=== PATIENT | female | born 1945 | race Caucasian/White ===

== ENCOUNTER → 2019-09-26 13:46 | Outpatient (BNVA) | payer MEDICARE, OTHER, SELFPAY | PROVIDERS: Family Provider Nurse Practitioner; PCP Nurse Practitioner; Visit Provider Specialist | DX: G20 Parkinson's disease (principal); G43.711 Chronic migraine without aura, intractable, with status migrainosus | CPT/HCPCS: 64615; 99214; J0585 ==

== ENCOUNTER 2019-10-09 06:00 | Outpatient (RCR) | payer MEDICARE, OTHER, SELFPAY | END 2019-10-11 23:59 | disposition home or self-care (01) | LOC: TPT 06:00 | PROVIDERS: Family Provider Nurse Practitioner; PCP Nurse Practitioner; Visit Provider Specialist | DX: G20 Parkinson's disease (principal) | CPT/HCPCS: 97110; 97112; 97116; 97161 ==

== ENCOUNTER 2019-10-12 06:00 | Outpatient (RCR) | payer MEDICARE, OTHER, SELFPAY | END 2019-11-09 23:59 | disposition home or self-care (01) | LOC: TPT 06:00 | PROVIDERS: Family Provider Nurse Practitioner; PCP Nurse Practitioner; Visit Provider Specialist | DX: G20 Parkinson's disease (principal) | CPT/HCPCS: 97110 ==

== ENCOUNTER → 2019-10-15 17:00 | Outpatient (BNVA) | payer MEDICARE, OTHER, SELFPAY | PROVIDERS: Family Provider Nurse Practitioner; PCP Nurse Practitioner; Visit Provider Nurse Practitioner | DX: I10 Essential (primary) hypertension (principal); E03.8 Other specified hypothyroidism; E11.9 Type 2 diabetes mellitus without complications; G20 Parkinson's disease; G43.711 Chronic migraine without aura, intractable, with status migrainosus | CPT/HCPCS: 80053; 80061; 83036; 84443; 85025 ==

== ENCOUNTER 2019-11-10 06:00 | Outpatient (RCR) | payer MEDICARE, OTHER, SELFPAY | END 2019-12-10 23:59 | disposition home or self-care (01) | LOC: TPT 06:00 | PROVIDERS: Family Provider Nurse Practitioner; PCP Nurse Practitioner; Visit Provider Specialist | DX: G20 Parkinson's disease (principal) | CPT/HCPCS: 97110; 97140; 97164; 97530 ==

== ENCOUNTER 2019-12-11 06:00 | Outpatient (RCR) | payer MEDICARE, OTHER, SELFPAY | END 2020-01-09 23:59 | disposition home or self-care (01) | LOC: TPT 06:00 | PROVIDERS: Family Provider Nurse Practitioner; PCP Nurse Practitioner; Visit Provider Specialist | DX: G20 Parkinson's disease (principal); G89.4 Chronic pain syndrome | CPT/HCPCS: 97110; 97140 ==

== ENCOUNTER → 2019-12-25 13:04 | Outpatient (BNVA) | payer MEDICARE, OTHER, SELFPAY | PROVIDERS: Family Provider Nurse Practitioner; PCP Nurse Practitioner; Referring Provider Internal Medicine Rheumatology; Visit Provider Internal Medicine Rheumatology | DX: M15.4 Erosive (osteo)arthritis (principal); Z79.899 Other long term (current) drug therapy; Z11.59 Encounter for screening for other viral diseases; Z72.89 Other problems related to lifestyle | CPT/HCPCS: 36415; 80076; 82565; 85025; 85651; 86140; 86480; 86704; 86803; 87340 ==

== ENCOUNTER → 2020-01-20 13:17 | Outpatient (BNVA) | payer MEDICARE, OTHER, SELFPAY | PROVIDERS: Family Provider Nurse Practitioner; PCP Nurse Practitioner; Visit Provider Specialist | DX: G20 Parkinson's disease (principal) | CPT/HCPCS: 99214 ==

== ENCOUNTER 2020-01-20 14:53 | Outpatient (CLI) | payer MEDICARE, OTHER, SELFPAY ==
--- NOTE | 2020-01-20 14:58 | XR_ITS ---
WS: [id number] HAND RIGHT TECHNIQUE: 3 views of the right hand CLINICAL INFORMATION: osteoarthritis COMPARISON: None. FINDINGS: Trapezium appears surgically absent versus posttraumatic deformity and is unchanged.Chondrocalcinosis along the TFCC. Narrowing of the DIP joints with mild subluxation worse involving the second and thi rd DIP joints. This is similar to previous. Mild narrowing of the radiocarpal joint. Scaphoid and lucio ate appear normal. Radiocarpal joint: Mild narrowing XR/XR hand RT min 3V* [id number] IMPRESSION: 1. Trapezium is again not identified and may have been surgically removed. 2. Chondrocalcinosis involving the TFCC is unchanged. 3. Joint space narrowing with mild subluxation involving the second and third DIP joints unchanged from 2014. 4. Osteopenia. 5. Soft tissue edema involving the second third digits.
--- NOTE | 2020-01-20 14:58 | XR_ITS ---
WS: [id number] HAND LEFT TECHNIQUE: 3 views of the left hand CLINICAL INFORMATION: osteoarthritis COMPARISON: None. FINDINGS: Normal metacarpals. Normal MCP joint. Metacarpal heads are normal in appearance. Degenerative arthrit is first CMC and STT. Mild narrowing of the radiocarpal joint. Degenerative narrowing involving the P IP and DIP joints worse involving the second and third DIP joints and fourth and fifth PIP joints wit h mild subluxation. Mild progression at the second and third DIPs compared to previous. XR/XR hand LT min 3V* [id number] IMPRESSION: 1. Degenerative arthritis the first CMC and STT. 2. Joint space narrowing worse involving the second and third DIP joints sligh tly progressed from previous. 3. Prominent joint space narrowing involving the PIP joints worse involving th e fourth and fifth PIP joints unchanged.
--- NOTE | 2020-01-20 14:58 | XR_ITS ---
WS: [id number] KNEE LEFT TECHNIQUE: 3 views of the left knee CLINICAL INFORMATION: osteoarthritis COMPARISON: None. FINDINGS: Normal anatomic alignment. Moderate joint space narrowing medial joint compartment. Chondrocalcinosis .. Hypertrophic changes along the joint line. Hypertrophic patella. Moderate narrowing at the patello femoral articulation. No significant joint effusion. XR/XR knee LT 3V* [id number] IMPRESSION: Moderate joint space narrowing medial joint compartment. Hypertroph ic patella.
--- NOTE | 2020-01-20 14:58 | XR_ITS ---
WS: [id number] FOOT LEFT TECHNIQUE: 3 views of the left foot CLINICAL INFORMATION: osteoarthritis COMPARISON: October 31, 2013. FINDINGS: Osteopenia. Normal anatomic alignment. No acute fractures. Soft tissue edema lower leg and hindfoot. Prominent plantar calcaneal spurring. Mild to moderate degenerative arthritis worse at the first TMT with a small amount of subchondral cystic change. Mild degenerative arthritis involving the ankle mor tise with hypertrophic spurring. Mild narrowing of the third and fourth DIP joints. Small periarticul ar erosions involving the metatarsal heads and first MTP. This appears progressed since 2013 XR/XR foot LT min 3V* [id number] IMPRESSION: 1. Osteopenia with soft tissue edema. 2. Mild degenerative arthritis worse involving the first TMT joint with mild s ubchondral cystic change. 3. Suggestion of small periarticular erosions involving the metatarsal heads a nd the first MTP joints progressed from 2013. 4. No other significant changes.
--- NOTE | 2020-01-20 14:58 | XR_ITS ---
WS: [id number] KNEE RIGHT TECHNIQUE: 3 views of the right knee CLINICAL INFORMATION: osteoarthritis COMPARISON: None. FINDINGS: Normal anatomic alignment.. No evidence of acute fracture dislocation. No significant effusion. Hyper trophic patella. Mild tricompartmental arthritis worse at the patellofemoral articulation. XR/XR knee RT 3V* [id number] IMPRESSION: Mild tricompartmental arthritis worse at the patellofemoral articulation with h ypertrophic patella.
--- NOTE | 2020-01-20 14:58 | XR_ITS ---
WS: [id number] FOOT RIGHT TECHNIQUE: 3 views of the right foot CLINICAL INFORMATION: osteoarthritis COMPARISON: February 12, 2018 FINDINGS: Stable degenerative arthritis with subchondral cystic change involving the navicular cuneiform articu lation and the second, third, and fourth TMT joints. Dorsal navicular spurring. Stable asymmetric maryana rowing of the fifth DIP joint. No significant erosive changes. Osteopenia. Mild soft tissue edema low er leg and hindfoot. Mild soft tissue edema midfoot. XR/XR foot RT min 3V* [id number] IMPRESSION: 1. Stable degenerative arthritis with subchondral cystic change more advanced involving the navicular cuneiform articulation. This is similar to previous. 2. Moderate degenerative arthritis with subchondral cystic change and scleros is at the second third and fourth TMT joints unchanged from previous. 3. Osteopenia. 4. Soft tissue edema.
== END 2020-01-20 14:54 | disposition home or self-care (01) ==
LOC: RADWPI 14:57
PROVIDERS: Family Provider Nurse Practitioner; PCP Nurse Practitioner; Visit Provider Internal Medicine Rheumatology
DX: M19.042 Primary osteoarthritis, left hand (principal); M11.241 Other chondrocalcinosis, right hand; M85.841 Other specified disorders of bone density and structure, right hand; R60.9 Edema, unspecified; M85.872 Other specified disorders of bone density and structure, left ankle and foot; M85.871 Other specified disorders of bone density and structure, right ankle and foot; M19.072 Primary osteoarthritis, left ankle and foot; M19.071 Primary osteoarthritis, right ankle and foot
CPT/HCPCS: 73130; 73562; 73630

== ENCOUNTER → 2020-01-23 12:53 | Outpatient (BNVA) | payer MEDICARE, OTHER, SELFPAY | PROVIDERS: Family Provider Nurse Practitioner; PCP Nurse Practitioner; Visit Provider Specialist | DX: G43.711 Chronic migraine without aura, intractable, with status migrainosus (principal); G20 Parkinson's disease | CPT/HCPCS: 64615; J0585 ==

== ENCOUNTER 2020-03-27 11:54 | Outpatient (CLI) | payer MEDICARE, OTHER, SELFPAY ==
--- NOTE | 2020-03-27 12:00 | XR_ITS ---
WS: [id number] Left rib detail, 4 views, 03/27/2020 Clinical Data: fall, left sided rib pain Comparison: None. Findings: There is an anterior cervical disc fusion. There are epidural leads in the thoracic subarachnoid spac e and a the inferior aspect of the T7 vertebral body. No rib fractures are seen. There is no subcutan eous emphysema or pneumothorax. There is a large amount of fecal material in the splenic flexure. XR/XR ribs LT 2V* [id number] Impression: Negative left rib detail.
== END 2020-03-27 11:55 | disposition home or self-care (01) ==
LOC: RADWPI 11:58
PROVIDERS: Family Provider Nurse Practitioner; PCP Nurse Practitioner; Visit Provider Nurse Practitioner Family
DX: R07.81 Pleurodynia (principal); W19.XXXA Unspecified fall, initial encounter
CPT/HCPCS: 71100

== ENCOUNTER → 2020-04-16 13:02 | Outpatient (BNVA) | payer MEDICARE, OTHER, SELFPAY | PROVIDERS: Family Provider Nurse Practitioner; PCP Nurse Practitioner; Visit Provider Internal Medicine Rheumatology | DX: M15.4 Erosive (osteo)arthritis (principal); G20 Parkinson's disease; I10 Essential (primary) hypertension; Z79.899 Other long term (current) drug therapy; M15.9 Polyosteoarthritis, unspecified; M81.0 Age-related osteoporosis without current pathological fracture; M79.7 Fibromyalgia; E55.9 Vitamin D deficiency, unspecified | CPT/HCPCS: 36415; 80076; 82306; 82565; 85025; 85651; 86140; 99214 ==

== ENCOUNTER → 2020-04-22 12:44 | Outpatient (BNVA) | payer MEDICARE, OTHER, SELFPAY | PROVIDERS: Family Provider Nurse Practitioner; PCP Nurse Practitioner; Visit Provider Specialist | DX: G20 Parkinson's disease (principal); G43.711 Chronic migraine without aura, intractable, with status migrainosus | CPT/HCPCS: 99214 ==

== ENCOUNTER → 2020-11-04 14:16 | Outpatient (BNVA) | payer MEDICARE, OTHER, SELFPAY | PROVIDERS: Family Provider Nurse Practitioner; PCP Nurse Practitioner; Visit Provider Specialist | DX: G20 Parkinson's disease (principal) | CPT/HCPCS: 99214 ==

== ENCOUNTER 2020-11-17 06:35 | Outpatient (CLI) | payer MEDICARE, OTHER, SELFPAY ==
[2020-11-17 10:00] LABS: Basophils # 0.1 10^3/uL (0.0-0.1); Eosinophils # 0.4 10^3/uL (0.0-0.8); Eosinophils % 6.1 %; Hematocrit 36.7 % (37.0-47.0); Hemoglobin 10.7 g/dL (11.5-15.3); Lymphocytes # 1.9 10^3/uL (0.8-4.8); Lymphocytes % 32.9 %; Mean Corpuscular HGB Conc 29.2 g/dL (30.0-36.0); Mean Corpuscular Hemoglobin 24.8 pg (28.0-34.0); Mean Platelet Volume 9.6 fL (7.4-10.4); Monocytes # 0.5 10^3/uL (0.2-0.9); Neutrophils # 2.92 10^3/uL (1.8-7.7); Neutrophils % 50.8 %; Nucleated Red Blood Cells % 0 %; Platelet Count 340 10^3/cmm (130-400); Red Blood Count 4.32 10^6/uL (4.1-5.3); Red Cell Distribution Width 13.8 % (12.1-15.1); White Blood Count 5.8 10^3/uL (4.0-10.0)
[2020-11-17 10:36] LABS: Alanine Aminotransferase < 5 U/L (0-33); Albumin Level 4.4 g/dL (3.5-5.2); Alkaline Phosphatase 144 IU/L (35-105); Aspartate Amino Transferase 15 U/L (0-32); C Reactive Protein 6.6 mg/L (0.0-4.9); Globulin 2.8 g/dL (1.3-4.6); Total Bilirubin 0.3 mg/dL (0.15-1.2); Total Protein 7.2 g/dL (6.6-8.7)
== END 2020-11-17 06:36 | disposition home or self-care (01) ==
LOC: LAB 11-18 08:12
PROVIDERS: Family Provider Nurse Practitioner; PCP Nurse Practitioner; Visit Provider Internal Medicine Rheumatology
DX: Z79.899 Other long term (current) drug therapy (principal)
CPT/HCPCS: 36415; 80076; 82565; 85025; 86140

== ENCOUNTER → 2020-12-03 11:18 | Outpatient (BNVA) | payer MEDICARE, OTHER, SELFPAY | PROVIDERS: Family Provider Nurse Practitioner; PCP Nurse Practitioner; Visit Provider Specialist | DX: G43.709 Chronic migraine without aura, not intractable, without status migrainosus (principal); G20 Parkinson's disease | CPT/HCPCS: 64615; 99213; J0585 ==

== ENCOUNTER → 2021-02-11 14:31 | Outpatient (BNVA) | payer MEDICARE, OTHER, SELFPAY | PROVIDERS: Family Provider Nurse Practitioner; PCP Nurse Practitioner; Visit Provider Orthopaedic Surgery | DX: M54.5 Low back pain (principal); M41.86 Other forms of scoliosis, lumbar region; M51.36 Other intervertebral disc degeneration, lumbar region | CPT/HCPCS: 72110 ==

== ENCOUNTER → 2021-02-15 14:57 | Outpatient (BNVA) | payer MEDICARE, OTHER, SELFPAY | PROVIDERS: Family Provider Nurse Practitioner; PCP Nurse Practitioner; Visit Provider Internal Medicine Rheumatology | DX: M15.9 Polyosteoarthritis, unspecified (principal); M81.0 Age-related osteoporosis without current pathological fracture; Z87.310 Personal history of (healed) osteoporosis fracture; Z79.899 Other long term (current) drug therapy; Z87.39 Personal history of other diseases of the musculoskeletal system and connective tissue; M79.7 Fibromyalgia | CPT/HCPCS: 36415; 80076; 82565; 85025; 86140; 99214 ==

== ENCOUNTER 2021-03-02 08:19 | Outpatient (CLI) | payer MEDICARE, OTHER, SELFPAY ==
--- NOTE | 2021-03-02 09:00 | IR_ITS ---
WS: [id number] MYELOGRAM LUMBAR SPINE Fluoroscopic guided lumbar myelogram CLINICAL INFORMATION: M54.41 - Lumbago with sciatica, right side COMPARISON: None. TECHNIQUE: The procedure, including risks, benefits, and complications, were discussed with the patie nt who agreed to proceed. A timeout was performed to confirm correct patient, procedure, and site. Using sterile technique, the patient was prepped and draped in the usual sterile fashion. After admin istration of local anesthesia using 1% preservative-free lidocaine and using fluoroscopic guidance, a 22-gauge spinal needle was advanced into the subarachnoid space at the L2-3 level. Subsequently 13 c c of Omnipaque 240 was administered into the thecal sac. The needle was removed and hemostasis was ac hieved. Spot fluoroscopic images were obtained. FLUOROSCOPIC TIME: 0.5 minutes. Spot fluoroscopic images demonstrate advanced S-shaped thoracolumbar scoliosis convex left lumbar spi ne. Spinal stimulator. Osteopenia. Cholecystectomy clips. Spinal stimulator electrodes over the T9 ve rtebral body. Grade 1 anterolisthesis L4 on L5 and L5 on S1. Disc space narrowing throughout the lumb ar spine worse at L3-L4 L4-L5 and L5-S1. Grade 1 anterolisthesis L4 on L5 measures 6 mm in neutral and increases to 9 mm in flexion and decrea ses to 8 mm in extension. Please see CT myelogram report for additional detail. IR/IR myelogram sp lumbar [id number] IMPRESSION: 1. Uncomplicated lumbar myelogram. 2. Flexion/extension instability L4-5 described above. 3. Grade 1 anterolisthesis L5 on S1 measuring 5.5 mm without significant insta bility. 4. Disc space narrowing throughout the lumbar spine. 5. S-shaped advanced thoracolumbar scoliosis.
[2021-03-02] MEDS: iohexol 240 mg/mL 50 mL Btl INTRATHECA (09:10)
--- NOTE | 2021-03-02 11:30 | CT_ITS ---
WS: [id number] CT LUMBAR SPINE MYELOGRAM TECHNIQUE: CT myelogram of the lumbar spine with coronal and sagittal reformatted images. CLINICAL INFORMATION: M54.41 - Lumbago with sciatica, right side COMPARISON: 2016 DLP: 1800.[address] scans at [facility] use at least one of these dose optimization techniques: automat ed exposure control; mA and/or kV adjustment per patient size (includes targeted exams where dose is matched to clinical indication); or iterative reconstruction. FINDINGS: S-shaped thoracolumbar scoliosis. This is markedly progressed since 2016. Spinal stimulator extending off the loutn-le-ebif. No high-grade central canal stenosis. Grade 1 anterolisthesis L4 on L5 and L5 on S1. L1-L2: Left foraminal protrusion impinges the exiting left L1 nerve root with moderate left foraminal narrowing. Narrowing of the left subarticular recess. Mild facet arthropathy. Spinal canal is patent . L2-L3: Slight retrolisthesis L2 on L3. Shallow central disc protrusion with slight effacement of the ventral thecal sac. Moderate left foraminal narrowing. Spinal canal is patent. Moderate facet arthrop athy. L3-L4: Mild disc bulging with a tiny shallow central protrusion. Left foraminal protrusion with moder ate left foraminal narrowing. Spinal canal is patent. Mild facet arthropathy. L4-L5: Grade 1 anterolisthesis. Annular bulging with tiny shallow central protrusion. Slight effaceme nt of the ventral thecal sac. Moderate right foraminal narrowing impinges the exiting right L4 nerve root. Left foramen is patent. Moderate facet arthropathy. L5-S1: Grade 1 anterolisthesis. Moderate to advanced facet arthropathy. Right eccentric disc osteophy te complex impinges the exiting right L5 nerve root with moderate right foraminal narrowing. Mild lef t foraminal narrowing. Right renal cyst measuring 2.2 CM. Adrenal glands are normal. CT/CT lumbar spine w con [id number] IMPRESSION: 1. Advanced S-shaped thoracolumbar scoliosis with multilevel degenerative disc disease. Scoliosis has markedly progressed since 2016. 2. Grade 1 anterolisthesis L4 on L5 and L5 on S1. 3. Disc space narrowing worse at L2-L3 and L3-L4. 4. Moderate left foraminal narrowing L1-L2, L2-L3, and L3-L4 5. Moderate right L4-5 foraminal narrowing impinges the exiting right L4 nerve root. 6. Moderate right L5-S1 bony foraminal narrowing impinges the exiting right L5 nerve root. 7. No significant central canal stenosis.
== END 2021-03-02 08:20 | disposition home or self-care (01) ==
PROVIDERS: PCP Nurse Practitioner; Visit Provider Orthopaedic Surgery
DX: M54.41 Lumbago with sciatica, right side (principal); M51.35 Other intervertebral disc degeneration, thoracolumbar region; M41.85 Other forms of scoliosis, thoracolumbar region
CPT/HCPCS: 62304; 72120; 72132; Q9966

== ENCOUNTER → 2021-03-18 12:41 | Outpatient (BNVA) | payer MEDICARE, OTHER, SELFPAY | PROVIDERS: PCP Nurse Practitioner; Visit Provider Specialist | DX: G43.709 Chronic migraine without aura, not intractable, without status migrainosus (principal); G20 Parkinson's disease | CPT/HCPCS: 64615; 99212; J0585 ==

== ENCOUNTER → 2021-03-25 14:32 | Outpatient (BNVA) | payer MEDICARE, OTHER, SELFPAY | PROVIDERS: PCP Nurse Practitioner; Visit Provider Orthopaedic Surgery | DX: Z01.818 Encounter for other preprocedural examination (principal); Z11.52 Encounter for screening for COVID-19; Z20.822 Contact with and (suspected) exposure to COVID-19 | CPT/HCPCS: 87635 ==

== ENCOUNTER → 2021-03-29 15:47 | Outpatient (BNVA) | payer MEDICARE, OTHER, SELFPAY | PROVIDERS: PCP Nurse Practitioner; Visit Provider Nurse Practitioner Family | DX: Z01.818 Encounter for other preprocedural examination (principal); M41.80 Other forms of scoliosis, site unspecified | CPT/HCPCS: 71046 ==

== ENCOUNTER 2021-03-31 12:12 | Inpatient (IN) | payer MEDICARE, OTHER, SELFPAY ==
[2021-03-29 10:27] VITALS: BMI 30.8
--- NOTE | 2021-03-29 10:55 | ANES.PREANE2 ---
Pre-Anesthetic Assessment Pre-Anesthetic Assessment: Height/Weight: Height 1.52 m Weight 71.668 kg Preop Diagnosis: scoliosis Proposed Procedure: Operation Date: 03/31/21 07:00 Proposed Procedures p T9 - pelvis posterior spine fusion 87551, 75932, 72151, 79521, 46422, M41.80(Not Applicable) - Rigo Reyes, DO Familial anesthetic complications: None Social: Social History: No alcohol and No tobacco Exam: Pre-Anes Outpt Exam: alert, oriented x 3, clear to auscultation bilaterally and regular rate & rhythm Airway: Cervical ROM: WNL MP: 2 Dentition: Partials and Other (missing L side back) CV/HEM: CV/HEM: HTN GI: GI: GERD Metabolic: Metabolic: DM (diet controlled) and Thyroid Neuropsych: Comments: parkinson's disease Anesthetic Plan: ASA status: 3 Anesthesia: General Other: A-line Risk of > 500 ml blood loss (7ml/kg in children): Yes, adequate IV access and fluids planned PFSH Anesthesia PFSH: Medical History Acid reflux Chronic low back pain with bilateral sciatica Erosive osteoarthritis of both hands High risk medication use History of calcium pyrophosphate deposition disease (CPPD) Hypertension Hypothyroidism (acquired) Immunization counseling Osteoarthritis, generalized Post-menopausal osteoporosis Type 2 diabetes mellitus without complications Surgical History History of carpal tunnel surgery History of thyroidectomy Hx of cholecystectomy Status post insertion of spinal cord stimulator Family History Other CAD (coronary artery disease) Cancer Diabetes Denies family history of Rheumatoid arthritis Systemic lupus erythematosus (SLE) in adult Social History Second hand smoke exposure: No Smoking risk assessment/counseling performed?: No Alcohol intake: never Desire information about alcohol rehabilitation?: No Counseling given: No Desire information about substance/drug rehabilitation?: No Counseling given: No Marital status: / Number of children: 3 service: No Current occupational status: unemployed and retired History of recent travel: No Current gender identity: Female Data Anesthesia Cardiac Studies: No Data to Display
[2021-03-29 11:04] LABS: Basophils # 0.1 10^3/uL (0.0-0.1); Eosinophils # 0.1 10^3/uL (0.0-0.8); Eosinophils % 2.7 %; Hematocrit 35.9 % (37.0-47.0); Hemoglobin 10.9 g/dL (11.5-15.3); Lymphocytes # 1.1 10^3/uL (0.8-4.8); Lymphocytes % 20.5 %; Mean Corpuscular HGB Conc 30.4 g/dL (30.0-36.0); Mean Corpuscular Hemoglobin 25.1 pg (28.0-34.0); Mean Corpuscular Volume 82.5 fL (81-99); Monocytes # 0.4 10^3/uL (0.2-0.9); Monocytes % 7.5 %; Neutrophils # 3.55 10^3/uL (1.8-7.7); Neutrophils % 67.9 %; Nucleated Red Blood Cells % 0 %; Platelet Count 331 10^3/cmm (130-400); Red Blood Count 4.35 10^6/uL (4.1-5.3); Red Cell Distribution Width 14.8 % (12.1-15.1); White Blood Count 5.2 10^3/uL (4.0-10.0)
[2021-03-29 11:25] LABS: Alanine Aminotransferase < 5 U/L (0-33); Albumin Level 4.4 g/dL (3.5-5.2); Alkaline Phosphatase 116 IU/L (35-105); Anion Gap 13.9 (5-19); Aspartate Amino Transferase 18 U/L (0-32); Blood Urea Nitrogen 13 mg/dL (8-23); Carbon Dioxide 31 mmol/L (22-29); Chloride 99 mmol/L (98-107); Creatinine Clr Calc Pharmacy 51.2061; Globulin 2.7 g/dL (1.3-4.6); Glucose 101 mg/dL (65-115); Osmolality Calculated 288 mOsm/kg (285-295); Potassium 4.9 mmol/L (3.5-5.1); Sodium 139 mmol/L (136-145); Total Bilirubin 0.3 mg/dL (0.15-1.2); Total Protein 7.1 g/dL (6.6-8.7)
[2021-03-31] VITALS (23 sets, daily range): BP systolic 107–171; BP diastolic 61–93; PULSE 63–98; RESP 12–25; TEMP 36.1–36.7; O2SAT 93–100
--- NOTE | 2021-03-31 | XR_ITS ---
WS: [id number] Lumbar spine, C-arm fluoroscopy, 03/31/2021 Clinical Data: Fusion and decompression Comparison: Lumbar spine, 02/11/2021. Findings: There is a multilevel posterior fusion with bilateral pedicle screws extending from the lower thoraci c vertebra into the lumbar vertebra and oblique screws at the SI joints. Multilevel lumbar laminectom y has been performed. XR/XR lumbar spine 1V 90145 Impression: Multilevel posterior thoracic, lumbar and sacral fusion.
--- NOTE | 2021-03-31 | SCC_ITS ---
Procedure Done: 1. T10 - S1 Instrumentation 2. Lumbopelvic fixation 3. T10 -Pelvis fusion 4. L3/4 bilateral laminectomy with partial facetectomy 5. L4/5 bilateral Laminectomy with partial facetectomy 6. computer navigation/ stereotactic of spine 7. Bone marrow aspirate from Right iliac crest through separate incicision 26 seconds of fluoroscopic guidance, for a cumulative dose of 60 mGy, was provided to Dr. Reyes by the radiology department. C-arm images of the lumbar spine were saved for the patient's permanent record. [facility]
[2021-03-31] MEDS: sodium chloride 0.9% 1,000 ML 30 ML IV (06:20)
--- NOTE | 2021-03-31 06:24 | ECG_ITS ---
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 Measurements Intervals Adams Rate: 65 P: 151 MT: 146 QRS: 157 QRSD: 119 T: 140 QT: 369 QTc: 384 Interpretive Statements SINUS RHYTHM MARKED RIGHT AXIS DEVIATION [QRS AXIS > 100] POSSIBLE ANTERIOR MYOCARDIAL INFARCTION [30 ms Q WAVE IN V3/V4, OR R < 0.2 mV IN V4], OF INDETERMINATE AGE BASELINE ARTIFACT No previous ECG available for comparison Electronically Signed On 03-31-2021 18:29:56 CDT by Teja Fuller M.D. [email or web address]
--- NOTE | 2021-03-31 06:48 | W.PM.OPSUD ---
Surgery/Procedure H&P Update DATE OF PROCEDURE: March 31, 2021 DATE H&P PERFORMED: 03/18/21 H&P UPDATE INFORMATION: I have reviewed H&P completed within last 30 days, I have examined patient prior to procedure and No changes to prior documentation PREOP DIAGNOSIS: degenerative scolisis PLANNED PROCEDURE: Operation Date: 03/31/21 07:00 Proposed Procedures p T9 - pelvis posterior spine fusion 82377, 56166, 06054, 28316, 92387, M41.80(Not Applicable) - Rigo Reyes DO
--- NOTE | 2021-03-31 06:55 | P.ANESUD_ITS ---
Pre-Anesthetic Update Pre-Anesthetic Assessment: Date of Surgery/Procedure: 03/31/21 Preop Mercedes gnosis: degenerative scolisis Proposed Procedure: Operation Date: 03/31/21 07:00 Proposed Procedures p T9 - pelvis posterior spine fusion 62791, 72017, 93142, 67086, 21258, M41.80(Not Applicable) - Rigo H Amy, DO Any changes to Pre-Anesthetic Assessment?: No Last Intake: Intake Last Liquid Date 03/30/21 Last Liquid Time 21:30 Last Solid Date 03/30/21 Last Solid Time 21:30 Labs Last 48hrs: Laboratory Results - last 48 hr 03/29/21 03/29/21 10:45 10:45 WBC 5.2 RBC 4.35 Hgb 10.9 L Hct 35.9 L MCV 82.5 MCH 25.1 L MCHC 30.4 RDW 14.8 Plt Count 331 MPV 9.0 Neut % (Auto) 67.9 Lymph % (Auto) 20.5 [place] % (Auto) 7.5 Eos % (Auto) 2.7 Baso % (Auto) 1.0 Neut # (Auto) 3.55 Lymph # (Auto) 1.1 [place] # (Auto) 0.4 Eos # (Auto) 0.1 Baso # (Auto) 0.1 Nucleated RBC % (a uto) 0 Nucleated RBCs # 0.0 Sodium 139 Potassium 4.9 Chloride 99 Carbon Dioxide 31 H Anion Gap 13.9 BUN 13 Creatinine 0.8 GFR Calculation Not Reportable Glucose 101 Calculated Osmolal ity 288 Calcium 9.0 Total Bilirubin 0.3 AST 18 ALT < 5 Alkaline Phosphata se 116 H Total Protein 7.1 Albumin 4.4 Globulin 2.7 Vitals: Temperature 98.1 F 03/31/21 06:02 Temperature Source Temporal Artery S can 03/31/21 06:02 Pulse Rate 67 03/31/21 06:02 Respiratory Rate 18 03/31/21 06:02 Blood Pressure 171/93 03/31/21 06:02 Blood Pressure Libra n 119 03/31/21 06:02 Pulse Oximetry 93 03/31/21 06:02 Oxygen Delivery Me thod 03/31/21 06:02 Exam: Pre-Anes Outpt Exam: alert, oriented x 3, clear to auscultation bilaterally and regular rate & rhythm Cardiac Studies: No Data to Display
[2021-03-31] MEDS: vancomycin 1,000 MG SDV 2000 MG (08:20)
[2021-03-31] MEDS: heparin, porcine 1,000 unit/mL INJ 10 mL 10000 UNIT IRRIGATION (08:21)
[2021-03-31] MEDS: ceFAZolin 1,000 mg SDV 2000 MG (11:07)
--- NOTE | 2021-03-31 11:49 | PC.NURSE ---
1149 SPOKE WITH PATIENT'S DAUGHTER AND GAVE HER AN UPDATE.
--- NOTE | 2021-03-31 12:33 | P.OP_ITS ---
Operative Report Date of procedure: March 31, 2021 Pre-op Diagnosis: degenerative scolisis; lumbar stenosis Post-op diagnosis: same Procedure Done: 1. T10 - S1 Instrumentation 2. Lumbopelvic fixation 3. T10 -Pelvis fusion 4. L3/4 bilateral laminectomy with partial facetectomy 5. L4/5 bilateral Laminectomy with partial facetectomy 6. computer navigation/ stereotactic of spine 7. Bone marrow aspirate from Right iliac crest through separate incicision Surgeon: Rigo Reyes Anesthesia: General Estimated blood loss (mL): 500 Condition: stable Disposition: PACU Procedure: . T10 - S1 Instrumentation 2. Lumbopelvic fixation 3. T10 -Pelvis fusion 4. L3/4 bilateral laminectomy with partial facetectomy 5. L4/5 bilateral Laminectomy with partial facetectomy 6. computer navigation/ stereotactic of spine 7. Bone marrow aspirate from Right iliac crest through separate incicision She was brought to the operative suite. After undergoing anesthesia all areas impingement were well-padded. Patient was then prepped and draped in normal sterile fashion. Neuro monitoring was attached and used throughout the entire case. Subperiosteal dissection was performed from T10 down to the sacral ala out to the transverse processes. Once the exposure was completed. Attention was brought to the nerve stimulator that was present. Wires are intact. We used the remote controller to test the integrity while on the phone with a [employer] product support representative. Leads were found to be intact. Bone marrow aspirate was taken with the [employer] bone marrow aspiration kit. Incision is made in the fascia through the incision. And then the region is still gouge was inserted into the iliac crest. Aspirated and then the blunt gouge was inserted in the region assault kit was inserted into the iliac crest. And then bone marrow was aspirated in 1 mm increments up to 20 cc of blood was aspirated. This blood was then mixed with the osteoamp bone graft as well as the autograft. At this point the fiducial for the computer navigation was attached to the right iliac crest. 2 pins were placed into the iliac crest. The fiducial for the computer navigation was attached to these pins. The fiducial was then linked to the computer. And then the [employer] fluoroscopy machine was used and a 2 spins were done in order to get T10 down to the pelvis. These were linked into the computer navigation. Attention was then brought to placing the pedicle screws. This was done by using the gearshift probe attached to the computer navigation. Followed by a ball feeler followed by navigation screws. Attention was brought to S1 first the S1 screws were placed using the above-described technique. Next attention was brought to the iliac screws which were part of the pelvis. The guide was then placed through the sacral ala through the SI joint into the iliac crest. These were 100 mm x 8.5 screws. Once the screws were completed then attention was brought back to the L5 pedicles in the computer navigated gearshift probe followed by a ball feeler followed by computer navigated screws was performed and this process was repeated from L5 all the way up to T10. Plate and screws bilaterally. After the screws were completed. The microscope was brought in and bilateral laminectomies were performed at L3-L4 and L5. And partial facetectomies were performed bilaterally at L3-4 and L4-5. This was done using a rongeur high- speed drill Kerrison rongeurs and curettes. The ligamentum flavum and the medial aspects of the facets were taken down. There was significant scar tissue from previous surgeries performed. Once this was completed then a nerve hook was used to feel that the nerves were adequately decompressed. After this was completed attention was then brought to placing the rods. The rods were bent and allowed for some reduction of the scoliotic curve. Once as the rods were attached to the screws the scoliosis deformity reduced. The rods were placed bilaterally and caps were placed and then the caps were torqued this was done from T10-11 and S1 including the iliac screws. AP and lateral fluoroscopy ensured that the screws and scoliosis deformity was in good alignment. Wounds were irrigated deep drain was placed vancomycin powder was placed and wound was closed with O stratafix. This was used to close the thoracolumbar fascia. Next attention was brought to the skin which was closed with 2-0 Vicryl and 2 oh strata fix. A 2-0 Vicryl was used to attach to the neurostimulator wire back to soft tissue. And then the skin was closed with 3-0 nylon a Silverlon dressing was used to cover the wound sterilely. And patient was transferred to the PACU in stable condition.
--- NOTE | 2021-03-31 12:54 | P.PCN_ITS ---
PACU note PACU note: VSS, Good respiratory effort, report to INSIDE PHONE SALES
--- NOTE | 2021-03-31 12:54 | PM.PACU ---
PACU note PACU note: VSS, Good respiratory effort, report to CURRICULUM COORDINATOR
--- NOTE | 2021-03-31 13:06 | SUR.PHASEI ---
1255 ART. LINE REMOVED FROM L. WRIST, CATHETER IN TACT, PRESSURE APPLIED
--- NOTE | 2021-03-31 13:08 | SUR.PHASEI ---
1310 ART. LINE SITE NO BLEEDING, PRESSURE DRESSING APPLIED
[2021-03-31] MEDS: HYDROmorphone 1 mg/mL INJ 1 mL 0.25 MG IVP ×2 (13:59→14:09)
[2021-03-31] MEDS: gabapentin 300 mg Capsule 900 MG PO ×2 (15:01→21:38)
[2021-03-31] MEDS: lactated ringers 1,000 ML 90 ML IV (15:02)
[2021-03-31] MEDS: fentaNYL 50 mcg Patch 1 PATCH TRANSDERMA (15:02)
[2021-03-31] MEDS: carbidopa-levodopa 25-100mg Tablet 1 EACH PO ×3 (15:04→21:53)
[2021-03-31] MEDS: morphine 4 mg/mL SDV 1 mL 2 MG IVP (15:42)
--- NOTE | 2021-03-31 15:42 | P.CONIM_ITS ---
Providers/Reason For Consult Consulting Physician/Specialty*: Hospital management Reason for Consult*: Postoperative management Attending Physician: Rigo Reyes DO Primary Care Provider: VALDO Mendoza History of Present Illness History of Present Illness Blossom Velez is a 76 year old female who is status post T10-S1 instrumentation with lumbopelvic fixation bilateral laminectomy with partial facetectomy day 0 who carries history of Parkinson's, hypothyroidism, hypertension has been taken off Metformin. Hospitalist services consulted for postop medical management. At the time of my evaluation patient is stating that her back is hurting/which is excruciating her morphine is inadequate. She is currently saturating above 90% on 2 L nasal cannula with normal hemodynamics, she is endorsing constipation, she normally gets bowel movement once a week. Escalated opioids from morphine to Dilaudid Currently on LR at 90 mL/h, will discontinue diuretics for now Review of Systems Const: Denies: fever(s) Eyes: Denies: change in vision ENMT: Denies: throat pain Card: Denies: chest pain Resp: Denies: dyspnea GI: Denies: abdominal pain : Denies: flank pain Musc: Reports: neck pain and back pain; Denies: joint warmth Skin/Breast: Denies: rash Neuro: Denies: headache(s) Psych: Denies: anxiety Endo: Denies: polyuria Albert/Lymph: Denies: easy bruising All/Imm: Denies: urticaria Meds/Allergies Home Medications and Allergies Home Medications Medication Instructions Recorded Confirmed Last Taken Type donepezil 5 mg tablet 5 mg PO QDAY 09/26/19 03/31/21 03/30/21 History fentanyl 50 mcg/hr transdermal 1 patch TRANSDERMA Q72H 09/26/19 03/31/21 03/30/21 History patch gabapentin 300 mg capsule 900 mg PO TID cap 09/26/19 03/31/21 03/30/21 History onabotulinumtoxinA 100 unit 155 unit SUBCUT .Every 12 weeks 09/26/19 03/29/21 Unknown History solution for injection each oxycodone 30 mg tablet 45 mg PO Q6H PRN tab 09/26/19 03/31/21 03/30/21 History amlodipine 5 mg tablet 5 mg PO QDAY #30 tab 10/18/19 03/31/21 03/31/21 Rx duloxetine 60 mg capsule,delayed 60 mg PO QDAY #30 cap 10/18/19 03/31/21 03/30/21 Rx release levothyroxine 75 mcg tablet 75 mcg PO QDAY #30 tab 10/18/19 03/31/21 03/30/21 Rx carbidopa ER 25 mg-levodopa 100 mg 1 tab PO .HS tab 01/13/20 03/31/21 03/30/21 History tablet,extended release cyclobenzaprine 10 mg tablet 10 mg PO TID PRN 01/13/20 03/31/21 03/30/21 History famotidine 20 mg tablet 20 mg PO BID #60 tab 02/22/20 03/31/21 03/30/21 Rx sennosides 8.6 mg tablet 8.6 mg PO BID #60 tab 05/12/20 03/31/21 03/30/21 Rx furosemide 20 mg tablet 20 mg PO QAM PRN #30 tab 08/28/20 03/31/21 03/30/21 Rx potassium chloride 8 mEq 8 meq PO DAILY PRN #30 cap 08/28/20 03/31/21 03/30/21 Rx capsule,extended release chlorhexidine gluconate 0.12 % 15 ml BUCCAL BID PRN #473 ml 09/01/20 03/31/21 03/30/21 Rx mouthwash cholecalciferol (vitamin D3) 125 5,000 unit PO DAILY cap 10/19/20 03/31/21 03/30/21 History mcg (5,000 unit) capsule Mitigare 0.6 mg capsule 0.6 mg PO DAILY #30 cap NS 02/16/21 03/31/21 03/30/21 Rx hydroxychloroquine 200 mg tablet 200 mg PO BID #60 tab 02/16/21 03/31/21 03/30/21 Rx carbidopa 25 mg-levodopa 100 mg 2 tab PO .COMPLEX #300 tab 03/09/21 03/31/21 03/30/21 Rx tablet [id number] Bone Growth Stimulator #1 ea 03/31/21 Unknown Rx Allergies Allergy/AdvReac Type Severity Reaction Status Date / Time capsaicin [From Capzasin] Allergy RASH Verified 03/29/21 14:34 menthol [From Capzasin] Allergy RASH Verified 03/29/21 14:34 Sulfa (Sulfonamide Allergy RASH Verified 03/29/21 14:34 Antibiotics) Current Medications Current Medications Generic Name Dose Route Start Last Admin Trade Name Earl PRN Reason Stop Dose Admin Carbidopa/Levodopa 1 each 03/31/21 15:00 03/31/21 15:04 Carbidopa-Levodopa 25-100mg Tablet PO 1 each 1500,1800 TITO Administration Fentanyl 1 patch 03/31/21 13:15 03/31/21 15:02 Fentanyl 50 Mcg Patch TRANSDERMA 1 patch Q72H TITO Administration Gabapentin 900 mg 03/31/21 15:00 03/31/21 15:01 Gabapentin 300 Mg Capsule PO 900 mg TID TITO Administration Lactated Ringer's 1,000 mls @ 90 mls/hr 03/31/21 13:00 03/31/21 15:02 Lactated Ringers IV 90 mls/hr .Q11H7M TITO Administration Cefazolin Sodium/Dextrose 2 gm in 50 mls @ 100 mls/hr 03/31/21 15:00 03/31/21 15:33 Kefzol IV 04/01/21 07:29 Infused Q8H TITO Infusion Protocol PFSH Acute PFSH: Medical History (Updated 03/31/21 @ 18:04 by Severo Sterling MD) Acid reflux Chronic low back pain with bilateral sciatica Degenerative scoliosis Erosive osteoarthritis of both hands High risk medication use History of calcium pyrophosphate deposition disease (CPPD) Hypertension Hypothyroidism (acquired) Immunization counseling Osteoarthritis, generalized Post-menopausal osteoporosis Type 2 diabetes mellitus without complications Surgical History History of carpal tunnel surgery History of thyroidectomy Hx of cholecystectomy Status post insertion of spinal cord stimulator Family History Other CAD (coronary artery disease) Cancer Diabetes Denies family history of Rheumatoid arthritis Systemic lupus erythematosus (SLE) in adult Social History Smoking and tobacco status: never smoked Second hand smoke exposure: No Smoking risk assessment/counseling performed?: No Alcohol intake: never Desire information about alcohol rehabilitation?: No Counseling given: No Desire information about substance/drug rehabilitation?: No Counseling given: No Marital status: / Number of children: 3 service: No Current occupational status: unemployed and retired History of recent travel: No Current gender identity: Female Vitals/I&O/Wt Last Vital Signs Temp 97.7 F 03/31/21 14:30 Pulse 72 03/31/21 14:30 Resp 14 03/31/21 14:30 BP 125/68 03/31/21 14:30 Pulse Ox 97 03/31/21 14:30 03/31/21 03/31/21 03/31/21 06:59 14:59 22:59 Intake Total 1350 / 1350 50 / 1400 Output Total 1100 / 1100 Balance 250 / 250 50 / 300 Physical Exam Narrative: EXAM NARRATIVE: elderly female, daughter at the bedside Saturating well on 2 L nasal cannula LR running at 90 cc/h Complaining of back pain She has a binder which is covering her lower chest and abdomen, S1, S2 no murmur appreciated Lower extremities no edema gangrene ulcer Dorsalis pedis pulses 2+ bilaterally 200 cc of blood in the drain Could not hear bowel sounds because of the binder Appropriate mood and affect Urinary Catheter Management^: Lopez: Cath Placed During This Visit: yes Urinary Catheter Date of Insertion: 03/31/21 Urinary Catheter Time of Insertion: 07:15 A&P Assessment and plan (1) Degenerative scoliosis in adult patient: Status: Acute (2) History of calcium pyrophosphate deposition disease (CPPD): Status: Acute (3) Acid reflux: Status: Chronic (4) Hypertension: Status: Chronic (5) Type 2 diabetes mellitus without complications: Status: Chronic Qualifiers: Diabetes mellitus terminal system operator insulin use: without detention use Qualified Code(s): E11.9 - Type 2 diabetes mellitus without complications (6) Hypothyroidism (acquired): Status: Chronic (7) Parkinson disease, symptomatic: Status: Chronic (8) Osteoarthritis, generalized: Status: Acute Additional A&P Information Day 0 status post back surgery Please refer to orthopedic procedure note for details Patient complaining of associating back pain I will discontinue morphine and use Dilaudid which can be escalated depending on her response She gets bowel movement once a week, continue senna S twice a day regimen For anti-inflammatory analgesic response continue ketorolac, will follow up with her kidney function in the morning with BMP Postop care Currently saturating 2 L at risk of hypoventilation because of her back brace, wean off her oxygen, recommend incentive spirometer Type 2 diabetes: Patient is stating that she has been taking of Metformin at home she never used insulin, for her hyperglycemia we will keep sliding scale and consistent carb diet for now Hypertension: Currently normotensive If her systolic blood pressure keeps creeping up we can discontinue fluids or decrease the rate Hold Lasix for now Parkinson's: Continue Parkinson's medications Hypothyroidism: Continue levothyroxine 75 mcg DVT prophylaxis: Dr. Reyes/orthopedic started her on Lovenox Consistent carb diet Full code Consult Attestations Medical Necessity Statement: As per orthopedic Time Spent in Patient Care: 30mins Coding Level of Care Code Acute Hourly Manager for g Fwd Diagnoses Degenerative scoliosis in adult patient M41.80 History of calcium pyrophosphate deposition disease (CPPD) Z87.39 Acid reflux K21.9 Hypertension I10 Type 2 diabetes mellitus without complications E11.9 Diabetes mellitus terminal system operator insulin use: without terminal system operator use Hypothyroidism (acquired) E03.9 Parkinson disease, symptomatic G20 Osteoarthritis, generalized M15.9
[2021-03-31 15:43] LABS: Glucose Point of Care 177 mg/dL (70-110)
[2021-03-31 17:18] LABS: Glucose Point of Care 166 mg/dL (70-110)
--- NOTE | 2021-03-31 17:25 | ANE.PACU2 ---
Inpatient post-anesthesia follow up: Airway intact: Yes Vital signs: Temperature 97.7 F Pulse Rate 89 Respiratory Rate 16 Blood Pressure 125/68 Pulse Oximetry 98 Oxygen Delivery Me thod Nasal Cannula Oxygen Flow Rate 2 Fraction of Inspir ed Oxygen Hydration adequate: Yes Nausea and vomiting: No Pain level: 3 Mental status: Baseline
[2021-03-31] MEDS: docusate sodium 100 mg Capsule PO (17:34)
[2021-03-31] MEDS: sennosides 8.6 mg Tablet PO (17:34)
[2021-03-31] MEDS: hydroxychloroquine 200 mg Tablet PO (17:34)
[2021-03-31] MEDS: famotidine 20 mg Tablet PO (17:34)
[2021-03-31] MEDS: HYDROmorphone 1 mg/mL INJ 1 mL 0.5 MG IVP ×2 (18:19→23:07)
[2021-03-31] MEDS: HYDROcodone-acetaminophen 5-325 mg Tablet PO (20:10)
[2021-03-31 20:59] LABS: Glucose Point of Care 144 mg/dL (70-110)
[2021-04-01] VITALS (11 sets, daily range): BP systolic 110–159; BP diastolic 62–77; PULSE 77–96; RESP 16–18; TEMP 36.7–38.2; O2SAT 92–100
[2021-04-01] MEDS: lactated ringers 1,000 ML 90 ML IV (01:34)
[2021-04-01] MEDS: HYDROcodone-acetaminophen 5-325 mg Tablet PO ×3 (01:35→20:20)
--- NOTE | 2021-04-01 01:38 | PC.NURSE ---
ACTIVITY Pt wanted to try sitting on side of bed. Did very well with assist. Only stayed up for few minutes then ready to lay back down. Spinal precautions with getting up. Has been repositioned several times tonight.
[2021-04-01] MEDS: ketorolac 30 mg/mL INJ IVP ×3 (01:41→22:20)
[2021-04-01 03:25] LABS: Basophils % 0.1 %; Hematocrit 26.6 % (37.0-47.0); Lymphocytes # 0.9 10^3/uL (0.8-4.8); Lymphocytes % 6.3 %; Mean Corpuscular HGB Conc 30.1 g/dL (30.0-36.0); Mean Corpuscular Hemoglobin 25.2 pg (28.0-34.0); Mean Corpuscular Volume 83.6 fL (81-99); Mean Platelet Volume 9.6 fL (7.4-10.4); Monocytes # 0.7 10^3/uL (0.2-0.9); Monocytes % 4.8 %; Neutrophils # 12.39 10^3/uL (1.8-7.7); Neutrophils % 88.2 %; Nucleated Red Blood Cells % 0 %; Platelet Count 298 10^3/cmm (130-400); Red Blood Count 3.18 10^6/uL (4.1-5.3); White Blood Count 14.1 10^3/uL (4.0-10.0)
[2021-04-01 03:42] LABS: Anion Gap 13.7 (5-19); Blood Urea Nitrogen 10 mg/dL (8-23); Calcium 8.3 mg/dL (8.5-10.5); Carbon Dioxide 27 mmol/L (22-29); Chloride 99 mmol/L (98-107); Glucose 122 mg/dL (65-115); Osmolality Calculated 280 mOsm/kg (285-295); Potassium 4.7 mmol/L (3.5-5.1); Sodium 135 mmol/L (136-145)
[2021-04-01] MEDS: HYDROmorphone 1 mg/mL INJ 1 mL 0.5 MG IVP (05:04)
[2021-04-01] MEDS: carbidopa-levodopa 25-100mg Tablet 3 EACH PO (05:08)
[2021-04-01] MEDS: enoxaparin 40 mg/0.4 mL Syringe SUBCUT (05:10)
[2021-04-01 06:47] LABS: Glucose Point of Care 111 mg/dL (70-110)
--- NOTE | 2021-04-01 08:07 | XR_ITS ---
WS: [id number] Portable AP upright chest, 04/01/2021 Clinical Data: sepsis Comparison: PA and lateral chest, 03/29/2021. Findings: No nodules, masses or effusions are seen. The heart is normal. The pulmonary vascularity is not increased. No pneumonia or pneumothorax is seen. The aortic arch and descending aorta show tortu osity. The patient has had an anterior cervical disc fusion. There is a posterior thoracic fusion and upper lumbar fusion with bilateral pedicle screws and connecting rods. The stimulator wires and at t he T10 level. XR/XR chest 1V portable [id number] Impression: Atherosclerosis.
[2021-04-01] MEDS: cholecalciferol (vitamin D3) 5,000 unit Tablet 5000 UNIT PO (08:25)
[2021-04-01] MEDS: levothyroxine 75 mcg Tablet PO (08:25)
[2021-04-01] MEDS: hydroxychloroquine 200 mg Tablet PO ×2 (08:25→17:46)
[2021-04-01] MEDS: carbidopa-levodopa 25-100mg Tablet 2 EACH PO ×2 (08:25→12:10)
[2021-04-01] MEDS: donepezil 5 MG Tablet PO (08:25)
[2021-04-01] MEDS: docusate sodium 100 mg Capsule PO ×2 (08:26→17:46)
[2021-04-01] MEDS: gabapentin 300 mg Capsule 900 MG PO ×3 (08:26→20:19)
[2021-04-01] MEDS: duloxetine 60 mg Capsule PO (08:26)
[2021-04-01] MEDS: colchicine 0.6 mg Tablet PO (08:26)
[2021-04-01] MEDS: famotidine 20 mg Tablet PO ×2 (08:26→17:46)
[2021-04-01] MEDS: sennosides 8.6 mg Tablet PO ×2 (08:26→17:46)
[2021-04-01] MEDS: amlodipine 5 mg Tablet PO (08:26)
--- NOTE | 2021-04-01 08:47 | PM.PN ---
Subjective Subjective: Interval history: Patient is doing better this morning. Pain seems to be controlled. Vitals/I&O/Wt Last Vital Signs Temp 99.4 F 04/01/21 07:26 Pulse 91 04/01/21 07:38 Resp 18 04/01/21 07:34 BP 110/62 04/01/21 07:26 Pulse Ox 96 04/01/21 07:34 03/31/21 04/01/21 04/01/21 22:59 06:59 14:59 Intake Total 50 / 1400 1037 / 2437 Output Total 940 / 2040 635 / 2675 Balance -890 / -640 402 / -238 Physical Exam Narrative: EXAM NARRATIVE: Patient is moving toes up and down. Sensation is intact. Urinary Catheter Management^: Lopez: Cath Placed During This Visit: yes Reason for Continuing Indwelling Catheter: Perioperative Use in Selected Surgeries Urinary Catheter Date of Insertion: 03/31/21 Urinary Catheter Time of Insertion: 07:15 Data : 04/01/21 02:30 04/01/21 02:30 A&P Assessment and plan (1) Encounter for postoperative care: Patient is postop day 1 from a T10 to pelvis fusion. Up with PT. Plan to keep drain and likely discharge drain and Lopez tomorrow. Status: Acute Attestations Medical Necessity Statement*: pain control Coding Level of Care Code Acute Auto Bench Mechanic for Ailyn Gaviria Diagnoses Encounter for postoperative care Z48.89
--- NOTE | 2021-04-01 10:39 | PC.CHAP ---
Pastoral Care Encounter/Spiritual Assessment Type of Contact [] Declined ambulatory service representative visit [] Patient/Family/Request visit [] Outpatient visit [] Follow-up visit [] Physician referral [] Code/Alert [x] Routine visit [] Staff referral [] Actively dying [] Patient sleeping [] Family support [] [] Out of room [] Palliative care [] [x] Receiving care in room [] Pre-surgical visit [] Trauma [] Long length of stay [] ICU visit [] Other: Relational/Emotional Strength [x] Patient feels connected with others/family/visitors/staff [] Distress [] Loneliness/isolation [] Abandonment Spirituality of Patient [x] Person of Nancy [] Attends Restoration of their Nancy [x] Believes in Prayer [] Reads Bible or Congregational materials [] There are Spiritual issues to be addressed Tack Picker Interventions [x] Prayer [x] Active listening [x] Non-anxious presence [x] Spiritual/emotional support [] Crisis/trauma care [x] Spiritual counseling [] Bereavement support [] Provided bereavement packet [] Provided Bible/devotional materials [] Provided toy/stuffed animal, coloring book to patient or family member [] Provided Communion [] Anointing/[place] [] Salvation [x] Completed spiritual assessment [] Other: Impact on Illness or Injury [] Angry [] Fearful [x] Anxious [] Often cries [] Exhaustion [] Unable to work [] Unable to attend quaker [] Unable to walk/stand [] Unable to read [] Unable to drive [] Unable to eat/drink [] Unable to sleep [] Unable to be with family [] Patient intubated [] Other: Summary Surgery on spine and lower back in pain now will be going home soon to family has good attitude Time spent with patient 10 mins
--- NOTE | 2021-04-01 12:38 | P.PN_ITS ---
Subjective Subjective: Interval history: Today patient was seen and examined at the bedside, 100.8 fever at 5 AM however Tylenol was not given and her fever subsided on its own, patient is stating that her room has been really warm and when temperature was checked which was around 70F She has not been coughing her back brace has been removed her oxygen was titrated off today, she is not endorsing any abdominal pain, diarrhea, dysuria she has been using incentive spirometry I have requested blood culture, urine culture, portable chest x-ray today along procalcitonin Leukocytosis 14,000 Noticed drop in hemoglobin 8.0 from 10 estimated blood loss during surgery 500 cc Vitals/I&O/Wt Last Vital Signs Temp 98.2 F 04/01/21 11:22 Pulse 79 04/01/21 11:22 Resp 16 04/01/21 11:22 BP 125/69 04/01/21 11:22 Pulse Ox 92 04/01/21 11:22 03/31/21 04/01/21 04/01/21 22:59 06:59 14:59 Intake Total 50 / 1400 1037 / 2437 180 / 180 Output Total 940 / 2040 635 / 2675 Balance -890 / -640 402 / -238 180 / 180 Physical Exam Narrative: EXAM NARRATIVE: Laying comfortably in her bed She asked me to help her to drink her water No active worsening of Parkinson's symptoms S1, S2 sinus rhythm Saturating well on room air 2 L nasal cannula was removed Abdomen soft bowel sounds sluggish Bilateral breath sounds diminished however no active rhonchi or crackles Bilateral lower extremity sensations intact no vascular compromise able to move her toes Physical therapy in the room [facility] 15 no acute neurological deficits Urinary Catheter Management^: Lopez: Cath Placed During This Visit: yes Reason for Continuing Indwelling Catheter: Perioperative Use in Selected Surgeries Urinary Catheter Date of Insertion: 03/31/21 Urinary Catheter Time of Insertion: 07:15 Data : 04/01/21 02:30 04/01/21 02:30 A&P Assessment and plan (1) Degenerative scoliosis in adult patient: Status: Acute (2) History of calcium pyrophosphate deposition disease (CPPD): Status: Acute (3) Anemia: Status: Acute (4) Fever: Status: Acute Additional A&P Information Degenerative scoliosis status post intervention instrumentation postop day 1 Noticed low-grade temperature 100.8 at 5 AM however Tylenol was not given and her fever subsided, her heart rate does not correlate with her low-grade temperature Patient was endorsing her room being warm this morning, I have requested procalcitonin, blood culture, urine culture, chest x-ray We will hold off on antibiotics for now and monitor her for next 24 hours to validate the accuracy of low-grade temperature noted this morning if she spikes temperature would add vancomycin because of hardware in her back Her leukocytosis could be secondary to pain/stress induced I do not see any blast cells Acute normocytic anemia Hemoglobin dropped to 8 from 10, hemodynamically stable, I would not hold Loveno x for now Estimated blood loss during surgery as per Dr. Reyes 500cc 200 cc in the drain noted as well We will transfuse if hemoglobin less than 7 Hypertension: Currently normotensive Parkinson's medications to be resumed Euglycemia, did not require insulin for correction Continue consistent carb diet To work with physical therapy this morning Consistent carb diet DVT prophylaxis Lovenox Catheter and drain to be removed by Dr. Reyes tomorrow Constipation: Patient gets 1 bowel movement a week she had a bowel movement day before yesterday currently on senna S along opioids Attestations Medical Necessity Statement*: As per orthopedic Coding Level of Care Code Acute Financial Dealers for g Fwd Diagnoses Degenerative scoliosis in adult patient M41.80 History of calcium pyrophosphate deposition disease (CPPD) Z87.39 Anemia D64.9 Fever R50.9
[2021-04-01 12:41] LABS: Glucose Point of Care 109 mg/dL (70-110)
[2021-04-01 13:19] LABS: Procalcitonin 0.05 ng/mL (0-0.5)
[2021-04-01] MEDS: carbidopa-levodopa 25-100mg Tablet 1 EACH PO ×2 (15:23→17:46)
[2021-04-01 16:18] LABS: Hematocrit 22.7 % (37.0-47.0); Hemoglobin 6.9 g/dL (11.5-15.3)
[2021-04-01 16:38] LABS: Glucose Point of Care 112 mg/dL (70-110)
[2021-04-01] MEDS: cyclobenzaprine 10 mg Tablet PO (20:20)
[2021-04-01 20:45] LABS: Glucose Point of Care 102 mg/dL (70-110)
[2021-04-01] MEDS: carbidopa-levodopa ER 50-200mg Tablet 0.5 EACH PO (21:10)
[2021-04-01] MEDS: lactated ringers 1,000 ML 50 ML IV (21:44)
[2021-04-02] VITALS (14 sets, daily range): BP systolic 97–166; BP diastolic 55–78; PULSE 60–90; RESP 14–20; TEMP 36.5–37.1; O2SAT 92–98
[2021-04-02] MEDS: HYDROcodone-acetaminophen 5-325 mg Tablet PO ×3 (03:51→15:45)
[2021-04-02] MEDS: cyclobenzaprine 10 mg Tablet PO (05:05)
[2021-04-02] MEDS: ketorolac 30 mg/mL INJ IVP (05:05)
[2021-04-02 06:24] LABS: Basophils % 0.3 %; Eosinophils % 0.3 %; Hematocrit 22.3 % (37.0-47.0); Hemoglobin 6.8 g/dL (11.5-15.3); Lymphocytes % 11.3 %; Mean Corpuscular HGB Conc 30.5 g/dL (30.0-36.0); Mean Corpuscular Hemoglobin 25.3 pg (28.0-34.0); Mean Corpuscular Volume 82.9 fL (81-99); Mean Platelet Volume 9.5 fL (7.4-10.4); Monocytes # 0.5 10^3/uL (0.2-0.9); Monocytes % 5.5 %; Neutrophils # 7.04 10^3/uL (1.8-7.7); Nucleated Red Blood Cells % 0 %; Platelet Count 219 10^3/cmm (130-400); Red Blood Count 2.69 10^6/uL (4.1-5.3); Red Cell Distribution Width 15.8 % (12.1-15.1); White Blood Count 8.6 10^3/uL (4.0-10.0)
[2021-04-02 06:41] LABS: Glucose Point of Care 101 mg/dL (70-110)
[2021-04-02 06:45] LABS: Anion Gap 11.8 (5-19); Blood Urea Nitrogen 10 mg/dL (8-23); Calcium 7.9 mg/dL (8.5-10.5); Carbon Dioxide 30 mmol/L (22-29); Chloride 104 mmol/L (98-107); Glucose 95 mg/dL (65-115); Osmolality Calculated 293 mOsm/kg (285-295); Potassium 3.8 mmol/L (3.5-5.1); Sodium 142 mmol/L (136-145)
[2021-04-02] MEDS: enoxaparin 40 mg/0.4 mL Syringe SUBCUT (06:52)
[2021-04-02] MEDS: carbidopa-levodopa 25-100mg Tablet 3 EACH PO (06:52)
--- NOTE | 2021-04-02 07:09 | P.PN_ITS ---
Subjective Subjective: Interval history: pain control improved Vitals/I&O/Wt Last Vital Signs Temp 98.3 F 04/02/21 03:25 Pulse 84 04/02/21 03:25 Resp 18 04/02/21 03:25 BP 136/74 04/02/21 03:25 Pulse Ox 95 04/02/21 03:25 04/01/21 04/02/21 04/02/21 22:59 06:59 14:59 Intake Total 1031 / 1331 360 / 1691 Output Total 2150 / 3650 1400 / 5050 Balance -1119 / -2319 -1040 / -3359 Physical Exam Narrative: EXAM NARRATIVE: 01/13 strength Urinary Catheter Management^: Lopez: Cath Placed During This Visit: yes Reason for Continuing Indwelling Catheter: Perioperative Use in Selected Surgeries Urinary Catheter Date of Insertion: 03/31/21 Urinary Catheter Time of Insertion: 07:15 Data : 04/02/21 05:47 04/02/21 05:47 Micro: Microbiology 04/01/21 12:45 Blood Culture - Preliminary Blood SPECIMEN COLLECTED 04/01/21 12:35 Blood Culture - Preliminary Blood SPECIMEN COLLECTED A&P Assessment and plan (1) Encounter for postoperative care: POD#2 [id number] Hb 6.8 but does not appear to be syptomatic Observe today if becomes symptomatic or goes down tomorrow will likely transfuse Up with PT today Status: Acute Attestations Medical Necessity Statement*: pain control low Hb Coding Level of Care Code Acute Telemarketing Supervisor for Raisag Fwd Diagnoses Encounter for postoperative care Z48.89
[2021-04-02] MEDS: cholecalciferol (vitamin D3) 5,000 unit Tablet 5000 UNIT PO (09:51)
[2021-04-02] MEDS: sennosides 8.6 mg Tablet PO ×2 (09:51→17:48)
[2021-04-02] MEDS: gabapentin 300 mg Capsule 900 MG PO ×3 (09:51→21:58)
[2021-04-02] MEDS: duloxetine 60 mg Capsule PO (09:51)
[2021-04-02] MEDS: levothyroxine 75 mcg Tablet PO (09:51)
[2021-04-02] MEDS: amlodipine 5 mg Tablet PO (09:52)
[2021-04-02] MEDS: colchicine 0.6 mg Tablet PO (09:53)
[2021-04-02] MEDS: famotidine 20 mg Tablet PO ×2 (09:53→17:48)
[2021-04-02] MEDS: donepezil 5 MG Tablet PO (09:53)
[2021-04-02] MEDS: docusate sodium 100 mg Capsule PO ×2 (09:53→17:48)
[2021-04-02] MEDS: carbidopa-levodopa 25-100mg Tablet 2 EACH PO ×2 (09:57→13:53)
[2021-04-02] MEDS: hydroxychloroquine 200 mg Tablet PO ×2 (09:59→17:48)
[2021-04-02 11:03] LABS: Glucose Point of Care 97 mg/dL (70-110)
--- NOTE | 2021-04-02 12:04 | PC.NURSE ---
Hemovac removed from medial upper back. Pressure applied to site. No drainage noted. dressing placed over site. Will continue to monitor.
--- NOTE | 2021-04-02 12:21 | PM.PN ---
Subjective Subjective: Interval history: No overnight events, stayed afebrile, hemoglobin 6.8 today, Complaining of soreness in her back otherwise pain reasonably manageable No bowel movement yet Vitals/I&O/Wt Last Vital Signs Temp 97.9 F 04/02/21 08:00 Pulse 88 04/02/21 09:03 Resp 16 04/02/21 09:03 BP 128/61 04/02/21 08:00 Pulse Ox 96 04/02/21 09:03 04/01/21 04/02/21 04/02/21 22:59 06:59 14:59 Intake Total 1031 / 1331 360 / 1691 60 / 60 Output Total 2150 / 3650 1400 / 5050 1610 / 1610 Balance -1119 / -2319 -1040 / -3359 -1550 / -1550 Physical Exam Narrative: EXAM NARRATIVE: Laying comfortably in her bed No active worsening of Parkinson's symptoms S1, S2 sinus rhythm Saturating well on room room air today Abdomen soft bowel sounds sluggish Bilateral breath sounds diminished however no active rhonchi or crackles Bilateral lower extremity sensations intact no vascular compromise able to move her toes Physical therapy in the room [facility], [facility] GCS 15 no acute neurological deficits 100 cc of blood in her drain Urinary Catheter Management^: Lopez: Cath Placed During This Visit: yes, but has since been removed by the nurse Reason for Continuing Indwelling Catheter: Decision to DC Catheter Urinary Catheter Date of Insertion: 03/31/21 Urinary Catheter Time of Insertion: 07:15 Date Urinary Catheter Removed: 04/02/21 Time Urinary Catheter Discontinued: 12:01 Data : 04/02/21 05:47 04/02/21 05:47 Micro: Microbiology 04/01/21 12:20 Urine Culture - Preliminary Urine Catheterized 04/01/21 12:45 Blood Culture - Preliminary Blood SPECIMEN COLLECTED 04/01/21 12:35 Blood Culture - Preliminary Blood SPECIMEN COLLECTED A&P Assessment and plan (1) Anemia: Status: Acute (2) Encounter for postoperative care: Status: Acute (3) Degenerative scoliosis in adult patient: Status: Acute (4) Fever: Status: Acute Additional A&P Information Degenerative scoliosis status post intervention instrumentation postop day 2 Pain manageable with current opioid regimen, she is getting bowel regimen as well she gets 1 bowel movement a week No active nausea, vomiting or abdominal distention Acute normocytic blood loss anemia: Hemodynamically stable will request 1 unit of PRBC Hypertension: Currently normotensive Parkinson's medications to be resumed Euglycemia, did not require insulin for correction Continue consistent carb diet PT evaluation Consistent carb diet DVT prophylaxis Lovenox Catheter and drain to be removed by Dr. Reyes Attestations Medical Necessity Statement*: As per orthopedics Time Spent in Patient Care: 15-30 minutes Coding Level of Care Code Acute Reinforcing Steel Machine Operator for Chg Fwd Diagnoses Anemia D64.9 Encounter for postoperative care Z48.89 Degenerative scoliosis in adult patient M41.80 Fever R50.9
[2021-04-02] MEDS: HYDROmorphone 1 mg/mL INJ 1 mL 0.5 MG IVP ×2 (12:26→23:06)
[2021-04-02] MEDS: carbidopa-levodopa 25-100mg Tablet 1 EACH PO ×2 (15:43→17:48)
[2021-04-02] MEDS: sodium chloride 0.9% (100 ml) 100 ML (17:12)
[2021-04-02 17:15] LABS: Glucose Point of Care 107 mg/dL (70-110)
[2021-04-02 21:44] LABS: Glucose Point of Care 93 mg/dL (70-110)
[2021-04-02] MEDS: oxyCODONE IR 30 mg Tablet PO (21:58)
[2021-04-02] MEDS: carbidopa-levodopa ER 50-200mg Tablet 0.5 EACH PO (23:03)
--- NOTE | 2021-04-02 23:07 | PC.NURSE ---
hydromorphone 0.5 mg given IVP for c/o back pain rated 6.This nurse accidentally discarded the vial during waste of 0.5 mg.
[2021-04-03] VITALS (12 sets, daily range): BP systolic 109–170; BP diastolic 66–81; PULSE 66–84; RESP 12–20; TEMP 36.6–37.3; O2SAT 89–98
[2021-04-03] MEDS: lactated ringers 1,000 ML 50 ML IV (02:37)
[2021-04-03 03:18] LABS: Basophils # 0.1 10^3/uL (0.0-0.1); Basophils % 0.5 %; Eosinophils # 0.1 10^3/uL (0.0-0.8); Eosinophils % 1.1 %; Hemoglobin 9.5 g/dL (11.5-15.3); Mean Corpuscular HGB Conc 31.7 g/dL (30.0-36.0); Mean Corpuscular Hemoglobin 27.1 pg (28.0-34.0); Mean Corpuscular Volume 85.5 fL (81-99); Mean Platelet Volume 9.4 fL (7.4-10.4); Monocytes # 0.7 10^3/uL (0.2-0.9); Monocytes % 6.3 %; Neutrophils # 7.93 10^3/uL (1.8-7.7); Neutrophils % 72.5 %; Nucleated Red Blood Cells % 0.2 %; Platelet Count 259 10^3/cmm (130-400); Red Blood Count 3.51 10^6/uL (4.1-5.3); Red Cell Distribution Width 15.2 % (12.1-15.1)
[2021-04-03] MEDS: oxyCODONE IR 30 mg Tablet PO ×4 (04:55→20:16)
[2021-04-03] MEDS: carbidopa-levodopa 25-100mg Tablet 3 EACH PO (04:55)
[2021-04-03] MEDS: enoxaparin 40 mg/0.4 mL Syringe SUBCUT (04:57)
[2021-04-03] MEDS: cyclobenzaprine 10 mg Tablet PO (05:07)
--- NOTE | 2021-04-03 07:40 | PC.NURSE ---
Dr. Reyes notified staff that when entering room to round with patient he observed patient sitting in floor beside her bed attempting to get back into bed. Patient stated that she had to go to the bathroom and that she felt so good that she thought she could take herself. Dr. Reyes reported that patient was not in any increased amount of pain. Dressing to patients back clean dry and intact.
--- NOTE | 2021-04-03 07:59 | PM.PN ---
Subjective Subjective: Interval history: pt was on the floor when I walked in trying to get back in to bed. She was not in any pain Vitals/I&O/Wt Last Vital Signs Temp 98.4 F 04/03/21 04:05 Pulse 74 04/03/21 04:05 Resp 20 H 04/03/21 04:55 BP 170/81 04/03/21 04:05 Pulse Ox 95 04/03/21 04:05 04/02/21 04/03/21 04/03/21 22:59 06:59 14:59 Intake Total 1160 / 1220 660 / 1880 Output Total 1400 / 3010 350 / 3360 Balance -240 / -1790 310 / -1480 Physical Exam Narrative: EXAM NARRATIVE: 5/5 strength. No pain with lifting her off floor to bed Urinary Catheter Management^: Lopez: Cath Placed During This Visit: yes, but has since been removed by the nurse Reason for Continuing Indwelling Catheter: Decision to DC Catheter Urinary Catheter Date of Insertion: 03/31/21 Urinary Catheter Time of Insertion: 07:15 Date Urinary Catheter Removed: 04/02/21 Time Urinary Catheter Discontinued: 12:01 Data : 04/03/21 02:33 04/02/21 05:47 Micro: Microbiology 04/01/21 12:45 Blood Culture - Preliminary Blood NEGATIVE TO DATE 04/01/21 12:35 Blood Culture - Preliminary Blood NEGATIVE TO DATE 04/01/21 12:20 Urine Culture - Preliminary Urine Catheterized A&P Assessment and plan (1) Encounter for postoperative care: POD#3 Work with PT Status: Acute Attestations Medical Necessity Statement*: patient unable to get herself into bed Coding Level of Care Code Acute Survey Instrument Operator for Ailyn Fwmelinda Diagnoses Encounter for postoperative care Z48.89
[2021-04-03 08:33] LABS: Glucose Point of Care 99 mg/dL (70-110)
[2021-04-03] MEDS: docusate sodium 100 mg Capsule PO ×2 (09:22→17:09)
[2021-04-03] MEDS: sennosides 8.6 mg Tablet PO ×2 (09:22→17:09)
[2021-04-03] MEDS: cholecalciferol (vitamin D3) 5,000 unit Tablet 5000 UNIT PO (09:23)
[2021-04-03] MEDS: levothyroxine 75 mcg Tablet PO (09:23)
[2021-04-03] MEDS: colchicine 0.6 mg Tablet PO (09:23)
[2021-04-03] MEDS: gabapentin 300 mg Capsule 900 MG PO ×3 (09:23→20:17)
[2021-04-03] MEDS: amlodipine 5 mg Tablet PO (09:23)
[2021-04-03] MEDS: donepezil 5 MG Tablet PO (09:23)
[2021-04-03] MEDS: famotidine 20 mg Tablet PO ×2 (09:23→17:09)
[2021-04-03] MEDS: hydroxychloroquine 200 mg Tablet PO ×2 (09:23→17:11)
[2021-04-03] MEDS: duloxetine 60 mg Capsule PO (09:24)
[2021-04-03] MEDS: carbidopa-levodopa 25-100mg Tablet 2 EACH PO ×2 (09:24→12:30)
--- NOTE | 2021-04-03 09:44 | DCPLANNER ---
Pg 1 & 2 of IM presented and explained to pt. signed by the same since one wasn't in the chart. Copy provided.
[2021-04-03 11:04] LABS: Glucose Point of Care 122 mg/dL (70-110)
[2021-04-03] MEDS: fentaNYL 50 mcg Patch 1 PATCH TRANSDERMA (13:25)
--- NOTE | 2021-04-03 14:49 | P.PN_ITS ---
Subjective Subjective: Interval history: Patient was seen and examined this morning, this morning she slid out of bed when she was trying to get up on her own she did not call any nurse nor called for any assistance Dr. Reyes found her by the bedside and helped her back in the bed Hemoglobin stable she has stayed afebrile, daughter at the bedside Vitals/I&O/Wt Last Vital Signs Temp 98.6 F 04/03/21 11:25 Pulse 74 04/03/21 11:41 Resp 18 04/03/21 12:30 BP 125/74 04/03/21 11:25 Pulse Ox 98 04/03/21 11:41 04/02/21 04/03/21 04/03/21 22:59 06:59 14:59 Intake Total 1160 / 1220 660 / 1880 660 / 660 Output Total 1400 / 3010 350 / 3360 Balance -240 / -1790 310 / -1480 660 / 660 Physical Exam Narrative: EXAM NARRATIVE: Elderly female very pleasant cooperative during my evaluation No active back pain No active hematoma or bleeding Lower extremity no edema Abdomen soft bowel sounds sluggish No active chest pain No acute respite distress EOMI, PERRLA Parkinson signs positive Urinary Catheter Management^: Lopez: Cath Placed During This Visit: yes, but has since been removed by the nurse Reason for Continuing Indwelling Catheter: Decision to DC Catheter Urinary Catheter Date of Insertion: 03/31/21 Urinary Catheter Time of Insertion: 07:15 Date Urinary Catheter Removed: 04/02/21 Time Urinary Catheter Discontinued: 12:01 Data : 04/03/21 02:33 04/02/21 05:47 Micro: Microbiology 04/01/21 12:20 Urine Culture - Final Urine Catheterized 04/01/21 12:45 Blood Culture - Preliminary Blood NEGATIVE TO DATE 04/01/21 12:35 Blood Culture - Preliminary Blood NEGATIVE TO DATE A&P Assessment and plan (1) Anemia: Status: Acute (2) Fever: Status: Acute (3) Encounter for postoperative care: Status: Acute (4) Degenerative scoliosis in adult patient: Status: Acute Additional A&P Information Degenerative scoliosis status post intervention: Postop day 3 Patient has been afebrile no signs of sepsis Blood pressure has been stable Euglycemic Status post 1 unit PRBC for acute blood loss anemia, drain has been removed, she has stayed hemodynamically stable Parkinson's meds to be resumed She has to work with physical therapy likely will need rehab Continue DVT prophylaxis [facility] service was consulted for management of medical comorbid conditions, her hemoglobin has stayed stable, no signs of sepsis blood cultures negative her fever was most likely secondary to changes in room temperature, will sign off today, please feel free to call call if you have any questions. Attestations Medical Necessity Statement*: As per Dr. 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
[2021-04-03] MEDS: carbidopa-levodopa 25-100mg Tablet 1 EACH PO ×2 (15:34→17:08)
[2021-04-03 16:58] LABS: Glucose Point of Care 124 mg/dL (70-110)
[2021-04-03] MEDS: carbidopa-levodopa ER 50-200mg Tablet 0.5 EACH PO (20:22)
[2021-04-03 21:10] LABS: Glucose Point of Care 122 mg/dL (70-110)
[2021-04-04] VITALS (9 sets, daily range): BP systolic 119–155; BP diastolic 68–81; PULSE 68–87; RESP 14–18; TEMP 36.9–37.4; O2SAT 90–96
[2021-04-04] MEDS: cyclobenzaprine 10 mg Tablet PO ×2 (02:59→20:24)
[2021-04-04 06:38] LABS: Glucose Point of Care 99 mg/dL (70-110)
[2021-04-04] MEDS: carbidopa-levodopa 25-100mg Tablet 3 EACH PO (08:01)
[2021-04-04] MEDS: enoxaparin 40 mg/0.4 mL Syringe SUBCUT (08:01)
[2021-04-04] MEDS: duloxetine 60 mg Capsule PO (10:02)
[2021-04-04] MEDS: donepezil 5 MG Tablet PO (10:03)
[2021-04-04] MEDS: levothyroxine 75 mcg Tablet PO (10:03)
[2021-04-04] MEDS: docusate sodium 100 mg Capsule PO ×2 (10:03→18:54)
[2021-04-04] MEDS: colchicine 0.6 mg Tablet PO (10:03)
[2021-04-04] MEDS: hydroxychloroquine 200 mg Tablet PO ×2 (10:04→18:57)
[2021-04-04] MEDS: gabapentin 300 mg Capsule 900 MG PO ×3 (10:04→20:27)
[2021-04-04] MEDS: famotidine 20 mg Tablet PO ×2 (10:04→18:54)
[2021-04-04] MEDS: cholecalciferol (vitamin D3) 5,000 unit Tablet 5000 UNIT PO (10:05)
[2021-04-04] MEDS: sennosides 8.6 mg Tablet PO ×2 (10:05→18:54)
[2021-04-04] MEDS: amlodipine 5 mg Tablet PO (10:05)
[2021-04-04] MEDS: carbidopa-levodopa 25-100mg Tablet 2 EACH PO ×2 (10:05→13:58)
[2021-04-04] MEDS: oxyCODONE IR 30 mg Tablet PO ×3 (10:05→22:52)
--- NOTE | 2021-04-04 11:34 | PM.PN ---
Subjective Subjective: Interval history: right Hip Pain radiate down her leg Vitals/I&O/Wt Last Vital Signs Temp 98.8 F 04/04/21 08:00 Pulse 78 04/04/21 08:00 Resp 18 04/04/21 10:05 BP 133/75 04/04/21 08:00 Pulse Ox 93 04/04/21 08:00 04/03/21 04/04/21 04/04/21 22:59 06:59 14:59 Intake Total 120 / 780 150 / 930 240 / 240 Output Total 375 / 375 575 / 950 Balance -255 / 405 -425 / -20 240 / 240 Physical Exam Narrative: EXAM NARRATIVE: in bed this AM comfortable Urinary Catheter Management^: Lopez: Cath Placed During This Visit: yes, but has since been removed by the nurse Reason for Continuing Indwelling Catheter: Decision to DC Catheter Urinary Catheter Date of Insertion: 03/31/21 Urinary Catheter Time of Insertion: 07:15 Date Urinary Catheter Removed: 04/02/21 Time Urinary Catheter Discontinued: 12:01 Data : 04/03/21 02:33 04/02/21 05:47 Micro: Microbiology 04/01/21 12:20 Urine Culture - Final Urine Catheterized A&P Assessment and plan (1) Encounter for postoperative care: POD#4 anticipate D/c Tomorrow Status: Acute Attestations Medical Necessity Statement*: pain control and work with PT Coding Level of Care Code Acute Creative Producer for Ailyn Gaviria Diagnoses Encounter for postoperative care Z48.89
[2021-04-04 12:11] LABS: Glucose Point of Care 107 mg/dL (70-110)
[2021-04-04] MEDS: carbidopa-levodopa 25-100mg Tablet 1 EACH PO ×2 (16:22→18:54)
[2021-04-04 18:12] LABS: Glucose Point of Care 125 mg/dL (70-110)
--- NOTE | 2021-04-04 18:23 | PC.NURSE ---
shift summary pt has had pain mostly in low back and right leg this shift, she has been given PRN PO pain medication that has helped some but still rates pain at a 4 or 5/10. pt has transferred from bed to chair with use of her walker and just standby assist. she has ate all meals in the chair. no other changes this shift.
[2021-04-04] MEDS: carbidopa-levodopa ER 50-200mg Tablet 0.5 EACH PO (20:22)
[2021-04-04 20:43] LABS: Glucose Point of Care 120 mg/dL (70-110)
[2021-04-05] VITALS: BP 129/87; PULSE 71; RESP 17; TEMP 37.1; O2SAT 93
[2021-04-05 04:00] VITALS: BP 170/77; PULSE 82; RESP 17; TEMP 36.6; O2SAT 91
[2021-04-05 05:08] VITALS: RESP 16; O2SAT 96
[2021-04-05] MEDS: oxyCODONE IR 30 mg Tablet PO ×2 (05:08→09:46)
[2021-04-05] MEDS: enoxaparin 40 mg/0.4 mL Syringe SUBCUT (05:08)
[2021-04-05] MEDS: carbidopa-levodopa 25-100mg Tablet 3 EACH PO (05:09)
[2021-04-05 06:38] LABS: Glucose Point of Care 104 mg/dL (70-110)
--- NOTE | 2021-04-05 07:12 | PM.DCS ---
Discharge Providers Date of Admission: 03/31/21 12:12 Date of Discharge: April 05, 2021 Attending Provider at Admission: Rigo Reyes DO Attending Provider at Discharge: Rigo Reyes DO Primary Care Provider: VALDO Mendoza Diagnoses at Discharge Discharge Diagnosis (1) Encounter for postoperative care: Status: Acute Reason for Visit Reason for Visit: T9 - pelvis posterior spine fusion Hospital Course Hospital Course Patient was admitted to the hospital on March 31, 2021. She had a T10 to pelvis posterior spine fusion. As well as decompression at L3-4 and L4-5. Her hemoglobin on postop day #2 dropped to 6.8. She was transfused 1 unit of blood. Her stay was otherwise uncomplicated. She is working with physical therapy. She does have her right leg pain still continued on and off. She will be discharged today on 04/05/2021. Plan is for her to go back to [facility]. Where there is physical therapy. Physical Exam Narrative: EXAM NARRATIVE: resting comfortably in bed Urinary Catheter Management^: Lopez: Cath Placed During This Visit: yes, but has since been removed by the nurse Reason for Continuing Indwelling Catheter: Decision to DC Catheter Urinary Catheter Date of Insertion: 03/31/21 Urinary Catheter Time of Insertion: 07:15 Date Urinary Catheter Removed: 04/02/21 Time Urinary Catheter Discontinued: 12:01 Discharge Data Data Completed and Pending: Completed Studies During Hospitalization Category Date Time Status XR chest 1V arsh ble [id number] Routine Exams 04/01/21 08:07 Completed XR lumbar spine 1 V [id number] Routine Exams 03/31/21 Completed Pending at discharge Category Date Time Status Blood Culture Sta t Lab 04/01/21 12:45 Results Labs from last 24 hours 04/05/21 04/04/21 04/04/21 06:28 20:35 17:14 POC Glucose 104 120 H 125 H 04/04/21 11:35 POC Glucose 107 Vitals: Last Vital Signs Temp 97.9 F 04/05/21 04:00 Pulse 82 04/05/21 04:00 Resp 16 04/05/21 05:08 BP 170/77 04/05/21 04:00 Pulse Ox 96 04/05/21 05:08 Discharge Plan Discharge Patient Disposition: Home Condition: Stable Prescriptions: New oxycodone 30 mg tablet 30 mg PO Q6H PRN (Reason: pain) 10 Days Qty: 60 RF: 0 Continued amlodipine [Norvasc] 5 mg tablet 5 mg PO QDAY Qty: 30 RF: 5 duloxetine [Cymbalta] 60 mg capsule,delayed release(DR/EC) 60 mg PO QDAY Qty: 30 RF: 5 levothyroxine [Synthroid] 75 mcg tablet 75 mcg PO QDAY Qty: 30 RF: 5 carbidopa-levodopa 25-100 mg tablet extended release 1 tab PO .HS RF: 0 cyclobenzaprine 10 mg tablet 10 mg PO TID PRN (Reason: Spasms) RF: 0 furosemide [Lasix] 20 mg tablet 20 mg PO QAM PRN (Reason: edema) Qty: 30 RF: 5 potassium chloride 8 mEq capsule, extended release 8 meq PO DAILY PRN (Reason: use with Lasix) Qty: 30 RF: 5 chlorhexidine gluconate [Peridex] 0.12 % mouthwash 15 ml buccal BID PRN (Reason: dry mouth) Qty: 473 RF: 5 donepezil [Aricept] 5 mg tablet 5 mg PO QDAY RF: 0 gabapentin 300 mg capsule 900 mg PO TID RF: 0 Botox 100 unit recon soln 155 unit SUBCUT .Every 12 weeks RF: 0 oxycodone 30 mg tablet 45 mg PO Q6H PRN (Reason: Pain) RF: 0 fentanyl 50 mcg/hr patch 72 hour 1 patch TRANSDERMA Q72H RF: 0 cholecalciferol (vitamin D3) 125 mcg (5,000 unit) capsule 5,000 unit PO DAILY RF: 0 famotidine 20 mg tablet 20 mg PO BID Qty: 60 RF: 5 sennosides [Senna Laxative] 8.6 mg tablet 8.6 mg PO BID Qty: 60 RF: 0 hydroxychloroquine 200 mg tablet 200 mg PO BID Qty: 60 RF: 4 colchicine [Mitigare] 0.6 mg capsule 0.6 mg PO DAILY Qty: 30 RF: 3 carbidopa-levodopa [Sinemet] 25-100 mg tablet 2 tab PO .COMPLEX Qty: 300 RF: 5 No Action (DME) E0748 Bone Growth Stimulator See Rx Instructions .Route .MEDSUPPLY Qty: 1 RF: 0 Discharge Orders: Discharge Order (Routine); Ordered 04/05/21 Ordered By: Rigo Reyes Discharge Diet: Advance as tolerated Discharge Activity: Limit activity as instructed Patient Instructions: Anemia (DC), Lumbar Spinal Fusion (DC), Opioid Safety Activity Restrictions/Additional Instructions: Thank you for [facility] for your care! The following is a list of instructions, from your provider, to follow upon your discharge to ensure you have the optimal recovery from your recent injury orsurgery. Follow-up care is a gonzalez part of your treatment and safety. Be sure to make and go to all appointments, and call your doctor if you are having problems. If you do not already have a follow-up appointment made, call Dr. Reyes office in the next 1-3 days to make follow up appointment for 1 weeks at [phone]. It is also a good idea to know your test results and keep a list of the medicines you take. Medications will be prescribed for you at your provider's discretion. These medications are to be used as instructed; if they are taken more often that prescribed they will not be refilled early and in most cases will not be refilled at all. > When a refill is needed,you should contact jose garcia 2-3 business days before your prescription runs out. Medications will NOT be refilled by career and technology education teacher providers after hours! > Many pain medications contain Tylenol (Acetaminophen). Do not consume more than 4,000 mg of Tylenol per day in total with any combination ofmedications. > Pain medications can cause constipation. Please use an over the counter stool softener as directed, while taking pain medications. Consulty our local pharmacist with questions or recommendations on stool softeners. If constipation persists, contact our office or your primary care provider. > While under our care,you are not to receive pain medications or other controlled substances from any other provider unless our office is notified and approves. Any attempts to do so will result in refusal to prescribe any further pain medications and possible dismissal from our practice. ? Keep dressin on at all times ? Showering is permitted, however we ask that you do not take a bath, sit in a whirlpool / Jacuzzi, or go swimming for 1 month. For only the first 2 days after surgery, lt wilt be necessary for you to cover your wound/dressing with plastic and tape to keep it dry. ? Walking is essential for the healing process after surgery. We would like you to slowly advance your walking. This should be done on relatively flat clear ground (inside or out) or can be done on a treadmill. Remember this goal does not have to happen all at once, slowly increase your distance and duration. This can be broken into more more than one walk per day as tolerated. Patients who walk as directed after surgery rarely require Physical Therapy. In the unlikely event this issue arises your provider will direct hospital staff to make the appropriate arrangements. ? No lifting over 5 pounds {a gallon of milk) or bending/twisting until further notice. Each of these activities places an unnecessary amount of stress onto the body and can impede the delicate healing process. > Instead of bending at the waist, keep your back straight and bend at the knees. > Instead of twisting your torso, keep your back straight and turn your entire body with your feet. ? You may sleep in any position which makes you comfortable. Many patients find comfort sleeping in a reclining chair. It is not abnormal to have difficulty sleeping for the first several weeks following your surgery. We recommend trying Benadry! or Tylenol PM as directed to help with your sleeping difficulties. Both medications are over the counter and available withoutprescription. ? NO SMOKING!!! Smoking dramatically increases the probability of developing postoperative wound infections. ? Common complaints after lumbar and/or thoracic spine surgery include, but are not limited to: numbness and/or tingling in the legs, pain around the incision and surrounding tissues, muscle spasms, or stiffness of the middle to low back. Contact our office if these symptoms persist or if an acute change occurs. ? No driving for the first 3-5days, and not while taking narcotics until seen at your follow-up appointment and cleared. There are no restrictions for riding on short trips, however if you take a longer trip, arrangements should be made to make regular stops to get out of the vehicle and stretch . ? Swelling is an unfortunate event that will take place with any surgery and is the primary source of your postoperative discomfort. While walking and regular approved activities helps control inflammation, there are additional steps you can take to minimizeswelling. > Place ice over the surgical site and surrounding tissue for twenty minutes, followed by applying a low/medium heat (heating pad) for an additional twenty minutes every 1-2 hours as needed for painrelief. > You may use of over the counter anti-inflammatory medications (Ibuprofen, Motrin, Aleve, Advil, etc) as directed on the package label. These types of medicines wm significantly reduce the amount of discomfort you experience after surgery from swelling. It should be noted that if you have and allergy to any of these medications, or a history of ulcers or kidney disease you should consult you primary care provider prior to starting these medications. Discharge Attestations Time Spent in Discharge Care*: less than 30 min Quality Metrics Clinical Quality Measures During this hospital stay, did patient experience: None Coding Level of Care Code Acute [facility] note Diagnoses Encounter for postoperative care Z48.89
[2021-04-05 07:33] VITALS: BP 136/71; PULSE 74; RESP 17; TEMP 36.8; O2SAT 94
[2021-04-05] MEDS: colchicine 0.6 mg Tablet PO (08:14)
[2021-04-05] MEDS: levothyroxine 75 mcg Tablet PO (08:14)
[2021-04-05] MEDS: donepezil 5 MG Tablet PO (08:14)
[2021-04-05] MEDS: hydroxychloroquine 200 mg Tablet PO (08:14)
[2021-04-05] MEDS: amlodipine 5 mg Tablet PO (08:14)
[2021-04-05] MEDS: docusate sodium 100 mg Capsule PO (08:14)
[2021-04-05] MEDS: carbidopa-levodopa 25-100mg Tablet 2 EACH PO (08:15)
[2021-04-05] MEDS: gabapentin 300 mg Capsule 900 MG PO (08:15)
[2021-04-05] MEDS: sennosides 8.6 mg Tablet PO (08:15)
[2021-04-05] MEDS: duloxetine 60 mg Capsule PO (08:15)
[2021-04-05] MEDS: famotidine 20 mg Tablet PO (08:15)
[2021-04-05] MEDS: cholecalciferol (vitamin D3) 5,000 unit Tablet 5000 UNIT PO (08:16)
--- NOTE | 2021-04-05 09:25 | PC.SOCIAL ---
IMM Updated Updated pt & daughter on Pg 2 IMM. No questions voiced. Provided pt a copy. Initialed, dated, & timed copy in chart.
--- NOTE | 2021-04-05 09:45 | PC.NURSE ---
Sharda meeting with Adrianna Rodas spoke with patient via zoom. Daughter present. Plan discussed. Patient returning to [place] and Daughter will stay with her tonight. If patient doesn't do well she has plan in place to go home with daughter until she is well enough to return to [place]. Adrianna ok with this plan.
[2021-04-05 09:46] VITALS: RESP 18
[2021-04-05] MEDS: cyclobenzaprine 10 mg Tablet PO (09:46)
[2021-04-05 10:13] VITALS: BP 136/71; PULSE 74; RESP 18; TEMP 36.8; O2SAT 94
== END 2021-04-05 10:14 | disposition home or self-care (01) | DRG 458 ==
LOC: MEDSURG 12:14
PROVIDERS: Anesthesiology; Internal Medicine; Admitting Provider Orthopaedic Surgery; PCP Nurse Practitioner; Visit Provider Orthopaedic Surgery
PROC: 0RGA07J Fusion of Thoracolumbar Vertebral Joint with Autologous Tissue Substitute, Posterior Approach, Anterior Column, Open Approach (ICD-10-PCS; principal; 2021-03-31 07:00)
DX: M41.85 Other forms of scoliosis, thoracolumbar region (principal); G89.29 Other chronic pain; K21.9 Gastro-esophageal reflux disease without esophagitis; M15.4 Erosive (osteo)arthritis; I10 Essential (primary) hypertension; M81.0 Age-related osteoporosis without current pathological fracture; E11.9 Type 2 diabetes mellitus without complications; E89.0 Postprocedural hypothyroidism; M43.16 Spondylolisthesis, lumbar region; G20 Parkinson's disease; K59.00 Constipation, unspecified; D64.9 Anemia, unspecified; Z79.891 Long term (current) use of opiate analgesic
CPT/HCPCS: 36415; 36416; 36430; 71045; 71046; 72020; 76000; 80048; 80053; 82962; 84145; 85014; 85018; 85025; 86850; 86900; 86920; 87040; 87086; 93005; 96372; 97116; 97162; 97530; C1713; J0690; J1100; J1170; J1644; J1650; J1815; J1885; J2270; J2370; J2405; J2704; J3010; J3370; J3490; J7030; P9016

== ENCOUNTER → 2021-04-09 13:04 | Day surgery (SDC) | payer MEDICARE, OTHER, SELFPAY ==
[2021-04-09 13:20] VITALS: BP 141/68; PULSE 79; RESP 18; TEMP 36.3; O2SAT 92
--- NOTE | 2021-04-09 15:17 | PC.NURSE ---
1315 Pt to GI lab for soap suds enema until clear. First soap suds enema instilled with 1200 mL fluid. 400 clear fluid returned. Second soap suds enema given with 1000 mL instilled. Pt returned 500 mL brown fluid with dime sized solid stool. Third enema given with 500 mL instilled. 200 mL cloudy brown fluid returned with dime sized solid stool returned. Fourth enema with 500 mL instilled. 100 mL returned very light brown to clear. Abdomen at beginning of enemas round and firm. No change in abdomen following enemas. Bowel sounds before enema noted. Bowel sounds after enema auscultated in all four quadrants. Pt able to pass gas during enemas. Pt denies N/V. 3200 total fluid instilled with 1200 mL out. Pt denies pain or abdominal discomfort. Instructed pt and daughter to return to ER if abdominal pain, N/V, or bleeding noted. Off unit via wheelchair with daughter. Daughter to stay with patient overnight. Tolerated enemas well.
== END ==
PROVIDERS: PCP Nurse Practitioner; Visit Provider Nurse Practitioner Family
DX: K59.00 Constipation, unspecified (principal)
CPT/HCPCS: 45915; J2704

== ENCOUNTER 2021-04-10 09:22 | Emergency (ER) | payer MEDICARE, OTHER, SELFPAY ==
[2021-04-10 09:47] VITALS: BP 132/59; PULSE 71; RESP 18; TEMP 36.7; O2SAT 95; BMI 28.4
--- NOTE | 2021-04-10 09:59 | CTR_ITS ---
PROCEDURE INFORMATION: Exam: CT Abdomen And Pelvis With Contrast Exam date and time: 04/10/2021 9:59 AM Age: 76 years old Clinical indication: Abdominal pain; Colic; Prior surgery; Surgery date: <1 month; Surgery type: Lumbar; Patient HX: No bm for 11 days; Additional info: Abd pain TECHNIQUE: Imaging protocol: Computed tomography of the abdomen and pelvis with contrast. Radiation optimization: All CT scans at this facility use at least one of these dose optimization techniques: automated exposure control; mA and/or kV adjustment per patient size (includes targeted exams where dose is matched to clinical indication); or iterative reconstruction. Contrast material: OMNIPAQUE 300; Contrast volume: 95 ml; Contrast route: INTRAVENOUS (IV); COMPARISON: CT Abdomen/Pelvis Renal [id number] 02/26/2015 8:00 AM RADIATION DOSE METRICS: Total DLP (mGy-cm): 1563.84 FINDINGS: Liver: Normal. No mass. Gallbladder and bile ducts: The gallbladder has been removed. Prominence of the intrahepatic and extrahepatic biliary ducts. This can be seen after cholecystectomy. No radiopaque retained stones are seen. Pancreas: Normal. No ductal dilation. Spleen: Normal. No splenomegaly. Adrenal glands: Normal. No mass. Kidneys and ureters: There are bilateral renal cysts the larger of which measures 2.2 cm in the right kidney. These have benign features. Follow-up is not necessary. Stomach and bowel: There is diverticulosis of the colon without evidence of diverticulitis. Ascending and transverse colon are distended. Descending and sigmoid colon contain bowel however are not distended. There are air-fluid levels in nondistended small bowel loops. Normal variant interposition of the colon anterior to the liver. This can be associated with abdominal pain. Appendix: No evidence of appendicitis. Intraperitoneal space: Unremarkable. No free air. No significant fluid collection. Vasculature: Calcified plaque is present within multiple vascular structures. Lymph nodes: Unremarkable. No enlarged lymph nodes. Urinary bladder: There is a small amount of air in the bladder which may be iatrogenic in nature. Reproductive: The uterus is not visualized, consistent with hysterectomy. Bones/joints: Lower thoracic, lumbar, and lumbosacral posterior fusion changes are present. There is been fusion across the sacroiliac joints as well. Bilateral pedicle screws with intervening stabilization bars are present with resultant artifact obscuring adjacent structures. Mild grade 1 anterolisthesis of L4 on L5 and of L5 on S1. There are degenerative changes in the visualized spine. Soft tissues: There is a stimulator device in the subcutaneous soft tissues of the right buttock. CT/CT abdomen pelvis w con* [id number] IMPRESSION: 1. Findings as stated above are consistent with a distal large bowel obstruction versus ileus. 2. Normal variant interposition of the colon anterior to the liver. This can be associated with abdominal pain. COMMENTS: Consistent with the [employer]'s Incidental Findings Committee white paper (J Am Rebekah Radiol 2018): Any incidental renal lesion less than 1 cm or classified as too small to characterize, or any incidental cystic renal lesion characterized as simple-appearing, is likely benign. No follow-up imaging is recommended for these lesions per consensus recommendations based on imaging criteria. Radiation Dose CTDIVOL = (mGy): DLP = 1563.84 (mGy-cm)
[2021-04-10 10:13] VITALS: BP 114/46; PULSE 69; O2SAT 94
--- NOTE | 2021-04-10 10:13 | ED_ITS ---
HPI - General Adult General: Chief complaint: General Medical Stated complaint: constipation * 10 days. abd pain Time Seen by Provider: 04/10/21 09:33 History of Present Illness: HPI narrative: 76-year-old female presents to the emergency room with abdominal pain and distention. 10 days ago patient had a back surgery she has been on chronic opioids since then and was prior. She has not had a bowel movement since. She not had any vomiting or diarrhea. Onset (ago): day(s) Location: abdomen Severity: moderate Pain Consistency: constant Relieving factors: none Exacerbating factors: immobilization and medication Associated symptoms: Reports decreased appetite, malaise and nausea; Deny chest pain, confusion, cough, diaphoresis, dyspnea, fevers/chills, headache(s), rash, palpitations, seizures, short of breath, syncope, vomiting or weakness Treatments prior to arrival: none Review of Systems Const: Reports: malaise; Denies: diaphoresis ENMT: Denies: throat pain, ear or mastoid pain, nasal discharge or nasal congestion Card: Denies: chest pain, palpitations or syncope Resp: Denies: dyspnea GI: Reports: nausea; Denies: vomiting : Denies: flank pain, difficulty voiding, dysuria, urinary frequency or urinary urgency Skin/Breast: Denies: rash Neuro: Denies: headache(s) or confusion PFSH ED PFSH: Medical History Acid reflux Chronic low back pain with bilateral sciatica Degenerative scoliosis Erosive osteoarthritis of both hands High risk medication use History of calcium pyrophosphate deposition disease (CPPD) Hypertension Hypothyroidism (acquired) Immunization counseling Osteoarthritis, generalized Post-menopausal osteoporosis Type 2 diabetes mellitus without complications Surgical History History of carpal tunnel surgery History of thyroidectomy Hx of cholecystectomy Status post insertion of spinal cord stimulator Family History Other CAD (coronary artery disease) Cancer Diabetes Denies family history of Rheumatoid arthritis Systemic lupus erythematosus (SLE) in adult Social History Smoking and tobacco status: never smoked Second hand smoke exposure: No Smoking risk assessment/counseling performed?: No Alcohol intake: never Desire information about alcohol rehabilitation?: No Counseling given: No Desire information about substance/drug rehabilitation?: No Counseling given: No Marital status: / Number of children: 3 service: No Current occupational status: unemployed and retired History of recent travel: No Current gender identity: Female Physical Exam Const: COMMON NORMALS: no acute distress GENERAL APPEARANCE: cooperative and comfortable ORIENTATION/CONSCIOUSNESS: Yes awake, Yes oriented to person, Yes oriented to place and Yes oriented to time HENMT: COMMON NORMALS: normocephalic, atraumatic and hearing grossly normal bilaterally HEAD & SCALP: normocephalic and atraumatic Neck/C-Spine: COMMON NORMALS: no JVD Resp: COMMON NORMALS: normal respiratory effort, No retractions, No use of accessory muscles and clear to auscultation bilaterally AUSCULTATION: clear to auscultation bilaterally Cardio: COMMON NORMALS: no JVD, regular rate, regular rhythm and No murmurs p resent (Cardio) RATE: regular rate RHYTHM: regular rhythm GI: PALPATION: Yes Tenderness to palpation present (GI) (Moderate diffuse) and No Guarding due to palpation present (GI) Extremity: COMMON NORMALS: normal to inspection, capillary refill normal, no clubbing, cyanosis or edema, no calf tenderness and no pedal edema Neuro: SENSORIUM/ORIENTATION: Yes oriented to person, Yes oriented to place and Yes oriented to time Skin: COMMON NORMALS: no rashes or lesions noted GENERAL SKIN EXAM: no rashes or lesions noted Course Vital Signs: Vital signs: Vital Signs Temperature 98.1 F 04/10/21 09:47 Pulse Rate 66 04/10/21 12:12 Respiratory Rate 16 04/10/21 12:12 Blood Pressure 123/43 04/10/21 12:12 Pulse Oximetry 96 04/10/21 12:12 MDM - General Adult MDM Narrative: Medical decision making narrative: Discussed with Dr. Andres. CT shows large chronic constipation more proximal distally is decompressed there is no sign of a stricture or obstruction however at the site of the stool bolus. After some discussion he recommends mag citrate to stimulate and then at home enemas once the mag citrate begins to precipitate some bowel movement. If she is not improving over the next 2 days we will set her up to see Dr. Aviles in the office to consider possible disimpaction by endoscopy. Lab Data: Labs: Lab Results 04/10/21 04/10/21 Range/Units 10:20 10:20 WBC 8.5 (4.0-10.0) 10^3/ uL RBC 3.32 L (4.1-5.3) 10^6/u L Hgb 8.7 L (11.5-15.3) g/dL Hct 28.3 L (37.0-47.0) % MCV 85.2 (81-99) fL MCH 26.2 L (28.0-34.0) pg MCHC 30.7 (30.0-36.0) g/dL RDW 16.2 H (12.1-15.1) % Plt Count 478 H (130-400) 10^3/c mm MPV 9.2 (7.4-10.4) fL Neut % (Auto) 78.6 % Lymph % (Auto) 10.2 % [place] % (Auto) 6.1 % Eos % (Auto) 3.9 % Baso % (Auto) 0.4 % Neut # (Auto) 6.65 (1.8-7.7) 10^3/u L Lymph # (Auto) 0.9 (0.8-4.8) 10^3/u L [place] # (Auto) 0.5 (0.2-0.9) 10^3/u L Eos # (Auto) 0.3 (0.0-0.8) 10^3/u L Baso # (Auto) 0.0 (0.0-0.1) 10^3/u L Nucleated RBC % (a uto) 0 % Nucleated RBCs # 0.0 /100WBC Sodium 134 L (136-145) mmol/L Potassium 4.5 (3.5-5.1) mmol/L Chloride 92 L (98-107) mmol/L Carbon Dioxide 32 H (22-29) mmol/L Anion Gap 14.5 (5-19) BUN 9 (8-23) mg/dL Creatinine 0.8 (0.5-0.9) mg/dL GFR Calculation Not Reportable Glucose 103 (65-115) mg/dL Calculated Osmolal ity 277 L (285-295) mOsm/k g Calcium 8.5 (8.5-10.5) mg/dL Total Bilirubin 0.3 (0.15-1.2) mg/dL AST 14 (0-32) U/L ALT < 5 (0-33) U/L Alkaline Phosphata se 111 H (35-105) IU/L Total Protein 6.5 L (6.6-8.7) g/dL Albumin 3.7 (3.5-5.2) g/dL Globulin 2.8 (1.3-4.6) g/dL Discharge Plan Discharge Patient Disposition: Home Clinical Impression: Constipation by delayed colonic transit Condition: Stable Prescriptions: New magnesium citrate Solution 150 ml PO BID PRN (Reason: constipation) Qty: 296 RF: 0 No Action amlodipine [Norvasc] 5 mg tablet 5 mg PO QDAY Qty: 30 RF: 5 duloxetine [Cymbalta] 60 mg capsule,delayed release(DR/EC) 60 mg PO QDAY Qty: 30 RF: 5 levothyroxine [Synthroid] 75 mcg tablet 75 mcg PO QDAY Qty: 30 RF: 5 carbidopa-levodopa 25-100 mg tablet extended release 1 tab PO .HS RF: 0 cyclobenzaprine 10 mg tablet 10 mg PO TID PRN (Reason: Spasms) RF: 0 furosemide [Lasix] 20 mg tablet 20 mg PO QAM PRN (Reason: edema) Qty: 30 RF: 5 potassium chloride 8 mEq capsule, extended release 8 meq PO DAILY PRN (Reason: use with Lasix) Qty: 30 RF: 5 chlorhexidine gluconate [Peridex] 0.12 % mouthwash 15 ml buccal BID PRN (Reason: dry mouth) Qty: 473 RF: 5 donepezil [Aricept] 5 mg tablet 5 mg PO QDAY RF: 0 gabapentin 300 mg capsule 900 mg PO TID RF: 0 Botox 100 unit recon soln 155 unit SUBCUT .Every 12 weeks RF: 0 oxycodone 30 mg tablet 45 mg PO Q6H PRN (Reason: Pain) RF: 0 fentanyl 50 mcg/hr patch 72 hour 1 patch TRANSDERMA Q72H RF: 0 cholecalciferol (vitamin D3) 125 mcg (5,000 unit) capsule 5,000 unit PO DAILY RF: 0 famotidine 20 mg tablet 20 mg PO BID Qty: 60 RF: 5 sennosides [Senna Laxative] 8.6 mg tablet 8.6 mg PO BID Qty: 60 RF: 0 hydroxychloroquine 200 mg tablet 200 mg PO BID Qty: 60 RF: 4 colchicine [Mitigare] 0.6 mg capsule 0.6 mg PO DAILY Qty: 30 RF: 3 carbidopa-levodopa [Sinemet] 25-100 mg tablet 2 tab PO .COMPLEX Qty: 300 RF: 5 oxycodone 30 mg tablet 30 mg PO Q6H PRN (Reason: pain) 10 Days Qty: 60 RF: 0 Discharge Orders: Discharge ED (Routine); Ordered 04/10/21 Ordered By: Kyle Mead Referrals: Ethan Lance, [employer] [facility] [Primary Care Provider] - Discharge Diet: Usual diet Discharge Activity: Increase activity as tolerated Patient Instructions: Opioid Safety Activity Restrictions/Additional Instructions: If not improving you will need to see general surgery next week to look at having a disimpaction by colonoscopy Coding Level of Care Code ED 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
[2021-04-10] MEDS: iohexol 300 mg/mL 100 mL Btl IV (11:00)
[2021-04-10 11:23] LABS: Basophils % 0.4 %; Eosinophils # 0.3 10^3/uL (0.0-0.8); Eosinophils % 3.9 %; Hematocrit 28.3 % (37.0-47.0); Hemoglobin 8.7 g/dL (11.5-15.3); Lymphocytes # 0.9 10^3/uL (0.8-4.8); Lymphocytes % 10.2 %; Mean Corpuscular HGB Conc 30.7 g/dL (30.0-36.0); Mean Corpuscular Hemoglobin 26.2 pg (28.0-34.0); Mean Corpuscular Volume 85.2 fL (81-99); Mean Platelet Volume 9.2 fL (7.4-10.4); Monocytes # 0.5 10^3/uL (0.2-0.9); Monocytes % 6.1 %; Neutrophils # 6.65 10^3/uL (1.8-7.7); Neutrophils % 78.6 %; Nucleated Red Blood Cells % 0 %; Platelet Count 478 10^3/cmm (130-400); Red Blood Count 3.32 10^6/uL (4.1-5.3); Red Cell Distribution Width 16.2 % (12.1-15.1); White Blood Count 8.5 10^3/uL (4.0-10.0)
[2021-04-10 11:39] LABS: Alanine Aminotransferase < 5 U/L (0-33); Albumin Level 3.7 g/dL (3.5-5.2); Alkaline Phosphatase 111 IU/L (35-105); Anion Gap 14.5 (5-19); Aspartate Amino Transferase 14 U/L (0-32); Blood Urea Nitrogen 9 mg/dL (8-23); Calcium 8.5 mg/dL (8.5-10.5); Carbon Dioxide 32 mmol/L (22-29); Chloride 92 mmol/L (98-107); Globulin 2.8 g/dL (1.3-4.6); Glucose 103 mg/dL (65-115); Osmolality Calculated 277 mOsm/kg (285-295); Potassium 4.5 mmol/L (3.5-5.1); Sodium 134 mmol/L (136-145); Total Bilirubin 0.3 mg/dL (0.15-1.2); Total Protein 6.5 g/dL (6.6-8.7)
[2021-04-10 12:12] VITALS: BP 123/43; PULSE 66; RESP 16; O2SAT 96
== END 2021-04-10 12:13 | disposition home or self-care (01) ==
PROVIDERS: Emergency Provider Family Medicine; PCP Nurse Practitioner
DX: K59.01 Slow transit constipation (principal); I10 Essential (primary) hypertension; E03.9 Hypothyroidism, unspecified; E11.9 Type 2 diabetes mellitus without complications
CPT/HCPCS: 74177; 80053; 85025; 99283; Q9967

== ENCOUNTER 2021-04-15 03:10 | Inpatient (IN) | payer MEDICARE, OTHER, SELFPAY ==
[2021-04-15] VITALS (55 sets, daily range): BP systolic 118–176; BP diastolic 44–94; PULSE 62–91; RESP 12–28; TEMP 36.2–36.8; O2SAT 91–100; BMI 29.2
--- NOTE | 2021-04-15 | XR_ITS ---
WS: [id number] C-ARM RADIOGRAPHS THORACIC SPINE; 8 IMAGES HISTORY: Spinal fusion COMPARISON: None available. Intraoperative imaging during thoracic spinal fusion. Long vertical rods and pedicle screws have been placed. No hardware fracture. Hardware at T10 is been removed. XR/XR thoracic spine 2V [id number] IMPRESSION: Intraoperative imaging during posterior thoracic fusion.
--- NOTE | 2021-04-15 | SCC_ITS ---
Procedure Done: 1. T4- T11 posterior spine fusion 2. T4- T11 instrumentation 3. T10 lamincetomy with patial facetectomies bilateral 4. T9 laminectomy with partial facetectomies bilateral 5. removal of deep hardware from spine 6. use of allograft 7. use of autograft 8. use of computer navigation/ stereotactic for spine 27 seconds of fluoroscopic guidance, for a cumulative dose of 40.5 mGy, was provided to Dr. Reyes by the radiology department. C-arm images of the thoracic spine were saved for the patient's permanent record. [facility]
--- NOTE | 2021-04-15 03:18 | CTR_ITS ---
PROCEDURE INFORMATION: Exam: CT Lumbar Spine With Contrast Exam date and time: 04/15/2021 3:18 AM Age: 76 years old Clinical indication: Low back pain; Prior surgery; Surgery date: <1 month; Surgery type: Lumbar decompression two weeks ago. Cervical/thoracolumbar fusion. Spinal stimulator. ; Patient HX: Sudden onset of bilateral leg weakness. Lumbar decompression surgery two weeks ago. TECHNIQUE: Imaging protocol: Computed tomography images of the lumbar spine with intravenous contrast. Radiation optimization: All CT scans at this facility use at least one of these dose optimization techniques: automated exposure control; mA and/or kV adjustment per patient size (includes targeted exams where dose is matched to clinical indication); or iterative reconstruction. Contrast material: OMNI 300; Contrast volume: 75 ml; Contrast route: INTRAVENOUS (IV); COMPARISON: CT lumbar spine w con [id number] 03/02/2021 9:36 AM RADIATION DOSE METRICS: Total DLP (mGy-cm): 2494.7 FINDINGS: Tubes, catheters and devices: Spinal stimulator is in place with leads positioned in thoracic spinal canal. Vertebrae: Fracture of lower portion of spinous process of L2. Discs/Spinal canal/Neural foramina: Posterior decompressive surgical changes are seen at L3-L4 and L4-L5. Spinal canal detail partially obscured by hardware artifacts. Visualized portions of spinal canal show no abnormal fluid collections or significant narrowing. Sacrum/coccyx: Interval placement of posterior instrumentation from T10 through S1. No evident hardware disruption. Kidneys and ureters: Intermediate density right renal lesion measuring 2.8 cm is nonspecific. Appendix: Appendicolith is suspected. Soft tissues: Posterior paraspinous fluid is nonspecific and can represent seroma, infection, or pseudomeningocele and measures up to 5.8 cm greatest transverse dimension by 3 cm greatest AP dimension and extends over a superior inferior length of approximately [address]/CT lumbar spine w con [id number] IMPRESSION: Interval placement of posterior hardware T10 through S1 and interval posterior decompression L3-L4 and L4-L5. Posterior paraspinous fluid collection can represent seroma, infection, or pseudomeningocele. Indeterminate right renal lesion; recommend pre and post-contrast renal CT. Essentially nondisplaced fracture of lower spinous process of L2. Additional discussion as above. Radiation Dose CTDIVOL = (mGy): DLP = 2494.7 (mGy-cm)
--- NOTE | 2021-04-15 03:18 | CTR_ITS ---
PROCEDURE INFORMATION: Exam: CT Thoracic Spine With Contrast Exam date and time: 04/15/2021 3:18 AM Age: 76 years old Clinical indication: Pain in thoracic spine; Prior surgery; Surgery date: <1 month; Surgery type: Lumbar decompression two weeks ago. Prior thoracolumbar fusion. Cervical fusion. Spinal stimulator. ; Patient HX: Sudden onset of bilateral leg weakness. Lumbar decompression surgery two weeks ago. ; Additional info: Post op pain TECHNIQUE: Imaging protocol: Computed tomography images of the thoracic spine with intravenous contrast. Radiation optimization: All CT scans at this facility use at least one of these dose optimization techniques: automated exposure control; mA and/or kV adjustment per patient size (includes targeted exams where dose is matched to clinical indication); or iterative reconstruction. Contrast material: OMNI 300; Contrast volume: 75 ml; Contrast route: INTRAVENOUS (IV); COMPARISON: CT abdomen pelvis w con* [id number] 04/10/2021 10:49 AM RADIATION DOSE METRICS: Total DLP (mGy-cm): 1322.31 FINDINGS: Tubes, catheters and devices: Spinal stimulator is in place with leads positioned posteriorly in thoracic spinal canal. Vertebrae: See below. Discs/Spinal canal/Neural foramina: Interval burst type fracture of T10 with retropulsion and spinal canal narrowing suggested. Other bones/joints: Posterior hardware in place from T10 through S1. Soft tissues: Unremarkable. CT/CT thoracic spine w con [id number] IMPRESSION: Interval T10 vertebral body fracture with retropulsion and associated narrowing of spinal canal suggested. Additional details as above. Findings called to ordering physician. Radiation Dose CTDIVOL = (mGy): DLP = 1322.31 (mGy-cm)
--- NOTE | 2021-04-15 03:21 | W.ED.BACK ---
HPI - Back Pain/Injury General: Chief Complaint: Back Pain/Injury Stated Complaint: LEG WEAKNESS Time Seen by Provider: 04/15/21 03:18 Source: patient and EMS Mode of arrival: EMS Limitations: no limitations History of Present Illness: HPI Narrative: 76-year-old female who is here from [facility]. She had a history of scoliosis and had back surgery done on March 31 L3-L4 decompression had a thoracic spine surgery as well. States she been doing well and has been walking. She states that over the last day though she has had increased pain and now states she is not able to walk and has weakness in her legs and numbness. She states she is unable to stand as well. Associated symptoms: Deny abdominal pain, chills, dysuria, fever(s), nausea or vomiting Review of Systems Const: Denies: fever(s), chills, body aches or change in appetite Eyes: Denies: blurry vision or eye discomfort ENMT: Denies: throat pain or dental pain Card: Denies: chest pain Resp: Denies: dyspnea GI: Denies: abdominal pain, nausea, vomiting or diarrhea : Denies: dysuria Musc: Reports: back pain Skin/Breast: Denies: rash Neuro: Reports: numbness in extremities and weakness in extremities Psych: Denies: depression Albert/Lymph: Denies: easy bruising All/Imm: Denies: urticaria PFSH ED PFSH: Medical History Acid reflux Chronic low back pain with bilateral sciatica Degenerative scoliosis Erosive osteoarthritis of both hands High risk medication use History of calcium pyrophosphate deposition disease (CPPD) Hypertension Hypothyroidism (acquired) Immunization counseling Osteoarthritis, generalized Post-menopausal osteoporosis Type 2 diabetes mellitus without complications Surgical History History of carpal tunnel surgery History of thyroidectomy Hx of cholecystectomy Status post insertion of spinal cord stimulator Family History Other CAD (coronary artery disease) Cancer Diabetes Denies family history of Rheumatoid arthritis Systemic lupus erythematosus (SLE) in adult Social History Smoking and tobacco status: never smoked Second hand smoke exposure: No Smoking risk assessment/counseling performed?: No Alcohol intake: never Desire information about alcohol rehabilitation?: No Counseling given: No Desire information about substance/drug rehabilitation?: No Counseling given: No Marital status: / Number of children: 3 service: No Current occupational status: unemployed and retired History of recent travel: No Current gender identity: Female Physical Exam Const: COMMON NORMALS: no acute distress, patient oriented x3 and healthy appearing HENMT: COMMON NORMALS: normocephalic and atraumatic HEAD & SCALP: normocephalic and atraumatic Eye: COMMON NORMALS: Equal, round and reactive pupils present and EOMs intact bilaterally PUPIL: Yes Equal, round and reactive pupils present Neck/C-Spine: COMMON NORMALS: full ROM and supple Chest: COMMONS NORMALS: normal inspection of the chest and normal palpation of entire chest wall Resp: COMMON NORMALS: normal respiratory effort, No retractions, No use of accessory muscles and clear to auscultation bilaterally AUSCULTATION: clear to auscultation bilaterally Cardio: COMMON NORMALS: regular rate, regular rhythm and No murmurs present (Cardio) RATE: regular rate RHYTHM: regular rhythm GI: COMMON NORMALS: Normal to inspection, nondistended, normoactive bowel sounds present, Soft to palpation, non-tender and no masses PALPATION: Yes Soft to palpation Back/Pelvis: OTHER: Slight tenderness along spine incisions clean dry and intact Extremity: COMMON NORMALS: normal to inspection and full ROM Neuro: COMMON NORMALS: patient oriented x3 and no focal motor deficits OTHER: Weakness to bilateral legs with right greater than left does have decreased sensation to her lower extremities as well Psych: COMMON NORMALS: mental status grossly normal, Normal thought process present and cooperative THOUGHT PROCESS: Normal thought process present Skin: COMMON NORMALS: no rashes or lesions noted and no wounds GENERAL SKIN EXAM: no rashes or lesions noted Course Vital Signs: Vital signs: Vital Signs Temperature 97.6 F 04/15/21 03:12 Pulse Rate 84 04/15/21 04:56 Respiratory Rate 18 04/15/21 04:56 Blood Pressure 140/71 04/15/21 04:56 Pulse Oximetry 94 04/15/21 04:56 MDM - Back Pain/Injury MDM Narrative: Medical decision making narrative: Patient presents with onset of lower leg weakness this morning at the senior care. She was unable to ambulate. After just now speaking to her daughter she had slipped into the floor but she states she did not fall hard overnight. Patient's T-spine CT scan shows T10 fracture with retropulsion and narrowing the spinal canal likely causing her weakness. I did speak to Dr. Reyes who is going to take patient to the operating room. I also spoke to hospitalist Dr. Sterling as well to admit patient Lab Data: Labs: Lab Results 04/15/21 04/15/21 04/15/21 Range/Units 04:00 04:00 04:00 WBC 7.2 (4.0-10.0) 10^3/ uL RBC 3.53 L (4.1-5.3) 10^6/u L Hgb 9.2 L (11.5-15.3) g/dL Hct 31.1 L (37.0-47.0) % MCV 88.1 (81-99) fL MCH 26.1 L (28.0-34.0) pg MCHC 29.6 L (30.0-36.0) g/dL RDW 15.9 H (12.1-15.1) % Plt Count 476 H (130-400) 10^3/c mm MPV 8.4 (7.4-10.4) fL Neut % (Auto) 70.5 % Lymph % (Auto) 16.6 % Tyrrell % (Auto) 7.6 % Eos % (Auto) 3.6 % Baso % (Auto) 0.7 % Neut # (Auto) 5.10 (1.8-7.7) 10^3/u L Lymph # (Auto) 1.2 (0.8-4.8) 10^3/u L Tyrrell # (Auto) 0.6 (0.2-0.9) 10^3/u L Eos # (Auto) 0.3 (0.0-0.8) 10^3/u L Baso # (Auto) 0.1 (0.0-0.1) 10^3/u L Nucleated RBC % (a uto) 0 % Nucleated RBCs # 0.0 /100WBC ESR 51 H (0-15) mm/hr Sodium 136 (136-145) mmol/L Potassium 5.0 (3.5-5.1) mmol/L Chloride 96 L (98-107) mmol/L Carbon Dioxide 30 H (22-29) mmol/L Anion Gap 15.0 (5-19) BUN 9 (8-23) mg/dL Creatinine 0.7 (0.5-0.9) mg/dL GFR Calculation Not Reportable Glucose 94 (65-115) mg/dL Calculated Osmolal ity 280 L (285-295) mOsm/k g Calcium 8.6 (8.5-10.5) mg/dL Total Bilirubin 0.2 (0.15-1.2) mg/dL AST 21 (0-32) U/L ALT < 5 (0-33) U/L Alkaline Phosphata se 165 H (35-105) IU/L C-Reactive Protein 28.1 H (0.0-4.9) mg/L Total Protein 5.8 L (6.6-8.7) g/dL Albumin 3.8 (3.5-5.2) g/dL Globulin 2.0 (1.3-4.6) g/dL Imaging Data^: Other CT: Attestation: I personally reviewed and interpreted this imaging study as follows: Radiologist's impression: [address] [place] [address] CT Scan Report Signed Patient: Blossom Velez Unit #: [id number] : 1945 Age/Sex: 76 / F ADM Date: 04/15/21 Loc: ER Room/Bed: Attending Dr: Ordering Provider/Ordering MD: Julia Steiner MD Date of Service: 04/15/21 Procedure(s): CT lumbar spine w con [id number] Accession Number(s): [id number] Report Number: [id number] PROCEDURE INFORMATION: Exam: CT Lumbar Spine With Contrast Exam date and time: 04/15/2021 3:18 AM Age: 76 years old Clinical indication: Low back pain; Prior surgery; Surgery date: <1 month; Surgery type: Lumbar decompression two weeks ago. Cervical/thoracolumbar fusion. Spinal stimulator. ; Patient HX: Sudden onset of bilateral leg weakness. Lumbar decompression surgery two weeks ago. TECHNIQUE: Imaging protocol: Computed tomography images of the lumbar spine with intravenous contrast. Radiation optimization: All CT scans at this facility use at least one of these dose optimization techniques: automated exposure control; mA and/or kV adjustment per patient size (includes targeted exams where dose is matched to clinical indication); or iterative reconstruction. Contrast material: OMNI 300; Contrast volume: 75 ml; Contrast route: INTRAVENOUS (IV); COMPARISON: CT lumbar spine w con [id number] 03/02/2021 9:36 AM RADIATION DOSE METRICS: Total DLP (mGy-cm): 2494.7 FINDINGS: Tubes, catheters and devices: Spinal stimulator is in place with leads positioned in thoracic spinal canal. Vertebrae: Fracture of lower portion of spinous process of L2. Discs/Spinal canal/Neural foramina: Posterior decompressive surgical changes are seen at L3-L4 and L4-L5. Spinal canal detail partially obscured by hardware artifacts. Visualized portions of spinal canal show no abnormal fluid collections or significant narrowing. Sacrum/coccyx: Interval placement of posterior instrumentation from T10 through S1. No evident hardware disruption. Kidneys and ureters: Intermediate density right renal lesion measuring 2.8 cm is nonspecific. Appendix: Appendicolith is suspected. Soft tissues: Posterior paraspinous fluid is nonspecific and can represent seroma, infection, or pseudomeningocele and measures up to 5.8 cm greatest transverse dimension by 3 cm greatest AP dimension and extends over a superior inferior length of approximately [address]/CT lumbar spine w con [id number] IMPRESSION: Interval placement of posterior hardware T10 through S1 and interval posterior decompression L3-L4 and L4-L5. Posterior paraspinous fluid collection can represent seroma, infection, or pseudomeningocele. Indeterminate right renal lesion; recommend pre and post-contrast renal CT. Essentially nondisplaced fracture of lower spinous process of L2. Additional discussion as above. Radiation Dose CTDIVOL = (mGy): DLP = 2494.7 (mGy-cm) Dictated By: Edward Carreno MD Signed By: Edward Carreno MD Signed Date/Time: 04/15/21512 DD/ 0 ct t spine: Radiologist's impression: [address] [place] [address] CT Scan Report Signed Patient: Blossom Velez [id number] : 1945 [id number] Age/Sex: 76 / F ADM Date: 04/15/21 Loc: ER Room/Bed: Attending Dr: Ordering Provider/Ordering MD: Julia Steiner MD Date of Service: 04/15/21 Procedure(s): CT thoracic spine w con [id number] Accession Number(s): [id number] Report Number: [id number] PROCEDURE INFORMATION: Exam: CT Thoracic Spine With Contrast Exam date and time: 04/15/2021 3:18 AM Age: 76 years old Clinical indication: Pain in thoracic spine; Prior surgery; Surgery date: <1 month; Surgery type: Lumbar decompression two weeks ago. Prior thoracolumbar fusion. Cervical fusion. Spinal stimulator. ; Patient HX: Sudden onset of bilateral leg weakness. Lumbar decompression surgery two weeks ago. ; Additional info: Post op pain TECHNIQUE: Imaging protocol: Computed tomography images of the thoracic spine with intravenous contrast. Radiation optimization: All CT scans at this facility use at least one of these dose optimization techniques: automated exposure control; mA and/or kV adjustment per patient size (includes targeted exams where dose is matched to clinical indication); or iterative reconstruction. Contrast material: OMNI 300; Contrast volume: 75 ml; Contrast route: INTRAVENOUS (IV); COMPARISON: CT abdomen pelvis w con* [id number] 04/10/2021 10:49 AM RADIATION DOSE METRICS: Total DLP (mGy-cm): 1322.31 FINDINGS: Tubes, catheters and devices: Spinal stimulator is in place with leads positioned posteriorly in thoracic spinal canal. Vertebrae: See below. Discs/Spinal canal/Neural foramina: Interval burst type fracture of T10 with retropulsion and spinal canal narrowing suggested. Other bones/joints: Posterior hardware in place from T10 through S1. Soft tissues: Unremarkable. CT/CT thoracic spine w con [id number] IMPRESSION: Interval T10 vertebral body fracture with retropulsion and associated narrowing of spinal canal suggested. Additional details as above. Findings called to ordering physician. Radiation Dose CTDIVOL = (mGy): DLP = 1322.31 (mGy-cm) Dictated By: Edward Carreno MD Signed By: Edward Carreno MD Signed Date/Time: 04/15/21526 DD/ 4 Critical Care Time Critical Care Time: Critical Care Time: Yes Total Critical Care Time: 36 Attestation: This case had a high probability of a clinically significant, sudden, or life threatening deterioration of this patient's condition which required my full and direct attention, intervention and personal management. Discharge Plan Discharge Patient Disposition: Admitted As Inpatient Clinical Impression: Bilateral leg weakness Thoracic compression fracture Qualifiers: Encounter type: initial encounter Thoracic vertebra fracture level: T10 Qualified Code(s): S22.070A - Wedge compression fracture of T9-T10 vertebra, initial encounter for closed fracture Condition: Stable Coding Level of Care Code ED Plant Assigner for Raisag Fwd Exam Comprehensive
[2021-04-15] MEDS: ondansetron 2 mg/ML SDV 2 mL 4 MG IVP (03:45)
[2021-04-15] MEDS: HYDROmorphone 1 mg/mL INJ 1 mL IVP (03:50)
[2021-04-15] MEDS: iohexol 300 mg/mL 100 mL Btl IV ×2 (04:15→04:16)
[2021-04-15 04:22] LABS: Basophils # 0.1 10^3/uL (0.0-0.1); Basophils % 0.7 %; Eosinophils # 0.3 10^3/uL (0.0-0.8); Eosinophils % 3.6 %; Hematocrit 31.1 % (37.0-47.0); Hemoglobin 9.2 g/dL (11.5-15.3); Lymphocytes # 1.2 10^3/uL (0.8-4.8); Lymphocytes % 16.6 %; Mean Corpuscular HGB Conc 29.6 g/dL (30.0-36.0); Mean Corpuscular Hemoglobin 26.1 pg (28.0-34.0); Mean Corpuscular Volume 88.1 fL (81-99); Mean Platelet Volume 8.4 fL (7.4-10.4); Monocytes # 0.6 10^3/uL (0.2-0.9); Monocytes % 7.6 %; Neutrophils % 70.5 %; Nucleated Red Blood Cells % 0 %; Platelet Count 476 10^3/cmm (130-400); Red Blood Count 3.53 10^6/uL (4.1-5.3); Red Cell Distribution Width 15.9 % (12.1-15.1); White Blood Count 7.2 10^3/uL (4.0-10.0)
[2021-04-15 04:39] LABS: Alanine Aminotransferase < 5 U/L (0-33); Albumin Level 3.8 g/dL (3.5-5.2); Alkaline Phosphatase 165 IU/L (35-105); Aspartate Amino Transferase 21 U/L (0-32); Blood Urea Nitrogen 9 mg/dL (8-23); C Reactive Protein 28.1 mg/L (0.0-4.9); Calcium 8.6 mg/dL (8.5-10.5); Carbon Dioxide 30 mmol/L (22-29); Chloride 96 mmol/L (98-107); Creatinine Clr Calc Pharmacy 54.0632; Glucose 94 mg/dL (65-115); Osmolality Calculated 280 mOsm/kg (285-295); Sodium 136 mmol/L (136-145); Total Bilirubin 0.2 mg/dL (0.15-1.2); Total Protein 5.8 g/dL (6.6-8.7)
[2021-04-15 05:15] LABS: Erythrocyte Sedimentation Rate 51 mm/hr (0-15)
--- NOTE | 2021-04-15 06:38 | ANES.PREANE2 ---
Pre-Anesthetic Assessment Pre-Anesthetic Assessment: Height/Weight: Height 1.57 m Weight 72.575 kg Temp Pulse Resp BP Pulse Ox 97.6 F 84 18 134/58 94 04/15/21 03:12 04/15/21 04:56 04/15/21 04:56 04/15/21 06:30 04/15/21 04:56 Preop Diagnosis: degenerative scolisis; lumbar stenosis Proposed Procedure: Operation Date: 04/15/21 07:30 Proposed Procedures p Posterior Lumbar Interbody Fusion(Not Applicable) - Rigo Reyes DO Familial anesthetic complications: None Was Beta Celestino taken within 24 hours: N/A Was Clonidine taken within 24 hours: N/A Last intake: > 8 hrs Social: Social History: No alcohol and No tobacco Exam: Pre-Anes Outpt Exam: alert, oriented x 3, clear to auscultation bilaterally and regular rate & rhythm Airway: Cervical ROM: WNL MP: 3 Dentition: Partials Additional comments: L back missing CV/HEM: CV/HEM: HTN Metabolic: Metabolic: DM Neuropsych: Neuropsych: Neuropathy Comments: dennys's Anesthetic Plan: ASA status: 3E Anesthesia: General Risk of > 500 ml blood loss (7ml/kg in children): No PFSH Anesthesia PFSH: Medical History Acid reflux Chronic low back pain with bilateral sciatica Degenerative scoliosis Erosive osteoarthritis of both hands High risk medication use History of calcium pyrophosphate deposition disease (CPPD) Hypertension Hypothyroidism (acquired) Immunization counseling Osteoarthritis, generalized Post-menopausal osteoporosis Type 2 diabetes mellitus without complications Surgical History History of carpal tunnel surgery History of thyroidectomy Hx of cholecystectomy Status post insertion of spinal cord stimulator Family History Other CAD (coronary artery disease) Cancer Diabetes Denies family history of Rheumatoid arthritis Systemic lupus erythematosus (SLE) in adult Social History Smoking and tobacco status: never smoked Second hand smoke exposure: No Smoking risk assessment/counseling performed?: No Alcohol intake: never Desire information about alcohol rehabilitation?: No Counseling given: No Desire information about substance/drug rehabilitation?: No Counseling given: No Marital status: / Number of children: 3 service: No Current occupational status: unemployed and retired History of recent travel: No Current gender identity: Female Data Anesthesia CBC & Chem 7: 04/15/21 04:00 04/15/21 04:00 Other Labs: Laboratory Results - last 48 hr 04/15/21 04/15/21 04/15/21 04:00 04:00 04:00 WBC 7.2 RBC 3.53 L Hgb 9.2 L Hct 31.1 L MCV 88.1 MCH 26.1 L MCHC 29.6 L RDW 15.9 H Plt Count 476 H MPV 8.4 Neut % (Auto) 70.5 Lymph % (Auto) 16.6 Hutchinson % (Auto) 7.6 Eos % (Auto) 3.6 Baso % (Auto) 0.7 Neut # (Auto) 5.10 Lymph # (Auto) 1.2 Hutchinson # (Auto) 0.6 Eos # (Auto) 0.3 Baso # (Auto) 0.1 Nucleated RBC % (auto) 0 Nucleated RBCs # 0.0 ESR 51 H Sodium 136 Potassium 5.0 Chloride 96 L Carbon Dioxide 30 H Anion Gap 15.0 BUN 9 Creatinine 0.7 GFR Calculation Not Reportable Glucose 94 Calculated Osmolality 280 L Calcium 8.6 Total Bilirubin 0.2 AST 21 ALT < 5 Alkaline Phosphatase 165 H C-Reactive Protein 28.1 H Total Protein 5.8 L Albumin 3.8 Globulin 2.0 Cardiac Studies: No Data to Display
--- NOTE | 2021-04-15 06:44 | W.PM.OPSUD ---
Surgery/Procedure H&P Update DATE OF PROCEDURE: April 15, 2021 DATE H&P PERFORMED: 04/15/21 PREOP DIAGNOSIS: degenerative scolisis; lumbar stenosis PLANNED PROCEDURE: Operation Date: 04/15/21 07:30 Proposed Procedures p Posterior Lumbar Interbody Fusion(Not Applicable) - Rigo Reyes DO
--- NOTE | 2021-04-15 06:49 | P.HP_ITS ---
Providers/Chief Complaint Primary Care Provider: LACHELLE MendozaC Chief Complaint: LEG WEAKNESS History of Present Illness Blossom Velez is a 76 year old female admitted through the ER. Patient had a previous T10 to pelvis fusion. Looks like she is collapsed through her T10 vertebrae with slight retropulsion likely hematoma causing compression on the vertebrae. Patient stated yesterday she could not move her right side. Today she is able to move her toes and does have sensation bilaterally. My plan is to take her to the operating room this morning emergently and decompression extend the fusion. Review of Systems Const: Denies: fever(s), chills, body aches or change in appetite Eyes: Denies: blurry vision or eye discomfort ENMT: Denies: throat pain or dental pain Card: Denies: chest pain Resp: Denies: dyspnea GI: Denies: abdominal pain, nausea, vomiting or diarrhea : Denies: dysuria Musc: Reports: back pain; Denies: joint warmth Skin/Breast: Reports: surgical incision; Denies: rash Neuro: Reports: numbness in extremities and weakness in extremities Psych: Denies: depression Albert/Lymph: Denies: easy bruising All/Imm: Denies: urticaria Medications/Allergies Home Medications Medication Instructions Recorded Confirmed Last Taken Type donepezil 5 mg tablet 5 mg PO QDAY 09/26/19 04/13/21 04/08/21 History fentanyl 50 mcg/hr transdermal 1 patch TRANSDERMA Q72H 09/26/19 04/13/21 04/09/21 History patch gabapentin 300 mg capsule 900 mg PO TID cap 09/26/19 04/13/21 04/08/21 History onabotulinumtoxinA 100 unit 155 unit SUBCUT .Every 12 weeks 09/26/19 04/13/21 04/08/21 History solution for injection each oxycodone 30 mg tablet 45 mg PO Q6H PRN tab 09/26/19 04/13/21 04/08/21 History amlodipine 5 mg tablet 5 mg PO QDAY #30 tab 10/18/19 04/13/21 04/08/21 Rx duloxetine 60 mg capsule,delayed 60 mg PO QDAY #30 cap 10/18/19 04/13/21 04/08/21 Rx release levothyroxine 75 mcg tablet 75 mcg PO QDAY #30 tab 10/18/19 04/13/21 04/08/21 Rx carbidopa ER 25 mg-levodopa 100 mg 1 tab PO .HS tab 01/13/20 04/13/21 04/08/21 History tablet,extended release cyclobenzaprine 10 mg tablet 10 mg PO TID PRN 01/13/20 04/13/21 04/08/21 History famotidine 20 mg tablet 20 mg PO BID #60 tab 02/22/20 04/13/21 04/08/21 Rx sennosides 8.6 mg tablet 8.6 mg PO BID #60 tab 05/12/20 04/13/21 04/08/21 Rx furosemide 20 mg tablet 20 mg PO QAM PRN #30 tab 08/28/20 04/13/21 04/08/21 Rx potassium chloride 8 mEq 8 meq PO DAILY PRN #30 cap 08/28/20 04/13/21 04/08/21 Rx capsule,extended release chlorhexidine gluconate 0.12 % 15 ml BUCCAL BID PRN #473 ml 09/01/20 04/13/21 04/08/21 Rx mouthwash cholecalciferol (vitamin D3) 125 5,000 unit PO DAILY cap 10/19/20 04/13/21 04/08/21 History mcg (5,000 unit) capsule Mitigare 0.6 mg capsule 0.6 mg PO DAILY #30 cap NS 02/16/21 04/13/21 04/08/21 Rx hydroxychloroquine 200 mg tablet 200 mg PO BID #60 tab 02/16/21 04/13/21 04/08/21 Rx carbidopa 25 mg-levodopa 100 mg 2 tab PO .COMPLEX #300 tab 03/09/21 04/13/21 04/08/21 Rx tablet magnesium citrate 150 ml PO BID PRN #296 ml 04/10/21 04/13/21 Unknown Rx Allergies Allergy/AdvReac Type Severity Reaction Status Date / Time capsaicin [From Capzasin] Allergy RASH Verified 04/15/21 03:18 menthol [From Capzasin] Allergy RASH Verified 04/15/21 03:18 Sulfa (Sulfonamide Allergy RASH Verified 04/15/21 03:18 Antibiotics) PFSH Acute PFSH: Medical History Acid reflux Chronic low back pain with bilateral sciatica Degenerative scoliosis Erosive osteoarthritis of both hands High risk medication use History of calcium pyrophosphate deposition disease (CPPD) Hypertension Hypothyroidism (acquired) Immunization counseling Osteoarthritis, generalized Post-menopausal osteoporosis Type 2 diabetes mellitus without complications Surgical History History of carpal tunnel surgery History of thyroidectomy Hx of cholecystectomy Status post insertion of spinal cord stimulator Family History Other CAD (coronary artery disease) Cancer Diabetes Denies family history of Rheumatoid arthritis Systemic lupus erythematosus (SLE) in adult Social History Smoking and tobacco status: never smoked Second hand smoke exposure: No Smoking risk assessment/counseling performed?: No Alcohol intake: never Desire information about alcohol rehabilitation?: No Counseling given: No Desire information about substance/drug rehabilitation?: No Counseling given: No Marital status: / Number of children: 3 service: No Current occupational status: unemployed and retired History of recent travel: No Current gender identity: Female Vitals/I&O/Wt Last Vital Signs Temp 97.6 F 04/15/21 03:12 Pulse 84 04/15/21 04:56 Resp 18 04/15/21 04:56 BP 134/58 04/15/21 06:36 Pulse Ox 94 04/15/21 04:56 Weight last 48 hrs Weight 160 lb Physical Exam Narrative: EXAM NARRATIVE: Patient is able to move her toes bilaterally. And has sensation intact. She does have slight weakness on the right side compared to left however it is minimal compared to which she stated was before. Urinary Catheter Management^: Lopez: Cath Placed During This Visit: yes Reason for Continuing Indwelling Catheter: Perioperative Use in Selected Surgeries Urinary Catheter Date of Insertion: 04/15/21 Urinary Catheter Time of Insertion: 04:57 Data : 04/15/21 04:00 04/15/21 04:00 A&P Assessment and plan (1) Thoracic compression fracture: T4- previous construct fusion emergently Status: Acute Qualifiers: Encounter type: initial encounter Thoracic vertebra fracture level: T10 Qualified Code(s): S22.070A - Wedge compression fracture of T9-T10 vertebra, initial encounter for closed fracture (2) Bilateral leg weakness: Status: Acute Attestations Medical Necessity Statement*: spinal cord injury Coding Level of Care Code Acute Hogshead Dumper for Chg Fwd Diagnoses Thoracic compression fracture S22.070A Encounter type: initial encounter Thoracic vertebra fracture level: T10 Bilateral leg weakness R29.898
[2021-04-15] MEDS: sodium chloride 0.9% 1,000 ML 30 ML IV (06:59)
[2021-04-15] MEDS: vancomycin 1,000 MG in sodium chloride 0.9% 250 ML 250 MG IV ×2 (06:59→18:13)
[2021-04-15] MEDS: vancomycin 1,000 MG SDV 1000 MG XX ×3 (09:04→11:55)
[2021-04-15] MEDS: heparin, porcine 1,000 unit/mL INJ 10 mL 10000 UNIT IRRIGATION (09:05)
--- NOTE | 2021-04-15 10:09 | SUR.OPER ---
Family Notified Of Patient's Status Via Phone.
--- NOTE | 2021-04-15 12:52 | P.PCN_ITS ---
PACU note PACU note: VSS, Good respiratory effort, report to CHARGE RN Post-Anesthesia Exam: awake
--- NOTE | 2021-04-15 12:52 | PM.PACU ---
PACU note PACU note: VSS, Good respiratory effort, report to COMMUNICATION AND OUTREACH MANAGER Post-Anesthesia Exam: awake
--- NOTE | 2021-04-15 13:07 | CT_ITS ---
WS: [id number] CT THORACIC SPINE noncontrast. HISTORY: post op TECHNIQUE: Contiguous 2.5 mm axial images are reviewed to thoracic spine. Images are reformatted in s agittal and coronal planes. All CT scans at [facility] use at least one of these dose opt imization techniques: automated exposure control; mA and/or kV adjustment per patient size (includes targeted exams where dose is matched to clinical indication); or iterative reconstruction. DLP: 2331.32 mGy.cm COMPARISON: 04/15/2021, earlier the same day. New posterior thoracic fusion hardware has been placed since earlier the same day. Posterior fusion h ardware has been placed from T4 through T9. The hardware within the T10 vertebral body has been remov ed. The acute T10 fracture with minimal retropulsion is reidentified. No additional acute fractures. Extensive postsurgical changes of air and soft tissue edema noted along the paraspinal soft tissues o f the thoracic spine. No paraspinous collection or abscess identified on this early postoperative shanthi e. Again noted is mild bulging of the posterior T10 vertebral body with mild encroachment upon the ve ntral cul-de-sac. CT/CT thoracic spin wo con* [id number] IMPRESSION: 1. New posterior thoracic fusion hardware has been placed from T4 through T9. 2. Pedicle screws at the T10 vertebral body have been removed due to the fract ure. 3. Very minimal retropulsion of posterior T10 vertebral body without high-grad e stenosis.
--- NOTE | 2021-04-15 13:11 | CT_ITS ---
WS: [id number] CT LUMBAR SPINE, noncontrast. HISTORY: post op TECHNIQUE: Contiguous 2.5 mm axial imaging are performed. Sagittal and coronal reformats are submitte d and reviewed. All CT scans at [facility] use at least one of these dose optimization te chniques: automated exposure control; mA and/or kV adjustment per patient size (includes targeted exa ms where dose is matched to clinical indication); or iterative reconstruction. IV contrast: None DLP: 2318.6 mGy.cm COMPARISON: Comparison earlier the same day. There is extensive hardware extending from the lower thoracic spine to the sacrum. Bilateral pedicle screws and vertical rods are again identified. Posterior dorsal column stimulator electrodes in wires over the thoracolumbar region. Since the prior examination obtained earlier the same day there is be en dictated decrease in the paraspinal fluid extending along the postoperative site. Essentially reso lution of this fluid. There is new air from the recent debridement and drainage. No focal collection. There is a soft tissue tract with associated air near the L3 level which is probably the entrance si te. As best that I can visualize there is no compression of the cord. Large laminectomy defects noted at L3 and L4. Nondisplaced spinous process fracture at L2. There is high density contrast in the kidneys from prior contrast injection. RIGHT renal cyst cannot be completely characterized due to artifact. CT/CT lumbar spine wo con* [id number] IMPRESSION: 1. Interval postoperative drain/decompression of the large paraspinal fluid co llection at the surgical site. This collection is essentially drained. There is a soft tissue tract indicating the recent access site near the L3 level. 2. No focal abscess or residual collection. 3. Nondisplaced fracture L2 spinous process. 4. Extensive posterior lumbar fusion hardware appears unchanged.
--- NOTE | 2021-04-15 13:19 | P.OP_ITS ---
Operative Report Date of procedure: April 15, 2021 Pre-op Diagnosis: degenerative scolisis; lumbar stenosis; spinal cord injury Post-op diagnosis: same Procedure Done: 1. T4- T11 posterior spine fusion 2. T4- T11 instrumentation 3. T10 lamincetomy with patial facetectomies bilateral 4. T9 laminectomy with partial facetectomies bilateral 5. removal of deep hardware from spine 6. use of allograft 7. use of autograft 8. use of computer navigation/ stereotactic for spine Surgeon: Rigo Reyes Anesthesia: General Estimated blood loss (mL): 200 Condition: stable Disposition: PACU Procedure: 1. T4- T11 posterior spine fusion 2. T4- T11 instrumentation 3. T10 lamincetomy with patial facetectomies bilateral 4. T9 laminectomy with partial facetectomies bilateral 5. removal of deep hardware from spine 6. use of allograft 7. use of autograft 8. use of computer navigation/ stereotactic for spine Patient was brought to the OR suite placed in the prone position after undergoing anesthesia. Patient had preposition and post position baselines none. Patient had neuro monitoring done throughout the entire procedure the sensation was intact throughout the entire procedure. She did have a brief moment of the motors, back in the lower extremities bilaterally after we completed the decompression. However they did stop out for a while. Once patient was positioned and all areas appear well padded patient was prepped and draped in normal sterile fashion. Skin incision was made over the T4 down to the previous incision. Previous stage was opened. Subperiosteal dissection was made from T4 down to T11. Once the exposure was completed then a spinous pr ocess clamp was attached. This was the fiducial the spin was done for navigation. The information was loaded in the computer. Next attention was brought to placing pedicle screws. Screws were placed in T4- T9 bilaterally. This was done by using the gearshift which was linked to the computer navigation system followed by using the ball probe followed by using history which is attached to the computer navigation. Next attention was brought to removing the caps of the T10 screw. Once the caps removed the rods were moved to the side and the T10 screws were backed out. Next attention was brought to performing the laminectomy. A laminectomy was performed at T10 and T9. This was done using high-speed bur and Kerrison rongeurs. The facet joints were partially taken down bilaterally as well. The spinal cord was completely decompressed. The neural skin paddle was identified and left in place. Did have scar tissue around. The nerve was felt to be completely decompressed greater on the right even than the left. Next attention was brought to placing the rods. The maria antonia connectors were placed above and below the T11 screw. Bilaterally. And then rods were attached from the maria antonia connectors onto the T4-T9 screws. End caps were placed torqued into position this was done bilaterally. AP and lateral fluoroscopy were done in order to confirm that the screws and rods were in appropriate position. Next attention was brought to decorticating the lamina. The allograft and autograft were placed vancomycin powder was placed prior to this a wound culture was taken and the wound was then closed with Vicryl Stratus fix and nylon. Deep drain was placed prior to this. And patient was transferred to the PACU in stable condition.
--- NOTE | 2021-04-15 14:15 | SUR.PHASEI ---
patient taken to CT for ordered scans
[2021-04-15] MEDS: morphine 4 mg/mL SDV 1 mL 2 MG IVP ×2 (14:36→20:50)
--- NOTE | 2021-04-15 14:48 | ANE.PACU2 ---
Inpatient post-anesthesia follow up: Airway intact: Yes Vital signs: Temperature 97.9 F Pulse Rate [Apical ] 64 Pulse Rate 73 Respiratory Rate 18 Blood Pressure [Ri ght Arm] 175/72 Blood Pressure 156/74 Pulse Oximetry 95 Oxygen Delivery Me thod Room Air Oxygen Flow Rate 6 Fraction of Inspir ed Oxygen Hydration adequate: Yes Nausea and vomiting: No Pain level: 3 Mental status: Baseline
--- NOTE | 2021-04-15 15:12 | P.CONIM_ITS ---
Providers/Reason For Consult Consulting Physician/Specialty*: Juwan Elkins MD, hospitalist Reason for Consult*: Medical management Attending Physician: Rigo Reyes DO Primary Care Provider: VALDO Mendoza History of Present Illness History of Present Illness Blossom Velez is a 76 year old female who presented to the emergency department with leg weakness on the right. She had recently had a surgery March 31 consisting of a T10 to pelvis fusion with multiple laminectomies by Dr. Reyes. From my understanding the patient was doing well postoperatively until the day prior to arrival to the emergency department where she was having increasing pain, weakness, and leg numbness. I visited the patient directly postoperatively, and history was difficult to obtain secondary to postanesthetic state. I do not see a record of any falls. Review of Systems General: Reports: ROS unobtainable due to mental status (Patient sleepy post anesthetic) Meds/Allergies Home Medications and Allergies Home Medications Medication Instructions Recorded Confirmed Last Taken Type donepezil 5 mg tablet 5 mg PO QDAY 09/26/19 04/15/21 04/08/21 History fentanyl 50 mcg/hr transdermal 1 patch TRANSDERMA Q72H 09/26/19 04/15/21 04/14/21 History patch gabapentin 300 mg capsule 900 mg PO TID cap 09/26/19 04/15/21 04/08/21 History onabotulinumtoxinA 100 unit 155 unit SUBCUT .Every 12 weeks 09/26/19 04/15/21 04/08/21 History solution for injection each oxycodone 30 mg tablet 45 mg PO Q6H PRN tab 09/26/19 04/15/21 04/08/21 History amlodipine 5 mg tablet 5 mg PO QDAY #30 tab 10/18/19 04/15/21 04/08/21 Rx duloxetine 60 mg capsule,delayed 60 mg PO QDAY #30 cap 10/18/19 04/15/21 04/08/21 Rx release levothyroxine 75 mcg tablet 75 mcg PO QDAY #30 tab 10/18/19 04/15/21 04/08/21 Rx carbidopa ER 25 mg-levodopa 100 mg 1 tab PO .HS tab 01/13/20 04/15/21 04/08/21 History tablet,extended release cyclobenzaprine 10 mg tablet 10 mg PO TID PRN 01/13/20 04/15/21 04/08/21 History famotidine 20 mg tablet 20 mg PO BID #60 tab 02/22/20 04/15/21 04/08/21 Rx sennosides 8.6 mg tablet 8.6 mg PO BID #60 tab 05/12/20 04/15/21 04/08/21 Rx furosemide 20 mg tablet 20 mg PO QAM PRN #30 tab 08/28/20 04/15/21 04/08/21 Rx potassium chloride 8 mEq 8 meq PO DAILY PRN #30 cap 08/28/20 04/15/21 04/08/21 Rx capsule,extended release chlorhexidine gluconate 0.12 % 15 ml BUCCAL BID PRN #473 ml 09/01/20 04/15/21 04/08/21 Rx mouthwash cholecalciferol (vitamin D3) 125 5,000 unit PO DAILY cap 10/19/20 04/15/21 04/08/21 History mcg (5,000 unit) capsule Mitigare 0.6 mg capsule 0.6 mg PO DAILY #30 cap NS 02/16/21 04/15/21 04/08/21 Rx hydroxychloroquine 200 mg tablet 200 mg PO BID #60 tab 02/16/21 04/15/21 04/08/21 Rx carbidopa 25 mg-levodopa 100 mg 2 tab PO .COMPLEX #300 tab 03/09/21 04/15/21 04/08/21 Rx tablet magnesium citrate 150 ml PO BID PRN #296 ml 04/10/21 04/15/21 Unknown Rx naloxegol [Movantik] 12.5 mg PO DAILY 04/15/21 04/15/21 Unknown History Allergies Allergy/AdvReac Type Severity Reaction Status Date / Time capsaicin [From Capzasin] Allergy RASH Verified 04/15/21 03:18 menthol [From Capzasin] Allergy RASH Verified 04/15/21 03:18 Sulfa (Sulfonamide Allergy RASH Verified 04/15/21 03:18 Antibiotics) Current Medications Current Medications Generic Name Dose Route Start Last Admin Trade Name Freq PRN Reason Stop Dose Admin Sodium Chloride 1,000 mls @ 30 mls/hr 04/15/21 06:45 04/15/21 06:59 Sodium Chloride 0.9% IV 04/16/21 06:44 30 mls/hr .Q24H TITO Administration Morphine Sulfate 2 mg 04/15/21 06:47 04/15/21 14:36 Morphine 4 Mg/Ml Sdv 1 Ml IVP 04/16/21 06:40 2 mg Q2M PRN Administration Pain level 6-10 PACU Phase I PFSH Acute PFSH: Medical History Acid reflux Chronic low back pain with bilateral sciatica Degenerative scoliosis Erosive osteoarthritis of both hands High risk medication use History of calcium pyrophosphate deposition disease (CPPD) Hypertension Hypothyroidism (acquired) Immunization counseling Osteoarthritis, generalized Post-menopausal osteoporosis Type 2 diabetes mellitus without complications Surgical History History of carpal tunnel surgery History of thyroidectomy Hx of cholecystectomy Status post insertion of spinal cord stimulator Family History Other CAD (coronary artery disease) Cancer Diabetes Denies family history of Rheumatoid arthritis Systemic lupus erythematosus (SLE) in adult Social History Smoking and tobacco status: never smoked Second hand smoke exposure: No Smoking risk assessment/counseling performed?: No Alcohol intake: never Desire information about alcohol rehabilitation?: No Counseling given: No Desire information about substance/drug rehabilitation?: No Counseling given: No Marital status: / Number of children: 3 service: No Current occupational status: unemployed and retired History of recent travel: No Current gender identity: Female Vitals/I&O/Wt Last Vital Signs Temp 97.2 F L 04/15/21 15:01 Pulse 80 04/15/21 15:01 Resp 15 04/15/21 15:01 BP 157/78 04/15/21 15:01 Pulse Ox 98 04/15/21 15:01 04/15/21 04/15/21 04/15/21 06:59 14:59 22:59 Intake Total 950 / 950 Output Total 750 / 750 Balance 200 / 200 Weight last 48 hrs Weight 72.575 kg Physical Exam Narrative: EXAM NARRATIVE: General exam is a sleepy white female, who can open her eyes briefly and goes back to sleep. She is able to follow some brief instructions. HEENT: Atraumatic and normocephalic. Pupils equally round. Oropharynx clear. Neck is supple no lymphadenopathy or thyromegaly Cardiovascular regular rate and rhythm without murmur, no S3 or S4 Lungs are clear no wheezing or crackles Abdomen is soft nontender with positive bowel sounds. No obvious organomegaly exam is deferred Extremities no cyanosis clubbing or edema. She does have sensation to her lower extremities. She can wiggle her toes slightly. Neurologic: See above extremity exam. Urinary Catheter Management^: Lopez: Cath Placed During This Visit: yes Reason for Continuing Indwelling Catheter: Perioperative Use in Selected Surgeries Urinary Catheter Date of Insertion: 04/15/21 Urinary Catheter Time of Insertion: 04:57 Data Other Data: Other data: ESR is 51 Calcium 8.6 Alk phos 165 CRP [address] demonstrated hardware T10-S1 with decompression L3/4 and L4/5. Fluid collection was noted in this region. 5.8 cm in greatest dimension. Overall length [address] demonstrated interval T10 vertebral body fracture with retropulsion and narrowing of spinal canal Repeat CT following surgery demonstrated new thoracic fusion hardware T4-T9 with screws T10 being removed. No high-grade stenosis is noted. Repeat lumbar CT demonstrates interval postoperative drain and decompression of the large paraspinal fluid collection without residual abscess or fluid A&P Assessment and plan (1) Thoracic compression fracture: This was causing significant impingement, and associated with fluid collection concerning for hematoma. She is now postoperative from draining a fluid collection, stabilization of fracture. Cultures were obtained, although abscess is not thought to be likely. Vancomycin has been ordered postoperatively, until culture results are known. Status: Acute Qualifiers: Encounter type: initial encounter Thoracic vertebra fracture level: T10 Qualified Code(s): S22.070A - Wedge compression fracture of T9-T10 vertebra, initial encounter for closed fracture (2) Type 2 diabetes mellitus without complications: It is apparent from her recent sugars that she does not need a sliding scale ordered. We will just provide a consistent carb diet. Status: Chronic Qualifiers: Diabetes mellitus manager intermediate insulin use: without fci use Qualified Code(s): E11.9 - Type 2 diabetes mellitus without complications (3) Hypertension: Continue home medications Status: Chronic (4) Hypothyroidism (acquired): Continue home medications Status: Chronic (5) Parkinson disease, symptomatic: Continue home medications Status: Chronic (6) Acid reflux: Continue home medications Status: Chronic Additional A&P Information Full code Lovenox for DVT prophylaxis. Thank you for this consultation. Consult Attestations Medical Necessity Statement: As per primary Time Spent in Patient Care: Greater than 35 minutes Coding Level of Care Code Acute Engineer First Assistant for [employer] Fwd Diagnoses Thoracic compression fracture S22.070A Encounter type: initial encounter Thoracic vertebra fracture level: T10 Type 2 diabetes mellitus without complications E11.9 Diabetes mellitus manager intermediate insulin use: without fci use Hypertension I10 Hypothyroidism (acquired) E03.9 Parkinson disease, symptomatic G20 Acid reflux K21.9
--- NOTE | 2021-04-15 15:14 | SUR.OPER ---
report called to bernice in icu.
[2021-04-15] MEDS: ketorolac 30 mg/mL INJ IVP ×2 (16:17→22:43)
[2021-04-15] MEDS: oxyCODONE IR 30 mg Tablet 45 MG PO (17:26)
[2021-04-15] MEDS: carbidopa-levodopa 25-100mg Tablet 1 EACH PO (17:43)
[2021-04-15] MEDS: famotidine 20 mg Tablet PO (17:43)
[2021-04-15] MEDS: docusate sodium 100 mg Capsule PO (17:43)
[2021-04-15] MEDS: sennosides 8.6 mg Tablet PO (17:44)
[2021-04-15] MEDS: lactated ringers 1,000 ML 90 ML IV (18:08)
[2021-04-15] MEDS: HYDROcodone-acetaminophen 5-325 mg Tablet PO (18:48)
[2021-04-15] MEDS: gabapentin 300 mg Capsule 900 MG PO (20:39)
[2021-04-15] MEDS: carbidopa-levodopa ER 50-200mg Tablet 0.5 EACH PO (20:39)
[2021-04-16] VITALS (12 sets, daily range): BP systolic 116–153; BP diastolic 54–78; PULSE 70–88; RESP 14–18; TEMP 36.4–37.2; O2SAT 91–96
--- NOTE | 2021-04-16 01:25 | PC.NURSE ---
Transfer Note Patient transferred to [facility] from ICU via bed. Handoff report given to DAIJA Lemus. Patient on room air at time of transfer. Patient oriented to environment and equipment. Covering service notified. Orders reviewed and will continue to monitor. Family and/or guest experience representative notified.
[2021-04-16] MEDS: oxyCODONE IR 30 mg Tablet 45 MG PO (02:05)
[2021-04-16] MEDS: HYDROcodone-acetaminophen 5-325 mg Tablet PO ×4 (03:52→18:03)
[2021-04-16] MEDS: lactated ringers 1,000 ML 90 ML IV (04:42)
[2021-04-16 05:26] LABS: Basophils % 0.3 %; Hematocrit 24.8 % (37.0-47.0); Hemoglobin 7.2 g/dL (11.5-15.3); Lymphocytes # 0.9 10^3/uL (0.8-4.8); Lymphocytes % 9.2 %; Mean Corpuscular Hemoglobin 25.4 pg (28.0-34.0); Mean Corpuscular Volume 87.6 fL (81-99); Mean Platelet Volume 8.7 fL (7.4-10.4); Monocytes # 0.7 10^3/uL (0.2-0.9); Monocytes % 6.6 %; Neutrophils # 8.51 10^3/uL (1.8-7.7); Neutrophils % 83.3 %; Nucleated Red Blood Cells % 0.2 %; Platelet Count 419 10^3/cmm (130-400); Red Blood Count 2.83 10^6/uL (4.1-5.3); White Blood Count 10.2 10^3/uL (4.0-10.0)
[2021-04-16 05:48] LABS: Anion Gap 12.7 (5-19); Blood Urea Nitrogen 9 mg/dL (8-23); Calcium 8.1 mg/dL (8.5-10.5); Carbon Dioxide 28 mmol/L (22-29); Chloride 100 mmol/L (98-107); Creatinine Clr Calc Pharmacy 54.0632; Glucose 90 mg/dL (65-115); Osmolality Calculated 280 mOsm/kg (285-295); Potassium 4.7 mmol/L (3.5-5.1); Sodium 136 mmol/L (136-145)
[2021-04-16] MEDS: carbidopa-levodopa 25-100mg Tablet 3 EACH PO (06:06)
[2021-04-16] MEDS: donepezil 5 MG Tablet PO (08:25)
[2021-04-16] MEDS: amlodipine 5 mg Tablet PO (08:25)
[2021-04-16] MEDS: docusate sodium 100 mg Capsule PO ×2 (08:25→18:03)
[2021-04-16] MEDS: cholecalciferol (vitamin D3) 5,000 unit Tablet 5000 UNIT PO (08:26)
[2021-04-16] MEDS: duloxetine 60 mg Capsule PO (08:26)
[2021-04-16] MEDS: carbidopa-levodopa 25-100mg Tablet 2 EACH PO (08:26)
[2021-04-16] MEDS: levothyroxine 75 mcg Tablet PO (08:26)
[2021-04-16] MEDS: famotidine 20 mg Tablet PO ×2 (08:27→18:04)
[2021-04-16] MEDS: sennosides 8.6 mg Tablet PO ×2 (08:27→18:03)
[2021-04-16] MEDS: gabapentin 300 mg Capsule 900 MG PO ×3 (08:30→21:04)
[2021-04-16] MEDS: cyclobenzaprine 10 mg Tablet PO (10:58)
[2021-04-16] MEDS: ketorolac 30 mg/mL INJ IVP ×2 (10:58→20:24)
--- NOTE | 2021-04-16 11:17 | PM.PN ---
Subjective Subjective: Interval history: pain controlled, able to stand with physicl therapy today Vitals/I&O/Wt Last Vital Signs Temp 98.3 F 04/16/21 11:02 Pulse 70 04/16/21 11:02 Resp 16 04/16/21 11:02 BP 136/70 04/16/21 11:02 Pulse Ox 96 04/16/21 11:02 04/15/21 04/16/21 04/16/21 22:59 06:59 14:59 Intake Total 250 / 1200 1051 / 2251 Output Total 1350 / 2100 Balance 250 / 450 -299 / 151 Weight last 48 hrs Weight 160 lb Physical Exam Narrative: EXAM NARRATIVE: senstion intact bilateral, able to dorsiflex and planter flex bilateral ankles Urinary Catheter Management^: Lopez: Cath Placed During This Visit: yes Reason for Continuing Indwelling Catheter: Required Immobilization for Trauma or Surgery or Anesthesia Urinary Catheter Date of Insertion: 04/15/21 Urinary Catheter Time of Insertion: 04:57 Data : 04/16/21 04:27 04/16/21 04:27 Micro: Microbiology 04/15/21 11:49 Gram Stain - Final Back A&P Assessment and plan (1) Thoracic compression fracture: POD#1 T4 to pelvis fusion d/c drain up with PT Hb 7.2 will defer to hospitalist at this point if drops below 7.0 will transfuse Status: Acute Qualifiers: Encounter type: initial encounter Thoracic vertebra fracture level: T10 Qualified Code(s): S22.070A - Wedge compression fracture of T9-T10 vertebra, initial encounter for closed fracture Attestations Medical Necessity Statement*: spinal cord injury will need detention placement Coding Level of Care Code Acute Flower Arranger for [facility] F[facility] Diagnoses Thoracic compression fracture S22.070A Encounter type: initial encounter Thoracic vertebra fracture level: T10
--- NOTE | 2021-04-16 12:15 | P.PN_ITS ---
Subjective Subjective: Interval history: Blossom reports she is feeling okay. No particular concerns. Back hurts but pain is controlled Medications: Reviewed: Yes Vitals/I&O/Wt Last Vital Signs Temp 98.3 F 04/16/21 11:02 Pulse 70 04/16/21 11:02 Resp 16 04/16/21 11:02 BP 136/70 04/16/21 11:02 Pulse Ox 96 04/16/21 11:02 04/15/21 04/16/21 04/16/21 22:59 06:59 14:59 Intake Total 250 / 1200 1051 / 2251 Output Total 1350 / 2100 Balance 250 / 450 -299 / 151 Weight last 48 hrs Weight 72.575 kg Physical Exam Narrative: EXAM NARRATIVE: General exam no distress Neck is supple no lymphadenopathy or thyromegaly Cardiovascular regular rate and rhythm without murmur, no S3 or S4 Lungs are clear no wheezing or crackles Abdomen is soft nontender with positive bowel sounds. No obvious organomegaly Extremities no cyanosis clubbing or edema. Sensation and movement intact bilaterally. Right is weaker than the left. Urinary Catheter Management^: Lopez: Cath Placed During This Visit: yes Reason for Continuing Indwelling Catheter: Required Immobilization for Trauma or Surgery or Anesthesia Urinary Catheter Date of Insertion: 04/15/21 Urinary Catheter Time of Insertion: 04:57 Data : 04/16/21 04:27 04/16/21 04:27 Micro: Microbiology 04/15/21 11:49 Gram Stain - Final Back Wound Culture - Preliminary A&P Assessment and plan (1) Thoracic compression fracture: This was causing significant impingement, and associated with fluid collection concerning for hematoma. She is now postoperative day #1 from draining a fluid collection, stabilization of fracture. Cultures were obtained, although abscess is not thought to be likely. Vancomycin has been ordered postoperatively, until culture results are known. Status: Acute Qualifiers: Encounter type: initial encounter Thoracic vertebra fracture level: T10 Qualified Code(s): S22.070A - Wedge compression fracture of T9-T10 vertebra, initial encounter for closed fracture (2) Type 2 diabetes mellitus without complications: It is apparent from her recent sugars that she does not need a sliding scale ordered. We will just provide a consistent carb diet. Status: Chronic Qualifiers: Diabetes mellitus adjunct faculty for medical terminology insulin use: without adjunct faculty for medical terminology use Qualified Code(s): E11.9 - Type 2 diabetes mellitus without complications (3) Hypertension: Continue home medications Status: Chronic (4) Hypothyroidism (acquired): Continue home medications Status: Chronic (5) Parkinson disease, symptomatic: Continue home medications Status: Chronic (6) Acid reflux: Continue home medications Status: Chronic Additional A&P Information Anemia, with worsening postoperative. Repeat hemoglobin tomorrow. May need transfusion. Some of this may also be delusional. As she is taking p.o. discontinue IV fluids. Chronic pain. Currently on fentanyl patch. Full code Lovenox for DVT prophylaxis. Thank you for this consultation. Will need skilled care placement. Attestations Medical Necessity Statement*: As per primary Coding Level of Care Code Acute Real Estate Leasing Agent for [facility] Fwd Diagnoses Thoracic compression fracture S22.070A Encounter type: initial encounter Thoracic vertebra fracture level: T10 Type 2 diabetes mellitus without complications E11.9 Diabetes mellitus adjunct faculty for medical terminology insulin use: without adjunct faculty for medical terminology use Hypertension I10 Hypothyroidism (acquired) E03.9 Parkinson disease, symptomatic G20 Acid reflux K21.9
--- NOTE | 2021-04-16 12:34 | PC.CHAP ---
Pastoral Care Encounter/Spiritual Assessment Type of Contact [] Declined camp dining room attendant visit [] Patient/Family/Request visit [] Outpatient visit [] Follow-up visit [] Physician referral [] Code/Alert [xx] Routine visit [] Staff referral [] Actively dying [] Patient sleeping [] Family support [] [] Out of room [] Palliative care [] [] Receiving care in room [] Pre-surgical visit [] Trauma [] Long length of stay [] ICU visit [] Other: Relational/Emotional Strength [xx] Patient feels connected with others/family/visitors/staff [] Distress [] Loneliness/isolation [] Abandonment Spirituality of Patient [xx] Person of Nancy [xx] Attends Zoroastrian of their Nancy [xx] Believes in Prayer [xx] Reads Bible or Restorationist materials [] There are Spiritual issues to be addressed Vocational Adviser Interventions [xx] Prayer [xx] Active listening [xx] Non-anxious presence [] Spiritual/emotional support [] Crisis/trauma care [] Spiritual counseling [] Bereavement support [] Provided bereavement packet [xx] Provided Bible/devotional materials [] Provided toy/stuffed animal, coloring book to patient or family member [] Provided Communion [] Anointing/[place] [] Salvation [xx] Completed spiritual assessment [] Other: Impact on Illness or Injury [] Angry [] Fearful [] Anxious [] Often cries [] Exhaustion [] Unable to work [] Unable to attend latter day [] Unable to walk/stand [] Unable to read [] Unable to drive [] Unable to eat/drink [] Unable to sleep [] Unable to be with family [] Patient intubated [] Other: Summary Patient stated she is hurting after surgery but know this pain is temporary. She asked prayer for quick healing. Time spent with patient 6 minutes
[2021-04-16] MEDS: vancomycin 1,000 MG in sodium chloride 0.9% 250 ML 250 MG IV (13:33)
[2021-04-16] MEDS: carbidopa-levodopa 25-100mg Tablet 1 EACH PO ×2 (16:01→18:03)
[2021-04-16] MEDS: carbidopa-levodopa ER 50-200mg Tablet 0.5 EACH PO (21:02)
[2021-04-17] VITALS (13 sets, daily range): BP systolic 114–159; BP diastolic 63–77; PULSE 74–84; RESP 16–18; TEMP 36.6–37; O2SAT 94–98
[2021-04-17] MEDS: HYDROcodone-acetaminophen 5-325 mg Tablet PO ×3 (00:23→09:45)
[2021-04-17] MEDS: ketorolac 30 mg/mL INJ IVP (03:26)
[2021-04-17] MEDS: carbidopa-levodopa 25-100mg Tablet 3 EACH PO (05:17)
[2021-04-17] MEDS: enoxaparin 40 mg/0.4 mL Syringe SUBCUT (05:18)
[2021-04-17 06:54] LABS: Basophils % 0.6 %; Eosinophils # 0.1 10^3/uL (0.0-0.8); Eosinophils % 1.6 %; Hematocrit 23.9 % (37.0-47.0); Hemoglobin 7.2 g/dL (11.5-15.3); Lymphocytes # 1.2 10^3/uL (0.8-4.8); Lymphocytes % 17.4 %; Mean Corpuscular HGB Conc 30.1 g/dL (30.0-36.0); Mean Corpuscular Hemoglobin 26.4 pg (28.0-34.0); Mean Corpuscular Volume 87.5 fL (81-99); Mean Platelet Volume 8.4 fL (7.4-10.4); Monocytes # 0.4 10^3/uL (0.2-0.9); Monocytes % 6.1 %; Neutrophils # 5.18 10^3/uL (1.8-7.7); Neutrophils % 73.4 %; Nucleated Red Blood Cells % 0 %; Platelet Count 351 10^3/cmm (130-400); Red Blood Count 2.73 10^6/uL (4.1-5.3); Red Cell Distribution Width 16.2 % (12.1-15.1); White Blood Count 7.1 10^3/uL (4.0-10.0)
[2021-04-17 07:10] LABS: Anion Gap 11.5 (5-19); Blood Urea Nitrogen 8 mg/dL (8-23); Carbon Dioxide 30 mmol/L (22-29); Chloride 100 mmol/L (98-107); Creatinine Clr Calc Pharmacy 54.0632; Glucose 100 mg/dL (65-115); Osmolality Calculated 282 mOsm/kg (285-295); Potassium 4.5 mmol/L (3.5-5.1); Sodium 137 mmol/L (136-145); Vancomycin Trough 17.6 ug/mL (10-15)
[2021-04-17] MEDS: cholecalciferol (vitamin D3) 5,000 unit Tablet 5000 UNIT PO (09:20)
[2021-04-17] MEDS: sennosides 8.6 mg Tablet PO ×2 (09:20→17:26)
[2021-04-17] MEDS: docusate sodium 100 mg Capsule PO ×2 (09:20→17:26)
[2021-04-17] MEDS: gabapentin 300 mg Capsule 900 MG PO ×3 (09:20→21:04)
[2021-04-17] MEDS: donepezil 5 MG Tablet PO (09:21)
[2021-04-17] MEDS: amlodipine 5 mg Tablet PO (09:21)
[2021-04-17] MEDS: duloxetine 60 mg Capsule PO (09:21)
[2021-04-17] MEDS: levothyroxine 75 mcg Tablet PO (09:21)
[2021-04-17] MEDS: cyclobenzaprine 10 mg Tablet PO ×2 (09:21→15:07)
[2021-04-17] MEDS: carbidopa-levodopa 25-100mg Tablet 2 EACH PO ×2 (09:21→13:12)
[2021-04-17] MEDS: polyethylene glycol 3350 Pkt 17 gm PO (09:22)
[2021-04-17] MEDS: fentaNYL 50 mcg Patch 1 PATCH TRANSDERMA (09:22)
[2021-04-17] MEDS: famotidine 20 mg Tablet PO ×2 (09:36→17:26)
[2021-04-17] MEDS: vancomycin 1,000 MG in sodium chloride 0.9% 250 ML 250 MG IV (09:36)
--- NOTE | 2021-04-17 09:43 | PM.PN ---
Subjective Subjective: Interval history: Pain is little worse today. However is controlled. She just finished getting up with physical therapy and they are putting back into bed. She was able to stand again today. She is moving bilateral ankles dorsiflexion plantarflexion sensation is intact. Still feels weak compared to prior to her fall. Vitals/I&O/Wt Last Vital Signs Temp 98.1 F 04/17/21 08:00 Pulse 77 04/17/21 08:00 Resp 16 04/17/21 08:00 BP 159/77 04/17/21 08:00 Pulse Ox 95 04/17/21 08:00 04/16/21 04/17/21 04/17/21 22:59 06:59 14:59 Intake Total 480 / 1790.5 360 / 2150.5 240 / 240 Output Total 1200 / 2425 2625 / 5050 Balance -720 / -634.5 -2265 / -2899.5 240 / 240 Physical Exam Narrative: EXAM NARRATIVE: Able to dorsiflex and plantarflex bilateral ankles sensation intact. Urinary Catheter Management^: Lopez: Cath Placed During This Visit: yes Reason for Continuing Indwelling Catheter: Perioperative Use in Selected Surgeries Urinary Catheter Date of Insertion: 04/15/21 Urinary Catheter Time of Insertion: 04:57 Data : 04/17/21 06:37 04/17/21 06:37 Micro: Microbiology 04/15/21 11:49 Gram Stain - Final Back Anaerobic Culture - Preliminary Wound Culture - Preliminary A&P Assessment and plan (1) Thoracic compression fracture: Postop day #2 T4 to pelvis fusion Up with PT she was given 1 Unit of blood D/c Vancomycin today Status: Acute Qualifiers: Encounter type: initial encounter Thoracic vertebra fracture level: T10 Qualified Code(s): S22.070A - Wedge compression fracture of T9-T10 vertebra, initial encounter for closed fracture Attestations Medical Necessity Statement*: OK to D/C to skilled nursing Monday planning on going to [facility] to work with PT Coding Level of Care Code Acute Resource Conservation Manager for Ailyn Gaviria Diagnoses Thoracic compression fracture S22.070A Encounter type: initial encounter Thoracic vertebra fracture level: T10
--- NOTE | 2021-04-17 10:50 | PM.PN ---
Subjective Subjective: Interval history: No acute events overnight. Hospital course appreciated. C/o pain in her incision. States she is not able to get in comfortable position. Afebrile, No N/V. However is controlled. She just finished getting up with physical therapy and they are putting back into bed. She was able to stand again today. She is moving bilateral ankles dorsiflexion plantarflexion sensation is intact. Still feels weak compared to prior to her fall. Medications: Reviewed: Yes Vitals/I&O/Wt Last Vital Signs Temp 98.1 F 04/17/21 08:00 Pulse 77 04/17/21 08:00 Resp 16 04/17/21 08:00 BP 159/77 04/17/21 08:00 Pulse Ox 95 04/17/21 08:00 04/16/21 04/17/21 04/17/21 22:59 06:59 14:59 Intake Total 480 / 1790.5 360 / 2150.5 240 / 240 Output Total 1200 / 2425 2625 / 5050 Balance -720 / -634.5 -2265 / -2899.5 240 / 240 Physical Exam Narrative: EXAM NARRATIVE: General exam no distress Neck is supple no lymphadenopathy or thyromegaly Cardiovascular regular rate and rhythm without murmur, no S3 or S4 Lungs are clear no wheezing or crackles Abdomen is soft nontender with positive bowel sounds. No obvious organomegaly Extremities no cyanosis clubbing or edema. Sensation and movement intact bilaterally. Right is weaker than the left. Urinary Catheter Management^: Lopez: Cath Placed During This Visit: yes Reason for Continuing Indwelling Catheter: Perioperative Use in Selected Surgeries Urinary Catheter Date of Insertion: 04/15/21 Urinary Catheter Time of Insertion: 04:57 Data : 04/17/21 06:37 04/17/21 06:37 Micro: Microbiology 04/15/21 11:49 Gram Stain - Final Back Anaerobic Culture - Preliminary Wound Culture - Preliminary A&P Assessment and plan (1) Thoracic compression fracture: This was causing significant impingement, and associated with fluid collection concerning for hematoma. She is now postoperative day #2 from draining a fluid collection, stabilization of fracture. Cultures were obtained, although abscess is not thought to be likely. Vancomycin has been ordered postoperatively, until culture results are known. Pain meds, AC, PT as per ortho team. C/w Oxycodone, stop hydrocodone. Start on tramadol 50 mg q6h prn Status: Acute Qualifiers: Encounter type: initial encounter Thoracic vertebra fracture level: T10 Qualified Code(s): S22.070A - Wedge compression fracture of T9-T10 vertebra, initial encounter for closed fracture (2) Type 2 diabetes mellitus without complications: It is apparent from her recent sugars that she does not need a sliding scale ordered. Check HBA1c We will just provide a consistent carb diet. Status: Chronic Qualifiers: Diabetes mellitus retirement insulin use: without predatory animal exterminator use Qualified Code(s): E11.9 - Type 2 diabetes mellitus without complications (3) Anemia: Anemia, with worsening postoperative. Hb still low. &.2 today. Check iron panel, b12, folte level. Transfuse 1 unit PRBC. Start on oral ferrous sulfate. Status: Acute (4) Parkinson disease, symptomatic: Continue home medications Status: Chronic (5) Hypothyroidism (acquired): Continue home medications Status: Chronic (6) Hypertension: Continue home medications Status: Chronic (7) Acid reflux: Continue home medications Status: Chronic Additional A&P Information Chronic pain. Currently on fentanyl patch. Full code Lovenox for DVT prophylaxis. Thank you for this consultation. Will need skilled care placement. Attestations Medical Necessity Statement*: As per primary team, post operative care, pain control, ongoing anemia Time Spent in Patient Care: Greater than 35 minutes (>than 50% of time spent in counselling and/or direct pt care on unit). Coding Level of Care Code Acute Bleach Chlorinator for Ailyn Gaviria Diagnoses Thoracic compression fracture S22.070A Encounter type: initial encounter Thoracic vertebra fracture level: T10 Type 2 diabetes mellitus without complications E11.9 Diabetes mellitus predatory animal exterminator insulin use: without retirement use Anemia D64.9 Parkinson disease, symptomatic G20 Hypothyroidism (acquired) E03.9 Hypertension I10 Acid reflux K21.9
[2021-04-17 12:16] LABS: Iron 13 ug/dL (37-145); Percent Saturation 4.7 % (20-50); Total Iron Binding Capacity 276 mcg/dl; Unsaturated Iron Binding 263 ug/dL (112-347)
[2021-04-17 12:17] LABS: Cholesterol 123 mg/dL (0-200); HDL Cholesterol 44 mg/dL (60-100); LDL Cholesterol Calculated 58 mg/dL (50-129); Triglycerides 107 mg/dL (0-150); VLDL Cholestrol Calculation 21 mg/dL (0-30)
[2021-04-17] MEDS: oxyCODONE IR 30 mg Tablet 45 MG PO ×2 (12:24→21:05)
[2021-04-17] MEDS: morphine 4 mg/mL SDV 1 mL 2 MG IVP (12:25)
[2021-04-17 12:26] LABS: Thyroid Stimulating Hormone 5.72 uIU/mL (0.27-4.20)
[2021-04-17 14:56] LABS: Estmated Average Glucose 108; Hemoglobin A1C 5.4 % (4.0-6.0)
[2021-04-17] MEDS: sodium chloride 0.9% (100 ml) 100 ML 15 ML (15:07)
[2021-04-17] MEDS: carbidopa-levodopa 25-100mg Tablet 1 EACH PO ×2 (15:07→17:26)
[2021-04-17] MEDS: TRAMadol 50 mg Tablet PO (16:14)
[2021-04-17] MEDS: ferrous gluconate 324 mg Tablet PO (17:26)
[2021-04-17] MEDS: carbidopa-levodopa ER 50-200mg Tablet 0.5 EACH PO (21:04)
[2021-04-18] VITALS (8 sets, daily range): BP systolic 117–150; BP diastolic 65–79; PULSE 71–82; RESP 16–18; TEMP 36.5–36.9; O2SAT 90–95
[2021-04-18] MEDS: TRAMadol 50 mg Tablet PO ×3 (02:30→18:23)
[2021-04-18] MEDS: cyclobenzaprine 10 mg Tablet PO ×2 (02:31→10:39)
[2021-04-18] MEDS: vancomycin 1,000 MG in sodium chloride 0.9% 250 ML 250 MG IV ×2 (02:31→20:55)
[2021-04-18 05:56] LABS: Basophils % 0.6 %; Eosinophils # 0.2 10^3/uL (0.0-0.8); Eosinophils % 3.5 %; Hematocrit 28.5 % (37.0-47.0); Hemoglobin 8.7 g/dL (11.5-15.3); Lymphocytes # 1.3 10^3/uL (0.8-4.8); Lymphocytes % 18.7 %; Mean Corpuscular HGB Conc 30.5 g/dL (30.0-36.0); Mean Corpuscular Hemoglobin 26.9 pg (28.0-34.0); Mean Corpuscular Volume 88.2 fL (81-99); Mean Platelet Volume 8.7 fL (7.4-10.4); Monocytes # 0.4 10^3/uL (0.2-0.9); Monocytes % 6.4 %; Neutrophils # 4.81 10^3/uL (1.8-7.7); Neutrophils % 69.8 %; Nucleated Red Blood Cells % 0 %; Platelet Count 329 10^3/cmm (130-400); Red Blood Count 3.23 10^6/uL (4.1-5.3); Red Cell Distribution Width 15.5 % (12.1-15.1); White Blood Count 6.9 10^3/uL (4.0-10.0)
[2021-04-18 06:15] LABS: Alanine Aminotransferase < 5 U/L (0-33); Albumin Level 3.1 g/dL (3.5-5.2); Alkaline Phosphatase 135 IU/L (35-105); Anion Gap 13.2 (5-19); Aspartate Amino Transferase 18 U/L (0-32); Blood Urea Nitrogen 7 mg/dL (8-23); Calcium 7.9 mg/dL (8.5-10.5); Carbon Dioxide 29 mmol/L (22-29); Chloride 97 mmol/L (98-107); Creatinine Clr Calc Pharmacy 54.0632; Globulin 2.1 g/dL (1.3-4.6); Glucose 91 mg/dL (65-115); Osmolality Calculated 278 mOsm/kg (285-295); Potassium 4.2 mmol/L (3.5-5.1); Sodium 135 mmol/L (136-145); Total Bilirubin 0.2 mg/dL (0.15-1.2); Total Protein 5.2 g/dL (6.6-8.7)
[2021-04-18] MEDS: oxyCODONE IR 30 mg Tablet 45 MG PO ×3 (06:34→20:56)
[2021-04-18] MEDS: carbidopa-levodopa 25-100mg Tablet 3 EACH PO (06:34)
[2021-04-18] MEDS: enoxaparin 40 mg/0.4 mL Syringe SUBCUT (06:34)
[2021-04-18] MEDS: levothyroxine 75 mcg Tablet PO (08:53)
[2021-04-18] MEDS: colchicine 0.6 mg Tablet PO (08:53)
[2021-04-18] MEDS: amlodipine 5 mg Tablet 10 MG PO (08:53)
[2021-04-18] MEDS: sennosides 8.6 mg Tablet PO ×2 (08:54→18:23)
[2021-04-18] MEDS: famotidine 20 mg Tablet PO ×2 (08:54→18:23)
[2021-04-18] MEDS: ferrous gluconate 324 mg Tablet PO ×2 (08:54→18:23)
[2021-04-18] MEDS: cholecalciferol (vitamin D3) 5,000 unit Tablet 5000 UNIT PO (08:54)
[2021-04-18] MEDS: duloxetine 60 mg Capsule PO (08:54)
[2021-04-18] MEDS: polyethylene glycol 3350 Pkt 17 gm PO (08:55)
[2021-04-18] MEDS: gabapentin 300 mg Capsule 900 MG PO ×3 (08:55→20:56)
[2021-04-18] MEDS: donepezil 5 MG Tablet PO (08:55)
[2021-04-18] MEDS: carbidopa-levodopa 25-100mg Tablet 2 EACH PO ×2 (08:55→12:25)
[2021-04-18] MEDS: docusate sodium 100 mg Capsule PO ×2 (08:55→18:23)
--- NOTE | 2021-04-18 09:42 | P.PN_ITS ---
Subjective Subjective: Interval history: No acute events overnight. Patient has remained afebrile and hemodynamically stable. She denies any nausea or vomiting. Working with physical therapy. Medications: Reviewed: Yes Vitals/I&O/Wt Last Vital Signs Temp 98.0 F 04/18/21 07:58 Pulse 71 04/18/21 07:58 Resp 18 04/18/21 07:58 BP 124/72 04/18/21 07:58 Pulse Ox 94 04/18/21 07:58 04/17/21 04/18/21 04/18/21 22:59 06:59 14:59 Intake Total 890 / 1380 250 / 1630 Output Total 950 / 950 2150 / 3100 Balance -60 / 430 -1900 / -1470 Physical Exam Narrative: EXAM NARRATIVE: General exam no distress Neck is supple no lymphadenopathy or thyromegaly Cardiovascular regular rate and rhythm without murmur, no S3 or S4 Lungs are clear no wheezing or crackles Abdomen is soft nontender with positive bowel sounds. No obvious organomegaly Extremities no cyanosis clubbing or edema. Sensation and movement intact bilaterally. Right is weaker than the left. Urinary Catheter Management^: Lopez: Cath Placed During This Visit: yes Reason for Continuing Indwelling Catheter: Acute Urinary Retention or Obstruction Urinary Catheter Date of Insertion: 04/15/21 Urinary Catheter Time of Insertion: 04:57 Data : 04/18/21 05:04 04/18/21 05:04 Micro: Microbiology 04/15/21 11:49 Gram Stain - Final Back Anaerobic Culture - Preliminary Wound Culture - Preliminary A&P Assessment and plan (1) Thoracic compression fracture: This was causing significant impingement, and associated with fluid collection concerning for hematoma. She is now postoperative day #3 from draining a fluid collection, stabilization of fracture. Cultures were obtained, although abscess is not thought to be likely. Vancomycin has been ordered postoperatively, until culture results are known. Pain meds, AC, PT as per ortho team. C/w Oxycodone, stop hydrocodone. Start on tramadol 50 mg q6h prn Status: Acute Qualifiers: Encounter type: initial encounter Thoracic vertebra fracture level: T10 Qualified Code(s): S22.070A - Wedge compression fracture of T9-T10 vertebra, initial encounter for closed fracture (2) Anemia: Post 1 unit transfusion yesterday. Hemoglobin up appropriately. Iron panel, vitamin B12, folate levels appreciated. Continue with oral iron supplementation. Status: Acute (3) Parkinson disease, symptomatic: Continue home medications Status: Chronic (4) Hypothyroidism (acquired): Continue home medications Status: Chronic (5) Hypertension: Continue home medications Status: Chronic (6) Acid reflux: Continue home medications Status: Chronic (7) Type 2 diabetes mellitus without complications: It is apparent from her recent sugars that she does not need a sliding scale ordered. HbA1c 5.4 We will just provide a consistent carb diet. Status: Chronic Qualifiers: Diabetes mellitus intermediate insulin use: without intermediate use Qualified Code(s): E11.9 - Type 2 diabetes mellitus without complications Additional A&P Information Chronic pain. Currently on fentanyl patch. Full code Lovenox for DVT prophylaxis. Thank you for this consultation. Will need skilled care placement. Attestations Medical Necessity Statement*: Patient requires further hospitalization for postoperative care, postoperative anemia, pain management and physical therapy while safe discharge planning is sought. Time Spent in Patient Care: Greater than 35 minutes (>than 50% of time spent in counselling and/or direct pt care on unit) . Coding Level of Care Code Acute Spud Grader for [facility] Diagnoses Thoracic compression fracture S22.070A Encounter type: initial encounter Thoracic vertebra fracture level: T10 Anemia D64.9 Parkinson disease, symptomatic G20 Hypothyroidism (acquired) E03.9 Hypertension I10 Acid reflux K21.9 Type 2 diabetes mellitus without complications E11.9 Diabetes mellitus intermediate insulin use: without terminal worker use
--- NOTE | 2021-04-18 12:08 | PC.SOCIAL ---
IMM UPDATE Gave patient IMM update. Provided her copy of pg 2 of IMM. 04/18/21 @ 1124. Initialed, dated, timed and placed in chart.
--- NOTE | 2021-04-18 12:18 | PM.PN ---
Subjective Subjective: Interval history: Patient continues to complain of pain, particularly in her upper extremities. She continues to work with physical therapy. She is able to move both feet. Medications: Reviewed: Yes Vitals/I&O/Wt Last Vital Signs Temp 98.0 F 04/18/21 07:58 Pulse 71 04/18/21 07:58 Resp 18 04/18/21 07:58 BP 124/72 04/18/21 07:58 Pulse Ox 94 04/18/21 07:58 04/17/21 04/18/21 04/18/21 22:59 06:59 14:59 Intake Total 890 / 1380 250 / 1630 Output Total 950 / 950 2150 / 3100 Balance -60 / 430 -1900 / -1470 Physical Exam Narrative: EXAM NARRATIVE: The patient is seen in bed. She can dorsiflex against resistance bilaterally. This is an improvement from her previous state, and the patient agrees. She is complaining primarily of upper extremity pain today. This is likely from surgical positioning as well as use of her upper extremities for the walker. Urinary Catheter Management^: Lopez: Cath Placed During This Visit: yes Reason for Continuing Indwelling Catheter: Acute Urinary Retention or Obstruction Urinary Catheter Date of Insertion: 04/15/21 Urinary Catheter Time of Insertion: 04:57 Data : 04/18/21 05:04 04/18/21 05:04 Micro: Microbiology 04/15/21 11:49 Gram Stain - Final Back Anaerobic Culture - Preliminary Wound Culture - Preliminary A&P Assessment and plan (1) Thoracic compression fracture: Postop day #3 T4 to pelvis fusion Up with PT She has plans for discharge to skilled tomorrow. Status: Acute Qualifiers: Encounter type: initial encounter Thoracic vertebra fracture level: T10 Qualified Code(s): S22.070A - Wedge compression fracture of T9-T10 vertebra, initial encounter for closed fracture Attestations Medical Necessity Statement*: Patient continues to require inpatient work with physical therapy. Plan at the time of discharge is for transfer to [facility] in [place]. Coding Level of Care Code Acute Adjunct Art History Instructor for Ailyn Gaviria Diagnoses Thoracic compression fracture S22.070A Encounter type: initial encounter Thoracic vertebra fracture level: T10
[2021-04-18] MEDS: carbidopa-levodopa 25-100mg Tablet 1 EACH PO ×2 (14:47→18:23)
[2021-04-18 15:47] LABS: Free T4 Free Thyroxine 1.15 ng/dL (0.82-1.77); T3 Free 2.3 PG/ML (2.0-4.4)
[2021-04-18] MEDS: carbidopa-levodopa ER 50-200mg Tablet 0.5 EACH PO (20:55)
[2021-04-19] MEDS: TRAMadol 50 mg Tablet PO ×2 (00:11→09:02)
[2021-04-19 04:00] VITALS: BP 123/74; PULSE 69; RESP 17; TEMP 36.6; O2SAT 90
[2021-04-19] MEDS: enoxaparin 40 mg/0.4 mL Syringe SUBCUT (05:32)
[2021-04-19] MEDS: levothyroxine 100 mcg Tablet PO (05:32)
[2021-04-19] MEDS: carbidopa-levodopa 25-100mg Tablet 3 EACH PO (05:32)
[2021-04-19] MEDS: oxyCODONE IR 30 mg Tablet 45 MG PO ×2 (05:32→14:21)
[2021-04-19 05:41] LABS: Basophils # 0.1 10^3/uL (0.0-0.1); Basophils % 0.7 %; Eosinophils # 0.3 10^3/uL (0.0-0.8); Eosinophils % 3.9 %; Hematocrit 28.6 % (37.0-47.0); Hemoglobin 8.7 g/dL (11.5-15.3); Lymphocytes # 1.5 10^3/uL (0.8-4.8); Lymphocytes % 23.1 %; Mean Corpuscular HGB Conc 30.4 g/dL (30.0-36.0); Mean Corpuscular Hemoglobin 26.5 pg (28.0-34.0); Mean Corpuscular Volume 87.2 fL (81-99); Mean Platelet Volume 8.5 fL (7.4-10.4); Monocytes # 0.6 10^3/uL (0.2-0.9); Monocytes % 8.7 %; Neutrophils # 4.17 10^3/uL (1.8-7.7); Neutrophils % 62.6 %; Nucleated Red Blood Cells % 0 %; Platelet Count 277 10^3/cmm (130-400); Red Blood Count 3.28 10^6/uL (4.1-5.3); Red Cell Distribution Width 15.4 % (12.1-15.1); White Blood Count 6.7 10^3/uL (4.0-10.0)
--- NOTE | 2021-04-19 05:49 | PC.NURSE ---
SHIFT SUMMARY Has rested well. Has received oral pain meds Oxycodone & Tramadol for back pain. Says pain is increased by moving around. Continues to have some right leg weakness but says is improving. Is able to lift and move leg better but says it still won't support her well. Dressing to medial back remains C&D. Cont to receive IV antibiotics as ordered. Good urine output per Lopez. Is hoping to go to SNF today.
[2021-04-19 07:29] VITALS: BP 147/73; PULSE 71; RESP 17; TEMP 36.9; O2SAT 90
[2021-04-19] MEDS: sennosides 8.6 mg Tablet PO (08:58)
[2021-04-19] MEDS: amlodipine 5 mg Tablet 10 MG PO (08:58)
[2021-04-19] MEDS: ferrous gluconate 324 mg Tablet PO (08:58)
[2021-04-19] MEDS: donepezil 5 MG Tablet PO (08:58)
[2021-04-19] MEDS: gabapentin 300 mg Capsule 900 MG PO ×2 (08:58→14:21)
[2021-04-19] MEDS: duloxetine 60 mg Capsule PO (08:58)
[2021-04-19] MEDS: cholecalciferol (vitamin D3) 5,000 unit Tablet 5000 UNIT PO (08:58)
[2021-04-19] MEDS: polyethylene glycol 3350 Pkt 17 gm PO (08:58)
[2021-04-19] MEDS: docusate sodium 100 mg Capsule PO (08:58)
[2021-04-19] MEDS: famotidine 20 mg Tablet PO (08:59)
[2021-04-19] MEDS: cyclobenzaprine 10 mg Tablet PO (09:03)
[2021-04-19] MEDS: colchicine 0.6 mg Tablet PO (10:00)
[2021-04-19] MEDS: carbidopa-levodopa 25-100mg Tablet 2 EACH PO ×2 (10:00→12:53)
[2021-04-19 10:47] VITALS: RESP 18
[2021-04-19] MEDS: morphine 4 mg/mL SDV 1 mL 2 MG IVP (10:47)
--- NOTE | 2021-04-19 11:04 | PM.PN ---
Subjective Subjective: Interval history: No acute events overnight. Patient is complaining of mild pain today but better than it was before. She has just received pain medications. She has remained afebrile hemodynamically stable. We discussed in detail regarding the expectation of pain level and pain medications and both benefits and demerits. Patient verbalized understanding. Medications: Reviewed: Yes Vitals/I&O/Wt Last Vital Signs Temp 98.4 F 04/19/21 07:29 Pulse 71 04/19/21 07:29 Resp 18 04/19/21 10:47 BP 147/73 04/19/21 07:29 Pulse Ox 90 04/19/21 07:29 04/18/21 04/19/21 04/19/21 22:59 06:59 14:59 Intake Total 490 / 730 480 / 1210 480 / 480 Output Total 850 / 850 950 / 950 Balance 490 / 730 -370 / 360 -470 / -470 Physical Exam Narrative: EXAM NARRATIVE: General exam no distress Neck is supple no lymphadenopathy or thyromegaly Cardiovascular regular rate and rhythm without murmur, no S3 or S4 Lungs are clear no wheezing or crackles Abdomen is soft nontender with positive bowel sounds. No obvious organomegaly Extremities no cyanosis clubbing or edema. Sensation and movement intact bilaterally. Right is weaker than the left. Urinary Catheter Management^: Lopez: Cath Placed During This Visit: yes Reason for Continuing Indwelling Catheter: Acute Urinary Retention or Obstruction Urinary Catheter Date of Insertion: 04/15/21 Urinary Catheter Time of Insertion: 04:57 Data : 04/19/21 05:31 04/18/21 05:04 Micro: Microbiology 04/15/21 11:49 Gram Stain - Final Back Anaerobic Culture - Preliminary Wound Culture - Final Bacillus sp not b. anthracis A&P Assessment and plan (1) Thoracic compression fracture: This was causing significant impingement, and associated with fluid collection concerning for hematoma. She is now postoperative day #4 from draining a fluid collection, stabilization of fracture. Cultures have remained sterile. Patient has been on vancomycin post operatively. Has remained afebrile hemodynamically stable without leukocytosis. Safe to stop antibiotics now. Pain meds, AC, PT as per ortho team. C/w Oxycodone, stop hydrocodone. Start on tramadol 50 mg q6h prn Status: Acute Qualifiers: Encounter type: initial encounter Thoracic vertebra fracture level: T10 Qualified Code(s): S22.070A - Wedge compression fracture of T9-T10 vertebra, initial encounter for closed fracture (2) Anemia: Post 1 unit transfusion on 04/17. Hemoglobin up appropriately and stable. Iron panel, vitamin B12, folate levels appreciated. Continue with oral iron supplementation. Status: Acute (3) Parkinson disease, symptomatic: Continue home medications Status: Chronic (4) Hypothyroidism (acquired): Continue home medications Status: Chronic (5) Hypertension: Continue home medications Status: Chronic (6) Acid reflux: Continue home medications Status: Chronic (7) Type 2 diabetes mellitus without complications: It is apparent from her recent sugars that she does not need a sliding scale ordered. HbA1c 5.4 We will just provide a consistent carb diet. Status: Chronic Qualifiers: Diabetes mellitus nursing home insulin use: without nursing home use Qualified Code(s): E11.9 - Type 2 diabetes mellitus without complications Additional A&P Information Chronic pain. Currently on fentanyl patch. Full code Lovenox for DVT prophylaxis. Thank you for this consultation. Patient has been accepted at [facility]. She is stable to be discharged from medicine point of view. She should be discharged on oral iron supplementation and increased amlodipine to 10 mg daily. Pain medications to be discharged as per orthopedics team. Attestations Medical Necessity Statement*: As per primary team. Time Spent in Patient Care: 16 - 35 minutes (>than 50% of time spent in counselling and/or direct pt care on unit). Coding Level of Care Code Acute 911 Operator for Ailyn Gaviria Diagnoses Thoracic compression fracture S22.070A Encounter type: initial encounter Thoracic vertebra fracture level: T10 Anemia D64.9 Parkinson disease, symptomatic G20 Hypothyroidism (acquired) E03.9 Hypertension I10 Acid reflux K21.9 Type 2 diabetes mellitus without complications E11.9 Diabetes mellitus nursing home insulin use: without nursing home use
[2021-04-19 11:19] LABS: SARS Covid-2 Antigen Negative (Negative)
[2021-04-19 11:41] VITALS: BP 135/84; PULSE 73; RESP 17; TEMP 36.7; O2SAT 90
[2021-04-19] MEDS: magnesium hydroxide 30 mL UDC PO (12:54)
[2021-04-19 14:27] VITALS: BP 135/84; PULSE 73; RESP 17; TEMP 36.7; O2SAT 90
--- NOTE | 2021-04-22 10:03 | PC.SOCIAL ---
follow up call made. Spoke with patients daughter. Patient is at [facility] at this time for rehab.
--- NOTE | 2021-04-29 11:05 | P.DS_ITS ---
Discharge Providers Date of Admission: 04/15/21 14:00 Date of Discharge: April 19, 2021 Attending Provider at Admission: Rigo Reyes DO Attending Provider at Discharge: Rigo Reyes DO Primary Care Provider: VALDO Mendoza Diagnoses at Discharge Discharge Diagnosis (1) Thoracic compression fracture: Status: Acute Qualifiers: Encounter type: initial encounter Thoracic vertebra fracture level: T10 Qualified Code(s): S22.070A - Wedge compression fracture of T9-T10 vertebra, initial encounter for closed fracture (2) Anemia: Status: Acute (3) Parkinson disease, symptomatic: Status: Chronic (4) Hypothyroidism (acquired): Status: Chronic (5) Hypertension: Status: Chronic (6) Acid reflux: Status: Chronic (7) Type 2 diabetes mellitus without complications: Status: Chronic Qualifiers: Diabetes mellitus long term care phlebotomist insulin use: without long term care phlebotomist use Qualified Code(s): E11.9 - Type 2 diabetes mellitus without complications Reason for Visit Reason for Visit: LEG WEAKNESS Hospital Course Hospital Course Patient did receive 1 unit of blood on postop day #1. Other than this her stay was uneventful. Physical Exam Urinary Catheter Management^: Lopez: Cath Placed During This Visit: yes, but has since been removed by the nurse Reason for Continuing Indwelling Catheter: Decision to DC Catheter Urinary Catheter Date of Insertion: 04/15/21 Urinary Catheter Time of Insertion: 04:57 Date Urinary Catheter Removed: 04/19/21 Time Urinary Catheter Discontinued: 12:00 Discharge Data Data Completed and Pending: Completed Studies During Hospitalization Category Date Time Status CT lumbar spine w con 10702 Urgent Cat Scan 04/15/21 03:[address] lumbar spine w o con* [id number] Routi ne Cat Scan 04/15/21 13:[address] thoracic spin wo con* [id number] Rout ine Cat Scan 04/15/21 13:[address] thoracic spine w con [id number] Urgen t Cat Scan 04/15/21 03:18 Completed XR thoracic spine 2V [id number] Routine Exams 04/15/21 Completed Vitals: Last Vital Signs Temp 98.1 F 04/19/21 14:27 Pulse 73 04/19/21 14:27 Resp 17 04/19/21 14:27 BP 135/84 04/19/21 14:27 Pulse Ox 90 04/19/21 14:27 Discharge Plan Discharge Patient Disposition: Home Condition: Stable Prescriptions: New ferrous gluconate 324 mg (37.5 mg iron) Tablet 324 mg PO BIDWM 30 Days Qty: 30 RF: 0 Continued duloxetine [Cymbalta] 60 mg capsule,delayed release(DR/EC) 60 mg PO QDAY Qty: 30 RF: 5 levothyroxine [Synthroid] 75 mcg tablet 75 mcg PO QDAY Qty: 30 RF: 5 carbidopa-levodopa 25-100 mg tablet extended release 1 tab PO .HS RF: 0 cyclobenzaprine 10 mg tablet 10 mg PO TID PRN (Reason: Spasms) RF: 0 furosemide [Lasix] 20 mg tablet 20 mg PO QAM PRN (Reason: edema) Qty: 30 RF: 5 potassium chloride 8 mEq capsule, extended release 8 meq PO DAILY PRN (Reason: use with Lasix) Qty: 30 RF: 5 chlorhexidine gluconate [Peridex] 0.12 % mouthwash 15 ml buccal BID PRN (Reason: dry mouth) Qty: 473 RF: 5 donepezil [Aricept] 5 mg tablet 5 mg PO QDAY RF: 0 gabapentin 300 mg capsule 900 mg PO TID RF: 0 Botox 100 unit recon soln 155 unit SUBCUT .Every 12 weeks RF: 0 cholecalciferol (vitamin D3) 125 mcg (5,000 unit) capsule 5,000 unit PO DAILY RF: 0 famotidine 20 mg tablet 20 mg PO BID Qty: 60 RF: 5 sennosides [Senna Laxative] 8.6 mg tablet 8.6 mg PO BID Qty: 60 RF: 0 hydroxychloroquine 200 mg tablet 200 mg PO BID Qty: 60 RF: 4 colchicine [Mitigare] 0.6 mg capsule 0.6 mg PO DAILY Qty: 30 RF: 3 carbidopa-levodopa [Sinemet] 25-100 mg tablet 2 tab PO .COMPLEX Qty: 300 RF: 5 Movantik 12.5 mg tablet 12.5 mg PO DAILY RF: 0 magnesium citrate Solution 150 ml PO BID PRN (Reason: constipation) Qty: 296 RF: 0 Changed Norvasc 5 mg tablet 10 mg PO QDAY Qty: 30 RF: 5 No Action oxycodone 20 mg tablet 20 mg PO TID PRN (Reason: pain) 30 Days Qty: 90 RF: 0 fentanyl 75 mcg/hr patch 72 hour 1 patch transdermal Q72H 30 Days Qty: 10 RF: 0 Discharge Orders: Discharge Order (Routine); Ordered 04/17/21 Ordered By: Rigo Reyes Discharge Diet: Advance as tolerated Discharge Activity: Limit activity as instructed Discharge Attestations Time Spent in Discharge Care*: less than 30 min Quality Metrics Clinical Quality Measures During this hospital stay, did patient experience: None Coding Level of Care Code Acute Chg FW DC note Diagnoses Thoracic compression fracture S22.070A Encounter type: initial encounter Thoracic vertebra fracture level: T10 Anemia D64.9 Parkinson disease, symptomatic G20 Hypothyroidism (acquired) E03.9 Hypertension I10 Acid reflux K21.9 Type 2 diabetes mellitus without complications E11.9 Diabetes mellitus long term care phlebotomist insulin use: without usp use
== END 2021-04-19 14:28 | disposition skilled nursing facility (03) | DRG 460 ==
LOC: ER 06:27 → OPS 06:47 → ICU 14:00 → MEDSURG 04-16 01:15
PROVIDERS: Internal Medicine; Student in an Organized Health Care Education/Training Program; Admitting Provider Orthopaedic Surgery; Emergency Provider Emergency Medicine; PCP Nurse Practitioner; Visit Provider Orthopaedic Surgery
PROC: 0RG707J Fusion of 2 to 7 Thoracic Vertebral Joints with Autologous Tissue Substitute, Posterior Approach, Anterior Column, Open Approach (ICD-10-PCS; CPT 22612; principal; 2021-04-15 07:00)
DX: S22.070A Wedge compression fracture of T9-T10 vertebra, initial encounter for closed fracture (principal); G89.29 Other chronic pain; M54.42 Lumbago with sciatica, left side; M54.41 Lumbago with sciatica, right side; I10 Essential (primary) hypertension; E89.0 Postprocedural hypothyroidism; M19.042 Primary osteoarthritis, left hand; M19.041 Primary osteoarthritis, right hand; M81.0 Age-related osteoporosis without current pathological fracture; E11.9 Type 2 diabetes mellitus without complications; Z96.82 Presence of neurostimulator; G20 Parkinson's disease; D64.9 Anemia, unspecified; K21.9 Gastro-esophageal reflux disease without esophagitis
CPT/HCPCS: 36415; 36430; 51702; 72070; 72128; 72129; 72131; 72132; 76000; 80048; 80053; 80061; 80202; 83036; 83540; 83550; 84439; 84443; 84481; 85025; 85651; 86140; 86850; 86900; 86920; 87070; 87075; 87205; 87426; 96372; 96374; 96375; 97110; 97163; 97530; 99285; C1713; J0330; J1100; J1170; J1644; J1650; J1885; J2270; J2370; J2405; J2704; J3010; J3370; J7030; J7050; P9016; Q9967

== ENCOUNTER 2021-04-29 16:18 | Outpatient (CLI) | payer MEDICARE, OTHER, SELFPAY ==
--- NOTE | 2021-04-29 16:27 | XR_ITS ---
WS: [id number] RIGHT TIBIA-FIBULA 2 VIEWS HISTORY: Injury with obvious deformity COMPARISON: None available. Trimalleolar fracture at the ankle with interruption of the ankle mortise. The remaining tibia and fi bula appear to be intact. No additional fractures. XR/XR tibia fibula RT 2V [id number] IMPRESSION: Trimalleolar fracture at the ankle. Ankle mortise is disrupted. Fracture descri bed on the ankle radiograph. The remaining tibia and fibula are negative.
--- NOTE | 2021-04-29 16:27 | XR_ITS ---
WS: [id number] RIGHT ANKLE: 3 VIEW(S) TECHNIQUE: AP, oblique(s) and lateral. HISTORY: Injury with obvious deformity COMPARISON: Prior outside mobile report dated 04/28/2021 describes a fracture involving the ankle. Comminuted fracture through the medial and lateral talus. There is displacement of the fractures. Dis ruption of the ankle mortise. Lateral displacement of the talus by 15 mm. Additional fracture through the posterior malleolus. Large amount of soft tissue edema. XR/XR ankle RT min 3V* [id number] IMPRESSION: Trimalleolar displaced fracture. Interruption of the ankle mortise. Lateral displacement of the talus by 15 mm.
== END 2021-04-29 16:19 | disposition home or self-care (01) ==
PROVIDERS: PCP Nurse Practitioner; Visit Provider Internal Medicine
DX: M79.89 Other specified soft tissue disorders (principal); S82.855A Nondisplaced trimalleolar fracture of left lower leg, initial encounter for closed fracture; X58.XXXA Exposure to other specified factors, initial encounter
CPT/HCPCS: 73590; 73610

== ENCOUNTER 2021-04-29 17:02 | Emergency (ER) | payer MEDICARE, OTHER, SELFPAY ==
[2021-04-29 17:12] VITALS: BP 131/64; PULSE 67; RESP 16; TEMP 36.2; O2SAT 98; BMI 29.2
--- NOTE | 2021-04-29 17:25 | W.ED.RECABL ---
HPI - Recheck/Abnormal Lab/Rx General: Chief Complaint: Recheck/Abnormal Lab/Rx Stated Complaint: ANKLE FX Time Seen by Provider: 04/29/21 17:25 History of Present Illness: HPI narrative: 76-year-old female comes in today for injury to the right lower extremity. Patient had fallen Monday night and injured her right ankle. Patient had a x-ray on Monday and it confirmed a fracture of the right ankle. Physician for patient had consulted with orthopedic physicians, Dr. Reyes, and is planned to have surgery on the ankle on Monday. Patient continues to move the ankle without much difficulty and there is concern for further displacement. Patient was sent over from [facility] for splinting of the ankle. Review of Systems General: Reports: 10 or more systems reviewed and unremarkable except in HPI and below Musc: Reports: other (fracture right ankle) [facility] ED PFSH: Medical History Acid reflux Chronic low back pain with bilateral sciatica Degenerative scoliosis Erosive osteoarthritis of both hands High risk medication use History of calcium pyrophosphate deposition disease (CPPD) Hypertension Hypothyroidism (acquired) Immunization counseling Osteoarthritis, generalized Post-menopausal osteoporosis Type 2 diabetes mellitus without complications Surgical History History of carpal tunnel surgery History of thyroidectomy Hx of cholecystectomy Status post insertion of spinal cord stimulator Family History Other CAD (coronary artery disease) Cancer Diabetes Denies family history of Rheumatoid arthritis Systemic lupus erythematosus (SLE) in adult Social History Smoking and tobacco status: never smoked Second hand smoke exposure: No Smoking risk assessment/counseling performed?: No Alcohol intake: never Desire information about alcohol rehabilitation?: No Counseling given: No Desire information about substance/drug rehabilitation?: No Counseling given: No Marital status: / Number of children: 3 service: No Current occupational status: unemployed and retired History of recent travel: No Current gender identity: Female Physical Exam Const: COMMON NORMALS: no acute distress and patient oriented x3 GENERAL APPEARANCE: cooperative HENMT: COMMON NORMALS: normocephalic and Normal external nose present HEAD & SCALP: normal to inspection and normocephalic NOSE: Normal external nose present Eye: GENERAL EYE: appearance normal, both eyes and all related structures Neck/C-Spine: COMMON NORMALS: full ROM Chest: COMMONS NORMALS: normal inspection of the chest Resp: COMMON NORMALS: normal respiratory effort EFFORT & INSPECTION: Yes able to speak in complete sentences Cardio: COMMON NORMALS: regular rate and regular rhythm RATE: regular rate RHYTHM: regular rhythm GI: COMMON NORMALS: non-tender Back/Pelvis: COMMON NORMALS: thoracic and lumbar spine normal to inspection Extremity: NARRATIVE EXTREMITY EXAM: Mild swelling and bruising is noted to the right ankle. Pulses are intact and patient has good mobility of the digits of the foot. Sensation is normal in the foot. Neuro: COMMON NORMALS: patient oriented x3 and moves all extremities Psych: COMMON NORMALS: mental status grossly normal and cooperative Skin: COMMON NORMALS: no rashes or lesions noted GENERAL SKIN EXAM: no rashes or lesions noted Course Vital Signs: Vital signs: Vital Signs Temperature 97.1 F L 04/29/21 17:12 Pulse Rate 67 04/29/21 17:12 Respiratory Rate 16 04/29/21 17:12 Blood Pressure 131/64 04/29/21 17:12 Pulse Oximetry 98 04/29/21 17:12 MDM - Recheck/Abnormal Lab/Rx MDM Narrative: Medical decision making narrative: Patient comes in today for injury to the right ankle. Patient was evaluated outpatient for some attempting to walk on a fractured ankle. Patient had x-rays done outpatient and it was noted she has a trimalleolar fracture with some displacement. Exam notes some mild swelling and some ecchymosis to the ankle. Pulses intact and sensation is intact. Patient moves extremities with minimal discomfort. Differential diagnosis includes bimalleolar versus trimalleolar fracture, neurovascular injury, dislocation. X-ray showed some displacement but no dislocation. Patient was put in a PML splint. Patient will continue with plan for surgery on Monday the . Discharge Plan Discharge Patient Disposition: Home Clinical Impression: Closed right ankle fracture Qualifiers: Encounter type: subsequent encounter Fracture healing: with routine healing Qualified Code(s): S82.891D - Other fracture of right lower leg, subsequent encounter for closed fracture with routine healing Condition: Stable Prescriptions: No Action duloxetine [Cymbalta] 60 mg capsule,delayed release(DR/EC) 60 mg PO QDAY Qty: 30 RF: 5 levothyroxine [Synthroid] 75 mcg tablet 75 mcg PO QDAY Qty: 30 RF: 5 carbidopa-levodopa 25-100 mg tablet extended release 1 tab PO .HS RF: 0 cyclobenzaprine 10 mg tablet 10 mg PO TID PRN (Reason: Spasms) RF: 0 furosemide [Lasix] 20 mg tablet 20 mg PO QAM PRN (Reason: edema) Qty: 30 RF: 5 potassium chloride 8 mEq capsule, extended release 8 meq PO DAILY PRN (Reason: use with Lasix) Qty: 30 RF: 5 chlorhexidine gluconate [Peridex] 0.12 % mouthwash 15 ml buccal BID PRN (Reason: dry mouth) Qty: 473 RF: 5 donepezil [Aricept] 5 mg tablet 5 mg PO QDAY RF: 0 gabapentin 300 mg capsule 900 mg PO TID RF: 0 Botox 100 unit recon soln 155 unit SUBCUT .Every 12 weeks RF: 0 cholecalciferol (vitamin D3) 125 mcg (5,000 unit) capsule 5,000 unit PO DAILY RF: 0 famotidine 20 mg tablet 20 mg PO BID Qty: 60 RF: 5 sennosides [Senna Laxative] 8.6 mg tablet 8.6 mg PO BID Qty: 60 RF: 0 hydroxychloroquine 200 mg tablet 200 mg PO BID Qty: 60 RF: 4 colchicine [Mitigare] 0.6 mg capsule 0.6 mg PO DAILY Qty: 30 RF: 3 carbidopa-levodopa [Sinemet] 25-100 mg tablet 2 tab PO .COMPLEX Qty: 300 RF: 5 oxycodone 20 mg tablet 20 mg PO TID PRN (Reason: pain) 30 Days Qty: 90 RF: 0 fentanyl 75 mcg/hr patch 72 hour 1 patch transdermal Q72H 30 Days Qty: 10 RF: 0 Movantik 12.5 mg tablet 12.5 mg PO DAILY RF: 0 Norvasc 5 mg tablet 10 mg PO QDAY Qty: 30 RF: 5 ferrous gluconate 324 mg (37.5 mg iron) Tablet 324 mg PO BIDWM 30 Days Qty: 30 RF: 0 magnesium citrate Solution 150 ml PO BID PRN (Reason: constipation) Qty: 296 RF: 0 Discharge Orders: Discharge ED (Routine); Ordered 04/29/21 Ordered By: Tavo Gilmore Referrals: Etahn Lance, 911 EMERGENCY DISPATCHER-C [Primary Care Provider] - Discharge Diet: Usual diet Discharge Activity: Limit activity as instructed Patient Instructions: Opioid Safety Activity Restrictions/Additional Instructions: Keep splint clean and dry. Nonweightbearing to extremity. Continue with routine plan. Follow-up with primary care as needed. Coding Level of Care Code ED Wash Rack Operator for Chg Fwd Exam Comprehensive
--- NOTE | 2021-04-29 18:47 | XRR_ITS ---
PROCEDURE INFORMATION: Exam: XR Right Ankle Exam date and time: 04/29/2021 6:47 PM Age: 76 years old Clinical indication: Injury or trauma; Fall; Blunt trauma; Ankle; Right; Additional info: Post splint TECHNIQUE: Imaging protocol: XR Right ankle. Views: 3 or more views. COMPARISON: No relevant prior studies available. FINDINGS: The previous examinations are unavailable. The previous report is also unavailable. The ankle is within a fiberglass cast. This obscures the bony detail. There are fractures of the distal fibula and medial malleolus. There is lateral displacement of the talus with respect to the tibia. XR/XR ankle RT min 3V* [id number] IMPRESSION: 1. There has been placement of a fiberglass cast/splint. 2. Fractures distal tibia and medial malleolus. 3. Lateral displacement of the talus with respect to the tibia. The
[2021-04-29 19:16] VITALS: BP 131/63; PULSE 69; RESP 16; O2SAT 94
[2021-04-29 19:26] VITALS: BP 131/63; PULSE 69; RESP 16; TEMP 36.2; O2SAT 94
== END 2021-04-29 19:28 | disposition home or self-care (01) ==
PROVIDERS: Emergency Provider Nurse Practitioner Family; PCP Nurse Practitioner
DX: S82.851A Displaced trimalleolar fracture of right lower leg, initial encounter for closed fracture (principal); I10 Essential (primary) hypertension; E11.9 Type 2 diabetes mellitus without complications; W19.XXXA Unspecified fall, initial encounter; M79.89 Other specified soft tissue disorders; S82.855A Nondisplaced trimalleolar fracture of left lower leg, initial encounter for closed fracture; X58.XXXA Exposure to other specified factors, initial encounter
CPT/HCPCS: 29515; 73590; 73610; 99283

== ENCOUNTER 2021-05-03 09:21 | Day surgery (SDC) | payer MEDICARE, OTHER, SELFPAY ==
[2021-04-30 13:43] VITALS: BMI 29.2
[2021-05-03] VITALS (16 sets, daily range): BP systolic 125–142; BP diastolic 54–74; PULSE 64–77; RESP 12–18; TEMP 36.5–36.8; O2SAT 92–100
--- NOTE | 2021-05-03 | XR_ITS ---
WS: [id number] Exam: XR ankle RT min 3V* [id number] Date/Time of Exam: 05/03/2021 12:00 AM Reason For Exam: orif right ankle Comparison 04/29/2014. There is plate and screw fixation involving a fracture of the lower fibula stabilized in anatomic ali gnment for healing. 2 screws also stabilize a fracture of the medial malleolus in excellent position for healing. There is some gapping of the lateral aspect of the ankle mortise. XR/XR ankle RT min 3V* [id number] IMPRESSION: 1. Satisfactory internal orthopedic fixation involving fractures of the medial and lateral malleolus as noted above. Both are in excellent position for crispin zavala
--- NOTE | 2021-05-03 | SCC_ITS ---
Procedure Done: 1. ORIF bimalleolar ankle fracture 40.6 seconds of fluoroscopic guidance, for a cumulative dose of 1.44 mGy, was provided to Dr. Reyes by the radiology department. C-arm images of the RIGHT ankle were saved for the patient's permanent record. [facility]
[2021-05-03] MEDS: sodium chloride 0.9% 1,000 ML 30 ML IV (10:07)
--- NOTE | 2021-05-03 10:22 | ANES.PREANE2 ---
Pre-Anesthetic Assessment Pre-Anesthetic Assessment: Height/Weight: Height 1.57 m Weight 72.575 kg Temp Pulse Resp BP Pulse Ox 97.8 F 64 16 134/62 95 05/03/21 10:04 05/03/21 10:04 05/03/21 10:04 05/03/21 10:04 05/03/21 10:04 Preop Diagnosis: right ankle fracture Proposed Procedure: Operation Date: 05/03/21 10:30 Proposed Procedures p ORIF Ankle [id number](Not Applicable) - Rigo Reyes DO Was Beta Celestino taken within 24 hours: N/A Was Clonidine taken within 24 hours: N/A Social: Social History: No alcohol and No tobacco Exam: Pre-Anes Outpt Exam: alert, oriented x 3, clear to auscultation bilaterally and regular rate & rhythm Airway: Submandibular: WNL Cervical ROM: WNL MP: 3 Dentition: Chipped CV/HEM: CV/HEM: Anemia and HTN GI: GI: GERD Metabolic: Metabolic: DM and Thyroid Musc/skel: Musc/skel: Lower Back Pain Comments: Parkinson's Neuropsych: Neuropsych: RENEE Anesthetic Plan: ASA status: 3 Anesthesia: General Risk of > 500 ml blood loss (7ml/kg in children): No Meds/Allergies Current Medications: Current Medications Generic Name Dose Route Start Last Admin Trade Name Freq PRN Reason Stop Dose Admin Sodium Chloride 1,000 mls @ 30 ml s/hr 05/03/21 09:45 05/03/21 10:07 Sodium Chloride 0.9% IV 05/04/21 09:44 30 mls/hr .Q24H TITO Administration PFSH Anesthesia PFSH: Medical History Acid reflux Chronic low back pain with bilateral sciatica Degenerative scoliosis Erosive osteoarthritis of both hands High risk medication use History of calcium pyrophosphate deposition disease (CPPD) Hypertension Hypothyroidism (acquired) Immunization counseling Osteoarthritis, generalized Post-menopausal osteoporosis Type 2 diabetes mellitus without complications Surgical History History of carpal tunnel surgery History of thyroidectomy Hx of cholecystectomy Status post insertion of spinal cord stimulator Family History Other CAD (coronary artery disease) Cancer Diabetes Denies family history of Rheumatoid arthritis Systemic lupus erythematosus (SLE) in adult Social History Smoking and tobacco status: never smoked Second hand smoke exposure: No Smoking risk assessment/counseling performed?: No Alcohol intake: never Desire information about alcohol rehabilitation?: No Counseling given: No Desire information about substance/drug rehabilitation?: No Counseling given: No Marital status: / Number of children: 3 service: No Current occupational status: unemployed and retired History of recent travel: No Current gender identity: Female Data Anesthesia Cardiac Studies: No Data to Display
--- NOTE | 2021-05-03 11:07 | PM.HP ---
Providers/Chief Complaint Primary Care Provider: LACHELLE MendozaC Chief Complaint: orif ankle History of Present Illness Blossom Velez is a 76 year old female [facility] and sustained a right Bimalleolar ankle fracture. Review of Systems Narrative: General ROS: negative for weight changes, fever ENT ROS: negative for nasal congestion, drainage or bleeding, sore throat, dysphagia or ear pain Eyes: PERRL Hematological and Lymphatic ROS: negative for swollen glands or abnormal bleeding Endocrine ROS: negative for polyuria/polydpsia or new changes in weight Respiratory ROS: negative for cough, shortness of breath, or wheezing Cardiovascular ROS: negative for chest pain or dyspnea on exertion Gastrointestinal ROS: negative for reflux, abdominal pain, change in bowel habits, or black or bloody stools Musculoskeletal ROS: negative for back pain, neck pain, or joint pain or swelling except for current problem Neurological ROS: negative for TIA or stoke symptoms Skin: no rashes Medications/Allergies Home Medications Medication Instructions Recorded Confirmed Last Taken Type donepezil 5 mg tablet 5 mg PO QDAY 09/26/19 05/03/21 05/02/21 History gabapentin 300 mg capsule 900 mg PO TID cap 09/26/19 05/03/21 05/02/21 History onabotulinumtoxinA 100 unit 155 unit SUBCUT .Every 12 weeks 09/26/19 04/30/21 04/08/21 History solution for injection each duloxetine 60 mg capsule,delayed 60 mg PO QDAY #30 cap 10/18/19 05/03/21 05/02/21 Rx release levothyroxine 75 mcg tablet 75 mcg PO QDAY #30 tab 10/18/19 05/03/21 05/02/21 Rx carbidopa ER 25 mg-levodopa 100 mg 1 tab PO .HS tab 01/13/20 05/03/21 05/02/21 History tablet,extended release cyclobenzaprine 10 mg tablet 10 mg PO TID PRN 01/13/20 04/30/21 04/08/21 History famotidine 20 mg tablet 20 mg PO BID #60 tab 02/22/20 05/03/21 05/02/21 Rx sennosides 8.6 mg tablet 8.6 mg PO BID #60 tab 05/12/20 05/03/21 05/02/21 Rx furosemide 20 mg tablet 20 mg PO QAM PRN #30 tab 08/28/20 04/30/21 04/08/21 Rx potassium chloride 8 mEq 8 meq PO DAILY PRN #30 cap 08/28/20 04/30/21 04/08/21 Rx capsule,extended release chlorhexidine gluconate 0.12 % 15 ml BUCCAL BID PRN #473 ml 09/01/20 04/30/21 04/08/21 Rx mouthwash cholecalciferol (vitamin D3) 125 5,000 unit PO DAILY cap 10/19/20 05/03/21 05/02/21 History mcg (5,000 unit) capsule Mitigare 0.6 mg capsule 0.6 mg PO DAILY #30 cap NS 02/16/21 05/03/21 05/02/21 Rx hydroxychloroquine 200 mg tablet 200 mg PO BID #60 tab 02/16/21 05/03/21 05/02/21 Rx carbidopa 25 mg-levodopa 100 mg 2 tab PO .COMPLEX #300 tab 03/09/21 05/03/21 05/02/21 Rx tablet magnesium citrate 150 ml PO BID PRN #296 ml 04/10/21 04/30/21 Unknown Rx Movantik 12.5 mg PO DAILY 04/15/21 05/03/21 05/02/21 History amlodipine [Norvasc] 10 mg PO QDAY #30 tab 04/19/21 05/03/21 05/03/21 Rx ferrous gluconate 324 mg PO BIDWM 30 Days #30 tab 04/19/21 05/03/21 05/02/21 Rx fentanyl 75 mcg/hr transdermal 1 patch TRANSDERMAL Q72H 30 Days 04/20/21 04/30/21 Unknown Rx patch #10 ea oxycodone 20 mg tablet 20 mg PO TID PRN 30 Days #90 tab 04/20/21 05/03/21 05/03/21 Rx Allergies Allergy/AdvReac Type Severity Reaction Status Date / Time capsaicin [From Capzasin] Allergy RASH Verified 05/03/21 09:48 menthol [From Capzasin] Allergy RASH Verified 05/03/21 09:48 Sulfa (Sulfonamide Allergy RASH Verified 05/03/21 09:48 Antibiotics) PFSH Acute PFSH: Medical History Acid reflux Chronic low back pain with bilateral sciatica Degenerative scoliosis Erosive osteoarthritis of both hands High risk medication use History of calcium pyrophosphate deposition disease (CPPD) Hypertension Hypothyroidism (acquired) Immunization counseling Osteoarthritis, generalized Post-menopausal osteoporosis Type 2 diabetes mellitus without complications Surgical History History of carpal tunnel surgery History of thyroidectomy Hx of cholecystectomy Status post insertion of spinal cord stimulator Family History Other CAD (coronary artery disease) Cancer Diabetes Denies family history of Rheumatoid arthritis Systemic lupus erythematosus (SLE) in adult Social History Smoking and tobacco status: never smoked Second hand smoke exposure: No Smoking risk assessment/counseling performed?: No Alcohol intake: never Desire information about alcohol rehabilitation?: No Counseling given: No Desire information about substance/drug rehabilitation?: No Counseling given: No Marital status: / Number of children: 3 service: No Current occupational status: unemployed and retired History of recent travel: No Current gender identity: Female Vitals/I&O/Wt Last Vital Signs Temp 97.8 F 05/03/21 10:04 Pulse 64 05/03/21 10:04 Resp 16 05/03/21 10:04 BP 134/62 05/03/21 10:04 Pulse Ox 95 05/03/21 10:04 Physical Exam Narrative: EXAM NARRATIVE: CONSTITUTIONAL: The patient is a normal appearing [] in no apparent distress. GENERAL: Patient in no acute distress. CARDIAC: Regular rate and rhythm. CHEST: Normal inspiratory effort, normal respiratory rate. ABDOMEN: Soft and nontender. SKIN: Clear, warm and intact. NEURO?PSYCH: The patient is alert and oriented to person, place and time. Sensorv /SILT Motor StrengthShoulder abduction C5 5/5Wrist extension C6 5/5Elbow extension C7 5/5Hand Electronic Device Monitor C8 5/5Finger abduction T15/5 Radial/ Ulnar/ Median n intact LowerSensory (SILT)Motor StrengthHin flexion L2/3Ant/inner thigh 5/5Hip adduction L2/3 5/5Knee extension L4 Lat thigh, 5/5Toe dorsiflexion L5 5/5Ankle dorsiflexion L5/ N10Nzvkpgh flexion S1 5/5 DTRBleeps 2+Triceps 2+Brachioradialis 2+Patellar 2+Achilles 2+ MUSCULOSKELETAL: [] UPPEREXTREMITIES: The patient had full active ROM in fingers, wrist, elbow, and shoulder. The patient demonstrated ability to fully flex/extend/abduct/adduct fingers, make ok sign, cross 2nd/3rd digits, extend 1st digit fully.. Radial pulse 2+, CR<2 seconds. LOWER EXTREMITIES: Pt has full, active ROM of toes, ankle, knee, and hip. Dorsalis pedis/posterior tibialis pulses 2+, CR<2 seconds. SPINE: Skin warm, dry, intact. 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
--- NOTE | 2021-05-03 13:33 | P.OP_ITS ---
Operative Report Date of procedure: May 03, 2021 Pre-op Diagnosis: right ankle fracture Post-op diagnosis: same Procedure Done: 1. ORIF bimalleolar ankle fracture Surgeon: Rigo Reyes Anesthesia: General Estimated blood loss (mL): 5 Condition: stable Disposition: PACU Procedure: 1. ORIF bimalleolar ankle fracture Patient was brought to the operative suite placed in the supine position all areas impingement were well-padded. Tourniquet was applied. Patient was p repped and draped in normal sterile fashion. Skin incision is made over the lateral malleolus distally. Incision was made down to bone. The fracture was identified cleaned and reduced with a [id number] reduction forceps. A 6 hole one third tubular plate was placed. 2 locking screws placed the distal aspect of the fracture and 3 screws placed proximally. Next attention was brought to the medial side. A skin incision made over the medial aspect of the medial malleolus. Fracture was identified reduced with [id number] reduction forceps. And 240 cannulated screws were placed holding the reduction in place. AP lateral and mortise views were taken of the ankle which show adequate reduction and proper position of screws and hardware. And fracture. Wounds irrigated closed with Vicryl and nylon suture. Patient was placed in a posterior splint. At the end of the case patient had her stitches removed from her back as well. Steri-Strips were placed and dressing was applied.
--- NOTE | 2021-05-03 13:35 | SUR.PHASEI ---
PT NOW MORE ALERT, WHEN ASKED ABOUT PAIN PT STATES (LITTLE BIT) RESP EVEN AND UNLABORED PT FACE RELAXED PT ON RA SATS 95% NO DISTRESS PT REQUESTS ICE CHIP VSS. RT FOOT ELEVATED WITH DISTAL TOES PINK COOL CAP REFILL PT TAKING ICE CHIPS WITHOUT DIFFICULTY, VSS SATS 96% ON RA.
[2021-05-03] MEDS: fentaNYL 50 mcg/mL INJ 2mL IVP (13:42)
[2021-05-03] MEDS: oxyCODONE 5 mg IR Tab/Cap 20 MG PO (14:23)
--- NOTE | 2021-05-03 14:47 | SUR.PHASEII ---
1442 spoke with jerrod lomas at [facility] and report given,informed about last dose of pain rx given at 1706, 1446 daughter frank here and informed her of this and verbalized understanding
--- NOTE | 2021-05-03 15:40 | ANE.PACU2 ---
Inpatient post-anesthesia follow up: Airway intact: Yes Vital signs: Temperature 98 F Pulse Rate 72 Respiratory Rate 17 Blood Pressure 136/70 Pulse Oximetry 94 Oxygen Delivery Me thod Room Air Oxygen Flow Rate 2 Fraction of Inspir ed Oxygen Hydration adequate: Yes Nausea and vomiting: No Pain level: 3 Mental status: Baseline
== END 2021-05-03 15:20 | disposition home or self-care (01) ==
PROVIDERS: PCP Nurse Practitioner; Visit Provider Orthopaedic Surgery
PROC: (CPT 27814; principal; 2021-05-03 10:20)
DX: S82.841A Displaced bimalleolar fracture of right lower leg, initial encounter for closed fracture (principal); W19.XXXA Unspecified fall, initial encounter; Y92.129 Unspecified place in nursing home as the place of occurrence of the external cause; K21.9 Gastro-esophageal reflux disease without esophagitis; I10 Essential (primary) hypertension; E03.9 Hypothyroidism, unspecified; M19.90 Unspecified osteoarthritis, unspecified site; E11.9 Type 2 diabetes mellitus without complications; Z82.49 Family history of ischemic heart disease and other diseases of the circulatory system; Z83.3 Family history of diabetes mellitus
CPT/HCPCS: 27814; 73610; 75989; 76000; C1713; J0690; J2405; J2704; J3010; J7030

== ENCOUNTER 2021-05-20 10:53 | Outpatient (CLI) | payer OTHER, SELFPAY | END 2021-05-20 10:54 | disposition home or self-care (01) | LOC: SPT 10:53 | PROVIDERS: PCP Nurse Practitioner; Visit Provider Orthopaedic Surgery | DX: Z46.89 Encounter for fitting and adjustment of other specified devices (principal); S82.891D Other fracture of right lower leg, subsequent encounter for closed fracture with routine healing; X58.XXXD Exposure to other specified factors, subsequent encounter; Z47.89 Encounter for other orthopedic aftercare | CPT/HCPCS: 97760; L4361 ==

== ENCOUNTER → 2021-06-17 11:54 | Outpatient (BNVA) | payer MEDICARE, OTHER, SELFPAY | PROVIDERS: PCP Internal Medicine; Visit Provider Orthopaedic Surgery | DX: M41.80 Other forms of scoliosis, site unspecified (principal); Z48.89 Encounter for other specified surgical aftercare; S22.070A Wedge compression fracture of T9-T10 vertebra, initial encounter for closed fracture; S82.891A Other fracture of right lower leg, initial encounter for closed fracture; X58.XXXA Exposure to other specified factors, initial encounter | CPT/HCPCS: 72070; 72100; 73610; 99214 ==

== ENCOUNTER → 2021-07-14 15:33 | Outpatient (BNVA) | payer MEDICARE, OTHER, SELFPAY | PROVIDERS: PCP Internal Medicine; Visit Provider Specialist | DX: G20 Parkinson's disease (principal); G31.84 Mild cognitive impairment of uncertain or unknown etiology; Z98.890 Other specified postprocedural states | CPT/HCPCS: 99214 ==

== ENCOUNTER 2021-07-27 14:26 | Outpatient (CLI) | payer MEDICARE, OTHER, SELFPAY ==
--- NOTE | 2021-07-27 14:33 | XR_ITS ---
WS: [id number] Exam: XR thoracic spine 3V* [id number] Date/Time of Exam: 07/27/2021 2:33 PM Reason For Exam: Fall Comparison 06/17/2021. There are pedicle screws and posterior rods extending from T4 to T12. A biconcave compression fractur e of the T10 is noted which is stable in appearance. About 20% loss of vertebral height. Additional p edicle screws and rods extend into the lumbar spine but are incompletely visualized. There is thoraco lumbar scoliosis. Neurostimulator electrodes extend into the lower T-spine. No new fractures are seen . No sign of hardware failure or malposition. Osteopenia. XR/XR thoracic spine 3V* [id number] IMPRESSION: 1. No new fracture or malalignment noted. 2. Stable appearing hardware in the thoracic and lumbar spine with neurostimula tor electrodes extending into the lower T-spine. 3. Stable appearing biconcave compression fracture of T10. Thoracolumbar scolio sis. 4. Overall, no change.
== END 2021-07-27 14:27 | disposition home or self-care (01) ==
PROVIDERS: PCP Internal Medicine; Visit Provider Nurse Practitioner Family
DX: S22.079D Unspecified fracture of T9-T10 vertebra, subsequent encounter for fracture with routine healing (principal); W19.XXXD Unspecified fall, subsequent encounter; M41.85 Other forms of scoliosis, thoracolumbar region; Z96.82 Presence of neurostimulator
CPT/HCPCS: 72072

== ENCOUNTER → 2021-07-29 11:01 | Outpatient (BNVA) | payer MEDICARE, OTHER, SELFPAY | PROVIDERS: PCP Internal Medicine; Visit Provider Orthopaedic Surgery | DX: S82.891A Other fracture of right lower leg, initial encounter for closed fracture (principal); W19.XXXA Unspecified fall, initial encounter; Z98.890 Other specified postprocedural states | CPT/HCPCS: 73610 ==

== ENCOUNTER 2021-08-16 16:21 | Outpatient (CLI) | payer MEDICARE, OTHER, SELFPAY ==
[2021-08-16 16:55] LABS: Bilirubin Urine Neg (Negative); Blood Urine 3+ (Negative); Glucose Urine UA Norm (Normal); Ketones Urine 1+ (Negative); Nitrate Urine Negative (Negative); Protein Urine 1+ (Negative); Urine Appearance Cloudy (CLEAR); Urine Color Yellow (Yellow); pH Urine 5 (5-7)
[2021-08-16 16:56] LABS: Add Urine Microscopic? YES; Leukocyte Esterase Urine 2+ (Negative); Urobilinogen Urine Norm (Negative)
[2021-08-16 16:57] LABS: RBC Urine 0-4 /hpf (0-2); WBC Urine TOO NUMEROUS TO CNT /hpf (0-5)
[2021-08-16 16:58] LABS: Amorphous Sediment Urine TRACE /hpf; Bacteria Urine 4+ /hpf; Mucus Urine 1+ /hpf; Squamous Epithelial Cell Urine 0-4 /hpf (0-5); Transitional Epi Cells Urine 0-4 /hpf
[2021-08-16 16:59] LABS: Add Urine Culture? No
== END 2021-08-16 16:22 | disposition home or self-care (01) ==
LOC: LAB 16:25
PROVIDERS: PCP Internal Medicine; Visit Provider Internal Medicine
DX: N39.0 Urinary tract infection, site not specified (principal)
CPT/HCPCS: 81001; 87077; 87086; 87186

== ENCOUNTER 2021-08-21 13:36 | Emergency (ER) | payer MEDICARE, OTHER, SELFPAY ==
[2021-08-21 13:42] VITALS: BP 119/77; PULSE 81; RESP 18; TEMP 36.6; O2SAT 96; BMI 28.3
--- NOTE | 2021-08-21 14:12 | XRR_ITS ---
PROCEDURE INFORMATION: Exam: XR Pelvis Exam date and time: 08/21/2021 2:12 PM Age: 76 years old Clinical indication: Pelvic pain; Prior surgery; Surgery type: Back; Additional info: Possible fall TECHNIQUE: Imaging protocol: XR pelvis. Views: 1 or 2 view. COMPARISON: CT abdomen pelvis w con* [id number] 04/10/2021 10:49 AM FINDINGS: Bones/joints: Partially visualized posterior spinal fusion hardware extending through the sacrum and iliac wings. No acute fracture. Moderate degenerative narrowing of both hips. Spinal stimulator device again noted in the right gluteal region. Soft tissues: Unremarkable. XR/XR pelvis 1-2V* [id number] IMPRESSION: No acute findings.
--- NOTE | 2021-08-21 14:12 | XRR_ITS ---
PROCEDURE INFORMATION: Exam: XR Lumbosacral Spine Exam date and time: 08/21/2021 2:12 PM Age: 76 years old Clinical indication: Low back pain; Prior surgery; Additional info: Sciatica, possible fall in tub TECHNIQUE: Imaging protocol: XR of the lumbosacral spine. Views: 2 or 3 views. COMPARISON: CR XR lumbar spine 2-3V* [id number] 06/17/2021 12:00 PM FINDINGS: Bones/joints: Extensive posterior spinal fusion hardware extending beyond the lower thoracic spine superiorly and through the sacrum and iliac wings inferiorly. There is stable grade 1 anterolisthesis of L4 on L5 and L5 on S1. Vertebral body heights are intact with no evidence of acute fracture. No new or worsening malalignment. Soft tissues: Unremarkable. XR/XR lumbar spine 2-3V* [id number] IMPRESSION: Stable exam, no acute findings.
--- NOTE | 2021-08-21 14:16 | ED_ITS ---
HPI - Extremity Problem General: Chief complaint: Extremity Problem,Nontraumatic Stated complaint: LEFT LEG PAIN Time Seen by Provider: 08/21/21 14:07 History of Present Illness: HPI Narrative: Patient complains about left upper leg pain is been going on since stopping her Neurontin. She was on 900 mg Neurontin daily and stopped it cold turkey. She has a history of back surgery and scoliosis. She possibly fell in the bathtub she is said she did not but h [facility] provider had to help her get up. She said it hurts to move her left leg from the hip down to her knee area. Denies any swelling or pain with any weightbearing. Patient also has a history of anemia and presents pale today MD Complaint: extremity pain Onset (ago): day(s) Pain Consistency: constant Location: left and lower extremity Severity scale (1-10): 5 Quality: burning and aching Relieving factors: immobilization Exacerbating factors: range of motion Associated symptoms: Reports no associated symptoms; Deny chest pain, fever(s) or rash Review of Systems Const: Denies: fever(s), chills or body aches Eyes: Denies: change in vision or blurry vision ENMT: Denies: throat pain or nasal congestion Card: Denies: chest pain or dyspnea on exertion Resp: Denies: dyspnea, productive cough or non-productive cough GI: Denies: abdominal pain, nausea or vomiting Musc: Reports: extremity pain (Left upper leg. Pain since stopping Neurontin.) Skin/Breast: Denies: rash Neuro: Denies: headache(s) Psych: Denies: anxiety or depression Albert/Lymph: Denies: easy bruising PFSH ED PFSH: Medical History Acid reflux Chronic low back pain with bilateral sciatica Degenerative scoliosis Erosive osteoarthritis of both hands High risk medication use History of calcium pyrophosphate deposition disease (CPPD) Hypertension Hypothyroidism (acquired) Immunization counseling Osteoarthritis, generalized Post-menopausal osteoporosis Type 2 diabetes mellitus without complications Surgical History History of carpal tunnel surgery History of thyroidectomy Hx of cholecystectomy Status post insertion of spinal cord stimulator Family History Other CAD (coronary artery disease) Cancer Diabetes High risk medication use Denies family history of Rheumatoid arthritis Systemic lupus erythematosus (SLE) in adult Social History Smoking and tobacco status: never smoked Second hand smoke exposure: No Smoking risk assessment/counseling performed?: No Alcohol intake: never Desire information about alcohol rehabilitation?: No Counseling given: No Desire information about substance/drug rehabilitation?: No Counseling given: No Marital status: / Number of children: 3 service: No Current occupational status: unemployed and retired History of recent travel: No Current gender identity: Female Physical Exam Const: COMMON NORMALS: no acute distress, average body habitus and patient oriented x3 HENMT: COMMON NORMALS: normocephalic HEAD & SCALP: normal to inspection and normocephalic FACE & SINUS: normal facial exam Eye: GENERAL EYE: appearance normal, both eyes and all related structures CONJUNCTIVA: Yes conjunctival abnormal positive bilateral pallor Neck/C-Spine: COMMON NORMALS: no JVD Chest: COMMONS NORMALS: normal inspection of the chest Resp: COMMON NORMALS: normal respiratory effort and clear to auscultation bilaterally AUSCULTATION: clear to auscultation bilaterally Cardio: COMMON NORMALS: no JVD, regular rate and regular rhythm RATE: regular rate RHYTHM: regular rhythm GI: COMMON NORMALS: Normal to inspection, nondistended, normoactive bowel sounds present Extremity: LEFT LOWER EXTREMITY: Yes upper leg (Tenderness along the sciatic nerve root crosses mid thigh down to medial as) Left upper leg: Yes neurovascular exam (Intact) and Yes other (No swelling does have range of motion but pain with range of motion no pelv) Neuro: COMMON NORMALS: patient oriented x3 Psych: COMMON NORMALS: mental status grossly normal Skin: OTHER: Appears very pale. Course Vital Signs: Vital signs: Vital Signs Temperature 97.8 F 08/21/21 13:42 Pulse Rate 81 08/21/21 13:42 Respiratory Rate 18 08/21/21 13:42 Blood Pressure 119/77 08/21/21 13:42 Pulse Oximetry 96 08/21/21 13:42 Discharge Plan Discharge Prescriptions: No Action duloxetine [Cymbalta] 60 mg capsule,delayed release(DR/EC) 60 mg PO QDAY Qty: 30 RF: 5 levothyroxine [Synthroid] 75 mcg tablet 75 mcg PO QDAY Qty: 30 RF: 5 carbidopa-levodopa 25-100 mg tablet extended release 1 tab PO .HS RF: 0 cyclobenzaprine 10 mg tablet 10 mg PO TID PRN (Reason: Spasms) RF: 0 furosemide [Lasix] 20 mg tablet 20 mg PO QAM PRN (Reason: edema) Qty: 30 RF: 5 potassium chloride 8 mEq capsule, extended release 8 meq PO DAILY PRN (Reason: use with Lasix) Qty: 30 RF: 5 carbidopa-levodopa [Sinemet] 25-100 mg tablet 2 tab PO .COMPLEX Qty: 300 RF: 5 carbidopa-levodopa 25-100 mg tablet 1 tab PO .in the am RF: 0 donepezil [Aricept] 5 mg tablet 5 mg PO QDAY RF: 0 Botox 100 unit recon soln 155 unit SUBCUT .Every 12 weeks RF: 0 cholecalciferol (vitamin D3) 125 mcg (5,000 unit) capsule 5,000 unit PO DAILY RF: 0 hydroxychloroquine 200 mg tablet 200 mg PO BID Qty: 60 RF: 3 colchicine [Mitigare] 0.6 mg capsule 0.6 mg PO DAILY Qty: 30 RF: 3 fentanyl 75 mcg/hr patch 72 hour 1 patch transdermal Q72H 30 Days Qty: 10 RF: 0 oxycodone 20 mg tablet 20 mg PO TID PRN (Reason: pain) 30 Days Qty: 90 RF: 0 famotidine 20 mg tablet 20 mg PO BID Qty: 60 RF: 5 sennosides [Senna Laxative] 8.6 mg tablet 8.6 mg PO BID Qty: 60 RF: 0 nitrofurantoin monohyd/m-cryst [Macrobid] 100 mg capsule 100 mg PO BID 10 Days Qty: 20 RF: 0 Movantik 12.5 mg tablet 12.5 mg PO DAILY RF: 0 amlodipine [Norvasc] 5 mg tablet 10 mg PO QDAY Qty: 30 RF: 5 magnesium citrate Solution 150 ml PO BID PRN (Reason: constipation) Qty: 296 RF: 0 Coding Level of Care Code ED 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
[2021-08-21 14:46] LABS: Basophils % 0.5 %; Eosinophils # 0.2 10^3/uL (0.0-0.8); Eosinophils % 2.6 %; Hematocrit 39.3 % (37.0-47.0); Hemoglobin 12.4 g/dL (11.5-15.3); Lymphocytes # 1.6 10^3/uL (0.8-4.8); Lymphocytes % 24.5 %; Mean Corpuscular HGB Conc 31.6 g/dL (30.0-36.0); Mean Corpuscular Hemoglobin 26.6 pg (28.0-34.0); Mean Corpuscular Volume 84.2 fl (81-99); Mean Platelet Volume 8.9 fL (7.4-10.4); Monocytes # 0.5 10^3/uL (0.2-0.9); Neutrophils # 4.25 10^3/uL (1.8-7.7); Neutrophils % 63.9 %; Nucleated Red Blood Cells % 0 %; Platelet Count 312 10^3/cmm (130-400); Red Blood Count 4.67 10^6/uL (4.1-5.3); Red Cell Distribution Width 13.7 % (12.1-15.1); White Blood Count 6.6 10^3/uL (4.0-10.0)
== END 2021-08-21 15:10 | disposition home or self-care (01) ==
PROVIDERS: Emergency Provider Nurse Practitioner Family; PCP Internal Medicine
DX: M79.605 Pain in left leg (principal); I10 Essential (primary) hypertension; E11.9 Type 2 diabetes mellitus without complications
CPT/HCPCS: 72100; 72170; 85025; 99282

== ENCOUNTER 2021-10-06 13:49 | Outpatient (CLI) | payer MEDICARE, OTHER, SELFPAY ==
[2021-10-06 14:22] LABS: Bilirubin Urine Neg (Negative); Blood Urine Neg (Negative); Glucose Urine UA Norm (Normal); Ketones Urine Negative (Negative); Nitrate Urine Negative (Negative); Protein Urine Neg (Negative); Urine Appearance Clear (CLEAR); Urine Color Straw (Yellow); Urobilinogen Urine Norm (Negative); pH Urine 7 (5-7)
[2021-10-06 14:23] LABS: Add Urine Microscopic? YES; Leukocyte Esterase Urine 2+ (Negative)
[2021-10-06 14:32] LABS: Add Urine Culture? No; Bacteria Urine 2+ /hpf; Squamous Epithelial Cell Urine 0-4 /hpf (0-5)
== END 2021-10-06 13:50 | disposition home or self-care (01) ==
LOC: LAB 13:55
PROVIDERS: PCP Internal Medicine; Visit Provider Internal Medicine
DX: N39.0 Urinary tract infection, site not specified (principal)
CPT/HCPCS: 81001; 87077; 87086; 87186

== ENCOUNTER 2021-10-19 14:44 | Outpatient (CLI) | payer MEDICARE, OTHER, SELFPAY ==
[2021-10-19 15:51] LABS: Alanine Aminotransferase < 5 U/L (0-33); Alkaline Phosphatase 168 IU/L (35-105); Aspartate Amino Transferase 16 U/L (0-32); Basophils % 0.6 %; C Reactive Protein 3.9 mg/L (0.0-4.9); Eosinophils # 0.2 10^3/uL (0.0-0.8); Eosinophils % 2.5 %; Globulin 2.5 g/dL (1.3-4.6); Hematocrit 38.6 % (37.0-47.0); Hemoglobin 11.9 g/dL (11.5-15.3); Lymphocytes # 1.4 10^3/uL (0.8-4.8); Mean Corpuscular HGB Conc 30.8 g/dL (30.0-36.0); Mean Corpuscular Hemoglobin 27.5 pg (28.0-34.0); Mean Corpuscular Volume 89.1 fl (81-99); Mean Platelet Volume 9.6 fL (7.4-10.4); Monocytes # 0.4 10^3/uL (0.2-0.9); Monocytes % 6.6 %; Neutrophils # 4.47 10^3/uL (1.8-7.7); Neutrophils % 69.1 %; Nucleated Red Blood Cells % 0 %; Platelet Count 291 10^3/cmm (130-400); Red Blood Count 4.33 10^6/uL (4.1-5.3); Red Cell Distribution Width 13.3 % (12.1-15.1); Total Bilirubin 0.3 mg/dL (0.15-1.2); Total Protein 6.5 g/dL (6.6-8.7); White Blood Count 6.5 10^3/uL (4.0-10.0)
== END 2021-10-19 14:45 | disposition home or self-care (01) ==
LOC: LAB 14:50
PROVIDERS: PCP Internal Medicine; Visit Provider Internal Medicine Rheumatology
DX: Z79.899 Other long term (current) drug therapy (principal); Z87.39 Personal history of other diseases of the musculoskeletal system and connective tissue
CPT/HCPCS: 36415; 80076; 82565; 85025; 86140

== ENCOUNTER → 2021-10-20 13:09 | Outpatient (BNVA) | payer MEDICARE, OTHER, SELFPAY | PROVIDERS: PCP Internal Medicine; Visit Provider Internal Medicine Rheumatology | DX: M15.4 Erosive (osteo)arthritis (principal); M81.0 Age-related osteoporosis without current pathological fracture; Z79.899 Other long term (current) drug therapy; Z87.39 Personal history of other diseases of the musculoskeletal system and connective tissue; M79.7 Fibromyalgia; F32.A Depression, unspecified; M47.892 Other spondylosis, cervical region; M47.894 Other spondylosis, thoracic region; M47.26 Other spondylosis with radiculopathy, lumbar region; G20 Parkinson's disease; F02.80 Dementia in other diseases classified elsewhere, unspecified severity, without behavioral disturbance, psychotic disturbance, mood disturbance, and anxiety; N18.9 Chronic kidney disease, unspecified; Z87.310 Personal history of (healed) osteoporosis fracture; Z71.89 Other specified counseling | CPT/HCPCS: 99214 ==

== ENCOUNTER 2021-10-27 16:49 | Outpatient (CLI) | payer MEDICARE, OTHER, SELFPAY ==
[2021-10-27 21:38] LABS: Add Urine Culture? No; Add Urine Microscopic? YES; Bacteria Urine 3+ /hpf; Bilirubin Urine Neg (Negative); Blood Urine Neg (Negative); Glucose Urine UA Norm (Normal); Ketones Urine Negative (Negative); Leukocyte Esterase Urine 2+ (Negative); Nitrate Urine Positive (Negative); Protein Urine Neg (Negative); RBC Urine 0-4 /hpf (0-2); Squamous Epithelial Cell Urine 0-4 /hpf (0-5); Urine Appearance Hazy (CLEAR); Urine Color Yellow (Yellow); Urobilinogen Urine Norm (Negative); WBC Urine >100 /hpf (0-5); pH Urine 5 (5-7)
== END 2021-10-27 16:50 | disposition home or self-care (01) ==
LOC: LAB 16:59
PROVIDERS: PCP Internal Medicine; Visit Provider Internal Medicine
DX: N39.0 Urinary tract infection, site not specified (principal)
CPT/HCPCS: 81001; 81003; 87077; 87086; 87186

== ENCOUNTER 2021-12-14 13:14 | Outpatient (CLI) | payer MEDICARE, OTHER, SELFPAY ==
[2021-12-14 14:03] LABS: Add Urine Microscopic? YES; Bilirubin Urine Neg (Negative); Blood Urine Neg (Negative); Glucose Urine UA Norm (Normal); Ketones Urine Negative (Negative); Leukocyte Esterase Urine 2+ (Negative); Nitrate Urine Positive (Negative); Protein Urine Neg (Negative); Urine Appearance Hazy (CLEAR); Urine Color Yellow (Yellow); Urobilinogen Urine Norm (Negative); pH Urine 5 (5-7)
[2021-12-14 14:05] LABS: Bacteria Urine 4+ /hpf; WBC Urine 25-40 /hpf (0-5)
[2021-12-14 14:06] LABS: Add Urine Culture? No
== END 2021-12-14 13:15 | disposition home or self-care (01) ==
LOC: LAB 13:16
PROVIDERS: PCP Internal Medicine; Visit Provider Internal Medicine
DX: N39.0 Urinary tract infection, site not specified (principal)
CPT/HCPCS: 36415; 81001; 87077; 87086; 87186

== ENCOUNTER → 2022-01-10 15:41 | Outpatient (BNVA) | payer MEDICARE, OTHER, SELFPAY | PROVIDERS: PCP Internal Medicine; Visit Provider Specialist | DX: G20 Parkinson's disease (principal); I10 Essential (primary) hypertension; M48.54XD Collapsed vertebra, not elsewhere classified, thoracic region, subsequent encounter for fracture with routine healing; S82.891D Other fracture of right lower leg, subsequent encounter for closed fracture with routine healing; Y93.9 Activity, unspecified; Z91.81 History of falling; Z79.891 Long term (current) use of opiate analgesic | CPT/HCPCS: 99214 ==

== ENCOUNTER 2022-01-10 17:52 | Emergency (ER) | payer MEDICARE, OTHER, SELFPAY ==
--- NOTE | 2022-01-10 17:54 | CTR_ITS ---
PROCEDURE INFORMATION: Exam: CT Head Without Contrast Exam date and time: 01/10/2022 6:21 PM Age: 76 years old Clinical indication: Injury or trauma; Fall; Blunt trauma (contusions or hematomas) TECHNIQUE: Imaging protocol: Computed tomography of the head without contrast. Radiation optimization: All CT scans at this facility use at least one of these dose optimization techniques: automated exposure control; mA and/or kV adjustment per patient size (includes targeted exams where dose is matched to clinical indication); or iterative reconstruction. COMPARISON: [place] [id number] 09/23/2015 9:03 AM RADIATION DOSE METRICS: Total DLP (mGy-cm): 794.91 FINDINGS: Brain: There is moderate cerebral atrophy. No hemorrhage. Unremarkable white matter. No mass effect. Cerebral ventricles: No ventriculomegaly. Paranasal sinuses: Visualized sinuses are unremarkable. No fluid levels. Mastoid air cells: Visualized mastoid air cells are well aerated. Bones/joints: Unremarkable. No acute fracture. Soft tissues: Right posterior scalp hematoma. CT/CT head wo con* [id number] IMPRESSION: No acute intracranial injury.
--- NOTE | 2022-01-10 17:54 | CTR_ITS ---
PROCEDURE INFORMATION: Exam: CT Cervical Spine Without Contrast Exam date and time: 01/10/2022 6:25 PM Age: 76 years old Clinical indication: Injury or trauma; Fall; Blunt trauma; Prior surgery; Surgery date: 6+ months TECHNIQUE: Imaging protocol: Computed tomography images of the cervical spine without contrast. Radiation optimization: All CT scans at this facility use at least one of these dose optimization techniques: automated exposure control; mA and/or kV adjustment per patient size (includes targeted exams where dose is matched to clinical indication); or iterative reconstruction. COMPARISON: CT head wo con* [id number] 01/10/2022 6:21 PM RADIATION DOSE METRICS: Total DLP (mGy-cm): 649.45 FINDINGS: Vertebrae: No acute cervical spine fractures. Unremarkable alignment. ACDF C4 through C6 without complication. Severe disc disease changes of C6-C7. C2-C3: No significant disc protrusion. No severe spinal canal stenosis. No significant neural foraminal narrowing. C3-C4: No significant disc protrusion. No severe spinal canal stenosis. No significant neural foraminal narrowing. C4-C5: No significant disc protrusion. No severe spinal canal stenosis. No significant neural foraminal narrowing. C5-C6: No significant disc protrusion. No severe spinal canal stenosis. No significant neural severe disc height loss. No significant spinal canal stenosis or neural foraminal stenosis apparent. C6-C7: No significant disc protrusion. No severe spinal canal stenosis. No significant neural foraminal narrowing. C7-T1: No significant disc protrusion. No severe spinal canal stenosis. No significant neural foraminal narrowing. Soft tissues: Unremarkable. Lungs: Lung apices are normal. CT/CT cervical spin wo con* [id number] IMPRESSION: Negative for acute cervical spine injury.
[2022-01-10 17:58] VITALS: BP 157/83; PULSE 73; RESP 18; TEMP 36.1; O2SAT 94; BMI 29.9
--- NOTE | 2022-01-10 18:36 | W.ED.HEATRA ---
HPI - Head Injury General: Chief complaint: Head Injury Stated complaint: Fell in the parking lot, Hit her head Time Seen by Provider: 01/10/22 17:55 Source: patient Mode of arrival: ambulatory Limitations: no limitations History of Present Illness: 76-year-old female who has a history of Parkinson's and has multiple falls daughter states that she turned too quickly and fell backwards hit her head on concrete she does have a hematoma to the back of her head she states she has slight headache and neck pain no loss of consciousness. She denies any other injuries. Denies any worsening improving factors. Associated symptoms: Reports neck pain; Deny nausea or vomiting Review of Systems Const: Denies: fever(s), chills, body aches or change in appetite Eyes: Denies: blurry vision or eye discomfort ENMT: Denies: throat pain or dental pain Card: Denies: chest pain Resp: Denies: dyspnea GI: Denies: abdominal pain, nausea, vomiting or diarrhea : Denies: dysuria Musc: Reports: neck pain Skin/Breast: Denies: rash Neuro: Reports: headache(s) Psych: Denies: depression Albert/Lymph: Denies: easy bruising All/Imm: Denies: urticaria PFSH ED PFSH: Medical History Acid reflux Chronic low back pain with bilateral sciatica Degenerative scoliosis Erosive osteoarthritis of both hands High risk medication use History of calcium pyrophosphate deposition disease (CPPD) Hypertension Hypothyroidism (acquired) Immunization counseling Osteoarthritis, generalized Post-menopausal osteoporosis Type 2 diabetes mellitus without complications Surgical History History of carpal tunnel surgery History of thyroidectomy Hx of cholecystectomy Status post insertion of spinal cord stimulator Family History Other CAD (coronary artery disease) Cancer Diabetes High risk medication use Denies family history of Rheumatoid arthritis Systemic lupus erythematosus (SLE) in adult Social History Smoking and tobacco status: never smoked Second hand smoke exposure: No Smoking risk assessment/counseling performed?: No Alcohol intake: never Desire information about alcohol rehabilitation?: No Counseling given: No Desire information about substance/drug rehabilitation?: No Counseling given: No Marital status: / Number of children: 3 service: No Current occupational status: unemployed and retired History of recent travel: No Current gender identity: Female Physical Exam Const: COMMON NORMALS: no acute distress, patient oriented x3 and healthy appearing HENMT: COMMON NORMALS: normocephalic; head/scalp not atraumatic (contusion to posterior scalp) HEAD & SCALP: normocephalic; not atraumatic (contusion to posterior scalp) Eye: COMMON NORMALS: Equal, round and reactive pupils present and EOMs intact bilaterally PUPIL: Yes Equal, round and reactive pupils present Neck/C-Spine: COMMON NORMALS: full ROM and supple Chest: COMMONS NORMALS: normal inspection of the chest and normal palpation of entire chest wall Resp: COMMON NORMALS: normal respiratory effort, No retractions, No use of accessory muscles and clear to auscultation bilaterally AUSCULTATION: clear to auscultation bilaterally Cardio: COMMON NORMALS: regular rate, regular rhythm and No murmurs present (Cardio) RATE: regular rate RHYTHM: regular rhythm GI: COMMON NORMALS: Normal to inspection, nondistended, normoactive bowel sounds present, Soft to palpation, non-tender and no masses PALPATION: Yes Soft to palpation Extremity: COMMON NORMALS: normal to inspection and full ROM Neuro: COMMON NORMALS: patient oriented x3, moves all extremities and no focal motor deficits Psych: COMMON NORMALS: mental status grossly normal, Normal thought process present and cooperative THOUGHT PROCESS: Normal thought process present Skin: COMMON NORMALS: no rashes or lesions noted and no wounds GENERAL SKIN EXAM: no rashes or lesions noted Course Vital Signs: Vital signs: Vital Signs Temperature 97.0 F L 01/10/22 17:58 Pulse Rate 73 01/10/22 17:58 Respiratory Rate 18 01/10/22 17:58 Blood Pressure 157/83 01/10/22 17:58 Pulse Oximetry 94 01/10/22 17:58 MDM - Head Injury Medcial Decision Making Patient presents with a closed head injury after a fall she is well-appearing here head CT and neck CT are both normal. Lab Data Radiology Impressions Cervical Spine CT 01/10/22 17:54 IMPRESSION: Negative for acute cervical spine injury. Head CT 01/10/22 17:54 IMPRESSION: No acute intracranial injury. Discharge Plan Discharge Patient Disposition: Home Clinical Impression: Closed head injury Condition: Stable Prescriptions: No Action duloxetine [Cymbalta] 60 mg capsule,delayed release(DR/EC) 60 mg PO QDAY Qty: 30 5RF levothyroxine [Synthroid] 75 mcg tablet 75 mcg PO QDAY Qty: 30 5RF carbidopa-levodopa 25-100 mg tablet extended release 1 tab PO .HS 0RF cyclobenzaprine 10 mg tablet 10 mg PO TID PRN (Reason: Spasms) 0RF potassium chloride 8 mEq capsule, extended release 8 meq PO DAILY PRN (Reason: use with Lasix) Qty: 30 5RF carbidopa-levodopa [Sinemet] 25-100 mg tablet 2 tab PO .COMPLEX Qty: 300 5RF Rx Instructions: 3 tabs PO AT 6AM; 2 tabs at 9AM; 2 tabs PO AT 12PM; 1 tab AT 3PM; 1 tabs PO AT 6PM carbidopa-levodopa 25-100 mg tablet 1 tab PO .in the am 0RF furosemide [Lasix] 20 mg tablet 20 mg PO QAM PRN (Reason: edema) Qty: 30 5RF Rx Instructions: Stop clonidine fentanyl 75 mcg/hr patch 72 hour 1 patch transdermal Q72H 30 Days Qty: 10 0RF donepezil [Aricept] 5 mg tablet 5 mg PO QDAY 0RF cholecalciferol (vitamin D3) 125 mcg (5,000 unit) capsule 5,000 unit PO DAILY 0RF hydroxychloroquine 200 mg tablet 200 mg PO BID Qty: 60 3RF colchicine [Mitigare] 0.6 mg capsule 0.6 mg PO DAILY Qty: 30 3RF pregabalin [Lyrica] 150 mg capsule 150 mg PO BID Qty: 60 5RF famotidine 20 mg tablet 20 mg PO BID Qty: 60 5RF sennosides [Senna Laxative] 8.6 mg tablet 8.6 mg PO BID Qty: 60 0RF Rx Instructions: staff to give Movantik 12.5 mg tablet 12.5 mg PO DAILY Qty: 90 3RF oxycodone 20 mg tablet 20 mg PO TID PRN (Reason: pain) 30 Days Qty: 90 0RF prednisone 10 mg tablet See Rx Instructions PO .COMPLEX PRN (Reason: joint pain) Qty: 30 1RF Rx Instructions: take 1 or 2 tab daily for 5-7 days as needed for joint pain flare by mouth PRN; amlodipine [Norvasc] 5 mg tablet 10 mg PO QDAY Qty: 30 5RF magnesium citrate Solution 150 ml PO BID PRN (Reason: constipation) Qty: 296 0RF Rx Instructions: Repeat every 6-8 hours until desired results achieved. 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
== END 2022-01-10 19:11 | disposition home or self-care (01) ==
PROVIDERS: Emergency Provider Emergency Medicine; PCP Internal Medicine
DX: S09.90XA Unspecified injury of head, initial encounter (principal); W01.198A Fall on same level from slipping, tripping and stumbling with subsequent striking against other object, initial encounter; Y92.481 Parking lot as the place of occurrence of the external cause; G20 Parkinson's disease; M54.2 Cervicalgia; M81.0 Age-related osteoporosis without current pathological fracture; Z91.81 History of falling; Z96.82 Presence of neurostimulator; I10 Essential (primary) hypertension; M48.54XD Collapsed vertebra, not elsewhere classified, thoracic region, subsequent encounter for fracture with routine healing; S82.891D Other fracture of right lower leg, subsequent encounter for closed fracture with routine healing; Y93.9 Activity, unspecified; Z79.891 Long term (current) use of opiate analgesic
CPT/HCPCS: 70450; 72125; 99214; 99283

== ENCOUNTER → 2022-03-22 15:00 | Outpatient (BNVA) | payer MEDICARE, OTHER, SELFPAY | PROVIDERS: PCP Internal Medicine; Visit Provider Internal Medicine Rheumatology | DX: M15.4 Erosive (osteo)arthritis (principal); Z87.39 Personal history of other diseases of the musculoskeletal system and connective tissue; Z79.899 Other long term (current) drug therapy; M81.0 Age-related osteoporosis without current pathological fracture; Z87.310 Personal history of (healed) osteoporosis fracture; G20 Parkinson's disease; F02.80 Dementia in other diseases classified elsewhere, unspecified severity, without behavioral disturbance, psychotic disturbance, mood disturbance, and anxiety; N18.9 Chronic kidney disease, unspecified; Z71.89 Other specified counseling | CPT/HCPCS: 80076; 82565; 85025; 86140; 99204 ==

== ENCOUNTER → 2022-04-19 14:12 | Outpatient (BNVA) | payer MEDICARE, OTHER, SELFPAY | PROVIDERS: PCP Internal Medicine; Visit Provider Orthopaedic Surgery | DX: M54.9 Dorsalgia, unspecified (principal); S82.891A Other fracture of right lower leg, initial encounter for closed fracture; X58.XXXA Exposure to other specified factors, initial encounter; M54.42 Lumbago with sciatica, left side; M54.41 Lumbago with sciatica, right side | CPT/HCPCS: 72070; 72100; 73610; 99214 ==

== ENCOUNTER 2022-04-19 15:22 | Outpatient (CLI) | payer MEDICARE, OTHER, SELFPAY | END 2022-04-19 15:23 | disposition home or self-care (01) | LOC: SPT 15:23 | PROVIDERS: PCP Internal Medicine; Visit Provider Orthopaedic Surgery | DX: Z46.89 Encounter for fitting and adjustment of other specified devices (principal); S82.891D Other fracture of right lower leg, subsequent encounter for closed fracture with routine healing; X58.XXXD Exposure to other specified factors, subsequent encounter | CPT/HCPCS: 97760; L1902 ==

== ENCOUNTER 2022-05-20 10:59 | Outpatient (CLI) | payer MEDICARE, OTHER, SELFPAY ==
--- NOTE | 2022-05-20 12:00 | CT_ITS ---
WS: [id number] CT THORACIC SPINE HISTORY: pain TECHNIQUE: Contiguous 2.5 mm axial images are reviewed to thoracic spine. Images are reformatted in s agittal and coronal planes. All CT scans at [facility] use at least one of these dose optimiz ation techniques: automated exposure control; mA and/or kV adjustment per patient size (includes targ eted exams where dose is matched to clinical indication); or iterative reconstruction. DLP: 1325.80 mGy.cm COMPARISON: 04/15/2021 Posterior pedicle screws at T4, T5 and T6 have changed position since the prior examination. There is now lucency around the pedicle screws and pedicle screws have slightly retracted. RIGHT T4 pedicle s crew has eroded through the bony cortex adjacent to the thecal sac. LEFT T4 pedicle screw extends int o the T3-4 disc space. The remaining screws are intact. Stable T10 compression fracture by 30%. No pr ogression of the minimal retropulsion. There is extensive artifact throughout the central thoracic cord making evaluation for disc protrusio ns and stenosis very difficult. Mild long curvature scoliosis. Dorsal column stimulator electrodes are noted over the mid thoracic region. CT/CT thoracic spin wo con* [id number] IMPRESSION: 1. Extensive posterior fusion hardware extending from T4 to T12. 2. Change in position and new lucency surrounding the T4, T5 and T6 pedicle sc rews. Consistent with screw loosening. LEFT T4 pedicle screw extends into the T 3-4 disc space and there is bone erosion along the medial cortex of the RIGHT T 4 pedicle screw. 3. Slight retraction of the T4 and T5 pedicle screws. 4. No change in appearance of the compression fracture at T10.
== END 2022-05-20 11:00 | disposition home or self-care (01) ==
PROVIDERS: PCP Internal Medicine; Visit Provider Orthopaedic Surgery
DX: G89.29 Other chronic pain (principal); M54.41 Lumbago with sciatica, right side; M54.42 Lumbago with sciatica, left side; Z98.1 Arthrodesis status
CPT/HCPCS: 72128

== ENCOUNTER 2022-05-20 10:59 | Outpatient (CLI) | payer MEDICARE, OTHER, SELFPAY ==
--- NOTE | 2022-05-20 11:00 | CT_ITS ---
WS: [id number] CT LUMBAR SPINE, noncontrast. HISTORY: Chronic back pain. TECHNIQUE: Contiguous 2.5 mm axial imaging are performed. Sagittal and coronal reformats are submitte d and reviewed. All CT scans at [facility] use at least one of these dose optimization techni ques: automated exposure control; mA and/or kV adjustment per patient size (includes targeted exams w here dose is matched to clinical indication); or iterative reconstruction. IV contrast: None DLP: 1466.00 mGy.cm COMPARISON: 04/15/2021 Extensive posterior thoracolumbar and sacral fusion hardware. Bilateral pedicle screws and vertical r ods are reidentified. No fracture within the vertical rods. Pedicle screws remain unchanged in positi on. There is diffuse osteopenia. L4 and L5 anterolisthesis by 3 mm. Disc spaces are narrowed. No acut e fractures. RIGHT curvature of the lumbar spine is similar to the prior examination. There is mild l ucency now present surrounding the long pelvic screws extend through the sacrum across the SI joints into the marty. L1-2: Mild annular disc bulging and facet arthritis. L2-3: Marked facet joint arthritis and asymmetric disc bulging. No high-grade stenosis. L3-4: Large posterior laminectomy defect. Postsurgical changes are again noted at the surgical bed. A symmetric disc space narrowing with only mild LEFT foraminal narrowing. L4-5: Continued large posterior laminectomy defect. Large central disc protrusion with slight contact on the ventral thecal sac. No high-grade stenosis. L5-S1: Hardware obscuring fine detail. No obvious disc protrusion or change. Atherosclerosis aorta. 2.5 cm RIGHT renal cyst. Severe atrophy LEFT psoas muscle. CT/CT lumbar spine wo con* [id number] IMPRESSION: 1. Extensive posterior lumbar fusion with vertical rods and screws. 2. New lucency surrounding the long pelvic screws extending through the sacrum , across the SI joints and marty. May indicate loosening along the screw tracts. New since 04/15/2021. 3. Severe diffuse osteopenia. 4. Large posterior laminectomy defect at the L3-4 and L4-5 levels. 5. Extensive facet joint arthritis. 6. Mild degenerative RIGHT curvature lumbar spine with mild anterolisthesis of L4 and L5.
== END 2022-05-20 11:00 | disposition home or self-care (01) ==
PROVIDERS: PCP Internal Medicine; Visit Provider Orthopaedic Surgery
DX: M54.41 Lumbago with sciatica, right side (principal); M54.42 Lumbago with sciatica, left side; G89.29 Other chronic pain; M43.24 Fusion of spine, thoracic region; T84.296A Other mechanical complication of internal fixation device of vertebrae, initial encounter; M96.1 Postlaminectomy syndrome, not elsewhere classified; M43.16 Spondylolisthesis, lumbar region; Z98.1 Arthrodesis status
CPT/HCPCS: 72128; 72131

== ENCOUNTER 2022-06-02 12:58 | Outpatient (CLI) | payer MEDICARE, OTHER, SELFPAY ==
[2022-06-02 13:58] LABS: Basophils % 0.4 %; Eosinophils # 0.1 10^3/uL (0.0-0.8); Eosinophils % 1.2 %; Hematocrit 38.6 % (37.0-47.0); Hemoglobin 11.9 g/dL (11.5-15.3); Lymphocytes # 1.3 10^3/uL (0.8-4.8); Lymphocytes % 16.2 %; Mean Corpuscular HGB Conc 30.8 g/dL (30.0-36.0); Mean Corpuscular Hemoglobin 26.7 pg (28.0-34.0); Mean Corpuscular Volume 86.7 fl (81-99); Mean Platelet Volume 8.8 fL (7.4-10.4); Monocytes # 0.4 10^3/uL (0.2-0.9); Monocytes % 5.3 %; Neutrophils # 5.98 10^3/uL (1.8-7.7); Neutrophils % 76.5 %; Nucleated Red Blood Cells % 0 %; Platelet Count 368 10^3/cmm (130-400); Red Blood Count 4.45 10^6/uL (4.1-5.3); Red Cell Distribution Width 15.5 % (12.1-15.1); White Blood Count 7.8 10^3/uL (4.0-10.0)
[2022-06-02 14:19] LABS: Alanine Aminotransferase < 5 U/L (0-33); Albumin Level 4.7 g/dL (3.5-5.2); Alkaline Phosphatase 151 U/L (35-105); Aspartate Amino Transferase 17 U/L (0-32); C Reactive Protein 16.1 mg/L (0.0-4.9); Globulin 2.8 g/dL (1.3-4.6); Total Bilirubin 0.4 mg/dL (0.15-1.2); Total Protein 7.5 g/dL (6.6-8.7)
== END 2022-06-02 12:59 | disposition home or self-care (01) ==
PROVIDERS: PCP Internal Medicine; Visit Provider Internal Medicine Rheumatology
DX: Z79.899 Other long term (current) drug therapy (principal); M19.90 Unspecified osteoarthritis, unspecified site
CPT/HCPCS: 36415; 80076; 82565; 85025; 86140

== ENCOUNTER → 2022-06-07 13:44 | Outpatient (BNVA) | payer MEDICARE, OTHER, SELFPAY | PROVIDERS: PCP Internal Medicine; Visit Provider Orthopaedic Surgery | DX: Z47.89 Encounter for other orthopedic aftercare (principal); Z98.1 Arthrodesis status | CPT/HCPCS: 99024; 99214 ==

== ENCOUNTER → 2022-06-14 15:17 | Outpatient (BNVA) | payer MEDICARE, OTHER, SELFPAY | PROVIDERS: PCP Internal Medicine; Visit Provider Orthopaedic Surgery | DX: Z47.89 Encounter for other orthopedic aftercare (principal); Z98.1 Arthrodesis status | CPT/HCPCS: 99024; 99213 ==

== ENCOUNTER 2022-06-23 13:48 | Outpatient (CLI) | payer MEDICARE, OTHER, SELFPAY ==
--- NOTE | 2022-06-23 14:00 | XR_ITS ---
WS: [id number] DEXA (DUAL ENERGY X-RAY ABSORPTIOMETRY) Bone mineral density was performed using a [employer] machine. HISTORY: M81.0 - Age-related osteoporosis without current pathology... COMPARISON: 05/01/2018 Left forearm BMD: 0.504 g/cm2. T score: -4.3 Z score: -1.6 Total hip BMD: Left: 0.713 g/cm2. T score: -2.3 Z score: -0.6 Right: 0.623 g/cm2. T score: -3.1 Z score: -1.4 10 year probability of a major osteoporotic fracture is 34.5%. Compared to the prior study from 05/01/2018. Lumbar spine bone mineral density has decrease by 17.4%. Bilateral hips bone mineral density has decreased by 17.5%. XR/XR DEXA axial skeleton* [id number] IMPRESSION: OSTEOPOROSIS based upon the WHO classification for females. Significant decrease in bone mineral density within both the forearm and hips s yocasta the prior exam.
== END 2022-06-23 13:49 | disposition home or self-care (01) ==
LOC: RAD 13:50
PROVIDERS: PCP Internal Medicine; Visit Provider Internal Medicine Rheumatology
DX: M81.0 Age-related osteoporosis without current pathological fracture (principal)
CPT/HCPCS: 77080

== ENCOUNTER 2022-06-30 15:55 | Outpatient (CLI) | payer MEDICARE, OTHER, SELFPAY ==
[2022-06-30 17:23] LABS: Calcium 9.5 mg/dL (8.5-10.5)
[2022-06-30 17:35] LABS: 25 Hydroxy Vitamin D 68 ng/mL (30-100)
== END 2022-06-30 15:56 | disposition home or self-care (01) ==
LOC: LAB 16:01
PROVIDERS: PCP Internal Medicine; Visit Provider Internal Medicine Rheumatology
DX: M81.0 Age-related osteoporosis without current pathological fracture (principal); Z79.899 Other long term (current) drug therapy
CPT/HCPCS: 36415; 82040; 82306; 82310; 82565

== ENCOUNTER 2022-07-04 14:09 | Outpatient (CLI) | payer MEDICARE, OTHER, SELFPAY ==
[2022-07-04 14:19] VITALS: BP 124/76; PULSE 81; RESP 18; TEMP 36.4; O2SAT 95
[2022-07-04] MEDS: denosumab 60 mg SDV SUBCUT (14:30)
[2022-07-04 14:54] VITALS: BP 115/70; PULSE 76; RESP 18; TEMP 36.7; O2SAT 95
== END 2022-07-04 14:10 | disposition home or self-care (01) ==
PROVIDERS: PCP Internal Medicine; Visit Provider Internal Medicine Rheumatology
DX: M81.0 Age-related osteoporosis without current pathological fracture (principal); M15.4 Erosive (osteo)arthritis; Z87.39 Personal history of other diseases of the musculoskeletal system and connective tissue; M79.7 Fibromyalgia; F32.A Depression, unspecified; Z87.310 Personal history of (healed) osteoporosis fracture; G20 Parkinson's disease; F02.80 Dementia in other diseases classified elsewhere, unspecified severity, without behavioral disturbance, psychotic disturbance, mood disturbance, and anxiety; N18.9 Chronic kidney disease, unspecified
CPT/HCPCS: 96372; 99214; J0897

== ENCOUNTER 2022-07-11 09:02 | Day surgery (SDC) | payer MEDICARE, OTHER, SELFPAY ==
[2022-07-04 11:08] VITALS: BMI 29.5
--- NOTE | 2022-07-04 14:31 | P.ANESASSM_ITS ---
Pre-Anesthetic Assessment Height/Weight: Height 1.55 m Weight 70.76 kg Preop Diagnosis: right ankle fracture Operation Date: 07/11/22 07:00 Proposed Procedures p Hardware Removal Lumbar 99627/Z98.1(Not Applicable) - Rigo Reyes DO Familial anesthetic complications: none Was Beta Celestino taken within 24 hours: N/A Was Clonidine taken within 24 hours: N/A Social No alcohol and No tobacco Exam alert, oriented x 3, clear to auscultation bilaterally and regular rate & rhythm Airway Submandibular: within normal limits Cervical ROM: within normal limits Mallampati: Class II Dentition: chipped CV/HEM Hypertension GI Gastroesophageal Reflux Disease Metabolic Diabetes Mellitus and Thyroid Disease Musc/skel Lower Back Pain and Rheumatoid Arthritis chronic opioid Neuropsych Dementia, Headache and Neuropathy Parkinson's Anesthetic Plan ASA status: 3 Anesthesia: General Medications/Allergies Home Medications Medication Instructions Recorded Confirmed Last Taken Type donepezil 5 mg tablet (Aricept) 5 mg PO QDAY 09/26/19 07/04/22 05/02/21 History duloxetine 60 mg capsule,delayed 60 mg PO QDAY #30 caps 10/18/19 07/04/22 05/02/21 Rx release (Cymbalta) levothyroxine 75 mcg tablet 75 mcg PO QDAY #30 tabs 10/18/19 07/04/22 05/02/21 Rx (Synthroid) carbidopa ER 25 mg-levodopa 100 mg 1 tab PO .HS 01/13/20 07/04/22 05/02/21 History tablet,extended release famotidine 20 mg tablet 20 mg PO BID #60 tabs 02/22/20 07/04/22 05/02/21 Rx potassium chloride 8 mEq 8 meq PO DAILY PRN use with Lasix 08/28/20 07/04/22 04/08/21 Rx capsule,extended release #30 caps cholecalciferol (vitamin D3) 125 5,000 unit PO DAILY 10/19/20 07/04/22 05/02/21 History mcg (5,000 unit) capsule amlodipine 5 mg tablet (Norvasc) 10 mg PO QDAY #30 tabs 04/19/21 07/04/22 05/03/21 Rx carbidopa 25 mg-levodopa 100 mg 2 tab PO .COMPLEX #300 tabs 07/14/21 07/04/22 Unknown Rx tablet (Sinemet) naloxegol 12.5 mg tablet (Movantik) 12.5 mg PO DAILY #90 tabs 09/23/21 07/04/22 Unknown Rx furosemide 20 mg tablet (Lasix) 20 mg PO QAM PRN edema #30 tabs 01/10/22 07/04/22 Unknown Rx cyclobenzaprine 10 mg tablet 10 mg PO TID PRN Spasms #30 tabs 02/16/22 07/04/22 Unknown Rx hydroxychloroquine 200 mg tablet 200 mg PO BID #60 tabs 03/22/22 07/04/22 Unknown Rx sennosides 8.6 mg tablet (Senna 8.6 mg PO BID PRN Constipation 03/22/22 07/04/22 Unknown History Laxative) Lace up ankle brace #1 ea 04/19/22 07/04/22 Unknown Rx Mitigare 0.6 mg capsule 0.6 mg PO DAILY #30 caps 05/17/22 07/04/22 Unknown Rx (colchicine) oxycodone 20 mg tablet 20 mg PO TID PRN pain 1 month #90 05/31/22 07/04/22 Unknown Rx tabs folic acid 1 mg tablet 3 mg PO DAILY #90 tabs 06/03/22 07/04/22 Unknown Rx fentanyl 75 mcg/hr transdermal 1 patch transdermal Q72H 1 month 06/21/22 07/04/22 Unknown Rx patch #10 ea ondansetron HCl 4 mg tablet 4 mg PO Q6H PRN nausea and 06/22/22 07/04/22 Unknown Rx vomiting #30 tabs syringe with needle 1 mL 25 gauge #50 ea 06/22/22 07/04/22 Unknown Rx x 5/8 (Monoject TB Safety Syringe) methotrexate sodium 25 mg/mL 15 mg (0.6 mL) SUBCUT .Q7days #10 06/23/22 07/04/22 Unknown Rx injection solution mL Allergies Allergy/AdvReac Type Severity Reaction Status Date / Time capsaicin [From Capzasin] Allergy RASH Verified 07/04/22 10:57 menthol [From Capzasin] Allergy RASH Verified 07/04/22 10:57 Sulfa (Sulfonamide Allergy RASH Verified 07/04/22 10:57 Antibiotics) [facility] Anesthesia Medical History Acid reflux Chronic low back pain with bilateral sciatica Degenerative scoliosis Erosive osteoarthritis of both hands High risk medication use History of calcium pyrophosphate deposition disease (CPPD) Hypertension Hypothyroidism (acquired) Immunization counseling Osteoarthritis, generalized Post-menopausal osteoporosis Type 2 diabetes mellitus without complications Surgical History History of carpal tunnel surgery History of thyroidectomy Hx of cholecystectomy Status post insertion of spinal cord stimulator Family History Other CAD (coronary artery disease) Cancer Diabetes High risk medication use Denies family history of Rheumatoid arthritis Systemic lupus erythematosus (SLE) in adult Social History Smoking and tobacco status: never smoked Second hand smoke exposure: No Smoking risk assessment/counseling performed?: No Alcohol intake: never Desire information about alcohol rehabilitation?: No Counseling given: No Desire information about substance/drug rehabilitation?: No Counseling given: No Marital status: / Number of children: 3 service: No Current occupational status: unemployed and retired History of recent travel: No Current gender identity: Female Data Anesthesia Cardiac Studies: No Data to Display
[2022-07-11] VITALS (9 sets, daily range): BP systolic 126–140; BP diastolic 56–80; PULSE 72–84; RESP 14–18; TEMP 36.2–36.9; O2SAT 94–100
--- NOTE | 2022-07-11 10:16 | P.ANESUD_ITS ---
Pre-Anesthetic Update Pre-Anesthetic Assessment: Date of Surgery/Procedure: 07/11/22 Preop Mercedes gnosis: Failed Hardware THoracic Spine Proposed Procedure: Operation Date: 07/11/22 10:45 Proposed Procedures p Hardware Removal Lumbar 47201/Z98.1(Not Applicable) - Rigo Reyes, DO Any changes to Pre-Anesthetic Assessment?: No Last Intake: Intake Last Liquid Date 07/10/22 Last Liquid Time 21:00 Last Solid Date 07/10/22 Last Solid Time 16:00 Vitals: Temperature 97.9 F 07/11/22 09:32 Temperature Source Temporal Artery S can 07/11/22 09:32 Pulse Rate 81 07/11/22 09:32 Respiratory Rate 18 07/11/22 09:32 Blood Pressure 135/76 07/11/22 09:32 Blood Pressure Libra n 95 07/11/22 09:32 Pulse Oximetry 94 07/11/22 09:32 Oxygen Delivery Me thod 07/11/22 10:12 Exam: Pre-Anes Outpt Exam: alert, oriented x 3, clear to auscultation bilaterally and regular rate & rhythm Cardiac Studies: No Data to Display
[2022-07-11] MEDS: sodium chloride 0.9% 1,000 ML 30 ML IV (10:30)
--- NOTE | 2022-07-11 10:49 | P.HP_ITS ---
Providers/Chief Complaint Primary Care Provider: Girish Pandey MD Chief Complaint: Hardware Removal Lumbar 78043/Z98.1 History of Present Illness Blossom Velez is a 77 year old female ?She has a history of right ankle ORIF 05/03/21,?T4-11 fusion 04/15/21 as well as T10 pelvis fusion on 03/31/22.?She reports pain located in the top and middle of her back that radiates down her back. She is accompanied by her daughter at todays visit. Daughter states the patient has Parkinson's and has frequent falls. Patient is ambulating with a walker at todays visit. Patient has a recent CT and is here today to go over results and further treatment plan. Review of Systems Const: Denies: fever(s), chills, fatigue or night sweats Eyes: Denies: change in vision, blurry vision, eye discomfort or eye redness ENMT: Denies: throat pain, odynophagia, mouth pain, oral sores, nasal discharge or sinus pain Card: Denies: chest pain, palpitations, lightheadedness or syncope Resp: Denies: dyspnea, productive cough, non-productive cough, wheezing or hemoptysis GI: Denies: abdominal pain, nausea, vomiting, diarrhea, constipation or hematochezia : Denies: difficulty voiding, dysuria, urinary frequency, urinary urgency or hematuria Musc: Reports: other (as per HPI) Skin/Breast: Denies: rash, new lesions or nail changes Neuro: Denies: weakness in extremities, sensory changes, dizziness or seizure- like activity Psych: Denies: anxiety, depression or other (Acute Pychotic Events) Endo: Denies: cold intolerance, excessive sweating, hot flashes or heat intolerance Albert/Lymph: Denies: easy bleeding, petechiae or enlarged lymph nodes Medications/Allergies Home Medications Medication Instructions Recorded Confirmed Last Taken Type donepezil 5 mg tablet (Aricept) 5 mg PO QDAY 09/26/19 07/11/22 07/10/22 History duloxetine 60 mg capsule,delayed 60 mg PO QDAY #30 caps 10/18/19 07/11/22 07/10/22 Rx release (Cymbalta) levothyroxine 75 mcg tablet 75 mcg PO QDAY #30 tabs 10/18/19 07/11/22 07/11/22 06:00 Rx (Synthroid) carbidopa ER 25 mg-levodopa 100 mg 1 tab PO .HS 01/13/20 07/11/22 07/10/22 History tablet,extended release famotidine 20 mg tablet 20 mg PO BID #60 tabs 02/22/20 07/11/22 07/10/22 Rx potassium chloride 8 mEq 8 meq PO DAILY PRN use with Lasix 08/28/20 07/11/22 07/10/22 Rx capsule,extended release #30 caps cholecalciferol (vitamin D3) 125 5,000 unit PO DAILY 10/19/20 07/11/22 07/10/22 History mcg (5,000 unit) capsule amlodipine 5 mg tablet (Norvasc) 10 mg PO QDAY #30 tabs 04/19/21 07/11/22 07/11/22 06:00 Rx carbidopa 25 mg-levodopa 100 mg 2 tab PO .COMPLEX #300 tabs 07/14/21 07/11/22 07/11/22 06:00 Rx tablet (Sinemet) naloxegol 12.5 mg tablet (Movantik) 12.5 mg PO DAILY #90 tabs 09/23/21 07/11/22 07/10/22 Rx furosemide 20 mg tablet (Lasix) 20 mg PO QAM PRN edema #30 tabs 01/10/22 07/11/22 07/10/22 Rx cyclobenzaprine 10 mg tablet 10 mg PO TID PRN Spasms #30 tabs 02/16/22 07/11/22 07/10/22 Rx hydroxychloroquine 200 mg tablet 200 mg PO BID #60 tabs 03/22/22 07/11/22 07/10/22 Rx sennosides 8.6 mg tablet (Senna 8.6 mg PO BID PRN Constipation 03/22/22 07/11/22 07/10/22 History Laxative) Lace up ankle brace #1 ea 04/19/22 07/04/22 Unknown Rx Mitigare 0.6 mg capsule 0.6 mg PO DAILY #30 caps 05/17/22 07/11/22 07/10/22 Rx (colchicine) oxycodone 20 mg tablet 20 mg PO TID PRN pain 1 month #90 05/31/22 07/11/22 07/11/22 06:00 Rx tabs folic acid 1 mg tablet 3 mg PO DAILY #90 tabs 06/03/22 07/11/22 07/10/22 Rx fentanyl 75 mcg/hr transdermal 1 patch transdermal Q72H 1 month 06/21/22 07/11/22 07/11/22 Rx patch #10 ea ondansetron HCl 4 mg tablet 4 mg PO Q6H PRN nausea and 06/22/22 07/11/22 07/10/22 Rx vomiting #30 tabs syringe with needle 1 mL 25 gauge #50 ea 06/22/22 07/04/22 Unknown Rx x 5/8 (Monoject TB Safety Syringe) methotrexate sodium 25 mg/mL 15 mg (0.6 mL) SUBCUT .Q7days #10 06/23/22 07/11/22 07/10/22 Rx injection solution mL Allergies Allergy/AdvReac Type Severity Reaction Status Date / Time capsaicin [From Capzasin] Allergy RASH Verified 07/11/22 09:58 menthol [From Capzasin] Allergy RASH Verified 07/11/22 09:58 Sulfa (Sulfonamide Allergy RASH Verified 07/11/22 09:58 Antibiotics) PFSH Acute PFSH: Medical History Acid reflux Chronic low back pain with bilateral sciatica Degenerative scoliosis Erosive osteoarthritis of both hands High risk medication use History of calcium pyrophosphate deposition disease (CPPD) Hypertension Hypothyroidism (acquired) Immunization counseling Osteoarthritis, generalized Post-menopausal osteoporosis Type 2 diabetes mellitus without complications Surgical History History of carpal tunnel surgery History of thyroidectomy Hx of cholecystectomy Status post insertion of spinal cord stimulator Family History Other CAD (coronary artery disease) Cancer Diabetes High risk medication use Denies family history of Rheumatoid arthritis Systemic lupus erythematosus (SLE) in adult Social History Smoking and tobacco status: never smoked Second hand smoke exposure: No Smoking risk assessment/counseling performed?: No Alcohol intake: never Desire information about alcohol rehabilitation?: No Counseling given: No Desire information about substance/drug rehabilitation?: No Counseling given: No Marital status: / Number of children: 3 service: No Current occupational status: unemployed and retired History of recent travel: No Current gender identity: Female Vitals/I&O/Wt Last Vital Signs Temp 97.9 F 07/11/22 09:32 Pulse 81 07/11/22 09:32 Resp 18 07/11/22 09:32 BP 135/76 07/11/22 09:32 Pulse Ox 94 07/11/22 09:32 O2 Del Method 07/11/22 10:12 Physical Exam Narrative: CONSTITUTIONAL: The patient is a normal appearing [] in no apparent distress. GENERAL: Patient in no acute distress. CARDIAC: Regular rate and rhythm. CHEST: Normal inspiratory effort, normal respiratory rate. ABDOMEN: Soft and nontender. SKIN: Clear, warm and intact. NEURO?PSYCH: The patient is alert and oriented to person, place and time. Sensorv /SILT Motor StrengthShoulder abduction C5 5/5Wrist extension C6 5/5Elbow extension C7 5/5Hand Gang Plank Workman C8 5/5Finger abduction T15/5 Radial/ Ulnar/ Median n intact LowerSensory (SILT)Motor StrengthHin flexion L2/3Ant/inner thigh 5/5Hip adduction L2/3 5/5Knee extension L4 Lat thigh, 5/5Toe dorsiflexion L5 5/5Ankle dorsiflexion L5/ L73Yqyhgyg flexion S1 5/5 DTRBleeps 2+Triceps 2+Brachioradialis 2+Patellar 2+Achilles 2+ MUSCULOSKELETAL: [] UPPEREXTREMITIES: The patient had full active ROM in fingers, wrist, elbow, and shoulder. The patient demonstrated ability to fully flex/extend/abduct/adduct fingers, make ok sign, cross 2nd/3rd digits, extend 1st digit fully.. Radial pulse 2+, CR<2 seconds. LOWER EXTREMITIES: Pt has full, active ROM of toes, ankle, knee, and hip. Dorsalis pedis/posterior tibialis pulses 2+, CR<2 seconds. SPINE: Skin warm, dry, intact. Right ankle in splint A&P Assessment and plan (1) Status post lumbar spinal fusion: will remove most proximal loose screws Attestations Medical Necessity Statement*: failed conservative tx Coding Level of Care Code Acute Powertrain Calibration Engineer for Chg Fwd Diagnoses Status post lumbar spinal fusion Z98.1
[2022-07-11] MEDS: ceFAZolin 2,000 MG in sodium chloride 0.9% (plus) 50 ML 100 MG IV (10:58)
--- NOTE | 2022-07-11 12:51 | PM.OP ---
Operative Report Date of procedure: July 11, 2022 Pre-op diagnosis: Preop Diagnosis Failed Hardware THoracic Spine Post-op diagnosis: same Procedure done: 1. Removal of deep hardware from spine. Surgeon: Rigo Reyes Estimated blood loss (mL): 20 Procedure: Removal of deep hardware from spine Patient brought to the operative suite after regular incision was placed in the prone position. All the areas impingement were well-padded. The skin was prepped and draped normal sterile fashion. Skin incision is made over the top part of the incision over his incision was or skin incision was complete Bovie was used to coagulate bleeding and dissect down to the thoracic fascia. Suprathoracic fascia was dissected out and split and then a subperiosteal dissection out to the top 3 screws. On both the right left side. Once screws were exposed the caps for the screws were removed. Then attention was brought to cutting the rods. A metal cutting bur was then used to cut the rods. This was done cutting below the third screw and about the fourth screw. On each side. Once the wire was cut the wire was removed. And then the screws were backed out once the screws were backed out wounds were irrigated and then closed in a layered fashion closing the thoracic fascia followed by the skin with 2-0 Vicryl and Monocryl suture. Sterile dressings were applied patient was transferred to the PACU in stable condition.
--- NOTE | 2022-07-11 13:50 | ANE.PACU2 ---
Inpatient post-anesthesia follow up: Airway intact: Yes Vital signs: Temperature 98.4 F Pulse Rate 78 Respiratory Rate 18 Blood Pressure 132/66 Pulse Oximetry 95 Oxygen Delivery Me thod Room Air Oxygen Flow Rate 6 Fraction of Inspir ed Oxygen Hydration adequate: Yes Nausea and vomiting: No Pain level: 1 Mental status: Baseline
== END 2022-07-11 13:25 | disposition home or self-care (01) ==
PROVIDERS: PCP Internal Medicine; Visit Provider Orthopaedic Surgery
PROC: (CPT 20680; principal; 2022-07-11 10:45)
DX: T84.84XA Pain due to internal orthopedic prosthetic devices, implants and grafts, initial encounter (principal); K21.9 Gastro-esophageal reflux disease without esophagitis; I10 Essential (primary) hypertension; E03.9 Hypothyroidism, unspecified; E11.9 Type 2 diabetes mellitus without complications; M81.0 Age-related osteoporosis without current pathological fracture; M19.90 Unspecified osteoarthritis, unspecified site; M06.9 Rheumatoid arthritis, unspecified; Z79.891 Long term (current) use of opiate analgesic; F03.90 Unspecified dementia, unspecified severity, without behavioral disturbance, psychotic disturbance, mood disturbance, and anxiety
CPT/HCPCS: 20680; J0131; J0690; J1100; J2405; J2704; J3010; J3490; J7030

== ENCOUNTER → 2022-07-26 10:35 | Outpatient (BNVA) | payer MEDICARE, OTHER, SELFPAY | PROVIDERS: PCP Internal Medicine; Visit Provider Physician Assistant | DX: Z47.89 Encounter for other orthopedic aftercare (principal); Z98.1 Arthrodesis status; E11.40 Type 2 diabetes mellitus with diabetic neuropathy, unspecified | CPT/HCPCS: 72080; 99024 ==

== ENCOUNTER → 2022-08-01 15:48 | Outpatient (BNVA) | payer MEDICARE, OTHER, SELFPAY | PROVIDERS: PCP Family Medicine; Visit Provider Specialist | DX: G20 Parkinson's disease (principal); Z91.81 History of falling | CPT/HCPCS: 99214 ==

== ENCOUNTER → 2022-08-02 13:49 | Outpatient (BNVA) | payer MEDICARE, OTHER, SELFPAY | PROVIDERS: PCP Family Medicine; Visit Provider Physician Assistant | DX: Z47.89 Encounter for other orthopedic aftercare (principal); Z98.1 Arthrodesis status | CPT/HCPCS: 99024 ==

== ENCOUNTER → 2022-08-22 14:41 | Outpatient (BNVA) | payer MEDICARE, OTHER, SELFPAY | PROVIDERS: PCP Family Medicine; Visit Provider Family Medicine | DX: E03.9 Hypothyroidism, unspecified (principal); E11.9 Type 2 diabetes mellitus without complications; I10 Essential (primary) hypertension; M54.41 Lumbago with sciatica, right side | CPT/HCPCS: 80048; 80061; 83036; 84439; 84443 ==

== ENCOUNTER 2022-09-15 11:39 | Outpatient (CLI) | payer MEDICARE, OTHER, SELFPAY ==
[2022-09-15 12:54] LABS: Basophils % 0.4 %; Eosinophils # 0.1 10^3/uL (0.0-0.8); Eosinophils % 0.7 %; Hematocrit 38.2 % (37.0-47.0); Hemoglobin 12.1 g/dL (11.5-15.3); Lymphocytes # 1.3 10^3/uL (0.8-4.8); Lymphocytes % 17.6 %; Mean Corpuscular HGB Conc 31.7 g/dL (30.0-36.0); Mean Corpuscular Hemoglobin 27.4 pg (28.0-34.0); Mean Corpuscular Volume 86.6 fl (81-99); Mean Platelet Volume 8.7 fL (7.4-10.4); Monocytes # 0.5 10^3/uL (0.2-0.9); Monocytes % 6.9 %; Neutrophils # 5.23 10^3/uL (1.8-7.7); Neutrophils % 73.8 %; Nucleated Red Blood Cells % 0 %; Platelet Count 420 10^3/cmm (130-400); Red Blood Count 4.41 10^6/uL (4.1-5.3); Red Cell Distribution Width 14.6 % (12.1-15.1); White Blood Count 7.1 10^3/uL (4.0-10.0)
[2022-09-15 13:37] LABS: Alanine Aminotransferase < 5 U/L (0-33); Albumin Level 4.4 g/dL (3.5-5.2); Alkaline Phosphatase 101 U/L (35-105); Aspartate Amino Transferase 21 U/L (0-32); Globulin 2.8 g/dL (1.3-4.6); Total Bilirubin 0.3 mg/dL (0.15-1.2); Total Protein 7.2 g/dL (6.6-8.7)
== END 2022-09-15 11:40 | disposition home or self-care (01) ==
LOC: LAB 11:41
PROVIDERS: PCP Family Medicine; Visit Provider Internal Medicine Rheumatology
DX: Z79.899 Other long term (current) drug therapy (principal)
CPT/HCPCS: 36415; 80076; 82565; 85025; 86140

== ENCOUNTER → 2022-09-22 13:39 | Outpatient (BNVA) | payer MEDICARE, OTHER, SELFPAY | PROVIDERS: PCP Family Medicine; Visit Provider Internal Medicine Rheumatology | DX: M15.4 Erosive (osteo)arthritis (principal); Z79.899 Other long term (current) drug therapy; Z87.39 Personal history of other diseases of the musculoskeletal system and connective tissue; M81.0 Age-related osteoporosis without current pathological fracture; M79.7 Fibromyalgia; F32.A Depression, unspecified; Z87.310 Personal history of (healed) osteoporosis fracture; M47.892 Other spondylosis, cervical region; M47.894 Other spondylosis, thoracic region; M47.26 Other spondylosis with radiculopathy, lumbar region; G20 Parkinson's disease; F02.80 Dementia in other diseases classified elsewhere, unspecified severity, without behavioral disturbance, psychotic disturbance, mood disturbance, and anxiety; N18.9 Chronic kidney disease, unspecified | CPT/HCPCS: 36415; 73130; 73630; 86200; 86431; 99214 ==

== ENCOUNTER 2022-10-13 19:11 | Emergency (ER) | payer MEDICARE, OTHER, SELFPAY ==
[2022-10-13 19:21] VITALS: BP 137/66; PULSE 80; RESP 17; TEMP 36.3; O2SAT 95; BMI 30.4
--- NOTE | 2022-10-13 19:40 | CTR_ITS ---
PROCEDURE INFORMATION: Exam: CT Cervical Spine Without Contrast Exam date and time: 10/13/2022 8:42 PM Age: 77 years old Clinical indication: Injury or trauma; Fall; Blunt trauma; Prior surgery; Surgery date: 6+ months; Surgery type: Cervical TECHNIQUE: Imaging protocol: Computed tomography of the cervical spine without contrast. Radiation optimization: All CT scans at this facility use at least one of these dose optimization techniques: automated exposure control; mA and/or kV adjustment per patient size (includes targeted exams where dose is matched to clinical indication); or iterative reconstruction. Other protocol: This patient has received 6 known CTs and 0 known cardiac nuclear medicine studies in the 12 months prior to the current study. COMPARISON: CT cervical spin wo con* [id number] 01/10/2022 6:25 PM RADIATION DOSE METRICS: Total DLP (mGy-cm): 312.27 FINDINGS: Bones/joints: Intact ACDF hardware in expected alignment at the C4-C6 segment. No acute fracture. Normal alignment. No significant disc protrusion. No severe spinal canal stenosis. Lungs: Lung apices are normal. Soft tissues: Unremarkable. CT/CT cervical spin wo con* [id number] IMPRESSION: No acute findings.
--- NOTE | 2022-10-13 19:40 | ECG_ITS ---
[facility] Test Date: 2022-10-13 Pat Name: Blossom Velez Department: Room: Gender: Female Technical Assistance Consultant: : 1945 Requested By: Julia Steiner Order Number: [id number] Janet MD: Maria Fernanda Ewing M.D. Measurements Intervals [place] Rate: 73 P: 45 NE: 153 QRS: -41 QRSD: 117 T: 64 QT: 383 QTc: 424 Interpretive Statements SINUS RHYTHM LEFT AXIS DEVIATION [QRS AXIS < -30] ANTEROSEPTAL MYOCARDIAL INFARCTION , PROBABLY OLD [40+ ms Q WAVE IN V1-V4] Compared to ECG 03/31/2021 06:28:32 Left-axis deviation now present Right-axis deviation no longer present Myocardial infarct finding still present Electronically Signed On 10-13-2022 20:58:41 ANALYTICS LEAD by Maria Fernanda Ewing M.D. [id number]
--- NOTE | 2022-10-13 19:40 | CTR_ITS ---
PROCEDURE INFORMATION: Exam: CT Head Without Contrast Exam date and time: 10/13/2022 8:38 PM Age: 77 years old Clinical indication: Injury or trauma; Fall; Blunt trauma (contusions or hematomas) TECHNIQUE: Imaging protocol: Computed tomography of the head without contrast. Radiation optimization: All CT scans at this facility use at least one of these dose optimization techniques: automated exposure control; mA and/or kV adjustment per patient size (includes targeted exams where dose is matched to clinical indication); or iterative reconstruction. Other protocol: This patient has received 6 known CTs and 0 known cardiac nuclear medicine studies in the 12 months prior to the current study. COMPARISON: CT head wo con* [id number] 01/10/2022 6:21 PM RADIATION DOSE METRICS: Total DLP (mGy-cm): 1049.34 FINDINGS: Brain: No hemorrhage. No edema. Moderate diffuse cerebral atrophy and mild sequela of chronic small vessel ischemic disease. No mass effect. Cerebral ventricles: No ventriculomegaly. Paranasal sinuses: Visualized sinuses are unremarkable. No fluid levels. Mastoid air cells: Visualized mastoid air cells are well aerated. Bones/joints: Unremarkable. No acute fracture. Soft tissues: Unremarkable. CT/CT head wo con* [id number] IMPRESSION: No acute intracranial abnormality.
--- NOTE | 2022-10-13 19:40 | XRR_ITS ---
PROCEDURE INFORMATION: Exam: XR Chest Exam date and time: 10/13/2022 8:40 PM Age: 77 years old Clinical indication: Sternal or substernal pain; Additional info: Cp TECHNIQUE: Imaging protocol: Radiologic exam of the chest. Views: 1 view. COMPARISON: CR XR chest 1V portable [id number] 04/01/2021 8:31 AM FINDINGS: Tubes, catheters and devices: Thoracic neurostimulator device again present. Lungs: Minimal bibasilar atelectasis. Pleural spaces: Unremarkable. No pleural effusion. No pneumothorax. Heart/Mediastinum: Unremarkable. No cardiomegaly. Bones/joints: Extension of spinal fusion changes now from the midthoracic level to the visualized lumbar spine. Partially visualized cervical spinal fusion changes again present. XR/XR chest 1V portable [id number] IMPRESSION: Minimal bibasilar atelectasis.
--- NOTE | 2022-10-13 20:03 | W.ED.FALL ---
HPI - Fall General: Chief Complaint: Fall Stated Complaint: Fall, chest and back pain Time Seen by Provider: 10/13/22 19:36 Source: patient Mode of arrival: ambulatory Limitations: no limitations History of Present Illness: 77-year-old female with a history of Parkinson's she has had multiple falls in the past. States that she fell today in her bathroom fell backwards states she did hit her head has had some head pains plan neck pain she states she immediately had some chest pain after she fell like she did blank her chest her pain is improved she denies any other injuries at this time she is ambulatory. Associated symptoms-after fall: Reports chest pain and headache(s); Denies abdominal pain or neck pain Review of Systems Const: Denies: fever(s), chills, body aches or change in appetite Eyes: Denies: blurry vision or eye discomfort ENMT: Denies: throat pain or dental pain Card: Reports: chest pain Resp: Denies: dyspnea GI: Denies: abdominal pain, nausea, vomiting or diarrhea : Denies: dysuria Musc: Denies: neck pain or back pain Skin/Breast: Denies: rash Neuro: Reports: headache(s) Psych: Denies: depression Albert/Lymph: Denies: easy bruising All/Imm: Denies: urticaria PFSH ED PFSH: Medical History Acid reflux Chronic low back pain with bilateral sciatica Degenerative scoliosis Erosive osteoarthritis of both hands High risk medication use History of calcium pyrophosphate deposition disease (CPPD) Hypertension Hypothyroidism (acquired) Immunization counseling Osteoarthritis, generalized Post-menopausal osteoporosis Type 2 diabetes mellitus without complications Surgical History History of carpal tunnel surgery History of thyroidectomy Hx of cholecystectomy Status post insertion of spinal cord stimulator Family History Other CAD (coronary artery disease) Cancer Diabetes High risk medication use Denies family history of Rheumatoid arthritis Systemic lupus erythematosus (SLE) in adult Social History Smoking and tobacco status: never smoked Second hand smoke exposure: Yes Smoking risk assessment/counseling performed?: No Alcohol intake: never Desire information about alcohol rehabilitation?: No Counseling given: No Desire information about substance/drug rehabilitation?: No Counseling given: No Marital status: / Number of children: 3 service: No Current occupational status: unemployed and retired History of recent travel: No Current gender identity: Female Female Reproductive History: Spontaneous abortions: No Physical Exam Const: COMMON NORMALS: no acute distress, patient oriented x3 and healthy appearing HENMT: COMMON NORMALS: normocephalic; head/scalp not atraumatic (Hematoma to posterior scalp) HEAD & SCALP: normocephalic; not atraumatic (Hematoma to posterior scalp) Eye: COMMON NORMALS: Equal, round and reactive pupils present and EOMs intact bilaterally PUPIL: Yes Equal, round and reactive pupils present Neck/C-Spine: COMMON NORMALS: full ROM and supple Chest: COMMONS NORMALS: normal inspection of the chest and normal palpation of entire chest wall Resp: COMMON NORMALS: normal respiratory effort, No retractions, No use of accessory muscles and clear to auscultation bilaterally AUSCULTATION: clear to auscultation bilaterally Cardio: COMMON NORMALS: regular rate, regular rhythm and No murmurs present (Cardio) RATE: regular rate RHYTHM: regular rhythm GI: COMMON NORMALS: Normal to inspection, nondistended, normoactive bowel sounds present, Soft to palpation, non-tender and no masses PALPATION: Yes Soft to palpation Extremity: COMMON NORMALS: normal to inspection and full ROM Neuro: COMMON NORMALS: patient oriented x3, moves all extremities and no focal motor deficits Psych: COMMON NORMALS: mental status grossly normal, Normal thought process present and cooperative THOUGHT PROCESS: Normal thought process present Skin: COMMON NORMALS: no rashes or lesions noted and no wounds GENERAL SKIN EXAM: no rashes or lesions noted Course Vital Signs: Vital signs: Vital Signs Temperature 97.4 F L 10/13/22 19:21 Pulse Rate 87 10/13/22 21:29 Respiratory Rate 18 10/13/22 21:29 Blood Pressure 137/66 10/13/22 19:21 Pulse Oximetry 94 10/13/22 21:29 Oxygen Delivery Me thod 10/13/22 19:21 MDM - Fall Medical Decision Making Patient presents with close head injury from a fall she also has chest pain likely chest wall contusion as she does have some tenderness EKG was normal x-ray is normal CT of her C-spine is negative she is stable for discharge she is to follow-up with PCP and return if worsening. Lab Data Radiology Impressions Cervical Spine CT 10/13/22 19:40 IMPRESSION: No acute findings. Chest X-Ray 10/13/22 19:40 IMPRESSION: Minimal bibasilar atelectasis. Head CT 10/13/22 19:40 IMPRESSION: No acute intracranial abnormality. EKG Data EKG 1: I personally reviewed and interpreted this EKG as follows: EKG interpretation date: 10/13/22 EKG interpretation time: 20:03 Interpretation: nsr hr [address] or t wave abnormalities qrs 117 qtc 409 Discharge Plan Discharge Patient Disposition: Home Clinical Impression: Fall, Closed head injury, Chest wall contusion Condition: Stable Prescriptions: No Action carbidopa-levodopa 25-100 mg tablet extended release 1 tab PO .HS potassium chloride 8 mEq capsule, extended release 8 meq PO DAILY PRN (Reason: use with Lasix) Qty: 30 5RF carbidopa-levodopa [Sinemet] 25-100 mg tablet 2 tab PO .COMPLEX Qty: 300 5RF Rx Instructions: 3 tabs PO AT 6AM; 2 tabs at 9AM; 2 tabs PO AT 12PM; 1 tab AT 3PM; 1 tabs PO AT 6PM furosemide [Lasix] 20 mg tablet 20 mg PO QAM PRN (Reason: edema) Qty: 30 5RF Rx Instructions: Stop clonidine sennosides [Senna Laxative] 8.6 mg tablet 8.6 mg PO BID PRN (Reason: Constipation) Rx Instructions: staff to give donepezil [Aricept] 5 mg tablet 5 mg PO QDAY cholecalciferol (vitamin D3) 125 mcg (5,000 unit) capsule 5,000 unit PO DAILY levothyroxine [Synthroid] 75 mcg tablet 75 mcg PO QDAY Qty: 30 5RF duloxetine [Cymbalta] 60 mg capsule,delayed release(DR/EC) 60 mg PO QDAY Qty: 30 5RF amlodipine [Norvasc] 5 mg tablet 10 mg PO QDAY Qty: 30 5RF hydroxychloroquine 200 mg tablet 200 mg PO BID Qty: 60 3RF colchicine [Mitigare] 0.6 mg capsule 0.6 mg PO DAILY Qty: 30 3RF famotidine 20 mg tablet 20 mg PO BID Qty: 60 5RF Movantik 12.5 mg tablet 12.5 mg PO DAILY Qty: 90 3RF cyclobenzaprine 10 mg tablet 10 mg PO TID PRN (Reason: Spasms) Qty: 30 3RF fentanyl 75 mcg/hr patch 72 hour 1 patch transdermal Q72H 30 Days Qty: 10 0RF ondansetron HCl 4 mg tablet 4 mg PO Q6H PRN (Reason: nausea and vomiting) Qty: 30 3RF oxycodone 20 mg tablet 20 mg PO TID PRN (Reason: pain) 30 Days Qty: 90 0RF gabapentin 300 mg capsule 300 mg PO TID 90 Days Qty: 270 3RF Discharge Orders: Discharge ED (Routine); Ordered 10/13/22 Ordered By: Julia Steiner Referrals: Kvng Lemons DO [Primary Care Provider] - 1-3 days Discharge Diet: Advance as tolerated Discharge Activity: Resume usual activity Patient Instructions: Fall Prevention (ED), Chest Wall Pain (ED) Coding Level of Care Code ED Scissors Grinder for Raisag Fwd Exam Comprehensive
[2022-10-13 21:29] VITALS: PULSE 87; RESP 18; O2SAT 94
== END 2022-10-13 21:30 | disposition home or self-care (01) ==
PROVIDERS: Emergency Provider Emergency Medicine; PCP Family Medicine
DX: S20.219A Contusion of unspecified front wall of thorax, initial encounter (principal); S09.90XA Unspecified injury of head, initial encounter; W19.XXXA Unspecified fall, initial encounter
CPT/HCPCS: 70450; 71045; 72125; 93005; 99285

== ENCOUNTER 2023-01-02 16:00 | Outpatient (CLI) | payer MEDICARE, OTHER, SELFPAY ==
[2023-01-02 16:53] LABS: Basophils # 0.1 10^3/uL (0.0-0.1); Basophils % 0.6 %; Eosinophils # 0.3 10^3/uL (0.0-0.8); Eosinophils % 3.2 %; Hematocrit 35.5 % (37.0-47.0); Lymphocytes # 1.6 10^3/uL (0.8-4.8); Lymphocytes % 20.3 %; Mean Corpuscular Hemoglobin 26.2 pg (28.0-34.0); Mean Corpuscular Volume 84.5 fl (81-99); Mean Platelet Volume 8.9 fL (7.4-10.4); Monocytes # 0.6 10^3/uL (0.2-0.9); Monocytes % 7.7 %; Neutrophils # 5.46 10^3/uL (1.8-7.7); Neutrophils % 67.8 %; Nucleated Red Blood Cells % 0 %; Platelet Count 325 10^3/cmm (130-400); Red Cell Distribution Width 13.8 % (12.1-15.1); White Blood Count 8.1 10^3/uL (4.0-10.0)
[2023-01-02 17:28] LABS: Alanine Aminotransferase < 5 U/L (0-33); Albumin Level 4.5 g/dL (3.5-5.2); Alkaline Phosphatase 106 U/L (35-105); Aspartate Amino Transferase 16 U/L (0-32); C Reactive Protein 6.8 mg/L (0.0-4.9); Calcium 8.9 mg/dL (8.5-10.5); Globulin 2.7 g/dL (1.3-4.6); Total Bilirubin 0.3 mg/dL (0.15-1.2); Total Protein 7.2 g/dL (6.6-8.7)
[2023-01-02 17:41] LABS: 25 Hydroxy Vitamin D 64 ng/mL (30-100)
== END 2023-01-02 16:01 | disposition home or self-care (01) ==
LOC: LAB 16:09
PROVIDERS: PCP Family Medicine; Visit Provider Internal Medicine Rheumatology
DX: M41.80 Other forms of scoliosis, site unspecified (principal); Z79.899 Other long term (current) drug therapy; M19.90 Unspecified osteoarthritis, unspecified site
CPT/HCPCS: 80076; 82306; 82310; 82565; 85025; 86140

== ENCOUNTER 2023-01-03 13:12 | Oncology outpatient (recurring) (ONCR) | payer MEDICARE, OTHER, SELFPAY ==
[2023-01-03] MEDS: denosumab 60 mg SDV SUBCUT (14:06)
[2023-01-03 14:10] VITALS: BP 140/74; PULSE 77; RESP 18; TEMP 36.6; O2SAT 97
== END 2023-01-08 23:59 | disposition home or self-care (01) ==
PROVIDERS: PCP Family Medicine; Visit Provider Internal Medicine Rheumatology
DX: M81.0 Age-related osteoporosis without current pathological fracture (principal); Z79.899 Other long term (current) drug therapy
CPT/HCPCS: 96401; J0897

== ENCOUNTER → 2023-01-17 11:21 | Outpatient (BNVA) | payer MEDICARE, OTHER, SELFPAY | PROVIDERS: PCP Family Medicine; Visit Provider Internal Medicine Rheumatology | DX: M15.4 Erosive (osteo)arthritis (principal); M81.0 Age-related osteoporosis without current pathological fracture; Z79.899 Other long term (current) drug therapy; Z87.39 Personal history of other diseases of the musculoskeletal system and connective tissue | CPT/HCPCS: 99214 ==

== ENCOUNTER 2023-01-22 14:19 | Emergency (ER) | payer MEDICARE, OTHER, SELFPAY ==
[2023-01-22 14:22] VITALS: BP 137/68; PULSE 75; TEMP 36.5; O2SAT 94; BMI 29.8
--- NOTE | 2023-01-22 14:32 | CTR_ITS ---
PROCEDURE INFORMATION: Exam: CT Cervical Spine Without Contrast Exam date and time: 01/22/2023 3:01 PM Age: 77 years old Clinical indication: Injury or trauma; Fall; Blunt trauma; Prior surgery; Surgery date: 6+ months; Surgery type: Fusion TECHNIQUE: Imaging protocol: Computed tomography of the cervical spine without contrast. Radiation optimization: All CT scans at this facility use at least one of these dose optimization techniques: automated exposure control; mA and/or kV adjustment per patient size (includes targeted exams where dose is matched to clinical indication); or iterative reconstruction. REPORTING DATA: Count of CT and Cardiac NM exams in prior 12 months: This patient has received 5 known CTs and 0 known cardiac nuclear medicine studies in the 12 months prior to the current study. COMPARISON: CT cervical spin wo con* [id number] 10/13/2022 8:42 PM RADIATION DOSE METRICS: Total DLP (mGy-cm): 244.2 FINDINGS: Bones/joints: Mild bilateral C2-C3 primary facet osteoarthritis. Mild left C3-C4 primary facet osteoarthritis. Anterior cervical discectomy and fusion has been performed at the C4-C5 and C5-C6 levels. The intervertebral body grafts and posterior elements are fused. The metallic hardware appears intact and in good position. Severe C6-C7 degenerative disc disease with mild spondylosis. Mild loss of C7 vertebral body height with mild sclerosis suggesting chronicity. No acute fracture. No malalignment. No destructive bony process identified. Prevertebral and retropharyngeal spaces: No prevertebral soft tissue swelling identified. Lungs: Mosaic lung attenuation is present consistent with small airways or small vessels disease. Thyroid: Apparent previous right thyroidectomy and partial left thyroidectomy. Soft tissues: Unremarkable. CT/CT cervical spin wo con* [id number] IMPRESSION: 1. Postoperative changes as above. 2. Degenerative changes as above. 3. No acute cervical spinal bony injury identified. 4. Possible small airways/small vessels disease.
--- NOTE | 2023-01-22 14:32 | CTR_ITS ---
PROCEDURE INFORMATION: Exam: CT Maxillofacial Without Contrast Exam date and time: 01/22/2023 3:01 PM Age: 77 years old Clinical indication: Injury or trauma; Fall; Blunt trauma (contusions or hematomas); Nose TECHNIQUE: Imaging protocol: Computed tomography of the face without contrast. Radiation optimization: All CT scans at this facility use at least one of these dose optimization techniques: automated exposure control; mA and/or kV adjustment per patient size (includes targeted exams where dose is matched to clinical indication); or iterative reconstruction. REPORTING DATA: Count of CT and Cardiac NM exams in prior 12 months: This patient has received 5 known CTs and 0 known cardiac nuclear medicine studies in the 12 months prior to the current study. COMPARISON: CT head wo con* [id number] 10/13/2022 8:38 PM RADIATION DOSE METRICS: Total DLP (mGy-cm): 482.2 FINDINGS: Orbital cavities: Orbits are normal. Globes are unremarkable. Bones/joints: Fracture of the bilateral nasal maxillary sutures, with slight depression of the right nasal bone and slight elevation of the left nasal bone (series 7, image 48). Transverse nondepressed fracture of the bilateral nasal bones, approximally 5.6 mm proximal to the midline distal tip (series 22, image 37). Submucosal gas adjacent to the left nasal bone. Subcutaneous gas adjacent to the junction of the right nasal bone and upper nasal septum. Submucosal gas of the left upper and right lower cartilaginous nasal septum. Paranasal sinuses: Normal. No air-fluid levels. Soft tissues: Subcutaneous gas left perinasal region. Pharynx: Incidental note made of benign calcified right palatine tonsillar tonsilloliths. CT/CT facial bones wo con* [id number] IMPRESSION: 1. Bilateral nasal maxillary suture fractures. 2. Non epressed distal nasal bone fractures. 3. Submucosal gas suggesting fracture of the cartilaginous nasal septum.
--- NOTE | 2023-01-22 14:32 | CTR_ITS ---
PROCEDURE INFORMATION: Exam: CT Head Without Contrast Exam date and time: 01/22/2023 3:01 PM Age: 77 years old Clinical indication: Injury or trauma; Fall; Blunt trauma (contusions or hematomas); Consciousness not specified TECHNIQUE: Imaging protocol: Computed tomography of the head without contrast. Radiation optimization: All CT scans at this facility use at least one of these dose optimization techniques: automated exposure control; mA and/or kV adjustment per patient size (includes targeted exams where dose is matched to clinical indication); or iterative reconstruction. REPORTING DATA: Count of CT and Cardiac NM exams in prior 12 months: This patient has received 5 known CTs and 0 known cardiac nuclear medicine studies in the 12 months prior to the current study. COMPARISON: CT head wo con* [id number] 10/13/2022 8:38 PM RADIATION DOSE METRICS: Total DLP (mGy-cm): 1109.7 FINDINGS: Brain: Moderate hypoattenuating foci are noted in the anterior lateral ventricular periventricular white matter bilaterally. No intracranial hemorrhage. No mass or acute cortical infarction identified. Cerebral ventricles: Prominence of the ventricular system and subarachnoid spaces is consistent with the patient's age of 77 years. Paranasal sinuses: Visualized sinuses are unremarkable. No fluid levels. Mastoid air cells: Visualized mastoid air cells are well aerated. Bones/joints: No acute abnormality. No acute fracture. Soft tissues: Subcutaneous hyperdense likely benign nodules right parietooccipital region, stable. Vasculature: Atherosclerotic calcifications are present involving the carotid artery siphons and vertebral arteries bilaterally. CT/CT head wo con* [id number] IMPRESSION: 1. Age appropriate supratentorial and infratentorial atrophy. 2. Moderate chronic white matter microvascular ischemic disease. 3. No acute intracranial injury identified.
--- NOTE | 2023-01-22 14:34 | ED_ITS ---
HPI - Fall General: Chief Complaint: Fall Stated Complaint: fall, Nose injury Time Seen by Provider: 01/22/23 14:28 Source: patient Mode of arrival: ambulatory Limitations: no limitations History of Present Illness: 77-year-old female who is here with daughter daughter states she typically walks with a walker she got up today without her walker and fell face first into their floor. She states that is carpeted but is very thin and concrete underneath. She did hit her head she had glasses on she has a small laceration to the bridge of her nose she complains of a headache and some neck pain along with nose pain. She denies any other injuries denies pain elsewhere. Associated symptoms-after fall: Reports headache(s) and neck pain; Denies abdominal pain or chest pain Review of Systems Const: Denies: fever(s), chills or body aches Eyes: Denies: eye discomfort ENMT: Reports: sinus pain; Denies: throat pain or dental pain Card: Denies: chest pain Resp: Denies: dyspnea GI: Denies: abdominal pain, nausea, vomiting or diarrhea : Denies: dysuria Musc: Reports: neck pain; Denies: back pain Skin/Breast: Denies: rash Neuro: Reports: headache(s) PFSH ED PFSH: Medical History Acid reflux Chronic low back pain with bilateral sciatica Degenerative scoliosis Erosive osteoarthritis of both hands High risk medication use History of calcium pyrophosphate deposition disease (CPPD) Hypertension Hypothyroidism (acquired) Immunization counseling Osteoarthritis, generalized Post-menopausal osteoporosis Type 2 diabetes mellitus without complications Surgical History History of carpal tunnel surgery History of thyroidectomy Hx of cholecystectomy Status post insertion of spinal cord stimulator Family History Other CAD (coronary artery disease) Cancer Diabetes High risk medication use Denies family history of Rheumatoid arthritis Systemic lupus erythematosus (SLE) in adult Social History Smoking and tobacco status: never smoked Second hand smoke exposure: Yes Smoking risk assessment/counseling performed?: No Alcohol intake: never Desire information about alcohol rehabilitation?: No Counseling given: No Substance/Drug Use: never Desire information about substance/drug rehabilitation?: No Counseling given: No Marital status: / Number of children: 3 service: No Current occupational status: unemployed and retired Do you think of yourself as: Straight/Heterosexual Current gender identity: Female Female Reproductive History: Spontaneous abortions: No Physical Exam Const: COMMON NORMALS: no acute distress, patient oriented x3 and healthy appearing HENMT: COMMON NORMALS: normocephalic HEAD & SCALP: normocephalic OTHER: Forehead contusion along with a 1 cm laceration to the bridge of her nose Eye: COMMON NORMALS: Equal, round and reactive pupils present and EOMs intact bilaterally PUPIL: Yes Equal, round and reactive pupils present Neck/C-Spine: COMMON NORMALS: full ROM and supple Chest: COMMONS NORMALS: normal inspection of the chest and normal palpation of entire chest wall Resp: COMMON NORMALS: normal respiratory effort, No retractions, No use of accessory muscles and clear to auscultation bilaterally AUSCULTATION: clear to auscultation bilaterally Cardio: COMMON NORMALS: regular rate, regular rhythm and No murmurs present (Cardio) RATE: regular rate RHYTHM: regular rhythm GI: COMMON NORMALS: Normal to inspection, nondistended, normoactive bowel sounds present, Soft to palpation, non-tender and no masses PALPATION: Yes Soft to palpation Extremity: COMMON NORMALS: normal to inspection and full ROM Neuro: COMMON NORMALS: patient oriented x3, moves all extremities and no focal motor deficits Psych: COMMON NORMALS: mental status grossly normal, Normal thought process present and cooperative THOUGHT PROCESS: Normal thought process present Skin: COMMON NORMALS: no rashes or lesions noted and no wounds GENERAL SKIN EXAM: no rashes or lesions noted Course Vital Signs: Vital signs: Vital Signs Temperature 97.7 F 01/22/23 14:22 Pulse Rate 75 01/22/23 14:22 Blood Pressure 137/68 01/22/23 14:22 Pulse Oximetry 94 01/22/23 14:22 Oxygen Delivery Me thod Room Air 01/22/23 14:22 MDM - Fall Medical Decision Making Patient presents with a nasal fracture from a fall CT of the head and C-spine are both normal informed her do not blow her nose we will place her on Keflex she is to follow-up with ENT she is return if worsening she understands and agrees to plan. Daughter is with her and understands as well. Medical Records I reviewed the patient's medical records. Lab Data Radiology Impressions Cervical Spine CT 01/22/23 14:32 IMPRESSION: 1. Postoperative changes as above. 2. Degenerative changes as above. 3. No acute cervical spinal bony injury identified. 4. Possible small airways/small vessels disease. Face CT 01/22/23 14:32 IMPRESSION: 1. Bilateral nasal maxillary suture fractures. 2. Non epressed distal nasal bone fractures. 3. Submucosal gas suggesting fracture of the cartilaginous nasal septum. Head CT 01/22/23 14:32 IMPRESSION: 1. Age appropriate supratentorial and infratentorial atrophy. 2. Moderate chronic white matter microvascular ischemic disease. 3. No acute intracranial injury identified. Discharge Plan Discharge Patient Disposition: Home Clinical Impression: Fall, Closed fracture nasal bone Condition: Stable Prescriptions: New hydrocodone-acetaminophen 5-325 mg tablet 1 tab PO Q6H PRN (Reason: pain) Qty: 14 0RF cephalexin 500 mg capsule 500 mg PO TID 7 Days Qty: 21 0RF No Action carbidopa-levodopa 25-100 mg tablet extended release 1 tab PO .HS potassium chloride 8 mEq capsule, extended release 8 meq PO DAILY PRN (Reason: use with Lasix) Qty: 30 5RF furosemide [Lasix] 20 mg tablet 20 mg PO QAM PRN (Reason: edema) Qty: 30 5RF Rx Instructions: Stop clonidine sennosides [Senna Laxative] 8.6 mg tablet 8.6 mg PO BID PRN (Reason: Constipation) Rx Instructions: staff to give donepezil [Aricept] 5 mg tablet 5 mg PO QDAY cholecalciferol (vitamin D3) 125 mcg (5,000 unit) capsule 5,000 unit PO DAILY levothyroxine [Synthroid] 75 mcg tablet 75 mcg PO QDAY Qty: 30 5RF duloxetine [Cymbalta] 60 mg capsule,delayed release(DR/EC) 60 mg PO QDAY Qty: 30 5RF hydroxychloroquine 200 mg tablet 200 mg PO BID Qty: 60 3RF colchicine [Mitigare] 0.6 mg capsule 0.6 mg PO DAILY Qty: 30 3RF famotidine 20 mg tablet 20 mg PO BID Qty: 60 5RF Movantik 12.5 mg tablet 12.5 mg PO DAILY Qty: 90 3RF cyclobenzaprine 10 mg tablet 10 mg PO TID PRN (Reason: Spasms) Qty: 30 3RF fentanyl 75 mcg/hr patch 72 hour 1 patch transdermal Q72H 30 Days Qty: 10 0RF ondansetron HCl 4 mg tablet 4 mg PO Q6H PRN (Reason: nausea and vomiting) Qty: 30 3RF oxycodone 20 mg tablet 20 mg PO TID PRN (Reason: pain) 30 Days Qty: 90 0RF gabapentin 300 mg capsule 300 mg PO TID 90 Days Qty: 270 3RF carbidopa-levodopa [Sinemet] 25-100 mg tablet 2 tab PO .COMPLEX Qty: 300 5RF Rx Instructions: 2 tabs PO AT 6AM; 2 tabs at 9AM; 2 tabs PO AT 12PM; 2 tab AT 3PM; 1 tabs PO AT 6PM amlodipine 5 mg tablet See Rx Instructions .ROUTE .COMPLEX Qty: 30 10RF Dose Instruction: TAKE 2 TABLETS BY MOUTH DAILY DOSE INCREASE. BINGO CARD Rx Instructions: TAKE 2 TABLETS BY MOUTH DAILY DOSE INCREASE. BINGO CARD Discharge Orders: Discharge ED (Routine); Ordered 01/22/23 Ordered By: Julia Steiner Referrals: Kvng Lemons DO [Primary Care Provider] - Jarocho Christensen MD [Physician] - 1-3 days Discharge Diet: Advance as tolerated Discharge Activity: Resume usual activity Patient Instructions: Nasal Fracture (ED), Opioid Safety Coding Level of Care Code ED Hospital Pharmacy Director for Ailyn Gaviria
--- NOTE | 2023-01-23 12:46 | DCPLANNER ---
Addendum entered by Emilia Lorenzo 01/23/23 14:57: custodial services manager called the office of Dr. Christensen to confirm that clinic received patients information. custodial services manager was told that patients information was received, it will be reviewed and clinic will call patient with appointment information. Original Note: custodial services manager had message to schedule a follow up appointment for patient with Dr. Christensen, ENT. custodial services manager faxed patients information to the office of Dr. Christensen. Patients information will be reviewed. Clinic will call patient with appointment information.
== END 2023-01-22 16:02 | disposition home or self-care (01) ==
PROVIDERS: Emergency Provider Emergency Medicine; PCP Family Medicine
DX: S02.2XXA Fracture of nasal bones, initial encounter for closed fracture (principal); Z77.22 Contact with and (suspected) exposure to environmental tobacco smoke (acute) (chronic); I10 Essential (primary) hypertension; E11.9 Type 2 diabetes mellitus without complications; W18.39XA Other fall on same level, initial encounter
CPT/HCPCS: 70450; 70486; 72125; 99285

== ENCOUNTER → 2023-02-07 15:50 | Outpatient (BNVA) | payer MEDICARE, OTHER, SELFPAY | PROVIDERS: PCP Family Medicine; Visit Provider Specialist | DX: G20 Parkinson's disease (principal); Z91.81 History of falling | CPT/HCPCS: 99213 ==

== ENCOUNTER 2023-02-17 15:39 | Outpatient (CLI) | payer MEDICARE, OTHER, SELFPAY ==
[2023-02-17 16:59] LABS: Blood Urea Nitrogen 19 mg/dL (8-23)
== END 2023-02-17 15:40 | disposition home or self-care (01) ==
LOC: LAB 15:43
PROVIDERS: PCP Family Medicine; Visit Provider Internal Medicine Rheumatology
DX: Z79.899 Other long term (current) drug therapy (principal)
CPT/HCPCS: 82565; 84520

== ENCOUNTER 2023-04-11 17:37 | Emergency (ER) | payer MEDICARE, OTHER, SELFPAY ==
[2023-04-11 17:51] VITALS: BP 145/71; PULSE 61; RESP 12; TEMP 36.5; O2SAT 99; BMI 29.2
--- NOTE | 2023-04-11 18:03 | CTR_ITS ---
PROCEDURE INFORMATION: Exam: CT Lumbar Spine Without Contrast Exam date and time: 04/11/2023 6:34 PM Age: 78 years old Clinical indication: Injury or trauma; Fall; Blunt trauma (contusions or hematomas); Prior surgery; Surgery date: 6+ months; Surgery type: T. L. Spine TECHNIQUE: Imaging protocol: Computed tomography of the lumbar spine without contrast. Radiation optimization: All CT scans at this facility use at least one of these dose optimization techniques: automated exposure control; mA and/or kV adjustment per patient size (includes targeted exams where dose is matched to clinical indication); or iterative reconstruction. REPORTING DATA: Count of CT and Cardiac NM exams in prior 12 months: This patient has received 8 known CTs and 0 known cardiac nuclear medicine studies in the 12 months prior to the current study. COMPARISON: CT lumbar spine wo con* [id number] 05/20/2022 11:10 AM RADIATION DOSE METRICS: Total DLP (mGy-cm): 1633.3 FINDINGS: Bones/joints: Intact spinal fusion hardware throughout the lumbar spine into the sacrum and iliac crests. No acute fracture. Minimal grade 1 anterolisthesis of L4 on L5 and L5 on S1. Soft tissues: Unremarkable. CT/CT lumbar spine wo con* [id number] IMPRESSION: No acute findings.
--- NOTE | 2023-04-11 18:03 | CTR_ITS ---
PROCEDURE INFORMATION: Exam: CT Thoracic Spine Without Contrast Exam date and time: 04/11/2023 6:34 PM Age: 78 years old Clinical indication: Injury or trauma; Fall; Blunt trauma (contusions or hematomas); Prior surgery; Surgery date: 6+ months; Surgery type: T. L. Spine TECHNIQUE: Imaging protocol: Computed tomography of the thoracic spine without contrast. Radiation optimization: All CT scans at this facility use at least one of these dose optimization techniques: automated exposure control; mA and/or kV adjustment per patient size (includes targeted exams where dose is matched to clinical indication); or iterative reconstruction. REPORTING DATA: Count of CT and Cardiac NM exams in prior 12 months: This patient has received 8 known CTs and 0 known cardiac nuclear medicine studies in the 12 months prior to the current study. COMPARISON: CT thoracic spin wo con* [id number] 05/20/2022 11:07 AM RADIATION DOSE METRICS: Total DLP (mGy-cm): 1633.3 FINDINGS: Bones/joints: Intact multilevel posterior spinal fusion hardware from T7 extending through the thoracolumbar spine. Spinal stimulator leads noted within the thoracic spinal canal. No acute thoracic spine fracture. [id number] diffuse vertebral body height loss of T10 which is chronic. No spinal malalignment. Soft tissues: Unremarkable. Other findings: Posterior left 11th and 12th rib fractures noted which do not appear acute. CT/CT thoracic spin wo con* [id number] IMPRESSION: 1. No acute findings. 2. Posterior left 11th and 12th rib fractures which do not appear acute.
--- NOTE | 2023-04-11 18:03 | CTR_ITS ---
PROCEDURE INFORMATION: Exam: CT Head Without Contrast Exam date and time: 04/11/2023 6:30 PM Age: 78 years old Clinical indication: Injury or trauma; Fall; Concussion/head injury; Without loss of consciousness TECHNIQUE: Imaging protocol: Computed tomography of the head without contrast. Radiation optimization: All CT scans at this facility use at least one of these dose optimization techniques: automated exposure control; mA and/or kV adjustment per patient size (includes targeted exams where dose is matched to clinical indication); or iterative reconstruction. REPORTING DATA: Count of CT and Cardiac NM exams in prior 12 months: This patient has received 8 known CTs and 0 known cardiac nuclear medicine studies in the 12 months prior to the current study. COMPARISON: CT head wo con* [id number] 01/22/2023 3:01 PM RADIATION DOSE METRICS: Total DLP (mGy-cm): 1075.08 FINDINGS: Brain: No hemorrhage. No edema. Mild diffuse cerebral atrophy and sequela of chronic small vessel ischemic disease. 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 No mass effect. Cerebral ventricles: No ventriculomegaly. Paranasal sinuses: Visualized sinuses are unremarkable. No fluid levels. Mastoid air cells: Visualized mastoid air cells are well aerated. Bones/joints: Unremarkable. No acute fracture. Soft tissues: Unremarkable. CT/CT head wo con* [id number] IMPRESSION: No acute intracranial abnormality.
--- NOTE | 2023-04-11 18:06 | ED_ITS ---
HPI - Fall General: Chief Complaint: Fall Stated Complaint: fall, hit head Time Seen by Provider: 04/11/23 18:00 Source: patient Mode of arrival: ambulatory Limitations: no limitations History of Present Illness: 78-year-old female who is here from assisted living at [facility] she states she has Parkinson's had frequent falls. States she supposed to use a walker but does not use at all times states that today she would walk without it and fell backwards. She did hit her head she denies any loss conscious has a very mild headache she had a history of back surgery and has pain in her thoracic lumbar spine. Denies any pain in her hips or her neck. States her pain is currently a 4 out of 10. Associated symptoms-after fall: Reports headache(s); Denies abdominal pain, chest pain or neck pain Review of Systems Const: Denies: fever(s) or chills Eyes: Denies: blurry vision or eye discomfort ENMT: Denies: throat pain or dental pain Card: Denies: chest pain Resp: Denies: dyspnea GI: Denies: abdominal pain, nausea, vomiting or diarrhea Musc: Reports: back pain; Denies: neck pain Skin/Breast: Denies: rash Neuro: Reports: headache(s) PFSH ED PFSH: Medical History Acid reflux Chronic low back pain with bilateral sciatica Degenerative scoliosis Erosive osteoarthritis of both hands High risk medication use History of calcium pyrophosphate deposition disease (CPPD) Hypertension Hypothyroidism (acquired) Immunization counseling Osteoarthritis, generalized Post-menopausal osteoporosis Type 2 diabetes mellitus without complications Surgical History History of carpal tunnel surgery History of thyroidectomy Hx of cholecystectomy Status post insertion of spinal cord stimulator Family History Other CAD (coronary artery disease) Cancer Diabetes High risk medication use Denies family history of Rheumatoid arthritis Systemic lupus erythematosus (SLE) in adult Social History Smoking and tobacco status: never smoked Second hand smoke exposure: Yes Smoking risk assessment/counseling performed?: No Alcohol intake: never Desire information about alcohol rehabilitation?: No Counseling given: No Substance/Drug Use: never Desire information about substance/drug rehabilitation?: No Counseling given: No Marital status: / Number of children: 3 service: No Current occupational status: unemployed and retired Do you think of yourself as: Straight/Heterosexual Current gender identity: Female Female Reproductive History: Spontaneous abortions: No Physical Exam Const: COMMON NORMALS: no acute distress, patient oriented x3 and healthy appearing HENMT: COMMON NORMALS: normocephalic HEAD & SCALP: normocephalic Eye: COMMON NORMALS: Equal, round and reactive pupils present and EOMs intact bilaterally PUPIL: Yes Equal, round and reactive pupils present Neck/C-Spine: COMMON NORMALS: full ROM and supple CERVICAL SPINE: Yes cervical ROM normal, No pain with cervical ROM and No Cervical spine tenderness Chest: COMMONS NORMALS: normal inspection of the chest and normal palpation of entire chest wall Resp: COMMON NORMALS: normal respiratory effort, No retractions, No use of accessory muscles and clear to auscultation bilaterally AUSCULTATION: clear to auscultation bilaterally Cardio: COMMON NORMALS: regular rate, regular rhythm and No murmurs present (Cardio) RATE: regular rate RHYTHM: regular rhythm GI: COMMON NORMALS: Normal to inspection, nondistended, normoactive bowel sounds present, Soft to palpation, non-tender and no masses PALPATION: Yes Soft to palpation Back/Pelvis: OTHER: Slight tenderness along spine she has scars from previous back surgeries no obvious step-off Extremity: COMMON NORMALS: normal to inspection and full ROM Neuro: COMMON NORMALS: patient oriented x3, moves all extremities and no focal motor deficits Psych: COMMON NORMALS: mental status grossly normal, Normal thought process present and cooperative THOUGHT PROCESS: Normal thought process present Skin: COMMON NORMALS: no rashes or lesions noted and no wounds GENERAL SKIN EXAM: no rashes or lesions noted Course Vital Signs: Vital signs: Vital Signs Temperature 97.7 F 04/11/23 17:51 Pulse Rate 61 04/11/23 17:51 Respiratory Rate 12 04/11/23 17:51 Blood Pressure 145/71 04/11/23 17:51 Pulse Oximetry 99 04/11/23 17:51 Oxygen Delivery Me thod Room Air 04/11/23 17:51 MDM - Fall Medical Decision Making Patient presents here after a fall CT of her head and spine are all normal she is able to ambulate with a walker no hip pain she is stable for discharge back to [facility] at this time. Medical Records I reviewed the patient's medical records. Lab Data I reviewed the patient's lab results. Radiology Impressions Head CT 04/11/23 18:03 IMPRESSION: No acute intracranial abnormality. Lumbar Spine CT 04/11/23 18:03 IMPRESSION: No acute findings. Thoracic Spine CT 04/11/23 18:03 IMPRESSION: 1. No acute findings. 2. Posterior left 11th and 12th rib fractures which do not appear acute. Discharge Plan Discharge Patient Disposition: Home Clinical Impression: Fall, Closed head injury Condition: Stable Prescriptions: No Action carbidopa-levodopa 25-100 mg tablet extended release 1 tab PO .HS potassium chloride 8 mEq capsule, extended release 8 meq PO DAILY PRN (Reason: use with Lasix) Qty: 30 5RF furosemide [Lasix] 20 mg tablet 20 mg PO QAM PRN (Reason: edema) Qty: 30 5RF Rx Instructions: Stop clonidine sennosides [Senna Laxative] 8.6 mg tablet 8.6 mg PO BID PRN (Reason: Constipation) Rx Instructions: staff to give donepezil [Aricept] 5 mg tablet 5 mg PO QDAY cholecalciferol (vitamin D3) 125 mcg (5,000 unit) capsule 5,000 unit PO DAILY levothyroxine [Synthroid] 75 mcg tablet 75 mcg PO QDAY Qty: 30 5RF duloxetine [Cymbalta] 60 mg capsule,delayed release(DR/EC) 60 mg PO QDAY Qty: 30 5RF hydroxychloroquine 200 mg tablet 200 mg PO BID Qty: 60 3RF colchicine [Mitigare] 0.6 mg capsule 0.6 mg PO DAILY Qty: 30 3RF famotidine 20 mg tablet 20 mg PO BID Qty: 60 5RF Movantik 12.5 mg tablet 12.5 mg PO DAILY Qty: 90 3RF cyclobenzaprine 10 mg tablet 10 mg PO TID PRN (Reason: Spasms) Qty: 30 3RF fentanyl 75 mcg/hr patch 72 hour 1 patch transdermal Q72H 30 Days Qty: 10 0RF ondansetron HCl 4 mg tablet 4 mg PO Q6H PRN (Reason: nausea and vomiting) Qty: 30 3RF oxycodone 20 mg tablet 20 mg PO TID PRN (Reason: pain) 30 Days Qty: 90 0RF gabapentin 300 mg capsule 300 mg PO TID 90 Days Qty: 270 3RF carbidopa-levodopa [Sinemet] 25-100 mg tablet 2 tab PO .COMPLEX Qty: 300 5RF Rx Instructions: 2 tabs PO AT 6AM; 2 tabs at 9AM; 2 tabs PO AT 12PM; 2 tab AT 3PM; 1 tabs PO AT 6PM amlodipine 5 mg tablet See Rx Instructions .ROUTE .COMPLEX Qty: 30 10RF Dose Instruction: TAKE 2 TABLETS BY MOUTH DAILY DOSE INCREASE. BINGO CARD Rx Instructions: TAKE 2 TABLETS BY MOUTH DAILY DOSE INCREASE. BINGO CARD hydrocodone-acetaminophen 5-325 mg tablet 1 tab PO Q6H PRN (Reason: pain) Qty: 14 0RF Discharge Orders: Discharge ED (Routine); Ordered 04/11/23 Ordered By: Julia Steiner Referrals: Kvng Lemons DO [Primary Care Provider] - 1-3 days Discharge Diet: Advance as tolerated Discharge Activity: Resume usual activity Patient Instructions: Head Injury (ED) Coding Level of Care Code ED [facility] for Ailyn Gaviria
--- NOTE | 2023-04-11 18:12 | PC.NURSE ---
PT STATES SHE FELL AND HIT HER HEAD WHILE WALKING TO TURN HER TELEVISION OFF. PT STATES SHE HIT HER HEAD. PT HAS A RED RAISED KNOT ON THE BACK OF HER HEAD. SHE STATES HER UPPER MIDDLE BACK HURTS BUT NOTHING ELSE IS BOTHERING HER. PTS DAUGHTER STATES HER FALL WAS WITNESSED BY A BYSTANDER. SHE IS AOx3.
[2023-04-11 19:36] VITALS: BP 149/67; PULSE 57; RESP 16; O2SAT 98
== END 2023-04-11 19:39 | disposition home or self-care (01) ==
PROVIDERS: Emergency Provider Emergency Medicine; PCP Family Medicine
DX: S09.8XXA Other specified injuries of head, initial encounter (principal); S22.42XA Multiple fractures of ribs, left side, initial encounter for closed fracture; Z77.22 Contact with and (suspected) exposure to environmental tobacco smoke (acute) (chronic); I10 Essential (primary) hypertension; E11.9 Type 2 diabetes mellitus without complications; G20 Parkinson's disease; W18.39XA Other fall on same level, initial encounter
CPT/HCPCS: 70450; 72128; 72131; 99284

== ENCOUNTER 2023-04-27 15:10 | Outpatient (CLI) | payer MEDICARE, OTHER, SELFPAY ==
[2023-04-27 15:50] LABS: Basophils # 0.1 10^3/uL (0.0-0.1); Basophils % 0.7 %; Eosinophils # 0.1 10^3/uL (0.0-0.8); Eosinophils % 1.4 %; Hematocrit 35.7 % (37.0-47.0); Hemoglobin 10.8 g/dL (11.5-15.3); Lymphocytes # 1.5 10^3/uL (0.8-4.8); Lymphocytes % 21.3 %; Mean Corpuscular HGB Conc 30.3 g/dL (30.0-36.0); Mean Corpuscular Hemoglobin 24.3 pg (28.0-34.0); Mean Corpuscular Volume 80.2 fl (81-99); Mean Platelet Volume 8.6 fL (7.4-10.4); Monocytes # 0.5 10^3/uL (0.2-0.9); Monocytes % 7.1 %; Neutrophils % 69.2 %; Nucleated Red Blood Cells % 0 %; Platelet Count 343 10^3/cmm (130-400); Red Blood Count 4.45 10^6/uL (4.1-5.3); Red Cell Distribution Width 15.3 % (12.1-15.1); White Blood Count 7.2 10^3/uL (4.0-10.0)
[2023-04-27 16:10] LABS: Alanine Aminotransferase < 5 U/L (0-33); Albumin Level 4.4 g/dL (3.5-5.2); Alkaline Phosphatase 96 U/L (35-105); Aspartate Amino Transferase 16 U/L (0-32); C Reactive Protein 7.5 mg/L (0.0-4.9); Calcium 9.4 mg/dL (8.5-10.5); Globulin 2.6 g/dL (1.3-4.6); Total Bilirubin 0.3 mg/dL (0.15-1.2)
[2023-04-27 16:21] LABS: 25 Hydroxy Vitamin D 69 ng/mL (30-100)
== END 2023-04-27 15:11 | disposition home or self-care (01) ==
PROVIDERS: PCP Family Medicine; Visit Provider Internal Medicine Rheumatology
DX: M81.0 Age-related osteoporosis without current pathological fracture (principal); M15.4 Erosive (osteo)arthritis; Z79.899 Other long term (current) drug therapy
CPT/HCPCS: 36415; 80076; 82306; 82310; 82565; 85025; 86140

== ENCOUNTER 2023-05-11 07:01 | Outpatient (CLI) | payer MEDICARE, OTHER, SELFPAY ==
[2023-05-17 19:10] LABS: Collagen Type I C-Telopeptide 147 pg/mL
== END 2023-05-11 07:02 | disposition home or self-care (01) ==
LOC: LAB 07:04
PROVIDERS: PCP Family Medicine; Visit Provider Family Medicine
DX: Z01.89 Encounter for other specified special examinations (principal)
CPT/HCPCS: 82523

== ENCOUNTER 2023-06-04 09:48 | Emergency (ER) | payer MEDICARE, OTHER, SELFPAY ==
--- NOTE | 2023-06-04 09:52 | ECG_ITS ---
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 Measurements Intervals [place] Rate: 83 P: 28 MO: 160 QRS: -30 QRSD: 112 T: 83 QT: 346 QTc: 409 Interpretive Statements SINUS RHYTHM LEFT VENTRICULAR HYPERTROPHY AND ST-T CHANGE [VOLTAGE CRITERIA PLUS ST/T ABNORMALITY] Compared to ECG 10/13/2022 20:03:26 Left ventricular hypertrophy now present ST (T wave) deviation now present Left-axis deviation no longer present Myocardial infarct finding no longer present Electronically Signed On 06-04-2023 14:39:50 CDT by Teja Fuller M.D. [id number]
[2023-06-04 10:05] VITALS: BP 131/72; PULSE 88; RESP 17; TEMP 36.8; O2SAT 96
--- NOTE | 2023-06-04 10:24 | XRR_ITS ---
PROCEDURE INFORMATION: Exam: XR Left Shoulder Exam date and time: 06/04/2023 10:37 AM Age: 78 years old Clinical indication: Injury or trauma; Fall; Blunt trauma (contusions or hematomas); Shoulder; Left; Additional info: Fall with shoulder pain TECHNIQUE: Imaging protocol: Radiologic exam of the left shoulder. Views: 2 or more views. COMPARISON: CR XR chest 1V portable [id number] 10/13/2022 8:40 PM FINDINGS: Bones/joints: Mild degenerative change. No evidence acute fracture Soft tissues: Normal. XR/XR shoulder LT min 2V* [id number] IMPRESSION: Mild degenerative change. No evidence of acute fracture
--- NOTE | 2023-06-04 10:24 | XRR_ITS ---
PROCEDURE INFORMATION: Exam: XR Left Ribs with PA Chest Exam date and time: 06/04/2023 10:40 AM Age: 78 years old Clinical indication: Injury or trauma; Fall; Rib area, left side; Blunt trauma; Additional info: Fall with L rib pain TECHNIQUE: Imaging protocol: Radiologic exam of the left ribs with PA chest. Views: 3 views COMPARISON: CR XR chest 1V portable [id number] 10/13/2022 8:40 PM FINDINGS: Lungs: Unremarkable. No consolidation. Pleural spaces: Unremarkable. No pleural effusion. No pneumothorax. Heart/Mediastinum: Unremarkable. No cardiomegaly. Bones/joints: Left anterior 5th rib fracture deformity. XR/XR ribs LT mn 3V w CXR1V [id number] IMPRESSION: Mildly displaced left anterior 5th rib fracture deformity
[2023-06-04 10:25] VITALS: BP 138/69; PULSE 82; RESP 16; O2SAT 97
--- NOTE | 2023-06-04 11:12 | W.ED.FALL ---
HPI - Fall General: Chief Complaint: Fall Stated Complaint: left shoulder/rib pain Time Seen by Provider: 06/04/23 10:25 Source: patient Mode of arrival: ambulatory History of Present Illness: 78-year-old female presents emergency room complaining of left-sided anterior lateral rib pain. This began about 1 week ago after she fell and landed on a bench with coughing she has noticed more difficulty with pain. She has not been had any severe shortness of breath no hemoptysis. She also had some left shoulder discomfort. No fever sweats or chills or productive cough MD complaint: fall Onset (ago): week(s) (1) Place fall occurred: home Loss of consciousness: None Prolonged down time: no Context: tripped/slipped Location of injury: chest Associated symptoms-after fall: Reports chest pain; Denies abdominal pain, confusion, difficulty walking, headache(s), hematuria, lightheadedness, neck pain, numbness, short of breath, vertigo, weakness or other Review of Systems Const: Denies: fever(s), chills, fatigue or malaise ENMT: Denies: throat pain, ear or mastoid pain, nasal discharge or nasal congestion Card: Reports: chest pain; Denies: palpitations, irregular heart rhythm or lightheadedness Resp: Denies: dyspnea, productive cough or non-productive cough GI: Denies: abdominal pain : Denies: hematuria Musc: Denies: neck pain Skin/Breast: Denies: rash or pruritus Neuro: Denies: headache(s), difficulty walking, vertigo or confusion PFS ED PFSH: Medical History Acid reflux Chronic low back pain with bilateral sciatica Degenerative scoliosis Erosive osteoarthritis of both hands High risk medication use History of calcium pyrophosphate deposition disease (CPPD) Hypertension Hypothyroidism (acquired) Immunization counseling Osteoarthritis, generalized Post-menopausal osteoporosis Type 2 diabetes mellitus without complications Surgical History History of carpal tunnel surgery History of thyroidectomy Hx of cholecystectomy Status post insertion of spinal cord stimulator Family History Other CAD (coronary artery disease) Cancer Diabetes High risk medication use Denies family history of Rheumatoid arthritis Systemic lupus erythematosus (SLE) in adult Social History Smoking and tobacco status: never smoked Second hand smoke exposure: Yes Smoking risk assessment/counseling performed?: No Alcohol intake: never Desire information about alcohol rehabilitation?: No Counseling given: No Substance/Drug Use: never Desire information about substance/drug rehabilitation?: No Counseling given: No Marital status: / Number of children: 3 service: No Current occupational status: unemployed and retired Do you think of yourself as: Straight/Heterosexual Current gender identity: Female Female Reproductive History: Spontaneous abortions: No Physical Exam Const: GENERAL APPEARANCE: cooperative and comfortable ORIENTATION/CONSCIOUSNESS: Yes awake, Yes oriented to person, Yes oriented to place and Yes oriented to time HENMT: COMMON NORMALS: normocephalic, atraumatic and hearing grossly normal bilaterally HEAD & SCALP: normocephalic and atraumatic Resp: COMMON NORMALS: normal respiratory effort, No retractions, No use of accessory muscles and clear to auscultation bilaterally AUSCULTATION: clear to auscultation bilaterally Cardio: COMMON NORMALS: regular rate, regular rhythm and No murmurs present (Cardio) RATE: regular rate RHYTHM: regular rhythm GI: COMMON NORMALS: Soft to palpation and No hepatosplenomegaly present AUSCULTATION: Yes normoactive bowel sounds PALPATION: Yes Soft to palpation, No Tenderness to palpation present (GI), No Guarding due to palpation present (GI) and Yes No hepatosplenomegaly present Extremity: COMMON NORMALS: normal to inspection, capillary refill normal, no clubbing, cyanosis or edema, no calf tenderness and no pedal edema Neuro: SENSORIUM/ORIENTATION: Yes oriented to person, Yes oriented to place and Yes oriented to time Skin: COMMON NORMALS: no rashes or lesions noted GENERAL SKIN EXAM: no rashes or lesions noted Course Vital Signs: Vital signs: Vital Signs Temperature 98.2 F 06/04/23 10:05 Pulse Rate 82 06/04/23 10:25 Respiratory Rate 16 06/04/23 10:25 Blood Pressure 138/69 06/04/23 10:25 Pulse Oximetry 97 06/04/23 10:25 Oxygen Delivery Me thod Room Air 06/04/23 10:25 MDM - Fall Medical Decision Making Left fifth rib fracture with mild displacement. Patient is already on oxycodone continue to use that as previously prescribed. Follow-up with primary care no evidence of infiltrate normal exam. X-ray of the left shoulder negative Medical Records I reviewed the patient's medical records. Lab Data I reviewed the patient's lab results. Radiology Impressions Ribs X-Ray 06/04/23 10:24 IMPRESSION: Mildly displaced left anterior 5th rib fracture deformity Shoulder X-Ray 06/04/23 10:24 IMPRESSION: Mild degenerative change. No evidence of acute fracture All radiology interpretation(s) finalized by discharge Discharge Plan Discharge Patient Disposition: Home Clinical Impression: Left rib fracture, Fall Condition: Stable Prescriptions: No Action carbidopa-levodopa 25-100 mg tablet extended release 1 tab PO QPM potassium chloride 8 mEq capsule, extended release 8 meq PO DAILY PRN (Reason: use with Lasix) Qty: 30 5RF furosemide [Lasix] 20 mg tablet 20 mg PO QAM PRN (Reason: edema) Qty: 30 5RF Rx Instructions: Stop clonidine sennosides [Senna Laxative] 8.6 mg tablet 8.6 mg PO BID PRN (Reason: Constipation) donepezil [Aricept] 5 mg tablet 5 mg PO QDAY cholecalciferol (vitamin D3) 125 mcg (5,000 unit) capsule 5,000 unit PO DAILY levothyroxine [Synthroid] 75 mcg tablet 75 mcg PO QDAY Qty: 30 5RF duloxetine [Cymbalta] 60 mg capsule,delayed release(DR/EC) 60 mg PO QDAY Qty: 30 5RF hydroxychloroquine 200 mg tablet 200 mg PO BID Qty: 60 3RF colchicine (gout) [Mitigare] 0.6 mg capsule 0.6 mg PO DAILY Qty: 30 3RF famotidine 20 mg tablet 20 mg PO BID Qty: 60 5RF Movantik 12.5 mg tablet 12.5 mg PO DAILY Qty: 90 3RF cyclobenzaprine 10 mg tablet 10 mg PO TID PRN (Reason: Spasms) Qty: 30 3RF carbidopa-levodopa [Sinemet] 25-100 mg tablet 2 tab PO .COMPLEX Qty: 300 5RF Rx Instructions: 2 tabs PO AT 6AM; 2 tabs at 9AM; 2 tabs PO AT 12PM; 2 tab AT 3PM; 1 tabs PO AT 6PM oxycodone 15 mg tablet 15 mg PO QID PRN (Reason: Pain) gabapentin 100 mg capsule 100 mg PO TID fentanyl 12 mcg/hr patch 72 hour 1 patch transdermal Q72H amlodipine 5 mg tablet 10 mg PO DAILY Discharge Orders: Discharge ED (Routine); Ordered 06/04/23 Ordered By: Kyle Mead Referrals: Kvng Lemons DO [Primary Care Provider] - Discharge Diet: Usual diet Discharge Activity: Resume usual activity Patient Instructions: Opioid Safety, Pain Management, Rib Fracture (ED) Activity Restrictions/Additional Instructions: Left fifth rib fracture. Use the oxycodone as previously prescribed follow-up with your primary care doctor if any worsening symptoms or persistent symptoms. Coding Level of Care Code ED [facility] for Ailyn Gaviria
[2023-06-04 11:50] VITALS: BP 120/71; PULSE 77; RESP 16; O2SAT 96
== END 2023-06-04 11:52 | disposition home or self-care (01) ==
PROVIDERS: Emergency Provider Family Medicine; PCP Family Medicine
DX: S22.32XA Fracture of one rib, left side, initial encounter for closed fracture (principal); Z77.22 Contact with and (suspected) exposure to environmental tobacco smoke (acute) (chronic); I10 Essential (primary) hypertension; E11.9 Type 2 diabetes mellitus without complications; W19.XXXA Unspecified fall, initial encounter
CPT/HCPCS: 71101; 73030; 93005; 99284

== ENCOUNTER 2023-07-18 12:05 | Outpatient (CLI) | payer MEDICARE, OTHER, SELFPAY ==
[2023-07-18 12:22] LABS: Basophils # 0.1 10^3/uL (0.0-0.1); Basophils % 0.7 %; Eosinophils # 0.2 10^3/uL (0.0-0.8); Eosinophils % 2.1 %; Lymphocytes # 1.8 10^3/uL (0.8-4.8); Lymphocytes % 24.7 %; Mean Corpuscular HGB Conc 30.3 g/dL (30-55); Mean Corpuscular Hemoglobin 24.7 pg (27-33); Mean Corpuscular Volume 81.7 fl (85-98); Mean Platelet Volume 8.5 fL (7.4-10.4); Monocytes # 0.5 10^3/uL (0.2-0.9); Neutrophils # 4.66 10^3/uL (1.8-7.7); Neutrophils % 65.1 %; Nucleated Red Blood Cells % 0 %; Platelet Count 324 10^3/cmm (157-399); Red Blood Count 4.53 10^6/uL (3.85-5.65); Red Cell Distribution Width 16.1 % (12.1-15.1); White Blood Count 7.16 10^3/uL (3.29-11.43)
[2023-07-18 12:38] LABS: Alanine Aminotransferase < 5 U/L (0-33); Albumin Level 4.8 g/dL (3.5-5.2); Alkaline Phosphatase 118 U/L (35-105); Aspartate Amino Transferase 26 U/L (0-32); Globulin 2.5 g/dL (1.3-4.6); Total Bilirubin 0.2 mg/dL (0.15-1.2); Total Protein 7.3 g/dL (6.6-8.7)
== END 2023-07-18 12:06 | disposition home or self-care (01) ==
LOC: LAB 12:07
PROVIDERS: PCP Family Medicine; Visit Provider Internal Medicine Rheumatology
DX: Z79.899 Other long term (current) drug therapy (principal)
CPT/HCPCS: 36415; 80076; 82565; 85025; 86140

== ENCOUNTER → 2023-07-19 11:16 | Outpatient (BNVA) | payer MEDICARE, OTHER, SELFPAY | PROVIDERS: PCP Family Medicine; Visit Provider Internal Medicine Rheumatology | DX: M25.519 Pain in unspecified shoulder (principal); Z87.39 Personal history of other diseases of the musculoskeletal system and connective tissue; M15.4 Erosive (osteo)arthritis; M81.0 Age-related osteoporosis without current pathological fracture | CPT/HCPCS: 99214 ==

== ENCOUNTER → 2023-08-01 10:22 | Outpatient (BNVA) | payer MEDICARE, OTHER, SELFPAY | PROVIDERS: PCP Family Medicine; Visit Provider Specialist | DX: Z91.81 History of falling (principal); G20.A1 Parkinson's disease without dyskinesia, without mention of fluctuations | CPT/HCPCS: 99214 ==

== ENCOUNTER 2023-11-09 09:18 | Outpatient (CLI) | payer MEDICARE, OTHER, SELFPAY ==
[2023-11-09 09:48] LABS: Basophils % 0.8 %; Eosinophils # 0.3 10^3/uL (0.0-0.8); Eosinophils % 5.4 %; Hematocrit 35.1 % (36-47); Lymphocytes # 1.7 10^3/uL (0.8-4.8); Lymphocytes % 32.1 %; Mean Corpuscular HGB Conc 29.9 g/dL (30-55); Mean Corpuscular Hemoglobin 25.4 pg (27-33); Mean Platelet Volume 8.9 fL (7.4-10.4); Monocytes # 0.4 10^3/uL (0.2-0.9); Monocytes % 7.8 %; Neutrophils # 2.75 10^3/uL (1.8-7.7); Neutrophils % 53.5 %; Nucleated Red Blood Cells % 0 %; Platelet Count 322 10^3/cmm (157-399); Red Blood Count 4.13 10^6/uL (3.85-5.65); Red Cell Distribution Width 14.2 % (12.1-15.1); White Blood Count 5.14 10^3/uL (3.29-11.43)
[2023-11-09 10:25] LABS: Estmated Average Glucose 105; Hemoglobin A1C 5.3 % (4.0-6.0)
[2023-11-09 10:38] LABS: Alanine Aminotransferase < 5 U/L (0-33); Albumin Level 4.2 g/dL (3.5-5.2); Alkaline Phosphatase 118 U/L (35-105); Anion Gap 12.3 (5-19); Aspartate Amino Transferase 14 U/L (0-32); Blood Urea Nitrogen 16 mg/dL (8-23); Calcium 9.3 mg/dL (8.5-10.5); Carbon Dioxide 29 mmol/L (22-29); Chloride 105 mmol/L (98-107); Cholesterol 217 mg/dL (0-200); Glucose 91 mg/dL (65-115); HDL Cholesterol 62 mg/dL (60-100); LDL Cholesterol Calculated 127 mg/dL (50-129); LDL HDL Ratio 2.05 RATIO (0.00-3.22); Magnesium 2.3 mg/dL (1.7-2.3); Osmolality Calculated 293 mOsm/kg (285-295); Potassium 5.3 mmol/L (3.5-5.1); Sodium 141 mmol/L (136-145); Thyroid Stimulating Hormone 2.36 uIU/mL (0.27-4.20); Total Bilirubin 0.4 mg/dL (0.15-1.2); Total Protein 6.2 g/dL (6.6-8.7); Triglycerides 138 mg/dL (0-150); Vitamin B12 1490 pg/mL (232-1245)
[2023-11-09 14:55] LABS: Erythrocyte Sedimentation Rate 13 mm/hr (0-15)
[2023-11-09 15:04] LABS: C Reactive Protein 6.2 mg/L (0.0-4.9)
== END 2023-11-09 09:19 | disposition home or self-care (01) ==
PROVIDERS: PCP Family Medicine; Visit Provider Family Medicine
DX: I10 Essential (primary) hypertension (principal)
CPT/HCPCS: 80053; 80061; 82607; 83036; 83735; 84443; 84550; 85025; 85651; 86140

== ENCOUNTER → 2023-11-15 11:14 | Outpatient (BNVA) | payer MEDICARE, OTHER, SELFPAY | PROVIDERS: PCP Family Medicine; Visit Provider Internal Medicine Rheumatology | DX: Z79.899 Other long term (current) drug therapy (principal); Z87.39 Personal history of other diseases of the musculoskeletal system and connective tissue; M15.4 Erosive (osteo)arthritis; M81.0 Age-related osteoporosis without current pathological fracture | CPT/HCPCS: 99214 ==

== ENCOUNTER → 2024-01-04 11:15 | Outpatient (BNVA) | payer MEDICARE, OTHER, SELFPAY | PROVIDERS: PCP Family Medicine; Visit Provider Orthopaedic Surgery | DX: M54.9 Dorsalgia, unspecified (principal); M54.41 Lumbago with sciatica, right side; M54.42 Lumbago with sciatica, left side; G89.29 Other chronic pain | CPT/HCPCS: 72110; 99214 ==

== ENCOUNTER → 2024-01-24 10:47 | Outpatient (BNVA) | payer MEDICARE, OTHER, SELFPAY | PROVIDERS: PCP Family Medicine; Visit Provider Specialist | DX: G20.A2 Parkinson's disease without dyskinesia, with fluctuations (principal) | CPT/HCPCS: 99214 ==

== ENCOUNTER 2024-03-20 11:37 | Emergency (ER) | payer MEDICARE, OTHER, SELFPAY ==
[2024-03-20 11:44] VITALS: BP 145/78; PULSE 81; RESP 14; TEMP 36.4; O2SAT 97
--- NOTE | 2024-03-20 13:04 | W.ED.WOUNDLC ---
HPI - Wound/Laceration General: Chief Complaint: Wound/Laceration Stated Complaint: fell hit head, head lac Time Seen by Provider: 03/20/24 13:04 History of Present Illness: 79-year-old female comes in today for complaints of fall with head laceration. Patient reports that she had lost her balance and fell into the side of the door cutting her right parietal scalp on a door handle. Patient denies loss of consciousness or headache. Review of Systems General: Reports: 10 or more systems reviewed and unremarkable except in HPI and below Skin/Breast: Reports: new lesions PFSH ED PFSH: Medical History Degenerative scoliosis History of calcium pyrophosphate deposition disease (CPPD) Acid reflux Post-menopausal osteoporosis Osteoarthritis, generalized Erosive osteoarthritis of both hands High risk medication use Immunization counseling Hypertension Chronic low back pain with bilateral sciatica Type 2 diabetes mellitus without complications Hypothyroidism (acquired) Surgical History History of thyroidectomy Hx of cholecystectomy Status post insertion of spinal cord stimulator History of carpal tunnel surgery Family History Other CAD (coronary artery disease) Cancer Diabetes High risk medication use Denies family history of Rheumatoid arthritis Systemic lupus erythematosus (SLE) in adult Social History Smoking and tobacco/nicotine status: never used tobacco/nicotine Second hand smoke exposure: Yes Alcohol intake: never Substance/Drug Use: never Marital status: / Number of children: 3 service: No Current occupational status: unemployed and retired Do you think of yourself as: Straight/Heterosexual Current gender identity: Female Female Reproductive History: Spontaneous abortions: No Physical Exam Const: COMMON NORMALS: alert HENMT: HEAD & SCALP: laceration (3 cm well-approximated right parietal scalp); no palpable skull fracture Neck/C-Spine: COMMON NORMALS: full ROM Resp: COMMON NORMALS: normal respiratory effort Cardio: COMMON NORMALS: regular rate RATE: regular rate GI: COMMON NORMALS: Soft to palpation and non-tender PALPATION: Yes Soft to palpation Back/Pelvis: COMMON NORMALS: thoracic and lumbar spine normal to inspection Extremity: COMMON NORMALS: full ROM Neuro: SENSORIUM/ORIENTATION: Yes alert Skin: TRAUMA: laceration (Right parietal scalp) Procedures Laceration Laceration 1: Site: scalp Side (If applicable): right Size (cm): 3 Description: linear Depth: simple, single layer Pre-repair: wound explored and irrigated extensively Skin layer closed with: other (skin adhesive) Course Vital Signs: Vital signs: Vital Signs Temperature 97.6 F 03/20/24 11:44 Pulse Rate 79 03/20/24 13:56 Respiratory Rate 18 03/20/24 13:56 Blood Pressure 136/74 03/20/24 13:56 Pulse Oximetry 93 03/20/24 13:56 Oxygen Delivery Me thod Room Air 03/20/24 11:44 MDM - Wound/Laceration Medical Decision Making 79-year-old female comes in today for injury to the right parietal scalp. Patient had lost her balance and fell against the door and the door knob causing a laceration to her right parietal scalp. Patient has a 3 cm laceration. No palpable fracture. Differential diagnosis intracranial bleed, laceration, skull fracture. Wound was repaired with skin adhesive patient tolerated well. CT of the head noted no fractures or intracranial bleeding. Patient was discharged to the custody of her daughter with recommendations to follow-up or return to ER. Lab Data Radiology Impressions Head CT 03/20/24 13:19 IMPRESSION: No acute intracranial findings. All radiology interpretation(s) finalized by discharge Discharge Plan Discharge Patient Disposition: Home Clinical Impression: Fall due to stumbling Qualifiers: Encounter type: initial encounter Qualified Code(s): W01.0XXA - Fall on same level from slipping, tripping and stumbling without subsequent striking against object, initial encounter Laceration of scalp Qualifiers: Encounter type: initial encounter Qualified Code(s): S01.01XA - Laceration without foreign body of scalp, initial encounter Head injury Qualifiers: Encounter type: initial encounter Qualified Code(s): S09.90XA - Unspecified injury of head, initial encounter Condition: Stable Prescriptions: No Action potassium chloride 8 mEq capsule, extended release 8 meq PO DAILY PRN (Reason: use with Lasix) Qty: 30 5RF furosemide [Lasix] 20 mg tablet 20 mg PO QAM PRN (Reason: edema) Qty: 30 5RF Rx Instructions: Stop clonidine sennosides [Senna Laxative] 8.6 mg tablet 8.6 mg PO BID PRN (Reason: Constipation) cholecalciferol (vitamin D3) 125 mcg (5,000 unit) capsule 5,000 unit PO DAILY levothyroxine [Synthroid] 75 mcg tablet 75 mcg PO QDAY Qty: 30 5RF donepezil [Aricept] 5 mg tablet 5 mg PO QDAY Qty: 90 3RF duloxetine [Cymbalta] 60 mg capsule,delayed release(DR/EC) 60 mg PO QDAY Qty: 90 3RF prednisone 5 mg tablet See Rx Instructions PO DAILY Qty: 90 0RF Rx Instructions: take 2 tabs daily til P.T. is complete then go down to 1 tabs (5mg) daily orally daily; colchicine [Mitigare] 0.6 mg capsule 0.6 mg PO BID Qty: 180 1RF hydroxychloroquine 200 mg tablet 200 mg PO BID Qty: 180 1RF carbidopa-levodopa 50-200 mg tablet extended release 1 tab PO BID Qty: 180 3RF carbidopa-levodopa [Sinemet] 25-100 mg tablet 2 tab PO .COMPLEX Qty: 900 3RF Rx Instructions: 2 tabs PO AT 6AM; 2 tabs at 9AM; 2 tabs PO AT 12PM; 2 tab AT 3PM; 1 tabs PO AT 6PM famotidine 20 mg tablet 20 mg PO BID Qty: 60 5RF Movantik 12.5 mg tablet 12.5 mg PO DAILY Qty: 90 3RF cyclobenzaprine 10 mg tablet 10 mg PO TID PRN (Reason: Spasms) Qty: 30 3RF (DME) DME: Walker Unit See Rx Instructions .Route Qty: 1 0RF Rx Instructions: Please issue Rollator walker with hand brakes and seat. valsartan 160 mg tablet 160 mg PO DAILY Qty: 90 3RF prednisone 20 mg tablet See Rx Instructions PO .COMPLEX PRN (Reason: joint pain flare) Qty: 30 1RF Rx Instructions: take 1 daily for 3-7 days PRN joint pain flare PO PRN; oxycodone 15 mg tablet 15 mg PO QID PRN (Reason: Pain) gabapentin 100 mg capsule 100 mg PO TID fentanyl 12 mcg/hr patch 72 hour 1 patch transdermal Q72H Discharge Orders: Discharge ED (Routine); Ordered 07/10/24 Ordered By: Tavo Gilmore Referrals: Kvng Lemons, [Primary Care Provider] - Discharge Diet: Usual diet Discharge Activity: Increase activity as tolerated Patient Instructions: Head Injury (ED) Activity Restrictions/Additional Instructions: Keep scalp laceration clean and dry for 48 hours. After that you can wash the wound gently around the skin adhesive. Avoid significant traction of the skin around the adhesive. After 1 week the adhesive can be removed with Vaseline or other ointment. Coding Level of Care Code ED Crystal Evaluator for Ailyn Gaviria
--- NOTE | 2024-03-20 13:19 | CTR_ITS ---
PROCEDURE INFORMATION: Exam: CT Head Without Contrast Exam date and time: 03/20/2024 1:31 PM Age: 79 years old Clinical indication: Injury or trauma; Blunt trauma (contusions or hematomas); Patient HX: Fall/ small lact to right side of head; Additional info: Fall head injury TECHNIQUE: Imaging protocol: Computed tomography of the head without contrast. Radiation optimization: All CT scans at this facility use at least one of these dose optimization techniques: automated exposure control; mA and/or kV adjustment per patient size (includes targeted exams where dose is matched to clinical indication); or iterative reconstruction. COMPARISON: CT head wo con* [id number] 04/11/2023 6:30 PM RADIATION DOSE METRICS: Total DLP (mGy-cm): 1060 FINDINGS: Brain: No intracranial hemorrhage. There is global parenchymal volume loss. Periventricular white matter hypoattenuation is nonspecific but most likely due to small vessel disease. No evidence of acute territorial infarct or cerebral edema. No mass effect or midline shift. Cerebral ventricles: Prominent ventricles likely secondary to volume loss. Paranasal sinuses: Visualized sinuses are unremarkable. No fluid levels. Mastoid air cells: Visualized mastoid air cells are well aerated. Bones: Unremarkable. No acute fracture. Soft tissues: Right-sided scalp injury. CT/CT head wo con* [id number] IMPRESSION: No acute intracranial findings.
--- NOTE | 2024-03-20 13:20 | PC.NURSE ---
Lac cleaned with sterile water/ betadine and 4x4s.
[2024-03-20 13:56] VITALS: BP 136/74; PULSE 79; RESP 18; O2SAT 93
== END 2024-03-20 13:57 | disposition home or self-care (01) ==
PROVIDERS: Emergency Provider Nurse Practitioner Family; PCP Family Medicine
DX: S01.01XA Laceration without foreign body of scalp, initial encounter (principal); Z77.22 Contact with and (suspected) exposure to environmental tobacco smoke (acute) (chronic); I10 Essential (primary) hypertension; E11.9 Type 2 diabetes mellitus without complications; W01.198A Fall on same level from slipping, tripping and stumbling with subsequent striking against other object, initial encounter
CPT/HCPCS: 12002; 70450; 99284

== ENCOUNTER 2024-05-21 11:59 | Outpatient (CLI) | payer MEDICARE, OTHER, SELFPAY ==
[2024-05-21 12:55] LABS: Basophils % 0.6 %; Eosinophils # 0.1 10^3/uL (0.0-0.8); Eosinophils % 2.8 %; Hematocrit 33.2 % (36-47); Lymphocytes # 0.8 10^3/uL (0.8-4.8); Lymphocytes % 15.9 %; Mean Corpuscular HGB Conc 29.8 g/dL (30-55); Mean Corpuscular Volume 80.4 fl (85-98); Mean Platelet Volume 8.2 fL (7.4-10.4); Monocytes # 0.3 10^3/uL (0.2-0.9); Monocytes % 6.6 %; Neutrophils # 3.67 10^3/uL (1.8-7.7); Neutrophils % 73.7 %; Nucleated Red Blood Cells % 0 %; Platelet Count 372 10^3/cmm (157-399); Red Blood Count 4.13 10^6/uL (3.85-5.65); Red Cell Distribution Width 14.6 % (12.1-15.1); White Blood Count 4.98 10^3/uL (3.29-11.43)
[2024-05-21 13:19] LABS: Alanine Aminotransferase < 5 U/L (0-33); Albumin Level 4.5 g/dL (3.5-5.2); Alkaline Phosphatase 147 U/L (35-105); Aspartate Amino Transferase 23 U/L (0-32); Globulin 2.6 g/dL (1.3-4.6); Total Bilirubin 0.2 mg/dL (0.15-1.2); Total Protein 7.1 g/dL (6.6-8.7); Uric Acid 6.3 mg/dL (2.4-5.7)
== END 2024-05-21 12:00 | disposition home or self-care (01) ==
LOC: LAB 12:00
PROVIDERS: PCP Family Medicine; Visit Provider Internal Medicine Rheumatology
DX: Z79.899 Other long term (current) drug therapy (principal); Z87.39 Personal history of other diseases of the musculoskeletal system and connective tissue
CPT/HCPCS: 36415; 80076; 82565; 84550; 85025; 86140

== ENCOUNTER → 2024-05-23 11:30 | Outpatient (BNVA) | payer MEDICARE, OTHER, SELFPAY | PROVIDERS: PCP Family Medicine; Visit Provider Internal Medicine Rheumatology | DX: Z87.39 Personal history of other diseases of the musculoskeletal system and connective tissue (principal); M15.4 Erosive (osteo)arthritis; M81.0 Age-related osteoporosis without current pathological fracture; M11.232 Other chondrocalcinosis, left wrist; M11.231 Other chondrocalcinosis, right wrist; M11.269 Other chondrocalcinosis, unspecified knee; M79.7 Fibromyalgia; M47.812 Spondylosis without myelopathy or radiculopathy, cervical region; M47.814 Spondylosis without myelopathy or radiculopathy, thoracic region; M47.26 Other spondylosis with radiculopathy, lumbar region; G20.A1 Parkinson's disease without dyskinesia, without mention of fluctuations; F02.80 Dementia in other diseases classified elsewhere, unspecified severity, without behavioral disturbance, psychotic disturbance, mood disturbance, and anxiety; E55.9 Vitamin D deficiency, unspecified; N18.9 Chronic kidney disease, unspecified | CPT/HCPCS: 99214 ==

== ENCOUNTER 2024-05-25 15:09 | Emergency (ER) | payer MEDICARE, SELFPAY ==
[2024-05-25 15:10] VITALS: BP 164/91; PULSE 84; RESP 20; TEMP 36.5; O2SAT 98
--- NOTE | 2024-05-25 15:19 | CTR_ITS ---
PROCEDURE INFORMATION: Exam: CT Head Without Contrast Exam date and time: 05/25/2024 3:29 PM Age: 79 years old Clinical indication: Injury or trauma; Without residual foreign body; Head, generalized; Injury details: PT arrives from [place], she was apparently found by staff after falling and striking her head. PT arrives with head wrapped and laceration to the right side of her head. PT C/O pain to her head only. PT states she does not remember what led to her fall. PT uses walker. Unsure of loc; Additional info: Fall, right frontal scalp lac, parkinsons TECHNIQUE: Imaging protocol: Computed tomography of the head without contrast. Radiation optimization: All CT scans at this facility use at least one of these dose optimization techniques: automated exposure control; mA and/or kV adjustment per patient size (includes targeted exams where dose is matched to clinical indication); or iterative reconstruction. COMPARISON: CT head wo con* [id number] 03/20/2024 1:31 PM RADIATION DOSE METRICS: Total DLP (mGy-cm): 1047.5 FINDINGS: Brain: No hemorrhage. No edema. Moderate diffuse cerebral atrophy and mild sequela of chronic small vessel ischemic disease. 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 No mass effect. Cerebral ventricles: No ventriculomegaly. Paranasal sinuses: Visualized sinuses are unremarkable. No fluid levels. Mastoid air cells: Visualized mastoid air cells are well aerated. Bones: Unremarkable. No acute fracture. Soft tissues: Right forehead contusion. CT/CT head wo con* [id number] IMPRESSION: No acute intracranial abnormality.
--- NOTE | 2024-05-25 15:22 | ED_ITS ---
HPI - Wound/Laceration General: Chief Complaint: Wound/Laceration Stated Complaint: head lac s/p fall Time Seen by Provider: 05/25/24 15:11 History of Present Illness: Patient arrives to the ER by EMS from [place], she is apparently found down after falling and striking her head. Patient arrives with her head wrapped up with a laceration on the right side of her scalp bleeding is controlled. Patient says she has pain to her head only. Patient does not remember what led to her fall however she does use a walker. Patient is unsure of loss of consciousness. Patient is on no anticoagulation. Related Data Home Medications Medication Instructions Recorded Confirmed cholecalciferol (vitamin D3) 125 5,000 unit PO DAILY 10/19/20 05/23/24 mcg (5,000 unit) capsule sennosides 8.6 mg tablet (Senna 8.6 mg PO BID PRN Constipation 03/22/22 05/23/24 Laxative) fentanyl 12 mcg/hr transdermal 1 patch transdermal Q72H 06/04/23 05/23/24 patch gabapentin 100 mg capsule 100 mg PO TID 06/04/23 05/23/24 oxycodone 15 mg tablet 15 mg PO QID PRN Pain 06/04/23 05/23/24 Previous Rx's Medication Instructions Recorded famotidine 20 mg tablet 20 mg PO BID #60 tabs 02/22/20 potassium chloride 8 mEq 8 meq PO DAILY PRN use with Lasix 08/28/20 capsule,extended release #30 caps naloxegol 12.5 mg tablet (Movantik) 12.5 mg PO DAILY #90 tabs 09/23/21 furosemide 20 mg tablet (Lasix) 20 mg PO QAM PRN edema #30 tabs 01/10/22 cyclobenzaprine 10 mg tablet 10 mg PO TID PRN Spasms #30 tabs 02/16/22 levothyroxine 75 mcg tablet 75 mcg PO QDAY #30 tabs 08/22/22 (Synthroid) DME: Walker #1 ea 06/05/23 valsartan 160 mg tablet 160 mg PO DAILY #90 tabs 06/14/23 donepezil 5 mg tablet (Aricept) 5 mg PO QDAY #90 tabs 08/01/23 duloxetine 60 mg capsule,delayed 60 mg PO QDAY #90 caps 08/01/23 release (Cymbalta) carbidopa 25 mg-levodopa 100 mg 2 tab PO .COMPLEX #900 tabs 01/24/24 tablet (Sinemet) carbidopa ER 50 mg-levodopa 200 mg 1 tab PO BID #180 tabs 01/24/24 tablet,extended release Mitigare 0.6 mg capsule 0.6 mg PO BID #180 caps 05/23/24 (colchicine) hydroxychloroquine 200 mg tablet 200 mg PO BID #180 tabs 05/23/24 prednisone 20 mg tablet See Rx Instructions PO .COMPLEX 05/23/24 PRN joint pain flare #30 tabs Allergies Allergy/AdvReac Type Severity Reaction Status Date / Time capsaicin [From Capzasin] Allergy RASH Verified 05/23/24 11:49 menthol [From Capzasin] Allergy RASH Verified 05/23/24 11:49 Sulfa (Sulfonamide Allergy RASH Verified 05/23/24 11:49 Antibiotics) Review of Systems General: Reports: 10 or more systems reviewed and unremarkable except in HPI and below PFSH ED PFSH: Medical History Degenerative scoliosis History of calcium pyrophosphate deposition disease (CPPD) Acid reflux Post-menopausal osteoporosis Osteoarthritis, generalized Erosive osteoarthritis of both hands High risk medication use Immunization counseling Hypertension Chronic low back pain with bilateral sciatica Type 2 diabetes mellitus without complications Hypothyroidism (acquired) Surgical History History of thyroidectomy Hx of cholecystectomy Status post insertion of spinal cord stimulator History of carpal tunnel surgery Family History Other CAD (coronary artery disease) Cancer Diabetes High risk medication use Denies family history of Rheumatoid arthritis Systemic lupus erythematosus (SLE) in adult Social History Smoking and tobacco/nicotine status: never used tobacco/nicotine Second hand smoke exposure: Yes Alcohol intake: never Substance/Drug Use: never Marital status: / Number of children: 3 service: No Current occupational status: unemployed and retired Do you think of yourself as: Straight/Heterosexual Current gender identity: Female Female Reproductive History: Spontaneous abortions: No Physical Exam Const: COMMON NORMALS: no acute distress, average body habitus, patient kennedy ented x3, no limitations, healthy appearing, alert and well nourished HENMT: COMMON NORMALS: normocephalic, hearing grossly normal bilaterally, ex ternal ears normal, EAC's normal, Normal external nose present and moist oral mucous membranes; head/scalp not atraumatic (Approximately 5 cm laceration on right side of scalp, bleeding controlled,) HEAD & SCALP: normocephalic; not atraumatic (Approximately 5 cm laceration on right side of scalp, bleeding controlled,) NOSE: Normal external nose present EXTERNAL EAR: Yes external ears normal EXTERNAL AUDITORY CANAL: EAC's normal Eye: COMMON NORMALS: Equal, round and reactive pupils present, EOMs intact bilaterally, conjunctivae normal and no scleral icterus CONJUNCTIVA: Yes conjunctivae normal PUPIL: Yes Equal, round and reactive pupils present Neck/C-Spine: COMMON NORMALS: full ROM, no lymphadenopathy, supple, no menin geal signs, no JVD and Thyroid normal THYROID: Thyroid normal Chest: COMMONS NORMALS: normal inspection of the chest and normal palpation of entire chest wall Resp: COMMON NORMALS: normal respiratory effort, No retractions, No use of accessory muscles and clear to auscultation bilaterally AUSCULTATION: clear to auscultation bilaterally Cardio: COMMON NORMALS: no JVD, regular rate, regular rhythm, S1 normal heart sound present, S2 normal heart sound present, No gallops present (Cardio), No clicks present (Cardio), No murmurs present (Cardio) and No rub (Cardio) RA TE: regular rate RHYTHM: regular rhythm HEART SOUNDS: S1 normal heart sound present and S2 normal heart sound present GI: COMMON NORMALS: Normal to inspection, nondistended, normoactive bowel sounds present, Soft to palpation, non-tender, No hepatosplenomegaly present and no masses PALPATION: Yes Soft to palpation and Yes No hepatosplenomegaly present Neuro: COMMON NORMALS: patient oriented x3 SENSORIUM/ORIENTATION: Yes alert MENINGEAL SIGNS: Yes no meningeal signs Procedures Laceration Laceration 1: Site: scalp Side (If applicable): right Size (cm): 5 Description: linear Depth: simple, single layer Pre-repair: wound explored and deep structures intact Skin layer closed with: other (Mary Ann) Course Vital Signs: Vital signs: Vital Signs Temperature 97.7 F 05/25/24 15:10 Pulse Rate 82 05/25/24 16:51 Respiratory Rate 20 H 05/25/24 15:10 Blood Pressure 156/89 05/25/24 16:51 Pulse Oximetry 97 05/25/24 16:51 Oxygen Delivery Me thod Room Air 05/25/24 15:10 MDM - Wound/Laceration Medical Decision Making Patient was seen status post fall bleeding was controlled, patient had a large laceration on the right side of her scalp. This was stapled shut after cleansing. Wound edges approximated nicely bleeding was controlled. Bandage was applied. Head CT was read off as negative by the radiologist. Patient be DC'd home. Patient is to have her mary ann removed in approximately 5 to 7 days. Differential Diagnosis Likely laceration Medical Records I reviewed the patient's medical records. Lab Data I reviewed the patient's lab results. Radiology Impressions Head CT 05/25/24 15:19 IMPRESSION: No acute intracranial abnormality. All radiology interpretation(s) finalized by discharge Discharge Plan Discharge Patient Disposition: Home Clinical Impression: Laceration Fall Qualifiers: Encounter type: initial encounter Qualified Code(s): W19.XXXA - Unspecified fall, initial encounter Condition: Stable Prescriptions: No Action potassium chloride 8 mEq capsule, extended release 8 meq PO DAILY PRN (Reason: use with Lasix) Qty: 30 5RF furosemide [Lasix] 20 mg tablet 20 mg PO QAM PRN (Reason: edema) Qty: 30 5RF Rx Instructions: Stop clonidine sennosides [Senna Laxative] 8.6 mg tablet 8.6 mg PO BID PRN (Reason: Constipation) cholecalciferol (vitamin D3) 125 mcg (5,000 unit) capsule 5,000 unit PO DAILY levothyroxine [Synthroid] 75 mcg tablet 75 mcg PO QDAY Qty: 30 5RF donepezil [Aricept] 5 mg tablet 5 mg PO QDAY Qty: 90 3RF duloxetine [Cymbalta] 60 mg capsule,delayed release(DR/EC) 60 mg PO QDAY Qty: 90 3RF carbidopa-levodopa 50-200 mg tablet extended release 1 tab PO BID Qty: 180 3RF carbidopa-levodopa [Sinemet] 25-100 mg tablet 2 tab PO .COMPLEX Qty: 900 3RF Rx Instructions: 2 tabs PO AT 6AM; 2 tabs at 9AM; 2 tabs PO AT 12PM; 2 tab AT 3PM; 1 tabs PO AT 6PM hydroxychloroquine 200 mg tablet 200 mg PO BID Qty: 180 1RF colchicine [Mitigare] 0.6 mg capsule 0.6 mg PO BID Qty: 180 1RF prednisone 20 mg tablet See Rx Instructions PO .COMPLEX PRN (Reason: joint pain flare) Qty: 30 1RF Rx Instructions: take 1 daily for 3-7 days PRN joint pain flare PO PRN; famotidine 20 mg tablet 20 mg PO BID Qty: 60 5RF Movantik 12.5 mg tablet 12.5 mg PO DAILY Qty: 90 3RF cyclobenzaprine 10 mg tablet 10 mg PO TID PRN (Reason: Spasms) Qty: 30 3RF (DME) DME: Walker Unit See Rx Instructions .Route Qty: 1 0RF Rx Instructions: Please issue Rollator walker with hand brakes and seat. valsartan 160 mg tablet 160 mg PO DAILY Qty: 90 3RF oxycodone 15 mg tablet 15 mg PO QID PRN (Reason: Pain) gabapentin 100 mg capsule 100 mg PO TID fentanyl 12 mcg/hr patch 72 hour 1 patch transdermal Q72H Discharge Orders: Discharge ED (Routine); Ordered 05/25/24 Ordered By: Deandre Benedict Referrals: Tavo Ovalles MD [Primary Care Provider] - 1 week Patient Instructions: Scalp Laceration Activity Restrictions/Additional Instructions: Your scalp laceration was closed with mary ann. The head heals very quickly. Please follow-up with your family practice physician in approximately 7 days for probable staple removal. Your head CT was negative for any acute intracranial abnormality. Please continue to take [id number] Tylenol as needed for pain. Thank you for choosing [facility] for your healthcare needs today. Please realize that you were seen in the emergency department and that we are providing you with an emergency medical screening exam and this may not be a complete and all exclusive of all testing and/or medical workup we may need to determine your element or severity of your illness. It is very important that you follow-up as instructed with your primary care provider or specialist for the additional evaluation and to discuss your medical treatment plan. You may return to the emergency department should you have concerns or if your condition changes or worsens in any way. Coding Level of Care Code ED Sales Exec for Ailyn Gaviria
[2024-05-25] MEDS: acetaminophen 500 mg Tablet 1000 MG PO (16:50)
[2024-05-25 16:51] VITALS: BP 156/89; PULSE 82; O2SAT 97
== END 2024-05-25 16:59 | disposition home or self-care (01) ==
PROVIDERS: Emergency Provider Emergency Medicine; PCP Family Medicine
DX: S01.01XA Laceration without foreign body of scalp, initial encounter (principal); Z77.22 Contact with and (suspected) exposure to environmental tobacco smoke (acute) (chronic); I10 Essential (primary) hypertension; E11.9 Type 2 diabetes mellitus without complications; W19.XXXA Unspecified fall, initial encounter; Y92.129 Unspecified place in nursing home as the place of occurrence of the external cause
CPT/HCPCS: 70450; 99284

== ENCOUNTER → 2024-06-18 11:15 | Outpatient (BNVA) | payer MEDICARE, OTHER, SELFPAY | PROVIDERS: PCP Family Medicine; Referring Provider Orthopaedic Surgery; Visit Provider Psychiatry & Neurology Neurology | DX: G62.9 Polyneuropathy, unspecified (principal); Z98.1 Arthrodesis status; R29.898 Other symptoms and signs involving the musculoskeletal system; M54.42 Lumbago with sciatica, left side; M54.41 Lumbago with sciatica, right side; G89.29 Other chronic pain; G57.31 Lesion of lateral popliteal nerve, right lower limb | CPT/HCPCS: 95885; 95910; 99214 ==

== ENCOUNTER 2024-07-01 09:35 | Outpatient (CLI) | payer MEDICARE, OTHER, SELFPAY ==
[2024-07-01 09:56] LABS: Basophils # 0.1 10^3/uL (0.0-0.1); Eosinophils # 0.3 10^3/uL (0.0-0.8); Eosinophils % 6.5 %; Hematocrit 34.2 % (36-47); Lymphocytes # 1.5 10^3/uL (0.8-4.8); Lymphocytes % 29.1 %; Mean Corpuscular HGB Conc 29.2 g/dL (30-55); Mean Corpuscular Hemoglobin 22.7 pg (27-33); Mean Corpuscular Volume 77.7 fl (85-98); Mean Platelet Volume 8.5 fL (7.4-10.4); Monocytes # 0.5 10^3/uL (0.2-0.9); Monocytes % 8.8 %; Neutrophils # 2.85 10^3/uL (1.8-7.7); Neutrophils % 54.2 %; Nucleated Red Blood Cells % 0 %; Platelet Count 373 10^3/cmm (157-399); Red Cell Distribution Width 15.2 % (12.1-15.1); White Blood Count 5.25 10^3/uL (3.29-11.43)
== END 2024-07-01 09:36 | disposition home or self-care (01) ==
PROVIDERS: PCP Family Medicine; Visit Provider Internal Medicine Rheumatology
DX: Z79.899 Other long term (current) drug therapy (principal)
CPT/HCPCS: 85025

== ENCOUNTER → 2024-07-11 10:12 | Outpatient (BNVA) | payer MEDICARE, OTHER, SELFPAY | PROVIDERS: PCP Family Medicine; Visit Provider Podiatrist Foot & Ankle Surgery | DX: M79.671 Pain in right foot (principal); M79.672 Pain in left foot; M54.16 Radiculopathy, lumbar region; M19.079 Primary osteoarthritis, unspecified ankle and foot; M21.379 Foot drop, unspecified foot | CPT/HCPCS: 73630; 99204 ==

== ENCOUNTER → 2024-07-25 10:15 | Outpatient (BNVA) | payer MEDICARE, OTHER, SELFPAY | PROVIDERS: PCP Family Medicine; Visit Provider Specialist | DX: G20.A1 Parkinson's disease without dyskinesia, without mention of fluctuations (principal); E11.42 Type 2 diabetes mellitus with diabetic polyneuropathy; Z98.1 Arthrodesis status; R29.6 Repeated falls | CPT/HCPCS: 99214; 99215 ==

== ENCOUNTER 2024-07-26 16:01 | Outpatient (CLI) | payer MEDICARE, OTHER, SELFPAY ==
[2024-07-26 16:34] LABS: Erythrocyte Sedimentation Rate 7 mm/hr (0-15)
[2024-07-26 16:50] LABS: Estmated Average Glucose 114; Hemoglobin A1C 5.6 % (4.0-6.0)
[2024-07-26 17:11] LABS: Vitamin B12 620 pg/mL (232-1245)
[2024-07-26 17:13] LABS: Folate Level 10.1 ng/mL (4.8-37.3)
== END 2024-07-26 16:02 | disposition home or self-care (01) ==
PROVIDERS: PCP Family Medicine; Visit Provider Anesthesiology Pain Medicine
DX: E11.9 Type 2 diabetes mellitus without complications (principal); E03.9 Hypothyroidism, unspecified; G20.C Parkinsonism, unspecified; G43.709 Chronic migraine without aura, not intractable, without status migrainosus; I10 Essential (primary) hypertension; K25.9 Gastric ulcer, unspecified as acute or chronic, without hemorrhage or perforation; M19.041 Primary osteoarthritis, right hand; M79.7 Fibromyalgia; R41.3 Other amnesia
CPT/HCPCS: 82607; 82746; 83036; 85651

== ENCOUNTER → 2024-08-02 09:17 | Outpatient (BNVA) | payer MEDICARE, OTHER, SELFPAY | PROVIDERS: PCP Family Medicine; Visit Provider Student in an Organized Health Care Education/Training Program | DX: M25.561 Pain in right knee (principal); M17.11 Unilateral primary osteoarthritis, right knee; Z46.89 Encounter for fitting and adjustment of other specified devices | CPT/HCPCS: 73562 ==

== ENCOUNTER 2024-08-02 10:16 | Outpatient (CLI) | payer MEDICARE, OTHER, SELFPAY | END 2024-08-02 10:17 | disposition home or self-care (01) | LOC: SPT 10:17 | PROVIDERS: PCP Family Medicine; Visit Provider Student in an Organized Health Care Education/Training Program | DX: Z46.89 Encounter for fitting and adjustment of other specified devices (principal); M17.11 Unilateral primary osteoarthritis, right knee | CPT/HCPCS: 20610; J3301; L1812 ==

== ENCOUNTER 2024-11-19 13:24 | Outpatient (CLI) | payer MEDICARE, OTHER, SELFPAY ==
[2024-11-19 13:46] LABS: Basophils % 0.7 %; Eosinophils # 0.1 10^3/uL (0.0-0.8); Eosinophils % 0.9 %; Lymphocytes # 0.7 10^3/uL (0.8-4.8); Mean Corpuscular HGB Conc 29.4 g/dL (30-55); Mean Corpuscular Hemoglobin 22.8 pg (27-33); Mean Corpuscular Volume 77.4 fl (85-98); Mean Platelet Volume 9.3 fL (7.4-10.4); Monocytes # 0.2 10^3/uL (0.2-0.9); Monocytes % 3.7 %; Neutrophils # 4.63 10^3/uL (1.8-7.7); Neutrophils % 81.3 %; Nucleated Red Blood Cells % 0 %; Platelet Count 322 10^3/cmm (157-399); Red Blood Count 4.39 10^6/uL (3.85-5.65); Red Cell Distribution Width 17.6 % (12.1-15.1); White Blood Count 5.69 10^3/uL (3.29-11.43)
[2024-11-19 13:50] LABS: Erythrocyte Sedimentation Rate 5 mm/hr (0-15)
[2024-11-19 14:08] LABS: Alanine Aminotransferase < 5 U/L (0-33); Albumin Level 4.4 g/dL (3.5-5.2); Alkaline Phosphatase 137 U/L (35-105); Aspartate Amino Transferase 15 U/L (0-32); Globulin 2.3 g/dL (1.3-4.6); Total Bilirubin 0.3 mg/dL (0.15-1.2); Total Protein 6.7 g/dL (6.6-8.7); Uric Acid 6.5 mg/dL (2.4-5.7)
== END 2024-11-19 13:25 | disposition home or self-care (01) ==
PROVIDERS: PCP Family Medicine; Visit Provider Internal Medicine Rheumatology
DX: Z79.899 Other long term (current) drug therapy (principal)
CPT/HCPCS: 36415; 80076; 82565; 84550; 85025; 85651; 86140

== ENCOUNTER → 2024-11-21 10:32 | Outpatient (BNVA) | payer MEDICARE, OTHER, SELFPAY | PROVIDERS: PCP Family Medicine; Visit Provider Internal Medicine Rheumatology | DX: Z87.39 Personal history of other diseases of the musculoskeletal system and connective tissue (principal); M15.4 Erosive (osteo)arthritis; M81.0 Age-related osteoporosis without current pathological fracture | CPT/HCPCS: 99214 ==

== ENCOUNTER 2024-12-07 08:41 | Outpatient (CLI) | payer MEDICARE, OTHER, SELFPAY ==
[2024-12-07 08:58] LABS: Basophils % 0.9 %; Eosinophils # 0.2 10^3/uL (0.0-0.8); Eosinophils % 3.9 %; Lymphocytes % 42.1 %; Mean Corpuscular HGB Conc 29.4 g/dL (30-55); Mean Corpuscular Hemoglobin 23.3 pg (27-33); Mean Corpuscular Volume 79.1 fl (85-98); Mean Platelet Volume 9.3 fL (7.4-10.4); Monocytes # 0.5 10^3/uL (0.2-0.9); Monocytes % 9.7 %; Neutrophils # 1.99 10^3/uL (1.8-7.7); Nucleated Red Blood Cells % 0 %; Platelet Count 303 10^3/cmm (157-399); Red Cell Distribution Width 17.5 % (12.1-15.1); White Blood Count 4.63 10^3/uL (3.29-11.43)
[2024-12-07 09:11] LABS: Estmated Average Glucose 111; Hemoglobin A1C 5.5 % (4.0-6.0)
[2024-12-07 10:00] LABS: 25 Hydroxy Vitamin D 75 ng/mL (30-100); Alanine Aminotransferase < 5 U/L (0-33); Albumin Level 4.2 g/dL (3.5-5.2); Alkaline Phosphatase 129 U/L (35-105); Anion Gap 14.7 (5-19); Aspartate Amino Transferase 12 U/L (0-32); Blood Urea Nitrogen 16 mg/dL (8-23); Calcium 9.1 mg/dL (8.5-10.5); Carbon Dioxide 28 mmol/L (22-29); Chloride 101 mmol/L (98-107); Globulin 1.9 g/dL (1.3-4.6); Glucose 86 mg/dL (65-115); Osmolality Calculated 288 mOsm/kg (285-295); Potassium 4.7 mmol/L (3.5-5.1); Sodium 139 mmol/L (136-145); Thyroid Stimulating Hormone 0.73 uIU/mL (0.27-4.20); Total Bilirubin 0.3 mg/dL (0.15-1.2); Total Protein 6.1 g/dL (6.6-8.7); Vitamin B12 495 pg/mL (232-1245)
== END 2024-12-07 08:42 | disposition home or self-care (01) ==
PROVIDERS: PCP Family Medicine; Visit Provider Family Medicine
DX: I10 Essential (primary) hypertension (principal); E11.9 Type 2 diabetes mellitus without complications; E55.9 Vitamin D deficiency, unspecified
CPT/HCPCS: 80053; 82306; 82607; 83036; 84443; 85025

== ENCOUNTER → 2025-01-23 12:46 | Outpatient (BNVA) | payer MEDICARE, OTHER, SELFPAY | PROVIDERS: PCP Family Medicine; Visit Provider Specialist | DX: G20.A1 Parkinson's disease without dyskinesia, without mention of fluctuations (principal); E11.42 Type 2 diabetes mellitus with diabetic polyneuropathy; Z98.1 Arthrodesis status; G62.9 Polyneuropathy, unspecified; R29.6 Repeated falls | CPT/HCPCS: 99214 ==

== ENCOUNTER 2025-02-15 19:52 | Emergency (ER) | payer MEDICARE, OTHER, SELFPAY ==
--- NOTE | 2025-02-15 20:08 | XRR_ITS ---
PROCEDURE INFORMATION: Exam: XR Abdomen Exam date and time: 02/15/2025 8:49 PM Age: 79 years old Clinical indication: Nausea and vomiting; Abdominal pain; Localized; Right upper quadrant (ruq); Prior surgery; Surgery date: 6+ months; Surgery type: Gb. Spinal fusion. Stimulator; Additional info: N/v TECHNIQUE: Imaging protocol: Radiologic exam of the abdomen. Views: Frontal supine view of the abdomen. 1 View. COMPARISON: CT abdomen pelvis w con* [id number] 04/10/2021 10:49 AM FINDINGS: Tubes, catheters and devices: Stable right-sided pain management/neurostimulator device in place. Gastrointestinal tract: Continued nonspecific bowel gas pattern with air-filled loops of large and small bowel. Organs: Stable cholecystectomy. Vasculature: One or more calcified pelvic phleboliths. Bones/joints: Unremarkable. Other findings: Stable postoperative changes over the lumbar spine with metallic fixation and metallic artifact. XR/XR KUB portable [id number] IMPRESSION: 1. Stable cholecystectomy. 2. Continued nonspecific bowel gas pattern with air-filled loops of large and small bowel.
[2025-02-15 20:11] VITALS: BP 127/74; PULSE 76; RESP 18; TEMP 36.7; O2SAT 98; BMI 28.3
[2025-02-15 20:20] VITALS: BP 115/70; PULSE 75; RESP 17; O2SAT 98
[2025-02-15 20:42] LABS: Hematocrit 31.7 % (36-47); Lymphocytes # 0.2 10^3/uL (0.8-4.8); Lymphocytes % 4.1 %; Mean Corpuscular HGB Conc 30.9 g/dL (30-55); Mean Corpuscular Hemoglobin 24.5 pg (27-33); Mean Corpuscular Volume 79.3 fl (85-98); Mean Platelet Volume 9.5 fL (7.4-10.4); Monocytes # 0.1 10^3/uL (0.2-0.9); Monocytes % 2.1 %; Neutrophils # 4.48 10^3/uL (1.8-7.7); Nucleated Red Blood Cells % 0 %; Platelet Count 367 10^3/cmm (157-399); Red Cell Distribution Width 16.8 % (12.1-15.1); White Blood Count 4.82 10^3/uL (3.29-11.43)
[2025-02-15 21:01] LABS: Alanine Aminotransferase < 5 U/L (0-33); Alkaline Phosphatase 158 U/L (35-105); Anion Gap 17.7 (5-19); Aspartate Amino Transferase 15 U/L (0-32); Blood Urea Nitrogen 26 mg/dL (8-23); Carbon Dioxide 22 mmol/L (22-29); Chloride 95 mmol/L (98-107); Creatinine Clr Calc Pharmacy 36.8418; Globulin 2.9 g/dL (1.3-4.6); Glucose 121 mg/dL (65-115); Lipase 15 U/L (13-60); Osmolality Calculated 276 mOsm/kg (285-295); Potassium 4.7 mmol/L (3.5-5.1); Sodium 130 mmol/L (136-145); Total Bilirubin 0.4 mg/dL (0.15-1.2); Total Protein 6.9 g/dL (6.6-8.7)
--- NOTE | 2025-02-15 21:02 | CTR_ITS ---
PROCEDURE INFORMATION: Exam: CT Abdomen And Pelvis With Contrast Exam date and time: 02/15/2025 10:18 PM Age: 79 years old Clinical indication: Nausea and vomiting; Abdominal pain; Localized; Right upper quadrant (ruq); Prior surgery; Surgery date: 6+ months; Surgery type: Gb. Spinal fusion. Stimulator; C/O ruq pain with n/v; Additional info: Nausea vomiting, TECHNIQUE: Imaging protocol: Computed tomography of the abdomen and pelvis with contrast. Radiation optimization: All CT scans at this facility use at least one of these dose optimization techniques: automated exposure control; mA and/or kV adjustment per patient size (includes targeted exams where dose is matched to clinical indication); or iterative reconstruction. Contrast material: OMNI 350; Contrast volume: 80 ml; Contrast route: INTRAVENOUS (IV); COMPARISON: CR (ABDOMEN, ) 02/15/2025 8:49 PM RADIATION DOSE METRICS: Total DLP (mGy-cm): 586.74 FINDINGS: Tubes, catheters and devices: Stable right-sided pain management/neurostimulator device in place. Liver: Normal. No mass. Gallbladder and biliary ducts: Stable cholecystectomy. Dilatation of the intra-and extrahepatic biliary tree which can be normal following cholecystectomy. Pancreas: Normal. No ductal dilation. Spleen: Normal. No splenomegaly. Adrenal glands: Normal. No mass. Kidneys and ureters: Right renal simple cyst measuring >1.0 cm . Stomach and bowel: Unremarkable. No obstruction. No mucosal thickening. Appendix: No evidence of appendicitis. Intraperitoneal space: Unremarkable. No free air. No significant fluid collection. Vasculature: Calcification of the abdominal aorta and/or iliac arteries consistent with atherosclerotic vessel disease. One or more calcified pelvic phleboliths. Lymph nodes: Unremarkable. No enlarged lymph nodes. Urinary bladder: Unremarkable as visualized. Reproductive: Status post hysterectomy. Bones/joints: Stable multilevel laminectomy. Soft tissues: Unremarkable. Other findings: Stable metallic postoperative changes over the thoracolumbar spine with metallic artifact. CT/CT abdomen pelvis w con* [id number] IMPRESSION: Dilatation of the intra-and extrahepatic biliary tree which can be normal following cholecystectomy. COMMENTS: Consistent with the [employer]'s Incidental Findings Committee white paper (J Am Rebekah Radiol 2018): Any incidental renal lesion less than 1 cm or classified as too small to characterize, or any incidental cystic renal lesion characterized as simple-appearing, is likely benign. No follow-up imaging is recommended for these lesions per consensus recommendations based on imaging criteria.
--- NOTE | 2025-02-15 21:07 | ED_ITS ---
Documented by User: Fahad Reddy DO 02/16/25 10:04 HPI - Nausea/Vomiting/Diarrhea 2 General: Chief complaint: Nausea/Vomiting/Diarrhea Stated complaint: N/V Time Seen by Provider: 02/15/25 20:06 History of Present Illness: 79-year-old female presents with nausea and vomiting that started earlier today. She has been having some occasional episodes of nausea. She denies any abdominal pain. She has not eaten anything today because of the nausea. Associated nausea: Yes Associated symtoms: Reports nausea; Denies anxiety, chest pain, headache(s) or palpitations Related Data Home Medications ?Medication ?Instructions ?Recorded ?Confirmed cholecalciferol (vitamin D3) 125 5,000 unit PO DAILY 0 10/19/20 01/23/25 mcg (5,000 unit) capsule naloxegol 25 mg tablet (Movantik) mg PO 07/25/2401/23 oxycodone 10 mg tablet mg PO 07/25/24 01/23/25 Previous Rx's ?Medication ?Instructions ?Recorded famotidine 20 mg tablet 20 mg PO BID #60 tabs potassium chloride 8 mEq 8 meq PO DAILY PRN use with Lasix 08/28/20 capsule,extended release #30 caps furosemide 20 mg tablet (Lasix) 20 mg PO QAM PRN edema #30 tabs 01/10/22 cyclobenzaprine 10 mg tablet 10 mg PO TID PRN Spasms # 30 tabs 02/16/22 levothyroxine 75 mcg tablet 75 mcg PO QDAY #30 tabs (Synthroid) valsartan 160 mg tablet 160 mg PO DAILY #90 tabs 01/01 donepezil 5 mg tablet (Aricept) 5 mg PO QDAY #90 tabs 08/01/23 duloxetine 60 mg capsule,delayed 60 mg PO QDAY #90 cap s 08/01/23 release (Cymbalta) carbidopa 25 mg-levodopa 100 mg 2 tab PO .COMPLEX #900 tabs 01/24/24 tablet (Sinemet) carbidopa ER 50 mg-levodopa 200 mg 1 tab PO BID #180 t abs 01/24/24 tablet,extended release AFO Bilateral #1 ea 07/11/24 right hinged knee brace #1 ea 08/02/24 colchicine 0.6 mg tablet 0.6 mg PO BID #180 tabs 11/09 12/03 hydroxychloroquine 200 mg tablet 200 mg PO BID #180 ta bs 11/21/24 prednisone 20 mg tablet See Rx Instructions PO .COMP SANDRA 11/21/24 PRN joint pain flare #30 tabs gabapentin 300 mg capsule 600 mg (2 x 300 mg) PO QDAY #90 01/23/25 caps ropinirole 2 mg tablet 2 mg PO BID #180 tabs ondansetron 4 mg disintegrating 4 mg PO Q8H PRN nausea and 02/15/25 tablet vomiting 4 days #20 tabs Allergies Allergy/AdvReac Type Severity Reaction Status Date / Time capsaicin (From Capzasin) Allergy RASH Verified 02/15/25 20:11 menthol (From Capzasin) Allergy RASH Verified 02/15/25 20:11 Sulfa (Sulfonamide Allergy RASH Verified 02/15/25 20:11 Antibiotics) Review of Systems 2 Card: Denies: chest pain or palpitations Resp: Denies: dyspnea or wheezing GI: Reports: nausea and vomiting; Denies: abdominal pain : Denies: flank pain or difficulty voiding Neuro: Denies: headache(s) or numbness in extremities Psych: Denies: anxiety PFSH ED 2 PFSH: Medical History Degenerative scoliosis History of calcium pyrophosphate deposition disease (CPPD) Acid reflux Post-menopausal osteoporosis Osteoarthritis, generalized Erosive osteoarthritis of both hands High risk medication use Immunization counseling Hypertension Chronic low back pain with bilateral sciatica Type 2 diabetes mellitus without complications Hypothyroidism (acquired) Surgical History History of thyroidectomy Hx of cholecystectomy Status post insertion of spinal cord stimulator History of carpal tunnel surgery Family History Other CAD (coronary artery disease) Cancer Diabetes High risk medication use Denies family history of Rheumatoid arthritis Systemic lupus erythematosus (SLE) in adult Social History Smoking and tobacco/nicotine status: never used tobacco/nicotine Second hand smoke exposure: Yes Alcohol intake: never Substance/Drug Use: never Marital status: / Number of children: 3 service: No Current occupational status: unemployed and retired Do you think of yourself as: Straight/Heterosexual Current gender identity: Female Female Reproductive History: Spontaneous abortions: No Physical Exam 2 Const: COMMON NORMALS: no acute distress, patient oriented x3 and alert Resp: COMMON NORMALS: normal respiratory effort and No use of accessory muscles Cardio: COMMON NORMALS: regular rate and regular rhythm RATE: regular rate RHYTHM: regular rhythm GI: COMMON NORMALS: Soft to palpation and non-tender PALPATION: Yes Soft to palpation Neuro: COMMON NORMALS: patient oriented x3 SENSORIUM/ORIENTATION: Yes alert Psych: COMMON NORMALS: mental status grossly normal, Normal thought process present and normal affect THOUGHT PROCESS: Normal thought process present Skin: COMMON NORMALS: no rashes or lesions noted and turgor normal GENERAL SKIN EXAM: no rashes or lesions noted and turgor normal Course 2 Vital Signs: Vital signs: Vital Signs Temperature 98.0 F 02/15/25 20:11 Pulse Rate 72 02/16/25 01:00 Respiratory Rate 19 H 02/16/25 01:00 Blood Pressure 137/80 02/16/25 01:00 Pulse Oximetry 95 02/16/25 01:00 Oxygen Delivery Me thod Room Air 02/15/25 22:00 MDM - Nausea/Vomiting/Diarrhea Lab Data 02/15/25 20:29 02/15/25 20:29 Radiology Impressions KUB X-Ray 02/15/25 20:08 IMPRESSION: 1. Stable cholecystectomy. 2. Continued nonspecific bowel gas pattern with air-filled loops of large and small bowel. Abdomen/Pelvis CT 02/15/25 21:02 IMPRESSION: Dilatation of the intra-and extrahepatic biliary tree which can be normal following cholecystectomy. COMMENTS: Consistent with the [place] [employer]'s Incidental Findings Committee white paper (J Am Rebekah Radiol 2018): Any incidental renal lesion less than 1 cm or classified as too small to characterize, or any incidental cystic renal lesion characterized as simple-appearing, is likely benign. No follow-up imaging is recommended for these lesions per consensus recommendations based on imaging criteria. Laboratory Results WBC 4.82 10^3/uL (3.29-11.43) 02/15/25 20:29 RBC 4.00 10^6/uL (3.85-5.65) 02/15/25 20:29 Hgb 9.80 g/dL (11.27-16.99) L 02/15/25: Hct 31.7 % (36-47) L 02/15/25: MCV 79.3 fl (85-98) L 02/15/25 20: MCH 24.5 pg (27-33) L 02/15/25: MCHC 30.9 g/dL (30-55) 02/15/25: RDW 16.8 % (12.1-15.1) H 02/15/25: Plt Count 367 10^3/cmm (157-399) 02/15/25 MPV 9.5 fL (7.4-10.4) 02/15/25 Neut % (Auto) 93.0 % 02/15/25: Lymph % (Auto) 4.1 % 02/15/25 [place] % (Auto) 2.1 % 02/15/25: Eos % (Auto) 0.0 % 02/15/25: Baso % (Auto) 0.0 % 02/15/25: Neut # (Auto) 4.48 10^3/uL (1.8-7.7) 02/15/25 Lymph # (Auto) 0.2 10^3/uL (0.8-4.8) L 02/15/25: [place] # (Auto) 0.1 10^3/uL (0.2-0.9) L 02/15/25 Eos # (Auto) 0.0 10^3/uL (0.0-0.8) 02/15/25 Baso # (Auto) 0.0 10^3/uL (0.0-0.1) 02/15/25 Nucleated RBC % (auto) 0 % 02/15/25 Nucleated RBCs # 0.0 /100WBC 02/15/25: Sodium 130 mmol/L (136-145) L 02/15/25: Potassium 4.7 mmol/L (3.5-5.1) 02/15/25: Chloride 95 mmol/L (98-107) L 02/15/25 20: Carbon Dioxide 22 mmol/L (22-29) 02/15/25 20:29 Anion Gap 17.7 (5-19) 02/15/25 20: BUN 26 mg/dL (8-23) H 02/15/25 20: Creatinine 1.1 mg/dL (0.5-0.9) H 02/15/25 20:29 GFR Calculation Not Reportable 02/15/25 20: Glucose 121 mg/dL (65-115) H 02/15/25 20: Calculated Osmolality 276 mOsm/kg (285-295) L 02/15/25 20: Lactic Acid 1.0 mmol/L (0.5-2.2) 02/15/25: Calcium 9.0 mg/dL (8.5-10.5) 02/15/25: Total Bilirubin 0.4 mg/dL (0.15-1.2) 02/15/25 20: AST 15 U/L (0-32) 02/15/25: ALT < 5 U/L (0-33) 02/15/25 20: Alkaline Phosphatase 158 U/L (35-105) H 02/15/25 20: Total Protein 6.9 g/dL (6.6-8.7) 02/15/25 20: Albumin 4.0 g/dL (3.5-5.2) 02/15/25: Globulin 2.9 g/dL (1.3-4.6) 02/15/25: Lipase 15 U/L (13-60) 02/15/25 20:29 Discharge Plan Discharge Patient Disposition: Home Clinical Impression: Nausea Condition: Stable Prescriptions: New ondansetron 4 mg tablet,disintegrating 4 mg PO Q8H PRN (Reason: nausea and vomiting) 4 Days Qty: 20 0RF No Action potassium chloride 8 mEq capsule, extended release 8 meq PO DAILY PRN (Reason: use with Lasix) Qty: 30 5RF furosemide [Lasix] 20 mg tablet 20 mg PO QAM PRN (Reason: edema) Qty: 30 5RF Rx Instructions: Stop clonidine cholecalciferol (vitamin D3) 125 mcg (5,000 unit) capsule 5,000 unit PO DAILY levothyroxine [Synthroid] 75 mcg tablet 75 mcg PO QDAY Qty: 30 5RF donepezil [Aricept] 5 mg tablet 5 mg PO QDAY Qty: 90 3RF duloxetine [Cymbalta] 60 mg capsule,delayed release(DR/EC) 60 mg PO QDAY Qty: 90 3RF carbidopa-levodopa 50-200 mg tablet extended release 1 tab PO BID Qty: 180 3RF carbidopa-levodopa [Sinemet] 25-100 mg tablet 2 tab PO .COMPLEX Qty: 900 3RF Rx Instructions: 2 tabs PO AT 6AM; 2 tabs at 9AM; 2 tabs PO AT 12PM; 2 tab AT 3PM; 1 tabs PO AT 6PM oxycodone 10 mg tablet PO Movantik 25 mg tablet PO colchicine 0.6 mg tablet 0.6 mg PO BID Qty: 180 1RF hydroxychloroquine 200 mg tablet 200 mg PO BID Qty: 180 1RF prednisone 20 mg tablet See Rx Instructions PO .COMPLEX PRN (Reason: joint pain flare) Qty: 30 1RF Rx Instructions: take 1 daily for 3-7 days PRN joint pain flare PO PRN; (DME) right hinged knee brace See Rx Instructions .Route .MEDSUPPLY Qty: 1 0RF Rx Instructions: As directed (DME) AFO Bilateral See Rx Instructions .Route .MEDSUPPLY Qty: 1 0RF Rx Instructions: As directed ropinirole 2 mg tablet 2 mg PO BID Qty: 180 3RF Rx Instructions: 1 tablet at 5 pm and hs gabapentin 300 mg capsule 600 mg PO QDAY Qty: 90 3RF Rx Instructions: at bedtime famotidine 20 mg tablet 20 mg PO BID Qty: 60 5RF cyclobenzaprine 10 mg tablet 10 mg PO TID PRN (Reason: Spasms) Qty: 30 3RF valsartan 160 mg tablet 160 mg PO DAILY Qty: 90 3RF Discharge Orders: Discharge ED (Routine); Ordered 02/15/25 Ordered By: Kvng Chi Referrals: Tavo Ovalles MD [Primary Care Provider, [facility]] Discharge Diet: Advance as tolerated Discharge Activity: Increase activity as tolerated Patient Instructions: Acute Nausea and Vomiting (ED) Activity Restrictions/Additional Instructions: Your blood tests and x-ray are reassuring and CT scan does not show evidence of surgical emergency requiring further workup or hospitalization. Please take Zofran as needed for nausea and follow-up with your primary care doctor as needed Print Language: Chadian Sign Out Sign Out Data: Patient Sign Out occurred on 02/15/25 at 23:14. Patient's care was discussed, and care was transferred from Fahad Reddy DO to Kvng Chi MD. Coding Level of Care Code ED Technology Officer for Chg Fwd Documented by User: Kvng Chi MD 02/16/25 06:37 HPI - Nausea/Vomiting/Diarrhea 2 General: Chief complaint: Nausea/Vomiting/Diarrhea Stated complaint: N/V Time Seen by Provider: 02/15/25 20:06 Related Data Home Medications ?Medication ?Instructions ?Recorded ?Confirmed cholecalciferol (vitamin D3) 125 5,000 unit PO DAILY 0 10/19/20 01/23/25 mcg (5,000 unit) capsule naloxegol 25 mg tablet (Movantik) mg PO 07/25/2401/23 oxycodone 10 mg tablet mg PO 07/25/24 01/23/25 Previous Rx's ?Medication ?Instructions ?Recorded famotidine 20 mg tablet 20 mg PO BID #60 tabs potassium chloride 8 mEq 8 meq PO DAILY PRN use with Lasix 08/28/20 capsule,extended release #30 caps furosemide 20 mg tablet (Lasix) 20 mg PO QAM PRN edema #30 tabs 01/10/22 cyclobenzaprine 10 mg tablet 10 mg PO TID PRN Spasms # 30 tabs 02/16/22 levothyroxine 75 mcg tablet 75 mcg PO QDAY #30 tabs (Synthroid) valsartan 160 mg tablet 160 mg PO DAILY #90 tabs 01/01 donepezil 5 mg tablet (Aricept) 5 mg PO QDAY #90 tabs 08/01/23 duloxetine 60 mg capsule,delayed 60 mg PO QDAY #90 cap s 08/01/23 release (Cymbalta) carbidopa 25 mg-levodopa 100 mg 2 tab PO .COMPLEX #900 tabs 01/24/24 tablet (Sinemet) carbidopa ER 50 mg-levodopa 200 mg 1 tab PO BID #180 t abs 01/24/24 tablet,extended release AFO Bilateral #1 ea 07/11/24 right hinged knee brace #1 ea 08/02/24 colchicine 0.6 mg tablet 0.6 mg PO BID #180 tabs 11/09 12/03 hydroxychloroquine 200 mg tablet 200 mg PO BID #180 ta bs 11/21/24 prednisone 20 mg tablet See Rx Instructions PO .COMP SANDRA 11/21/24 PRN joint pain flare #30 tabs gabapentin 300 mg capsule 600 mg (2 x 300 mg) PO QDAY #90 01/23/25 caps ropinirole 2 mg tablet 2 mg PO BID #180 tabs ondansetron 4 mg disintegrating 4 mg PO Q8H PRN nausea and 02/15/25 tablet vomiting 4 days #20 tabs Allergies Allergy/AdvReac Type Severity Reaction Status Date / Time capsaicin (From Capzasin) Allergy RASH Verified 02/15/25 20:11 menthol (From Capzasin) Allergy RASH Verified 02/15/25 20:11 Sulfa (Sulfonamide Allergy RASH Verified 02/15/25 20:11 Antibiotics) PFSH ED 2 PFSH: Medical History Degenerative scoliosis History of calcium pyrophosphate deposition disease (CPPD) Acid reflux Post-menopausal osteoporosis Osteoarthritis, generalized Erosive osteoarthritis of both hands High risk medication use Immunization counseling Hypertension Chronic low back pain with bilateral sciatica Type 2 diabetes mellitus without complications Hypothyroidism (acquired) Surgical History History of thyroidectomy Hx of cholecystectomy Status post insertion of spinal cord stimulator History of carpal tunnel surgery Family History Other CAD (coronary artery disease) Cancer Diabetes High risk medication use Denies family history of Rheumatoid arthritis Systemic lupus erythematosus (SLE) in adult Social History Smoking and tobacco/nicotine status: never used tobacco/nicotine Second hand smoke exposure: Yes Alcohol intake: never Substance/Drug Use: never Marital status: / Number of children: 3 service: No Current occupational status: unemployed and retired Do you think of yourself as: Straight/Heterosexual Current gender identity: Female Course 2 Vital Signs: Vital signs: Vital Signs Temperature 98.0 F 02/15/25 20:11 Pulse Rate 72 02/16/25 01:00 Respiratory Rate 19 H 02/16/25 01:00 Blood Pressure 137/80 02/16/25 01:00 Pulse Oximetry 95 02/16/25 01:00 Oxygen Delivery Me thod Room Air 02/15/25 22:00 MDM - Nausea/Vomiting/Diarrhea Medical Decision Making Patient signed out to me at shift change pending CT scan. CT shows nothing acute. Labs are unremarkable. After Zofran, she is able to drink without vomiting. I do not suspect any emergent process warranting further workup and she will be discharged home in stable improved condition with a short course of Zofran and follow-up with primary care Lab Data 02/15/25 20:29 02/15/25 20:29 Radiology Impressions KUB X-Ray 02/15/25 20:08 IMPRESSION: 1. Stable cholecystectomy. 2. Continued nonspecific bowel gas pattern with air-filled loops of large and small bowel. Abdomen/Pelvis CT 02/15/25 21:02 IMPRESSION: Dilatation of the intra-and extrahepatic biliary tree which can be normal following cholecystectomy. COMMENTS: Consistent with the [place] [employer]'s Incidental Findings Committee white paper (J Am Rebekah Radiol 2018): Any incidental renal lesion less than 1 cm or classified as too small to characterize, or any incidental cystic renal lesion characterized as simple-appearing, is likely benign. No follow-up imaging is recommended for these lesions per consensus recommendations based on imaging criteria. Laboratory Results WBC 4.82 10^3/uL (3.29-11.43) 02/15/25 20: RBC 4.00 10^6/uL (3.85-5.65) 02/15/25 20:29 Hgb 9.80 g/dL (11.27-16.99) L 02/15/25 20: Hct 31.7 % (36-47) L 02/15/25 20:29 MCV 79.3 fl (85-98) L 02/15/25 20: MCH 24.5 pg (27-33) L 02/15/25: MCHC 30.9 g/dL (30-55) 02/15/25: RDW 16.8 % (12.1-15.1) H 02/15/25: Plt Count 367 10^3/cmm (157-399) 02/15/25: MPV 9.5 fL (7.4-10.4) 02/15/25: Neut % (Auto) 93.0 % 02/15/25: Lymph % (Auto) 4.1 % 02/15/25: [place] % (Auto) 2.1 % 02/15/25 Eos % (Auto) 0.0 % 02/15/25 Baso % (Auto) 0.0 % 02/15/25 Neut # (Auto) 4.48 10^3/uL (1.8-7.7) 02/15/25: Lymph # (Auto) 0.2 10^3/uL (0.8-4.8) L 02/15/25: [place] # (Auto) 0.1 10^3/uL (0.2-0.9) L 02/15/25: Eos # (Auto) 0.0 10^3/uL (0.0-0.8) 02/15/25: Baso # (Auto) 0.0 10^3/uL (0.0-0.1) 02/15/25 Nucleated RBC % (auto) 0 % 02/15/25 Nucleated RBCs # 0.0 /100WBC 02/15/25: Sodium 130 mmol/L (136-145) L 02/15/25: Potassium 4.7 mmol/L (3.5-5.1) 02/15/25: Chloride 95 mmol/L (98-107) L 02/15/25: Carbon Dioxide 22 mmol/L (22-29) 02/15/25: Anion Gap 17.7 (5-19) 02/15/25: BUN 26 mg/dL (8-23) H 02/15/25 20:29 Creatinine 1.1 mg/dL (0.5-0.9) H 02/15/25 20:29 GFR Calculation Not Reportable 02/15/25 20: Glucose 121 mg/dL (65-115) H 02/15/25 20:29 Calculated Osmolality 276 mOsm/kg (285-295) L 02/15/25 20:29 Lactic Acid 1.0 mmol/L (0.5-2.2) 02/15/25 20: Calcium 9.0 mg/dL (8.5-10.5) 02/15/25 20:29 Total Bilirubin 0.4 mg/dL (0.15-1.2) 02/15/25 20: AST 15 U/L (0-32) 02/15/25 20: ALT < 5 U/L (0-33) 02/15/25 20: Alkaline Phosphatase 158 U/L (35-105) H 02/15/25 20:29 Total Protein 6.9 g/dL (6.6-8.7) 02/15/25 20:29 Albumin 4.0 g/dL (3.5-5.2) 02/15/25 20: Globulin 2.9 g/dL (1.3-4.6) 02/15/25 20: Lipase 15 U/L (13-60) 02/15/25 20:29 All radiology interpretation(s) finalized by discharge Discharge Plan Discharge Patient Disposition: Home Clinical Impression: Nausea Condition: Stable Prescriptions: New ondansetron 4 mg tablet,disintegrating 4 mg PO Q8H PRN (Reason: nausea and vomiting) 4 Days Qty: 20 0RF No Action potassium chloride 8 mEq capsule, extended release 8 meq PO DAILY PRN (Reason: use with Lasix) Qty: 30 5RF furosemide [Lasix] 20 mg tablet 20 mg PO QAM PRN (Reason: edema) Qty: 30 5RF Rx Instructions: Stop clonidine cholecalciferol (vitamin D3) 125 mcg (5,000 unit) capsule 5,000 unit PO DAILY levothyroxine [Synthroid] 75 mcg tablet 75 mcg PO QDAY Qty: 30 5RF donepezil [Aricept] 5 mg tablet 5 mg PO QDAY Qty: 90 3RF duloxetine [Cymbalta] 60 mg capsule,delayed release(DR/EC) 60 mg PO QDAY Qty: 90 3RF carbidopa-levodopa 50-200 mg tablet extended release 1 tab PO BID Qty: 180 3RF carbidopa-levodopa [Sinemet] 25-100 mg tablet 2 tab PO .COMPLEX Qty: 900 3RF Rx Instructions: 2 tabs PO AT 6AM; 2 tabs at 9AM; 2 tabs PO AT 12PM; 2 tab AT 3PM; 1 tabs PO AT 6PM oxycodone 10 mg tablet PO Movantik 25 mg tablet PO colchicine 0.6 mg tablet 0.6 mg PO BID Qty: 180 1RF hydroxychloroquine 200 mg tablet 200 mg PO BID Qty: 180 1RF prednisone 20 mg tablet See Rx Instructions PO .COMPLEX PRN (Reason: joint pain flare) Qty: 30 1RF Rx Instructions: take 1 daily for 3-7 days PRN joint pain flare PO PRN; (DME) right hinged knee brace See Rx Instructions .Route .MEDSUPPLY Qty: 1 0RF Rx Instructions: As directed (DME) AFO Bilateral See Rx Instructions .Route .MEDSUPPLY Qty: 1 0RF Rx Instructions: As directed ropinirole 2 mg tablet 2 mg PO BID Qty: 180 3RF Rx Instructions: 1 tablet at 5 pm and hs gabapentin 300 mg capsule 600 mg PO QDAY Qty: 90 3RF Rx Instructions: at bedtime famotidine 20 mg tablet 20 mg PO BID Qty: 60 5RF cyclobenzaprine 10 mg tablet 10 mg PO TID PRN (Reason: Spasms) Qty: 30 3RF valsartan 160 mg tablet 160 mg PO DAILY Qty: 90 3RF Discharge Orders: Discharge ED (Routine); Ordered 02/15/25 Ordered By: Kvng Chi Referrals: Tavo Ovalles MD [Primary Care Provider, [facility]] Discharge Diet: Advance as tolerated Discharge Activity: Increase activity as tolerated Patient Instructions: Acute Nausea and Vomiting (ED) Activity Restrictions/Additional Instructions: Your blood tests and x-ray are reassuring and CT scan does not show evidence of surgical emergency requiring further workup or hospitalization. Please take Zofran as needed for nausea and follow-up with your primary care doctor as needed Print Language: Chadian Sign Out Sign Out Data: Patient Sign Out occurred on 02/15/25 at 23:14. Patient's care was discussed, and care was transferred from Fahad Reddy DO to Kvng Chi MD. Coding Level of Care Code ED Technology Officer for Ailyn Gaviria
[2025-02-15] MEDS: ondansetron 2 mg/ML SDV 2 mL 4 MG IVP (21:38)
[2025-02-15] MEDS: sodium chloride 0.9% 500 ML IV (21:38)
[2025-02-15 22:00] VITALS: BP 119/74; PULSE 73; RESP 16; O2SAT 97
[2025-02-15] MEDS: iohexol 350 mg/mL 500 mL Btl (per mL) IV (22:18)
[2025-02-16 01:00] VITALS: BP 137/80; PULSE 72; RESP 19; O2SAT 95
== END 2025-02-16 01:01 | disposition home or self-care (01) ==
PROVIDERS: Student in an Organized Health Care Education/Training Program; Emergency Provider Student in an Organized Health Care Education/Training Program; PCP Family Medicine
DX: R11.0 Nausea (principal); E11.9 Type 2 diabetes mellitus without complications; I10 Essential (primary) hypertension
CPT/HCPCS: 36415; 74018; 74177; 80053; 83605; 83690; 85025; 96361; 96374; 99285; J2405; J7040

== ENCOUNTER 2025-02-24 18:53 | Emergency (ER) | payer MEDICARE, OTHER, SELFPAY ==
[2025-02-24 18:57] VITALS: BP 117/71; PULSE 72; RESP 16; TEMP 36.4; O2SAT 96; BMI 28.5
[2025-02-24 20:50] LABS: Basophils % 0.2 %; Hematocrit 33.2 % (36-47); Lymphocytes # 0.3 10^3/uL (0.8-4.8); Lymphocytes % 5.6 %; Mean Corpuscular HGB Conc 30.4 g/dL (30-55); Mean Corpuscular Hemoglobin 24.9 pg (27-33); Mean Platelet Volume 9.1 fL (7.4-10.4); Monocytes # 0.1 10^3/uL (0.2-0.9); Monocytes % 2.1 %; Neutrophils # 4.85 10^3/uL (1.8-7.7); Nucleated Red Blood Cells % 0 %; Platelet Count 321 10^3/cmm (157-399); Red Blood Count 4.05 10^6/uL (3.85-5.65); Red Cell Distribution Width 16.3 % (12.1-15.1); White Blood Count 5.33 10^3/uL (3.29-11.43)
[2025-02-24 21:06] LABS: Alanine Aminotransferase < 5 U/L (0-33); Albumin Level 4.3 g/dL (3.5-5.2); Alkaline Phosphatase 154 U/L (35-105); Anion Gap 19.1 (5-19); Aspartate Amino Transferase 13 U/L (0-32); Blood Urea Nitrogen 12 mg/dL (8-23); Calcium 9.4 mg/dL (8.5-10.5); Carbon Dioxide 24 mmol/L (22-29); Chloride 95 mmol/L (98-107); Creatinine Clr Calc Pharmacy 50.8152; Globulin 2.6 g/dL (1.3-4.6); Glucose 107 mg/dL (65-115); Lipase 12 U/L (13-60); Osmolality Calculated 278 mOsm/kg (285-295); Potassium 4.1 mmol/L (3.5-5.1); Sodium 134 mmol/L (136-145); Total Bilirubin 0.4 mg/dL (0.15-1.2); Total Protein 6.9 g/dL (6.6-8.7)
--- NOTE | 2025-02-24 22:19 | CTR_ITS ---
PROCEDURE INFORMATION: Exam: CT Head Without Contrast Exam date and time: 02/24/2025 10:59 PM Age: 79 years old Clinical indication: Other: Vomiting, recent head bleed TECHNIQUE: Imaging protocol: Computed tomography of the head without contrast. Radiation optimization: All CT scans at this facility use at least one of these dose optimization techniques: automated exposure control; mA and/or kV adjustment per patient size (includes targeted exams where dose is matched to clinical indication); or iterative reconstruction. COMPARISON: CT head wo con* [id number] 05/25/2024 3:29 PM RADIATION DOSE METRICS: Total DLP (mGy-cm): 1165.1 FINDINGS: Brain: There is generalized brain atrophy. Méndez-white differentiation is preserved. Amorphous lucency is present in the supratentorial white matter bilaterally. No evidence of intracranial hemorrhage or mass effect. Cerebral ventricles: No ventriculomegaly. Paranasal sinuses: Visualized sinuses are unremarkable. No fluid levels. Mastoid air cells: Visualized mastoid air cells are well aerated. Bones: Unremarkable. No acute fracture. Soft tissues: Unremarkable. CT/CT head wo con* [id number] IMPRESSION: 1. Cerebral atrophy and chronic cerebral microvascular disease. 2. No evidence of acute intracranial process.
[2025-02-24 22:34] VITALS: BP 157/81; PULSE 72; RESP 16; O2SAT 99
[2025-02-24 22:44] LABS: Bilirubin Urine Negative (Negative); Blood Urine Negative (Negative); Glucose Urine UA Negative (Normal); Ketones Urine Trace (Negative); Leukocyte Esterase Urine 1+ (Negative); Nitrate Urine Negative (Negative); Protein Urine 1+ (Negative); Specific Gravity, Urine 1.017 (1.005-1.030); Urine Appearance Cloudy (CLEAR); Urine Color Yellow (Yellow)
[2025-02-24 22:49] LABS: Add Urine Microscopic? YES; Bacteria Urine 4+ /hpf; Hyaline Casts Urine 1.65 /lpf; RBC Urine 0-2 /hpf (0-2); Squamous Epithelial Cell Urine 0-5 /hpf (0-5)
--- NOTE | 2025-02-24 23:09 | ED_ITS ---
HPI - Nausea/Vomiting/Diarrhea 2 General: Chief complaint: Nausea/Vomiting/Diarrhea Stated complaint: n/v/d, hit head 3 weeks ago (was seen on monday) Time Seen by Provider: 02/24/25 22:13 History of Present Illness: 79-year-old female with a history of YAZ D, arthritis, hypertension, type 2 diabetes, and history of a subdural hematoma in the past who presents the emergency room with intractable nausea and vomiting. No change in her mentation. No focal motor deficits. No known fevers. Family becomes concerned because she keeps vomiting. Related Data Home Medications ?Medication ?Instructions ?Recorded ?Confirmed cholecalciferol (vitamin D3) 125 5,000 unit PO DAILY 0 10/19/20 02/24/25 mcg (5,000 unit) capsule naloxegol 25 mg tablet (Movantik) mg PO 07/25/2402/24 oxycodone 10 mg tablet mg PO 07/25/24 02/24/25 Previous Rx's ?Medication ?Instructions ?Recorded famotidine 20 mg tablet 20 mg PO BID #60 tabs potassium chloride 8 mEq 8 meq PO DAILY PRN use with Lasix 08/28/20 capsule,extended release #30 caps furosemide 20 mg tablet (Lasix) 20 mg PO QAM PRN edema #30 tabs 01/10/22 cyclobenzaprine 10 mg tablet 10 mg PO TID PRN Spasms # 30 tabs 02/16/22 levothyroxine 75 mcg tablet 75 mcg PO QDAY #30 tabs (Synthroid) valsartan 160 mg tablet 160 mg PO DAILY #90 tabs 01/01 donepezil 5 mg tablet (Aricept) 5 mg PO QDAY #90 tabs 08/01/23 duloxetine 60 mg capsule,delayed 60 mg PO QDAY #90 cap s 08/01/23 release (Cymbalta) carbidopa 25 mg-levodopa 100 mg 2 tab PO .COMPLEX #900 tabs 01/24/24 tablet (Sinemet) carbidopa ER 50 mg-levodopa 200 mg 1 tab PO BID #180 t abs 01/24/24 tablet,extended release AFO Bilateral #1 ea 07/11/24 right hinged knee brace #1 ea 08/02/24 colchicine 0.6 mg tablet 0.6 mg PO BID #180 tabs 11/09 12/03 hydroxychloroquine 200 mg tablet 200 mg PO BID #180 ta bs 11/21/24 prednisone 20 mg tablet See Rx Instructions PO .COMP SANDRA 11/21/24 PRN joint pain flare #30 tabs gabapentin 300 mg capsule 600 mg (2 x 300 mg) PO QDAY #90 01/23/25 caps ropinirole 2 mg tablet 2 mg PO BID #180 tabs cefdinir 300 mg capsule 300 mg PO BID 7 days #14 cap s 02/25/25 ondansetron 8 mg disintegrating 8 mg PO Q6H #14 tabs 0 02/25/25 tablet Allergies Allergy/AdvReac Type Severity Reaction Status Date / Time capsaicin (From Capzasin) Allergy RASH Verified 02/24/25 15:01 menthol (From Capzasin) Allergy RASH Verified 02/24/25 15:01 Sulfa (Sulfonamide Allergy RASH Verified 02/24/25 15:01 Antibiotics) Review of Systems 2 Narrative: Constitutional symptoms: Negative except as documented in HPI. Skin symptoms: Negative except as documented in HPI. Eye symptoms: Negative except as documented in HPI. ENMT symptoms: Negative except as documented in HPI. Respiratory symptoms: Negative except as documented in HPI. Cardiovascular symptoms: Negative except as documented in HPI. Gastrointestinal symptoms: Negative except as documented in HPI. Genitourinary symptoms: Negative except as documented in HPI. Musculoskeletal symptoms: Negative except as documented in HPI. Neurologic symptoms: Negative except as documented in HPI. Psychiatric symptoms: Negative except as documented in HPI. Endocrine symptoms: Negative except as documented in HPI. PFSH ED 2 PFSH: Medical History Degenerative scoliosis History of calcium pyrophosphate deposition disease (CPPD) Acid reflux Post-menopausal osteoporosis Osteoarthritis, generalized Erosive osteoarthritis of both hands High risk medication use Immunization counseling Hypertension Chronic low back pain with bilateral sciatica Type 2 diabetes mellitus without complications Hypothyroidism (acquired) Surgical History History of thyroidectomy Hx of cholecystectomy Status post insertion of spinal cord stimulator History of carpal tunnel surgery Family History Other CAD (coronary artery disease) Cancer Diabetes High risk medication use Denies family history of Rheumatoid arthritis Systemic lupus erythematosus (SLE) in adult Social History Smoking and tobacco/nicotine status: never used tobacco/nicotine Second hand smoke exposure: Yes Alcohol intake: never Substance/Drug Use: never Marital status: / Number of children: 3 service: No Current occupational status: unemployed and retired Do you think of yourself as: Straight/Heterosexual Current gender identity: Female Female Reproductive History: Spontaneous abortions: No Physical Exam 2 Narrative: EXAM NARRATIVE: General: Alert, no acute distress. Skin: Warm, dry. Head: Normocephalic, atraumatic. Neck: Supple, trachea midline. Eye: Extraocular movements are intact. Ears, nose, mouth and throat: Tacky oral mucosa Cardiovascular: Regular, Normal peripheral perfusion. Respiratory: Lungs are clear to auscultation, respirations are non-labored, breath sounds are equal, Symmetrical chest wall expansion. Gastrointestinal: Soft, Nontender, Non distended Musculoskeletal: Normal ROM, no deformity. Neurological: Alert and oriented, No focal neurological deficit observed. Psychiatric: Cooperative, appropriate mood & affect. Course 2 Vital Signs: Vital signs: Vital Signs Temperature 97.6 F 02/24/25 18:57 Pulse Rate 73 02/24/25 23:54 Respiratory Rate 18 02/24/25 23:54 Blood Pressure 155/77 02/24/25 23:54 Pulse Oximetry 97 02/24/25 23:54 Oxygen Delivery Me thod Room Air 02/24/25 18:57 MDM - Nausea/Vomiting/Diarrhea Medical Decision Making Medical decision making: Differential diagnosis for this patient with nausea and vomiting including but not limited to and based on the above HPI, review of systems and physical exam: Urinary tract infection. Appendicitis. Cholecystitis. Colitis. small bowel obstruction. crohn's flare. pancreatitis. gastritis. peptic ulcer. cyclic vomiting. Viral illness. Influenza. COVID. Orders placed to evaluate differential diagnosis based on the above differential, HPI and physical exam Lab Review: Laboratory results were reviewed and interpreted by myself the emergency room physician. No leukocytosis. No anemia. No renal failure. Patient does have a significant urinary tract infection with 1+ leukocyte esterase, 11-20 whites and 4+ bacteria. CT head: No acute intracranial process. no intracranial hemorrhage, no evidence of infarct. no evidence of acute fracture.This was reviewed and interpreted by myself the ER physician. I reviewed the patient's medical record. Reexamination: Patient remained stable. No increased work of breathing. No altered mental status. No focal motor deficits. Assessment and plan: UTI Vomiting Dehydration ? 2 doses IV Zofran, normal saline bolus and IV Rocephin. - Discharged home - Discussed plan with patient. Answered any questions. - Evaluation and treatment of this problem were appropriate in the emergency setting. Lab Data 02/24/25 20:30 02/24/25 20:[address] 02/24/25 22:19 IMPRESSION: 1. Cerebral atrophy and chronic cerebral microvascular disease. 2. No evidence of acute intracranial process. Laboratory Results WBC 5.33 10^3/uL (3.29-11.43) 02/24/25 20: RBC 4.05 10^6/uL (3.85-5.65) 02/24/25 20: Hgb 10.10 g/dL (11.27-16.99) L 02/24/25: Hct 33.2 % (36-47) L 02/24/25 20:30 MCV 82.0 fl (85-98) L 02/24/25: MCH 24.9 pg (27-33) L 02/24/25: MCHC 30.4 g/dL (30-55) 02/24/25 20: RDW 16.3 % (12.1-15.1) H 02/24/25: Plt Count 321 10^3/cmm (157-399) 02/24/25: MPV 9.1 fL (7.4-10.4) 02/24/25 20: Neut % (Auto) 91.0 % 02/24/25 20:30 Lymph % (Auto) 5.6 % 02/24/25: [place] % (Auto) 2.1 % 02/24/25: Eos % (Auto) 0.0 % 02/24/25:30 Baso % (Auto) 0.2 % 02/24/25 20:30 Neut # (Auto) 4.85 10^3/uL (1.8-7.7) 02/24/25 20:30 Lymph # (Auto) 0.3 10^3/uL (0.8-4.8) L 02/24/25 20:30 [place] # (Auto) 0.1 10^3/uL (0.2-0.9) L 02/24/25 20:30 Eos # (Auto) 0.0 10^3/uL (0.0-0.8) 02/24/25 20:30 Baso # (Auto) 0.0 10^3/uL (0.0-0.1) 02/24/25 20:30 Nucleated RBC % (auto) 0 % 02/24/25 20:30 Nucleated RBCs # 0.0 /100WBC 02/24/25 20:30 Sodium 134 mmol/L (136-145) L 02/24/25 20:30 Potassium 4.1 mmol/L (3.5-5.1) 02/24/25 20:30 Chloride 95 mmol/L (98-107) L 02/24/25 20:30 Carbon Dioxide 24 mmol/L (22-29) 02/24/25 20:30 Anion Gap 19.1 (5-19) H 02/24/25 20:30 BUN 12 mg/dL (8-23) 02/24/25 20:30 Creatinine 0.7 mg/dL (0.5-0.9) 02/24/25 20:30 GFR Calculation Not Reportable 02/24/25 20:30 Glucose 107 mg/dL (65-115) 02/24/25 20:30 Calculated Osmolality 278 mOsm/kg (285-295) L 02/24/25 20:30 Lactic Acid 0.9 mmol/L (0.5-2.2) 02/24/25 22:51 Calcium 9.4 mg/dL (8.5-10.5) 02/24/25 20:30 Total Bilirubin 0.4 mg/dL (0.15-1.2) 02/24/25 20:30 AST 13 U/L (0-32) 02/24/25 20:30 ALT < 5 U/L (0-33) 02/24/25 20:30 Alkaline Phosphatase 154 U/L (35-105) H 02/24/25 20:30 Total Protein 6.9 g/dL (6.6-8.7) 02/24/25 20:30 Albumin 4.3 g/dL (3.5-5.2) 02/24/25 20:30 Globulin 2.6 g/dL (1.3-4.6) 02/24/25 20:30 Lipase 12 U/L (13-60) L 02/24/25 20:30 Urine Color Yellow (Yellow) 02/24/25 22:30 Urine Appearance Cloudy (CLEAR) A 02/24/25 22: Urine pH 5.0 (5-7) 02/24/25 22:30 Ur Specific [place] 1.017 (1.005-1.030) 02/24/25:30 Urine Protein 1+ (Negative) A 02/24/25: Urine Glucose (UA) Negative (Normal) 02/24/25: Urine Ketones Trace (Negative) 02/24/25 22:30 Urine Blood Negative (Negative) 02/24/25:30 Urine Nitrate Negative (Negative) 02/24/25: Urine Bilirubin Negative (Negative) 02/24/25: Urine Urobilinogen 1.0 mg/dL (Negative) 02/24/25 22:30 Ur Leukocyte Esterase 1+ (Negative) A 02/24/25: Urine RBC 0-2 /hpf (0-2) 02/24/25 22:30 Urine WBC 11-20 /hpf (0-5) H 02/24/25 22:30 Ur Squamous Epith Cells 0-5 /hpf (0-5) 02/24/25:30 Amorphous Sediment Not Reportable 02/24/25: Urine Bacteria 4+ /hpf (NONE) H 02/24/25:30 Hyaline Casts 1.65 /lpf 02/24/25 22:30 All radiology interpretation(s) finalized by discharge Discharge Plan Discharge Patient Disposition: Home Clinical Impression: Urinary tract infection Condition: Stable Prescriptions: New ondansetron 8 mg tablet,disintegrating 8 mg PO Q6H Qty: 14 0RF Rx Instructions: Take 1/2-1 tab every 6 hours as needed for nausea and vomiting cefdinir 300 mg capsule 300 mg PO BID 7 Days Qty: 14 0RF No Action potassium chloride 8 mEq capsule, extended release 8 meq PO DAILY PRN (Reason: use with Lasix) Qty: 30 5RF furosemide [Lasix] 20 mg tablet 20 mg PO QAM PRN (Reason: edema) Qty: 30 5RF Rx Instructions: Stop clonidine cholecalciferol (vitamin D3) 125 mcg (5,000 unit) capsule 5,000 unit PO DAILY levothyroxine [Synthroid] 75 mcg tablet 75 mcg PO QDAY Qty: 30 5RF donepezil [Aricept] 5 mg tablet 5 mg PO QDAY Qty: 90 3RF duloxetine [Cymbalta] 60 mg capsule,delayed release(DR/EC) 60 mg PO QDAY Qty: 90 3RF carbidopa-levodopa 50-200 mg tablet extended release 1 tab PO BID Qty: 180 3RF carbidopa-levodopa [Sinemet] 25-100 mg tablet 2 tab PO .COMPLEX Qty: 900 3RF Rx Instructions: 2 tabs PO AT 6AM; 2 tabs at 9AM; 2 tabs PO AT 12PM; 2 tab AT 3PM; 1 tabs PO AT 6PM oxycodone 10 mg tablet PO Movantik 25 mg tablet PO colchicine 0.6 mg tablet 0.6 mg PO BID Qty: 180 1RF hydroxychloroquine 200 mg tablet 200 mg PO BID Qty: 180 1RF prednisone 20 mg tablet See Rx Instructions PO .COMPLEX PRN (Reason: joint pain flare) Qty: 30 1RF Rx Instructions: take 1 daily for 3-7 days PRN joint pain flare PO PRN; (DME) right hinged knee brace See Rx Instructions .Route .MEDSUPPLY Qty: 1 0RF Rx Instructions: As directed (DME) AFO Bilateral See Rx Instructions .Route .MEDSUPPLY Qty: 1 0RF Rx Instructions: As directed ropinirole 2 mg tablet 2 mg PO BID Qty: 180 3RF Rx Instructions: 1 tablet at 5 pm and hs gabapentin 300 mg capsule 600 mg PO QDAY Qty: 90 3RF Rx Instructions: at bedtime famotidine 20 mg tablet 20 mg PO BID Qty: 60 5RF cyclobenzaprine 10 mg tablet 10 mg PO TID PRN (Reason: Spasms) Qty: 30 3RF valsartan 160 mg tablet 160 mg PO DAILY Qty: 90 3RF Discharge Orders: Discharge ED (Routine); Ordered 02/25/25 Ordered By: Mónica Mcqueen Referrals: Tavo Ovalles MD [Primary Care Provider, Family Practice] Discharge Diet: Usual diet Discharge Activity: Increase activity as tolerated Patient Instructions: Urinary Tract Infection in Older Adults (ED), Opioid Safety, Pain Management Activity Restrictions/Additional Instructions: Thank you for choosing [facility] for your healthcare needs today. You have been screened and evaluated and felt safe for discharge. Health conditions do change or evolve sometimes and as such it is important that you follow up with your Primary Doctor to be re checked, 3-5 days is a general good time frame for follow up. You are always welcome to return to the ED for re assessment if your symptoms are worsening or you have new concerns Print Language: Persian Coding Level of Care Code ED [employer]rer for Ailyn Gaviria
[2025-02-24 23:12] LABS: UA Slide Review UA Slide Review Perf
[2025-02-24 23:13] LABS: Add Urine Culture? Yes
[2025-02-24] MEDS: sodium chloride 0.9% 1,000 ML 999 ML IV (23:20)
[2025-02-24] MEDS: ondansetron 2 mg/ML SDV 2 mL 4 MG IVP (23:20)
[2025-02-24 23:39] LABS: Lactic Sepsis W/Reflex 0.9 mmol/L (0.5-2.2)
[2025-02-24] MEDS: cefTRIAXone 1,000 mg SDV 1000 MG IVP (23:52)
[2025-02-24 23:54] VITALS: BP 155/77; PULSE 73; RESP 18; O2SAT 97
[2025-02-25] MEDS: gabapentin 300 mg Capsule 600 MG PO (00:29)
[2025-02-25] MEDS: ondansetron 2 mg/ML SDV 2 mL 8 MG IVP (00:32)
[2025-02-25 00:44] VITALS: BP 156/92; PULSE 76; O2SAT 98
== END 2025-02-25 00:45 | disposition home or self-care (01) ==
PROVIDERS: Emergency Medicine; Emergency Provider Emergency Medicine; PCP Family Medicine
DX: N39.0 Urinary tract infection, site not specified (principal); E11.9 Type 2 diabetes mellitus without complications; I10 Essential (primary) hypertension
CPT/HCPCS: 36415; 70450; 80053; 81001; 83605; 83690; 85025; 87040; 87077; 87086; 87186; 96361; 96374; 96375; 96376; 99205; 99285; J0696; J2405; J7030; J9999

== ENCOUNTER → 2025-03-11 13:55 | Outpatient (BNVA) | payer MEDICARE, OTHER, SELFPAY | PROVIDERS: PCP Family Medicine; Visit Provider Student in an Organized Health Care Education/Training Program | DX: M17.11 Unilateral primary osteoarthritis, right knee (principal) | CPT/HCPCS: 20610; 99213; J3301; J9999 ==

== ENCOUNTER 2025-03-26 17:07 | Outpatient (CLI) | payer MEDICARE, OTHER, SELFPAY | END 2025-03-26 17:08 | disposition home or self-care (01) | PROVIDERS: PCP Family Medicine; Visit Provider Anesthesiology Pain Medicine | DX: Z79.899 Other long term (current) drug therapy (principal); M15.9 Polyosteoarthritis, unspecified; Z87.39 Personal history of other diseases of the musculoskeletal system and connective tissue; M15.4 Erosive (osteo)arthritis; M81.0 Age-related osteoporosis without current pathological fracture | CPT/HCPCS: 36415; 80076; 82565; 85025; 85651; 86140; 99214 ==

== ENCOUNTER 2025-03-27 22:38 | Outpatient (CLI) | payer MEDICARE, OTHER, SELFPAY ==
[2025-03-27 22:49] LABS: Glucose Urine UA Negative (Normal); Nitrate Urine Positive (Negative); Specific Gravity, Urine 1.012 (1.005-1.030)
[2025-03-27 22:54] LABS: Add Urine Microscopic? YES
== END 2025-03-27 22:39 | disposition home or self-care (01) ==
PROVIDERS: PCP Family Medicine; Visit Provider Family Medicine
DX: N39.0 Urinary tract infection, site not specified (principal)
CPT/HCPCS: 81001; 87086

== ENCOUNTER 2025-04-21 12:30 | Outpatient (CLI) | payer MEDICARE, OTHER, SELFPAY ==
[2025-04-21 13:27] LABS: Alanine Aminotransferase < 5 U/L (0-33); Albumin Level 3.8 g/dL (3.5-5.2); Alkaline Phosphatase 112 U/L (35-105); Anion Gap 13.2 (5-19); Aspartate Amino Transferase 19 U/L (0-32); Blood Urea Nitrogen 13 mg/dL (8-23); Calcium 8.8 mg/dL (8.5-10.5); Carbon Dioxide 28 mmol/L (22-29); Chloride 103 mmol/L (98-107); Globulin 1.8 g/dL (1.3-4.6); Glucose 92 mg/dL (65-115); Osmolality Calculated 290 mOsm/kg (285-295); Potassium 4.2 mmol/L (3.5-5.1); Sodium 140 mmol/L (136-145); Total Protein 5.6 g/dL (6.6-8.7); Vitamin B12 423 pg/mL (232-1245)
== END 2025-04-21 12:31 | disposition home or self-care (01) ==
PROVIDERS: PCP Family Medicine; Visit Provider Family Medicine
DX: E55.9 Vitamin D deficiency, unspecified (principal); I10 Essential (primary) hypertension
CPT/HCPCS: 80053; 82306; 82607

== ENCOUNTER → 2025-04-22 13:15 | Outpatient (BNVA) | payer MEDICARE, SELFPAY | PROVIDERS: PCP Family Medicine; Visit Provider Student in an Organized Health Care Education/Training Program | DX: M17.12 Unilateral primary osteoarthritis, left knee (principal); M25.562 Pain in left knee | CPT/HCPCS: 20610; 73562; 99213; J3301; J9999 ==

== ENCOUNTER → 2025-06-23 14:12 | Outpatient (BNVA) | payer MEDICARE, OTHER, SELFPAY | PROVIDERS: PCP Family Medicine; Visit Provider Specialist | DX: G20.A1 Parkinson's disease without dyskinesia, without mention of fluctuations (principal); E11.42 Type 2 diabetes mellitus with diabetic polyneuropathy; Z98.1 Arthrodesis status; G62.9 Polyneuropathy, unspecified; R29.6 Repeated falls; R03.0 Elevated blood-pressure reading, without diagnosis of hypertension | CPT/HCPCS: 99214 ==

== ENCOUNTER 2025-07-04 12:27 | Outpatient (CLI) | payer MEDICARE, OTHER, SELFPAY ==
[2025-07-04 12:40] LABS: Hematocrit 33.2 % (36-47); Hemoglobin 10.20 g/dL (11.27-16.99); Mean Corpuscular HGB Conc 30.7 g/dL (30-55); Mean Corpuscular Hemoglobin 25.8 pg (27-33); Mean Corpuscular Volume 83.8 fl (85-98); Nucleated Red Blood Cells % 0 %; Platelet Count 318 10^3/cmm (157-399); Red Blood Count 3.96 10^6/uL (3.85-5.65); White Blood Count 6.10 10^3/uL (3.29-11.43)
[2025-07-04 13:02] LABS: Alanine Aminotransferase < 5 U/L (0-33); Albumin Level 4.2 g/dL (3.5-5.2); Alkaline Phosphatase 130 U/L (35-105); Aspartate Amino Transferase 18 U/L (0-32); Globulin 2.3 g/dL (1.3-4.6); Total Protein 6.5 g/dL (6.6-8.7)
== END 2025-07-04 12:28 | disposition home or self-care (01) ==
LOC: LAB 12:27
PROVIDERS: PCP Family Medicine; Visit Provider Internal Medicine Rheumatology
DX: Z79.899 Other long term (current) drug therapy (principal); M15.4 Erosive (osteo)arthritis; M15.9 Polyosteoarthritis, unspecified
CPT/HCPCS: 80076; 82565; 85025; 85651; 86140

== ENCOUNTER 2025-07-13 11:11 | Emergency (ER) | payer MEDICARE, OTHER, SELFPAY ==
[2025-07-13 11:18] VITALS: BP 156/71; PULSE 76; RESP 15; TEMP 36.5; O2SAT 99; BMI 26.3
--- NOTE | 2025-07-13 11:21 | CTR_ITS ---
PROCEDURE INFORMATION: Exam: CT Cervical Spine Without Contrast Exam date and time: 07/13/2025 12:23 PM Age: 80 years old Clinical indication: Injury or trauma; Fall; Blunt trauma TECHNIQUE: Imaging protocol: Computed tomography of the cervical spine without contrast. Radiation optimization: All CT scans at this facility use at least one of these dose optimization techniques: automated exposure control; mA and/or kV adjustment per patient size (includes targeted exams where dose is matched to clinical indication); or iterative reconstruction. COMPARISON: CT cervical spin wo con* [id number] 01/22/2023 3:01 PM RADIATION DOSE METRICS: Total DLP (mGy-cm): 210 FINDINGS: Bones: C4 through C6 anterior fusion. Normal alignment. Degenerative disc disease, most prominently see C6-C7. Diffuse facet arthropathy. No fracture. Lungs: Lung apices are normal. Soft tissues: Unremarkable. CT/CT cervical spin wo con* [id number] IMPRESSION: No acute cervical spine fracture.
--- NOTE | 2025-07-13 11:21 | CTR_ITS ---
PROCEDURE INFORMATION: Exam: CT Head Without Contrast Exam date and time: 07/13/2025 12:23 PM Age: 80 years old Clinical indication: Injury or trauma; Fall; Blunt trauma (contusions or hematomas) TECHNIQUE: Imaging protocol: Computed tomography of the head without contrast. Radiation optimization: All CT scans at this facility use at least one of these dose optimization techniques: automated exposure control; mA and/or kV adjustment per patient size (includes targeted exams where dose is matched to clinical indication); or iterative reconstruction. COMPARISON: CT head wo con* [id number] 02/24/2025 10:59 PM RADIATION DOSE METRICS: Total DLP (mGy-cm): 1258.48 FINDINGS: Brain: No intracranial hemorrhage. There is global parenchymal volume loss. Periventricular white matter hypoattenuation is nonspecific but most likely due to small vessel disease. No evidence of acute territorial infarct or cerebral edema. No mass effect or midline shift. Cerebral ventricles: Prominent ventricles likely secondary to volume loss. Paranasal sinuses: Visualized sinuses are unremarkable. No fluid levels. Mastoid air cells: Visualized mastoid air cells are well aerated. Bones: Unremarkable. No acute fracture. Soft tissues: Left frontal scalp hematoma. CT/CT head wo con* [id number] IMPRESSION: No acute intracranial findings.
--- NOTE | 2025-07-13 11:21 | W.ED.HEATRA ---
HPI - Head Injury General: Chief complaint: Fall Stated complaint: head pain s/p fall Time Seen by Provider: 07/13/25 11:13 Source: patient Mode of arrival: EMS Limitations: no limitations History of Present Illness: Patient is an 80-year-old female with a history of Parkinson's who presents to the ED today via EMS for evaluation of a fall. She reportedly fell at her halfway [facility] on Monday and struck her left frontal region. I am not sure if she was seen following this visit but I do not have any documentation that she was seen here in our ED. today she was reportedly in her wheelchair and bent over to pick something off off the ground when she toppled out of her wheelchair and struck her left frontal region again. No LOC. Patient does not have any physical complaints at time of my examination. I do not see where she is on anticoagulation. MD Complaint: head injury Onset (ago): hour(s) Mechanism of Injury: fall Place: home ([facility]) Loss of Consciousness: no Location of injury: frontal Severity: mild Radiation: none Other Injuries: none Associated symptoms: Reports no associated symptoms; Deny neck pain or syncope Related Data Home Medications ?Medication ?Instructions ?Recorded ?Confirmed cholecalciferol (vitamin D3) 125 5,000 unit PO DAILY 10/19/20 06/23/25 mcg (5,000 unit) capsule gabapentin 100 mg capsule 100 mg PO BID 06/23/25 06/23/25 oxycodone 10 mg tablet 10 mg PO Q4H PRN 06/23/25 06/23/25 Previous Rx's ?Medication ?Instructions ?Recorded famotidine 20 mg tablet 20 mg PO BID #60 tabs 02/22/20 cyclobenzaprine 10 mg tablet 10 mg PO TID PRN Spasms #30 tabs 02/16/22 levothyroxine 75 mcg tablet 75 mcg PO QDAY #30 tabs 08/22/22 (Synthroid) valsartan 160 mg tablet 160 mg PO DAILY #90 tabs 06/14/23 donepezil 5 mg tablet (Aricept) 5 mg PO QDAY #90 tabs 08/01/23 duloxetine 60 mg capsule,delayed 60 mg PO QDAY #90 caps 08/01/23 release (Cymbalta) AFO Bilateral #1 ea 07/11/24 right hinged knee brace #1 ea 08/02/24 gabapentin 300 mg capsule 600 mg (2 x 300 mg) PO QDAY #90 01/23/25 caps colchicine 0.6 mg tablet 0.6 mg PO BID #180 tabs 03/26/25 hydroxychloroquine 200 mg tablet 200 mg PO BID #180 tabs 03/26/25 prednisone 20 mg tablet See Rx Instructions PO .COMPLEX 03/26/25 PRN joint pain flare #30 tabs carbidopa 25 mg-levodopa 100 mg 2 tab PO .COMPLEX #1,080 tabs 06/23/25 tablet (Sinemet) carbidopa ER 50 mg-levodopa 200 mg 1 tab PO TID #270 tabs 06/23/25 tablet,extended release Allergies Allergy/AdvReac Type Severity Reaction Status Date / Time capsaicin (From Capzasin) Allergy RASH Verified 06/23/25 15:00 menthol (From Capzasin) Allergy RASH Verified 06/23/25 15:00 Sulfa (Sulfonamide Allergy RASH Verified 06/23/25 15:00 Antibiotics) Review of Systems Eyes: Denies: change in vision, blurry vision, photophobia, eye discharge, floaters or seeing flashes ENMT: Denies: throat pain, odynophagia, ear or mastoid pain, ear discharge, nasal discharge, epistaxis or sinus pain Card: Denies: chest pain, palpitations, lightheadedness, syncope or pre-syncope Resp: Denies: dyspnea or pain on inspiration GI: Denies: abdominal pain : Denies: flank pain or hematuria Musc: Denies: neck pain, back pain, extremity pain or joint pain Skin/Breast: Reports: other (forehead abrasion) Neuro: Denies: headache(s), numbness in extremities, weakness in extremities, sensory changes or dizziness PFSH ED PFSH: Medical History Degenerative scoliosis History of calcium pyrophosphate deposition disease (CPPD) Acid reflux Post-menopausal osteoporosis Osteoarthritis, generalized Erosive osteoarthritis of both hands High risk medication use Immunization counseling Hypertension Chronic low back pain with bilateral sciatica Type 2 diabetes mellitus without complications Hypothyroidism (acquired) Surgical History History of thyroidectomy Hx of cholecystectomy Status post insertion of spinal cord stimulator History of carpal tunnel surgery Family History Other CAD (coronary artery disease) Cancer Diabetes High risk medication use Denies family history of Rheumatoid arthritis Systemic lupus erythematosus (SLE) in adult Social History Smoking and tobacco/nicotine status: never used tobacco/nicotine Second hand smoke exposure: Yes Alcohol intake: never Substance/Drug Use: never Marital status: / Number of children: 3 service: No Current occupational status: unemployed and retired Do you think of yourself as: Straight/Heterosexual Current gender identity: Female Female Reproductive History: Spontaneous abortions: No Physical Exam Const: COMMON NORMALS: no acute distress, patient oriented x3, no limitations, alert and well nourished GENERAL APPEARANCE: cooperative ORIENTATION/CONSCIOUSNESS: Yes awake, Yes oriented to person and Yes oriented to place HENMT: COMMON NORMALS: normocephalic and Normal external nose present HEAD & SCALP: normocephalic HEAD IMAGES:  1. forehead abrasion FACE & SINUS: normal facial exam NOSE: Normal external nose present MOUTH: other (no intraoral injuries noted) Eye: COMMON NORMALS: Equal, round and reactive pupils present and EOMs intact bilaterally GENERAL EYE: appearance normal, both eyes and all related structures and normal light reflex PUPIL: Yes Equal, round and reactive pupils present DIRECT OPHTHALMOSCOPY: Yes normal light reflex Neck/C-Spine: COMMON NORMALS: full ROM, no lymphadenopathy, supple and no meningeal signs Chest: COMMONS NORMALS: normal inspection of the chest Resp: COMMON NORMALS: normal respiratory effort and clear to auscultation bilaterally AUSCULTATION: clear to auscultation bilaterally Cardio: COMMON NORMALS: regular rate and regular rhythm RATE: regular rate RHYTHM: regular rhythm GI: COMMON NORMALS: Normal to inspection, nondistended, normoactive bowel sounds present, Soft to palpation, non-tender and no masses PALPATION: Yes Soft to palpation : COMMON NORMALS: Yes no CVA tenderness BLADDER/KIDNEY EXAM: Yes no CVA tenderness Back/Pelvis: COMMON NORMALS: no CVA tenderness, thoracic and lumbar spine normal to inspection and no thoracic nor lumbar tenderness Extremity: COMMON NORMALS: normal to inspection and full ROM GENERAL: Yes normal exam except as noted Neuro: [place] COMA SCALE: document GCS findings [place] coma scale eye opening: Spontaneous [place] coma scale verbal response: Orientated [place] coma scale motor response: [place] commands [place] coma scale total score: 15 COMMON NORMALS: patient oriented x3 and moves all extremities SENSORIUM/ORIENTATION: Yes alert, Yes oriented to person and Yes oriented to place MENINGEAL SIGNS: Yes no meningeal signs Skin: COMMON NORMALS: no rashes or lesions noted GENERAL SKIN EXAM: no rashes or lesions noted Course Vital Signs: Vital signs: Vital Signs Temperature 97.7 F 07/13/25 11:18 Pulse Rate 76 07/13/25 11:18 Respiratory Rate 15 07/13/25 11:18 Blood Pressure 156/71 07/13/25 11:18 Pulse Oximetry 99 07/13/25 11:18 Oxygen Delivery Me thod Room Air 07/13/25 11:18 MDM - Head Injury Medcial Decision Making Patient received CT imaging of her head and cervical spine both of which were unremarkable. No further workup was performed based on this being mechanical fall. She will be allowed discharge back to [facility]. The wound to her forehead was copiously irrigated and cleaned. Tetanus was updated. Differential Diagnosis Likely concussion without loss of consciousness, closed head injury, subarachnoid hematoma and subdural hematoma Medical Records I reviewed the patient's medical records. Lab Data Radiology Impressions Cervical Spine CT 07/13/25 11:21 IMPRESSION: No acute cervical spine fracture. Head CT 07/13/25 11:21 IMPRESSION: No acute intracranial findings. All radiology interpretation(s) finalized by discharge Discharge Plan Discharge Patient Disposition: Home Clinical Impression: Accidental fall from wheelchair Qualifiers: Encounter type: initial encounter Qualified Code(s): W05.0XXA - Fall from non-moving wheelchair, initial encounter Forehead contusion Qualifiers: Encounter type: initial encounter Qualified Code(s): S00.83XA - Contusion of other part of head, initial encounter Condition: Stable Prescriptions: No Action cholecalciferol (vitamin D3) 125 mcg (5,000 unit) capsule 5,000 unit PO DAILY levothyroxine [Synthroid] 75 mcg tablet 75 mcg PO QDAY Qty: 30 5RF donepezil [Aricept] 5 mg tablet 5 mg PO QDAY Qty: 90 3RF duloxetine [Cymbalta] 60 mg capsule,delayed release(DR/EC) 60 mg PO QDAY Qty: 90 3RF oxycodone 10 mg tablet 10 mg PO Q4H PRN (DME) right hinged knee brace See Rx Instructions .Route .MEDSUPPLY Qty: 1 0RF Rx Instructions: As directed (DME) AFO Bilateral See Rx Instructions .Route .MEDSUPPLY Qty: 1 0RF Rx Instructions: As directed gabapentin 300 mg capsule 600 mg PO QDAY Qty: 90 3RF Rx Instructions: at bedtime gabapentin 100 mg capsule 100 mg PO BID carbidopa-levodopa 50-200 mg tablet extended release 1 tab PO TID Qty: 270 9RF carbidopa-levodopa [Sinemet] 25-100 mg tablet 2 tab PO .COMPLEX Qty: 1080 9RF Rx Instructions: 3 tabs PO AT 6AM; 2 tabs at 9AM; 3 tabs PO AT 12PM; 2 tab AT 3PM; 2 tabs PO AT 6PM colchicine 0.6 mg tablet 0.6 mg PO BID Qty: 180 1RF hydroxychloroquine 200 mg tablet 200 mg PO BID Qty: 180 1RF prednisone 20 mg tablet See Rx Instructions PO .COMPLEX PRN (Reason: joint pain flare) Qty: 30 1RF Rx Instructions: take 1 daily for 3-7 days PRN joint pain flare PO PRN; famotidine 20 mg tablet 20 mg PO BID Qty: 60 5RF cyclobenzaprine 10 mg tablet 10 mg PO TID PRN (Reason: Spasms) Qty: 30 3RF valsartan 160 mg tablet 160 mg PO DAILY Qty: 90 3RF Discharge Orders: Discharge ED (Routine); Ordered 07/13/25 Ordered By: Sade Cardozo Referrals: Tavo Ovalles MD [Primary Care Provider, Family Practice] Patient Instructions: Patient Portal & Michael Instructions Activity Restrictions/Additional Instructions: CT scans of head and cervical spine were obtained today and unremarkable. Tetanus was updated. She will be allowed back to [facility]. Print Language: Cuban Coding Level of Care Code ED Vending Attendant for Ailyn Gaviria
[2025-07-13] MEDS: tetanus-dipt-pertussis 0.5 mL SDV IM (11:42)
== END 2025-07-13 12:23 | disposition home or self-care (01) ==
PROVIDERS: Emergency Provider Physician Assistant; PCP Family Medicine
DX: S00.83XA Contusion of other part of head, initial encounter (principal); W05.0XXA Fall from non-moving wheelchair, initial encounter; E11.9 Type 2 diabetes mellitus without complications; I10 Essential (primary) hypertension
CPT/HCPCS: 70450; 72125; 90471; 90715; 99284

== ENCOUNTER → 2025-07-15 09:48 | Outpatient (BNVA) | payer MEDICARE, SELFPAY | PROVIDERS: PCP Family Medicine; Visit Provider Anesthesiology Pain Medicine | DX: M54.42 Lumbago with sciatica, left side (principal); M54.41 Lumbago with sciatica, right side; G89.29 Other chronic pain; S06.5XAA Traumatic subdural hemorrhage with loss of consciousness status unknown, initial encounter; X58.XXXA Exposure to other specified factors, initial encounter | CPT/HCPCS: 99214 ==

== ENCOUNTER → 2025-07-29 13:38 | Outpatient (BNVA) | payer MEDICARE, OTHER, SELFPAY | PROVIDERS: PCP Family Medicine; Visit Provider Student in an Organized Health Care Education/Training Program | DX: M17.0 Bilateral primary osteoarthritis of knee (principal) | CPT/HCPCS: 20610; 99213; J3301; J7318; J9999 ==

== ENCOUNTER 2025-08-31 08:46 | Outpatient (CLI) | payer MEDICARE, OTHER, SELFPAY ==
[2025-08-31 09:20] LABS: Estmated Average Glucose 111; Hemoglobin A1C 5.5 % (4.0-6.0)
== END 2025-08-31 08:47 | disposition home or self-care (01) ==
PROVIDERS: PCP Family Medicine; Visit Provider Family Medicine
DX: D64.9 Anemia, unspecified (principal); E11.9 Type 2 diabetes mellitus without complications
CPT/HCPCS: 83036